=== PATIENT | female | born 1945 | race Caucasian/White ===

== ENCOUNTER → 2017-02-21 | Day surgery (SDC) | payer OTHER, MEDICARE ==
[2017-02-11 10:16] VITALS: Ht 157.5 cm; Wt 66.8 kg
[~2017-02-21] VITALS: Ht 157.5 cm; Wt 66.8 kg
[~2017-02-21] MED LIST: ATV/1 PO; ESOM20CA PO; LIDOCAINE HCL 2% 2 ML VIAL (20MG/ML) ONE; LISI-461 PO; MAGN250T3 PO; PREG1CAP28 PO; PROPOFOL IV EMULSION 10 MG/ML 20 ML VIAL IV ONE; SODIUM CHLORIDE 0.9% 500ML 500 ML IV ONE; SPECTAB57 PO; TRAZ100T29 PO; VITAMIN C PO; VITAMIN D PO
--- NOTE | 2017-02-21 10:27 | Endo History and Physical ---
History & Physical Date of Service: Feb 21, 2017. Chief Complaint: DIARRHEA, ABDOMINAL DISCOMFORT Referring Physician: DR. ROSALES History of Present Illness 72 yo CF who presents for EGD and colonoscopy secondary to diarrhea and abdominal discomfort. Past Surgical History Hx Cardiac Surgery: No Hx Internal Defibrillator: No Hx Pacemaker: No Hx Abdominal Surgery: Yes ( X 2, TAHBSO, APPY, SHAMIR, LEDA FUNDOPLICATION) Hx of Implantable Prosthesis: No Hx Post-Op Nausea and Vomiting: No Hx Cancer Surgery: No Hx Thoracic Surgery: No Hx Orthopedic: No Hx Urinary Tract Surgery: No Family History None Social History Smoking Status: Never Smoker Hx Substance Use: No Hx Alcohol Use: No Allergies Coded Allergies: Iodinated Diagnostic Agents (Verified Allergy, Unknown, THROAT SWELLS SHUT , 02/11/17) Penicillins (Verified Allergy, Unknown, THROAT SWELLED SHUT, 02/11/17) Trimethobenzamide (Verified Allergy, Unknown, THROAT SWELLS SHUT, 02/11/17) Current Medications Reported Home Medications Medications Dose Route/Sig Max Daily Dose Days Date Category [Vitamin C] 1 Tab PO DAILY 02/11/17 Reported [Vitamin D] 1 Tab PO DAILY 02/11/17 Reported Magnesium 250 mg (Magnesium) 1 Tab Tab 1 Tab PO DAILY 02/11/17 Reported Ultra Woman (Specialty Vitamins Products) 1 Tab Tab 1 Tab PO QAM 02/11/17 Reported Lyrica (Pregabalin) 75 Mg Cap 75 Mg PO BID 02/11/17 Reported Trazodone (Trazodone HCl) 100 Mg Tab 100 Mg PO HS 02/11/17 Reported Nexium (Esomeprazole Magnesium) 20 Mg Capcr 2 Tab PO QAM 02/11/17 Reported Ativan (Lorazepam) 1 Mg Tab 1 Mg PO TID PRN 02/11/17 Reported Zestril (Lisinopril) 10 Mg Tab 10 Mg PO QAM 02/11/17 Reported Vital Signs Weight (Kilograms): 66.82 Height (Feet): 5 Height (Inches): 2 Date Time Temp Pulse Resp B/P (MAP) Pulse Ox O2 Delivery O2 Flow Rate FiO2 02/21/17 09:50 37.1 81 16 156/87 (110) 98 Room Air Physical Exam General Appearance: WD/WN, no apparent distress Respiratory/Chest: Auscultation: breath sounds normal Cardiovascular: Heart Auscultation: RRR Abdomen: Bowel Sounds: normal Inspection & Palpation: soft, non-distended, no tenderness, guarding & rebound Assessment and Plan Assessment: 72 yo CF who presents for EGD and colonoscopy secondary to diarrhea and abdominal discomfort. Plan: Proceed with EGD and colonoscopy.
--- NOTE | 2017-02-21 11:07 | Discharge Instructions ---
Endoscopy Patient Instructions Date / Procedure(s) Performed Feb 21, 2017. Colonoscopy, EGD Allergy Information Coded Allergies: Iodinated Diagnostic Agents (Verified Allergy, Unknown, THROAT SWELLS SHUT , 02/11/17) Penicillins (Verified Allergy, Unknown, THROAT SWELLED SHUT, 02/11/17) Trimethobenzamide (Verified Allergy, Unknown, THROAT SWELLS SHUT, 02/11/17) Discharge Date / Findings Feb 21, 2017. EGD: Gastritis with biopsies, Esophageal brushings, Intact Will- fundoplication Colonoscopy: Diverticulosis, Internal hemorrhoids, Random colon biopsies, and Stool aspirate collected Medication Instructions 1) Start Carafate 1g by mouth four times daily for 10 days. 2) OK to resume all medications today as prescribed Reported Home Medications Medications Dose Route/Sig Max Daily Dose Days Date Category [Vitamin C] 1 Tab PO DAILY 02/11/17 Reported [Vitamin D] 1 Tab PO DAILY 02/11/17 Reported Magnesium 250 mg (Magnesium) 1 Tab Tab 1 Tab PO DAILY 02/11/17 Reported Ultra Woman (Specialty Vitamins Products) 1 Tab Tab 1 Tab PO QAM 02/11/17 Reported Lyrica (Pregabalin) 75 Mg Cap 75 Mg PO BID 02/11/17 Reported Trazodone (Trazodone HCl) 100 Mg Tab 100 Mg PO HS 02/11/17 Reported Nexium (Esomeprazole Magnesium) 20 Mg Capcr 2 Tab PO QAM 02/11/17 Reported Ativan (Lorazepam) 1 Mg Tab 1 Mg PO TID PRN 02/11/17 Reported Zestril (Lisinopril) 10 Mg Tab 10 Mg PO QAM 02/11/17 Reported Provider Instructions Activity Restrictions - No exercising or heavy lifting for 24 hours. - Do not drink alcohol the day of the procedure. - Do not drive a car or operate machinery until the day after the procedure. - Do not make any important decisions or sign important papers in 24 hours after the procedure. Following Day: - Return to full activity which may include returning to work/school. Diet Start your diet with liquids and light foods (jello, soup, juice, toast). Then eat your usual diet if not nauseated. Treatment For Common After Affects For mild abdominal pain, bloating, or excessive gas: - Rest - Eat lightly - Lie on right side Follow-Up Information Follow-up with DR. ROSALES as scheduled Anesthesia Information What You Should Know You have had a procedure that required some medicine to reduce anxiety and discomfort. This treatment is called moderate sedation. After receiving the treatment, you may be sleepy, but you will be able to breathe on your own. The effects of the treatment may last for several hours. Follow these instructions along with Activity/Diet recommendations noted above: * Do NOT do anything where dizziness or clumsiness would be dangerous. * Rest quietly at home today, then you can be up and about tomorrow. * Have a responsible person stay with you the rest of today. * You may have had an I.V. today. If so, you may take the dressing off later today. Recommendations Call your doctor if: * Trouble breathing * Continuous vomiting for more than 24 hours * Temperature above 101 degrees * Severe abdominal pain or bloating * Pain not relieved by pain medicine ordered * There is increased drainage or redness from any incision * A large amount of rectal bleeding greater than 2-3 tablespoons. (If you had a polyp/s removed or have hemorrhoids, a small amount of blood - from the rectum is to be expected.) * You have any unanswered questions or concerns. IN THE EVENT OF A SERIOUS EMERGENCY, GO TO THE NEAREST EMERGENCY ROOM Your discharge instructions were prepared by provider Lang Summers. Patient Instructions Signature Page Kandy Torres Patient (or Guardian) Signature/Date: I have read and understand the instructions given to me by my caregivers. Caregiver/RN/Doctor Signature/Date: The above-named patient and/or guardian has received patient instructions on this date. + Original Patient Signature Page (only) stays with chart. Please make copy for patient.
--- NOTE | 2017-02-21 11:13 | GI REPORT ---
Procedure Date: 02/21/2017 10:14 AM Procedure: Upper GI endoscopy Indications: Epigastric abdominal pain Medicines: Monitored Anesthesia Care Complications: No immediate complications. Estimated Blood Loss: Estimated blood loss: none. Procedure: Pre-Anesthesia Assessment: - Prior to the procedure, a History and Physical was performed, and patient medications and allergies were reviewed. The patient's tolerance of previous anesthesia was also reviewed. The risks and benefits of the procedure and the sedation options and risks were discussed with the patient. All questions were answered, and informed consent was obtained. Prior Anticoagulants: The patient has taken no previous anticoagulant or antiplatelet agents. ASA Grade Assessment: II - A patient with mild systemic disease. After reviewing the risks and benefits, the patient was deemed in satisfactory condition to undergo the procedure. After obtaining informed consent, the endoscope was passed under direct vision. Throughout the procedure, the patient's blood pressure, pulse, and oxygen saturations were monitored continuously. The scope was introduced through the mouth, and advanced to the second part of duodenum. The upper GI endoscopy was accomplished without difficulty. The patient tolerated the procedure well. Findings: Multiple 2 mm plaques were found in the middle third of the esophagus. Cells for cytology were obtained by brushing. Evidence of a Will fundoplication was found in the cardia. The wrap appeared intact. This was traversed. Localized moderate inflammation characterized by erythema was found in the gastric antrum. Biopsies were taken with a cold forceps for histology. The examined duodenum was normal. Impression: - Multiple plaques in the middle third of the esophagus. Cells for cytology obtained. - A Will fundoplication was found. The wrap appears intact. - Gastritis. Biopsied. - Normal examined duodenum. Recommendation: - Resume previous diet. - Continue present medications. - Await pathology results. - Return to primary care physician as previously scheduled. Lang Summers, DO 02/21/2017 11:13:37 AM This report has been signed electronically. Note Initiated On: 02/21/2017 10:14 AM I attest to the content of the Intraoperative Record and orders documented therein, exceptions below
--- NOTE | 2017-02-21 11:19 | GI REPORT ---
Procedure Date: 02/21/2017 10:45 AM Procedure: Colonoscopy Indications: Chronic diarrhea Medicines: Monitored Anesthesia Care Complications: No immediate complications. Estimated Blood Loss: Estimated blood loss: none. Procedure: Pre-Anesthesia Assessment: - Prior to the procedure, a History and Physical was performed, and patient medications and allergies were reviewed. The patient's tolerance of previous anesthesia was also reviewed. The risks and benefits of the procedure and the sedation options and risks were discussed with the patient. All questions were answered, and informed consent was obtained. Prior Anticoagulants: The patient has taken no previous anticoagulant or antiplatelet agents. ASA Grade Assessment: II - A patient with mild systemic disease. After reviewing the risks and benefits, the patient was deemed in satisfactory condition to undergo the procedure. After I obtained informed consent, the scope was passed under direct vision. Throughout the procedure, the patient's blood pressure, pulse, and oxygen saturations were monitored continuously. The scope was introduced through the anus and advanced to the terminal ileum. The colonoscopy was performed without difficulty. The patient tolerated the procedure well. The quality of the bowel preparation was good. Findings: Scattered small-mouthed diverticula were found in the entire colon. Non-bleeding internal hemorrhoids were found during retroflexion. The hemorrhoids were small. Several random biopsies were obtained with cold forceps for histology in the entire colon. Fluid aspiration for cytology was performed in the entire colon. Impression: - Diverticulosis in the entire examined colon. - Non-bleeding internal hemorrhoids. - Several random biopsies were obtained in the entire colon. - Fluid aspiration was performed. Recommendation: - Resume previous diet. - Continue present medications. - Repeat colonoscopy for surveillance based on pathology results. - Return to primary care physician as previously scheduled. Lang Summers DO 02/21/2017 11:19:08 AM This report has been signed electronically. Note Initiated On: 02/21/2017 10:45 AM I attest to the content of the Intraoperative Record and orders documented therein, exceptions below
[2017-02-21 11:36] VITALS: BP 161/87; PULSE 71; O2SAT 96
--- NOTE | 2017-02-21 12:02 | Discharge Instructions ---
Endoscopy Patient Instructions Date / Procedure(s) Performed Feb 21, 2017. Colonoscopy, EGD Allergy Information Coded Allergies: Iodinated Diagnostic Agents (Verified Allergy, Unknown, THROAT SWELLS SHUT , 02/11/17) Penicillins (Verified Allergy, Unknown, THROAT SWELLED SHUT, 02/11/17) Trimethobenzamide (Verified Allergy, Unknown, THROAT SWELLS SHUT, 02/11/17) Discharge Date / Findings Feb 21, 2017. EGD: Hiatal hernia, Gastritis with biopsies, Gastric polyps Colonoscopy: Diverticulosis, Internal hemorrhoids Medication Instructions OK to resume all medications today as prescribed Reported Home Medications Medications Dose Route/Sig Max Daily Dose Days Date Category [Vitamin C] 1 Tab PO DAILY 02/11/17 Reported [Vitamin D] 1 Tab PO DAILY 02/11/17 Reported Magnesium 250 mg (Magnesium) 1 Tab Tab 1 Tab PO DAILY 02/11/17 Reported Ultra Woman (Specialty Vitamins Products) 1 Tab Tab 1 Tab PO QAM 02/11/17 Reported Lyrica (Pregabalin) 75 Mg Cap 75 Mg PO BID 02/11/17 Reported Trazodone (Trazodone HCl) 100 Mg Tab 100 Mg PO HS 02/11/17 Reported Nexium (Esomeprazole Magnesium) 20 Mg Capcr 2 Tab PO QAM 02/11/17 Reported Ativan (Lorazepam) 1 Mg Tab 1 Mg PO TID PRN 02/11/17 Reported Zestril (Lisinopril) 10 Mg Tab 10 Mg PO QAM 02/11/17 Reported Provider Instructions Activity Restrictions - No exercising or heavy lifting for 24 hours. - Do not drink alcohol the day of the procedure. - Do not drive a car or operate machinery until the day after the procedure. - Do not make any important decisions or sign important papers in 24 hours after the procedure. Following Day: - Return to full activity which may include returning to work/school. Diet Start your diet with liquids and light foods (jello, soup, juice, toast). Then eat your usual diet if not nauseated. Treatment For Common After Affects For mild abdominal pain, bloating, or excessive gas: - Rest - Eat lightly - Lie on right side Follow-Up Information Follow-up with DR. ROSALES as scheduled Anesthesia Information What You Should Know You have had a procedure that required some medicine to reduce anxiety and discomfort. This treatment is called moderate sedation. After receiving the treatment, you may be sleepy, but you will be able to breathe on your own. The effects of the treatment may last for several hours. Follow these instructions along with Activity/Diet recommendations noted above: * Do NOT do anything where dizziness or clumsiness would be dangerous. * Rest quietly at home today, then you can be up and about tomorrow. * Have a responsible person stay with you the rest of today. * You may have had an I.V. today. If so, you may take the dressing off later today. Recommendations Call your doctor if: * Trouble breathing * Continuous vomiting for more than 24 hours * Temperature above 101 degrees * Severe abdominal pain or bloating * Pain not relieved by pain medicine ordered * There is increased drainage or redness from any incision * A large amount of rectal bleeding greater than 2-3 tablespoons. (If you had a polyp/s removed or have hemorrhoids, a small amount of blood - from the rectum is to be expected.) * You have any unanswered questions or concerns. IN THE EVENT OF A SERIOUS EMERGENCY, GO TO THE NEAREST EMERGENCY ROOM Your discharge instructions were prepared by provider Lang Summers. Patient Instructions Signature Page Kandy Torres Patient (or Guardian) Signature/Date: I have read and understand the instructions given to me by my caregivers. Caregiver/RN/Doctor Signature/Date: The above-named patient and/or guardian has received patient instructions on this date. + Original Patient Signature Page (only) stays with chart. Please make copy for patient.
--- NOTE | 2017-02-21 12:16 | Anesthesiology Progress Note ---
Anesthesia Post Op Note Date & Time Feb 21, 2017 at 12:16 Vital Signs Pain Intensity: 0 Vital Signs Past 12 Hours Date Time Temp Pulse Resp B/P (MAP) Pulse Ox O2 Delivery O2 Flow Rate FiO2 02/21/17 11:36 71 16 161/87 (111) 96 Room Air 02/21/17 11:21 75 16 156/90 (112) 97 Room Air 02/21/17 11:06 88 16 140/84 (102) 96 Room Air 02/21/17 09:50 37.1 81 16 156/87 (110) 98 Room Air Notes Mental Status: alert / awake / arousable, participated in evaluation Pt Amnestic to Procedure: Yes Nausea / Vomiting: adequately controlled Pain: adequately controlled Airway Patency, RR, SpO2: stable & adequate BP & HR: stable & adequate Hydration State: stable & adequate Anesthetic Complications: no major complications apparent
== END | disposition home or self-care (01) ==
LOC: C.GI 09:06
PROVIDERS: ATTEND Internal Medicine
DX: K52.9 Noninfective gastroenteritis and colitis, unspecified (principal); K29.70 Gastritis, unspecified, without bleeding; K57.90 Diverticulosis of intestine, part unspecified, without perforation or abscess without bleeding; K22.8 Other specified diseases of esophagus; K64.8 Other hemorrhoids; R12 Heartburn; F41.9 Anxiety disorder, unspecified; M19.90 Unspecified osteoarthritis, unspecified site; Z88.0 Allergy status to penicillin; Z90.89 Acquired absence of other organs; Z90.49 Acquired absence of other specified parts of digestive tract; Z98.890 Other specified postprocedural states; Z79.899 Other long term (current) drug therapy

== ENCOUNTER 2017-04-22 15:00 | Inpatient (IN) | payer OTHER, MEDICARE ==
[~2017-04-22] VITALS: Ht 160 cm; Wt 66.0 kg
[~2017-04-22 15:00] MED LIST changes: -LIDOCAINE HCL 2% 2 ML VIAL (20MG/ML) ONE; -PROPOFOL IV EMULSION 10 MG/ML 20 ML VIAL IV ONE; -SODIUM CHLORIDE 0.9% 500ML 500 ML IV ONE
[2017-04-22] MEDS ORDERED: SODIUM CHLORIDE 0.9% 500ML 500 ML IV STA (15:22)
[2017-04-22] MEDS ORDERED: ONDANSETRON INJ 2 MG/ML 2 ML VIAL IV STA (15:22)
[2017-04-22 16:04] LABS: BASO % 0.3 %; BASO ABS # 0.02 K/uL (0-0.2); EOS ABS # 0.13 K/uL (0-0.5); HEMATOCRIT 36.4 % (37-47); HEMOGLOBIN 13.4 g/dL (12.0-16.0); IG# 0.01 K/uL (0.00-0.02); LYMPH % 29.7 %; LYMPH ABS # 1.96 K/uL (1.2-3.4); MEAN CELL VOLUME 83.7 fL (80-100); MEAN CORPUSCULAR HEMOGLOBIN 30.8 pg (25-34); MEAN CORPUSCULAR HGB CONC 36.8 g/dl (32-36); MEAN PLATELET VOLUME 9.1 fL (7.4-10.4); MONO % 8.5 %; MONO ABS # 0.56 K/uL (0.11-0.59); NEUT % 59.3 %; NEUT ABS # 3.93 K/uL (1.4-6.5); PLATELET COUNT 283 K/uL (130-400); RED CELL DISTRIBUTION WIDTH SD 42.8 fL (36.4-46.3); WHITE BLOOD COUNT 6.61 K/uL (4.8-10.8)
[2017-04-22] MEDS ORDERED: MoRPHine SULFATE 2 MG/ML CARP IV STA (16:17)
[2017-04-22 16:22] LABS: ALBUMIN 3.7 gm/dl (3.4-5.0); CALCIUM 9.3 mg/dl (8.5-10.1); CREATININE 1.22 mg/dl (0.60-1.20); POTASSIUM 2.8 mmol/L (3.5-5.1)
[2017-04-22 16:25] LABS: TOTAL PROTEIN 6.9 gm/dl (6.4-8.2)
[2017-04-22] MEDS ORDERED: POTASSIUM CHLORIDE 10 MEQ / 100ML WTR IV STA ×3 (16:54→18:32)
--- NOTE | 2017-04-22 16:55 | DIAGNOSTIC IMAGING REPORT ---
ABD/PELVIS WITHOUT FOR STONE CLINICAL HISTORY: 72 years-old Female presenting with right flank pain eval for stone. TECHNIQUE: Multidetector CT of the abdomen and pelvis was performed without the use of intravenous contrast. IV contrast: None. A dose lowering technique was used consistent with the principles of ALARA (as low as reasonably achievable). COMPARISON: None. CT DOSE (mGy.cm): The estimated cumulative dose is 824.79 mGycm. FINDINGS: Sales Correspondent topogram: Cholecystectomy clips. Lung bases: Right paramediastinal reticulation likely scarring or atelectasis. Lung bases otherwise clear. Normal heart size. Coronary artery calcification. No pericardial or pleural effusion. Liver: Normal morphology. Normal density. Biliary: Mild biliary ductal prominence likely a reservoir effect in the post cholecystectomy state. Gallbladder surgically absent. Pancreas: Normal noncontrast appearance. Spleen: Normal noncontrast appearance. Adrenal glands: Normal noncontrast appearance. Kidneys and ureters: Multiple nonobstructing calculi noted bilaterally. Significantly greater stone burden is noted in the left kidney. The largest DrSamir Lis is noted in the interpolar region measuring 11 mm. No hydronephrosis. Urothelial thickening is evident on the left. Nonobstructing 3 mm calculus at the right ureterovesical junction. 6 mm calculus in the distal left ureter, which appears to be nonobstructing. Bladder: Incompletely evaluated secondary to underdistention. Pelvic organs: Uterus surgically absent. No adnexal masses. Bowel: Diverticulosis of the descending and sigmoid colon. No pericolonic fat stranding. No bowel obstruction. Small hiatal hernia. Peritoneal cavity: No free fluid or intraperitoneal gas. Lymph nodes: No gross lymphadenopathy allowing for noncontrast technique. Vasculature: Atherosclerosis of the normal caliber abdominal aorta. Abdominal wall: Infiltration of the left lower quadrant abdominal wall subcutaneous fat. Musculoskeletal: Degenerative changes of the spine. Degenerative changes of the pubic symphysis. Severe osteopenia. IMPRESSION: 1. Nonspecific infiltration of the subcutaneous fat in the left lower quadrant abdominal wall. This could suggest contusion or nonspecific edema. Correlate clinically for injury. 2. Bilateral ureteral calculi, which appear nonobstructing. 3 mm nonobstructing calculus at the right ureterovesical junction and 6 mm distal left ureteral calculus. 3. Bilateral nephrolithiasis with a greater stone burden on the left. No hydronephrosis. 4. Left urothelial thickening suggests inflammatory change. This could be reactive to the presence of the ureteral calculus or suggest infection. Correlate with urinalysis. 5. Severe osteopenia. Electronically signed by: Eduardo Mak M.D. 04/22/2017 4:54 PM Dictated Date/Time: 04/22/2017 4:46 PM
[2017-04-22] MEDS ORDERED: ESOM45CA PO (16:58)
[2017-04-22] MEDS ORDERED: TRAM-10 PO (17:01)
[2017-04-22] MEDS ORDERED: ZOLP10TA6 PO (17:01)
[2017-04-22] MEDS ORDERED: BUPR-102 PO (17:01)
[2017-04-22] MEDS ORDERED: POLYETHYLENE (MIRALAX) 17 GM PACK PO PRN (19:00)
[2017-04-22] MEDS ORDERED: ALUMINUM/MAGNESIUM/SIMETH (MAALOX MAX) 30 ML UDC PO PRN (19:00)
[2017-04-22] MEDS ORDERED: MAGNESIUM HYDROXIDE SUSP 30 ML UDC PO PRN (19:00)
[2017-04-22] MEDS ORDERED: ACETAMINOPHEN 325 MG TAB PO PRN (19:00)
[2017-04-22] MEDS ORDERED: CHOL4POW4 PO (19:04)
[2017-04-22] MEDS ORDERED: LORAZEPAM 1 MG TAB PO PRN (19:15)
--- NOTE | 2017-04-22 19:26 | History and Physical ---
History & Physical Date & Time of Service: Apr 22, 2017 at 19:06 Chief Complaint: Nausea,Weight Loss Primary Care Physician: Jonathon Cha D.O. History of Present Illness Source: patient, spouse, clinic records, hospital records This is a 72 y/o female with a history of HTN, anxiety/depression, insomnia, chronic diarrhea, hiatal hernia s/p Will fundoplication 2008 at [facility] [place], and GERD who presented to the ED on 04/22 with nausea, poor appetite and weight loss x 2 weeks. The patient is somewhat unreliable historian despite being oriented x 3. History obtained also from and outpatient records. The patient states she has been very nauseous and barely eating for the last 2 weeks. In the last two days she has only eaten some Jell-O and water. She notes about a 10 pound weight loss in the last few weeks. She feels generally weak and fatigued. She denies any vomiting. The patient states she has had a diffuse, achy abdominal pain that started in her upper quadrants but then moved to her lower quadrants. She currently denies any pain after receiving morphine. The patient was seen at her GI office today [facility], and per the provider had recommended ED evaluation and possible EGD. The patient denies fevers, chills, sweats, chest pain, palpitations, claudication, cough, wheezing, shortness of breath, vomiting, dysuria, hematuria, urinary retention, paralysis, focal motor weakness, numbness and tingling. Past Medical/Surgical History Medical Problems: (1) Gastritis Status: Resolved (2) Hiatal hernia Status: Resolved (3) Kidney stone Status: Resolved HTN Anxiety, depression, insomnia Chronic diarrhea GERD Family History Breast cancer Coronary artery disease Diabetes mellitus Leukemia Myocardial infarction Social History Smoking Status: Never Smoker Smokeless Tobacco Use: No Alcohol Use: none Drug Use: none Marital Status: Housing status: lives with significant other Occupational Status: retired Allergies Coded Allergies: Lactose. (Verified Allergy, Intermediate, GI Symptoms, 04/22/17) Iodinated Diagnostic Agents (Verified Allergy, Unknown, THROAT SWELLS SHUT , 04/22/17) Penicillins (Verified Allergy, Unknown, THROAT SWELLED SHUT, 04/22/17) Trimethobenzamide (Verified Allergy, Unknown, THROAT SWELLS SHUT, 04/22/17) Home Medications Scheduled Bupropion Hcl (Smoking [place] (Bupropion Hcl Sr), 150 MG PO BID Esomeprazole Magnesium (Esomeprazole Magnesium), 40 MG PO DAILY Lisinopril (Zestril), 10 MG PO QAM Trazodone Hcl (Trazodone), 100 MG PO HS Scheduled PRN Cholestyramine (Cholestyramine), 4 GM PO BID PRN for Diarrhea Lorazepam (Ativan), 1 MG PO TID PRN for Anxiety Tramadol (Ultram), 50 MG PO QID PRN for Pain Zolpidem Tartrate (Zolpidem Tartrate), 5-10 MG PO HS PRN for Sleep Review of Systems Constitutional: +Weak and fatigued. No fever, No chills, No sweats Eyes: No worsening of vision, No eye pain, No diplopia ENT: No hearing loss, No nasal symptoms, No trouble swallowing Respiratory: No cough, No wheezing, No shortness of breath Cardiovascular: No chest pain, No claudication, No palpitations Abdomen: +Nausea, abdominal pain. Poor appetite. No vomiting Musculoskeletal: No joint pain, No muscle pain, No swelling Genitourinary - Female: No dysuria, No urinary retention, No hematuria Neurologic: No paralysis, No weakness, No numbness/tingling Integumentary: No rash, No itch, No color change Physical Exam Vital Signs Date Time Temp Pulse Resp B/P (MAP) Pulse Ox O2 Delivery O2 Flow Rate FiO2 04/22/17 18:24 76 18 123/70 96 Room Air 04/22/17 16:57 139/71 99 Room Air 04/22/17 15:03 36.3 84 18 129/75 98 Room Air General appearance: Well-developed, well-nourished, no apparent distress Head: Normocephalic, atraumatic Eyes: Normal inspection, PERRL, EOMI ENT: Normal ENT inspection, hearing grossly normal, pharynx normal Neck: Supple, no JVD, trachea midline Respiratory/Chest: Lungs clear to auscultation, normal breath sounds, no respiratory distress Cardiovascular: Regular rate & rhythm, no gallop, no murmur Abdomen/GI: +RLQ mildly TTP. Normal bowel sounds, soft Extremities/Musculoskeletal: Normal inspection, no calf tenderness, no pedal edema Neurological/Psych: +Somewhat confused at times but oriented. Alert, normal mood/affect, oriented x 3 Skin: Normal color, warm/dry, no rash Diagnostics Laboratory Results Results Past 24 Hours Test 04/22/17 15:40 04/22/17 17:05 04/22/17 18:48 Range/Units White Blood Count 6.61 4.8-10.8 K/uL Red Blood Count 4.35 4.2-5.4 M/uL Hemoglobin 13.4 12.0-16.0 g/dL Hematocrit 36.4 37-47 % Mean Corpuscular Volume 83.7 80-100 fL Mean Corpuscular Hemoglobin 30.8 25-34 pg Mean Corpuscular Hemoglobin Concent 36.8 32-36 g/dl Platelet Count 283 130-400 K/uL Mean Platelet Volume 9.1 7.4-10.4 fL Neutrophils (%) (Auto) 59.3 % Lymphocytes (%) (Auto) 29.7 % Monocytes (%) (Auto) 8.5 % Eosinophils (%) (Auto) 2.0 % Basophils (%) (Auto) 0.3 % Neutrophils # (Auto) 3.93 1.4-6.5 K/uL Lymphocytes # (Auto) 1.96 1.2-3.4 K/uL Monocytes # (Auto) 0.56 0.11-0.59 K/uL Eosinophils # (Auto) 0.13 0-0.5 K/uL Basophils # (Auto) 0.02 0-0.2 K/uL RDW Standard Deviation 42.8 36.4-46.3 fL RDW Coefficient of Variation 14.0 11.5-14.5 % Immature Granulocyte % (Auto) 0.2 % Immature Granulocyte # (Auto) 0.01 0.00-0.02 K/uL Urine Color DK YELLOW YELLOW Urine Appearance CLOUDY CLEAR CLEAR Urine pH 6.0 6.5 4.5-7.5 Urine Specific [place] 1.024 1.015 1.000-1.030 Urine Protein 2+ NEG NEG Urine Glucose (UA) NEG NEG NEG Urine Ketones 2+ 2+ NEG Urine Occult Blood 3+ 2+ NEG Urine Nitrite NEG NEG NEG Urine Bilirubin NEG NEG NEG Urine Urobilinogen NEG NEG NEG Urine Leukocyte Esterase SMALL TRACE NEG Urine WBC (Auto) 10-30 5-10 0-5 /hpf Urine RBC (Auto) 10-30 >30 0-4 /hpf Urine Hyaline Casts (Auto) 1-5 0-5 /lpf Urine Epithelial Cells (Auto) >30 >30 0-5 /lpf Urine Bacteria (Auto) 1+ NEG NEG Urine Renal Epithelial Cells 0-5 0-5 /lpf Urine Pathogenic Casts 0 /lpf Urine Yeast (Auto) NONE PRSENT Sodium Level 138 136-145 mmol/L Potassium Level 2.8 3.5-5.1 mmol/L Chloride Level 104 98-107 mmol/L Carbon Dioxide Level 23 21-32 mmol/L Anion Gap 11.0 3-11 mmol/L Blood Urea Nitrogen 22 7-18 mg/dl Creatinine 1.22 0.60-1.20 mg/dl Est Creatinine Clear Calc Drug Dose 39.7 ml/min Estimated GFR () 52.0 Estimated GFR (Non- 44.8 BUN/Creatinine Ratio 18.4 10-20 Random Glucose 107 70-99 mg/dl Calcium Level 9.3 8.5-10.1 mg/dl Total Bilirubin 0.3 0.2-1 mg/dl Direct Bilirubin 0.1 0-0.2 mg/dl Aspartate Amino Transf (AST/SGOT) 124 15-37 U/L Alanine Aminotransferase (ALT/SGPT) 75 12-78 U/L Alkaline Phosphatase 97 45-117 U/L Total Protein 6.9 6.4-8.2 gm/dl Albumin 3.7 3.4-5.0 gm/dl Lipase 179 73-393 U/L Microbiology Results 04/22/17 Urine Culture, Received Pending Diagnostic Radiology Reviewed the following studies and agree with interpretation as follows: ABD/PELVIS WITHOUT FOR STONE CLINICAL HISTORY: 72 years-old Female presenting with right flank pain eval for stone. TECHNIQUE: Multidetector CT of the abdomen and pelvis was performed without the use of intravenous contrast. IV contrast: None. A dose lowering technique was used consistent with the principles of ALARA (as low as reasonably achievable). COMPARISON: None. CT DOSE (mGy.cm): The estimated cumulative dose is 824.79 mGycm. 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 Lung bases: Right paramediastinal reticulation likely scarring or atelectasis. Lung bases otherwise clear. Normal heart size. Coronary artery calcification. No pericardial or pleural effusion. Liver: Normal morphology. Normal density. Biliary: Mild biliary ductal prominence likely a reservoir effect in the post cholecystectomy state. Gallbladder surgically absent. Pancreas: Normal noncontrast appearance. Spleen: Normal noncontrast appearance. Adrenal glands: Normal noncontrast appearance. Kidneys and ureters: Multiple nonobstructing calculi noted bilaterally. Significantly greater stone burden is noted in the left kidney. The largest DrSamir Morocho is noted in the interpolar region measuring 11 mm. No hydronephrosis. Urothelial thickening is evident on the left. Nonobstructing 3 mm calculus at the right ureterovesical junction. 6 mm calculus in the distal left ureter, which appears to be nonobstructing. Bladder: Incompletely evaluated secondary to underdistention. Pelvic organs: Uterus surgically absent. No adnexal masses. Bowel: Diverticulosis of the descending and sigmoid colon. No pericolonic fat stranding. No bowel obstruction. Small hiatal hernia. Peritoneal cavity: No free fluid or intraperitoneal gas. Lymph nodes: No gross lymphadenopathy allowing for noncontrast technique. Vasculature: Atherosclerosis of the normal caliber abdominal aorta. Abdominal wall: Infiltration of the left lower quadrant abdominal wall subcutaneous fat. Musculoskeletal: Degenerative changes of the spine. Degenerative changes of the pubic symphysis. Severe osteopenia. IMPRESSION: 1. Nonspecific infiltration of the subcutaneous fat in the left lower quadrant abdominal wall. This could suggest contusion or nonspecific edema. Correlate clinically for injury. 2. Bilateral ureteral calculi, which appear nonobstructing. 3 mm nonobstructing calculus at the right ureterovesical junction and 6 mm distal left ureteral calculus. 3. Bilateral nephrolithiasis with a greater stone burden on the left. No hydronephrosis. 4. Left urothelial thickening suggests inflammatory change. This could be reactive to the presence of the ureteral calculus or suggest infection. Correlate with urinalysis. 5. Severe osteopenia. Impression Assessment and Plan 72 y/o female with a history of HTN, anxiety/depression, insomnia, chronic diarrhea, hiatal hernia s/p Will fundoplication 2008 at [facility] [place], and GERD who presented to the ED on 04/22 with nausea, poor appetite and weight loss x 2 weeks. Afebrile, VSS on arrival. CT abdomen/pelvis shows nonspecific infiltration of subcutaneous fat in LLQ abdominal wall suggesting contusion or nonspecific edema. Bilateral ureteral calculi which are nonobstructing. No hydronephrosis. Left urothelial thickening suggesting inflammatory change, reactive due to calculi or infection. UA with blood, some leuks, 1+ bacteria. Potassium 2.8. AST elevated at 124. Intractable nausea, poor oral intake, weight loss -Admit to med/surg for observation -Consult GI, follows w/Dr. 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 Given total 30 mEq KCl IV in ED -IVF as above -Recheck PRP at 2300 -Check EKG now -Check magnesium now, replace prn HTN--stable -Continue lisinopril 10 mg PO qd Anxiety, depression, insomnia -Pt recently prescribed Wellbutrin, but unclear if she is actually taking. Per , she was told to not take due to lowered seizure threshold in addition to her tramadol. Will hold Wellbutrin for now -Continue Ativan 1 mg PO TID prn anxiety and trazodone 100 mg PO hs Chronic diarrhea--controlled -Pt takes cholestyramine BID prn Hiatal hernia s/p Will fundoplication (2008) -H/o recent pneumoperitoneum following emesis in Dec 2016. Found to have torn sutures at that time. Afraid to vomit since DVT prophylaxis -Hold chemical prophylaxis for possible procedure -[facility] [place] Status -Level V, DO NOT RESUSCITATE I personally interviewed and examined the patient. I agree with history of present illness and physical exam mentioned above, I also performed my own history taking and examination. Past medical history and review of system has been obtained by myself I reviewed all pertinent labs and studies Reviewed current medications I discussed and formulated of the assessment and plan mentioned above. Please refer to the Summary mentioned below. 72 years old female with history of kidney stones, Niesen fundoplication in 2008 followed by revision few months ago after some of the sutures broke off from vomiting. Patient presented to the ED with significant decrease in oral intake, severe nausea and decreased appetite, patient only eats Jell-O and drinking some fluids. Also patient has renal stones and was instructed by urologist to drink a lot of water which she was unable to do. Patient will be admitted for adequate hydration and evaluation by GI General Appearance: not in acute distress Eyes: normal Sclerae, extraocular muscle intact ENT: hearing grossly normal Neck: supple Respiratory/Chest: normal air entry bilateral ,no respiratory distress, no accessory muscle use Cardiovascular: regular rate, rhythm, no murmur Abdomen: non tender, soft, no masses Extremities: no edema Neurologic/Psychiatric: Awake alert oriented times place and person moves all extremities sensation intact cranial nerves II-12 appear to be intact Skin: normal color, warm/dry, no rash Papa Faria MD, [facility] Resuscitation Status DO NOT RESUSCITATE VTE Prophylaxis VTE Risk Assessment Done? Y/N: Yes Risk Level: Moderate Given or contraindicated: T.E.D. Stockings, SCD's
--- NOTE | 2017-04-22 19:33 | EMERGENCY ROOM VISIT NOTE ---
History Report prepared by Reji: Cleveland Mark Under the Supervision of: Dr. Talon Ragsdale M.D. First contact with patient: 15:08 Chief Complaint: NAUSEA Stated Complaint: NAUSEA,WEIGHT LOSS History of Present Illness The patient is a 72 year old female who presents to the Emergency Room with complaints of intermittent nausea beginning two weeks ago. The patient has a history of a known 9mm right sided kidney stone. She was seen by her urologist in [place] yesterday and was told that she was too weak for lithotripsy. She is scheduled for lithotripsy in 13 days (May 05), but will not have it done if she is deemed too weak. The patient also complains of generalized weakness, and nausea. She notes that she has a history of chronic diarrhea for the past 10-12 years. Her abdominal pain feels like her kidney stone pain, but her urologist told her that her pain was likely unrelated. The patient states that she has lost about 10 pounds unintentionally within the past few weeks. She states that she has had very little to eat or drink recently due to feeling nauseous with eating. She has only been able to eat small bites of food throughout the day. All she had to eat yesterday was a cup of Jell-O. The patient denies vomiting, fevers, black or bloody stools, urinary symptoms, or chest pain. The patient had blood-work with her PCP about two weeks ago which was normal. She was given an antidepressant at this time to see if it would improve her symptoms, but she has not noticed any improvement. She was given an anti-nausea medication at this time as well (patient is unsure what name of medication is). The patient had hiatal hernia surgery 10-12 years ago. She had an emergency surgery to repair the fundoplication in January when it ruptured after vomiting. Source of History: patient Onset: Two weeks ago Position: other (Global) Quality: other (Weakness) Timing: constant Associated Symptoms: + nausea, + abdominal pain (bilateral lower), No fevers , No chest pain, No vomiting, No melena, No hematochezia, No urinary symptoms Review of Systems See HPI for pertinent positives & negatives. A total of 10 systems reviewed and were otherwise negative. Past Medical & Surgical Medical Problems: (1) Gastritis (2) Hiatal hernia (3) Kidney stone (4) Nausea (5) Poor nutrition Family History No pertinent family history stated. Social History Smoking Status: Never Smoker Marital Status: Current/Historical Medications Scheduled Bupropion Hcl (Smoking [place] (Bupropion Hcl Sr), 150 MG PO BID Esomeprazole Magnesium (Esomeprazole Magnesium), 40 MG PO DAILY Lisinopril (Zestril), 10 MG PO QAM Trazodone Hcl (Trazodone), 100 MG PO HS Scheduled PRN Cholestyramine (Cholestyramine), 4 GM PO BID PRN for Diarrhea Lorazepam (Ativan), 1 MG PO TID PRN for Anxiety Tramadol (Ultram), 50 MG PO QID PRN for Pain Zolpidem Tartrate (Zolpidem Tartrate), 5-10 MG PO HS PRN for Sleep Allergies Coded Allergies: Lactose. (Verified Allergy, Intermediate, GI Symptoms, 04/22/17) Iodinated Diagnostic Agents (Verified Allergy, Unknown, THROAT SWELLS SHUT , 04/22/17) Penicillins (Verified Allergy, Unknown, THROAT SWELLED SHUT, 04/22/17) Trimethobenzamide (Verified Allergy, Unknown, THROAT SWELLS SHUT, 04/22/17) Physical Exam Vital Signs Date Time Temp Pulse Resp B/P (MAP) Pulse Ox O2 Delivery O2 Flow Rate FiO2 04/22/17 18:24 76 18 123/70 96 Room Air 04/22/17 16:57 139/71 99 Room Air 04/22/17 15:03 36.3 84 18 129/75 98 Room Air Physical Exam Constitutional: Vital signs reviewed. Eyes: Pupils are equal round reactive to light. Conjunctiva are noninjected. ENT: Pharynx is clear without erythema or exudate. Mucous membranes are moist. Neck supple without meningeal signs. Respiratory: Clear to auscultation bilaterally. Breath sounds are equal bilaterally. Cardiovascular: Regular rate and rhythm. No rubs or gallops. GI: Soft, nondistended. Bowel sounds are present. Suprapubic tenderness to palpation. No guarding. Musculoskeletal: No peripheral edema. No CVA tenderness. Integumentary: No cyanosis. Neurological: The patient is awake and alert. No focal deficits. Psychiatric: Normal affect. Medical Decision & Procedures ER Provider Diagnostic Interpretation: Radiology results as stated below per my review and the radiologist's interpretation: ABD/PELVIS WITHOUT FOR STONE FINDINGS: M1 Armor Crewman topogram: Cholecystectomy clips. Lung bases: Right paramediastinal reticulation likely scarring or atelectasis. Lung bases otherwise clear. Normal heart size. Coronary artery calcification. No pericardial or pleural effusion. Liver: Normal morphology. Normal density. Biliary: Mild biliary ductal prominence likely a reservoir effect in the post cholecystectomy state. Gallbladder surgically absent. Pancreas: Normal noncontrast appearance. Spleen: Normal noncontrast appearance. Adrenal glands: Normal noncontrast appearance. Kidneys and ureters: Multiple nonobstructing calculi noted bilaterally. Significantly greater stone burden is noted in the left kidney. The largest Dr. Lis is noted in the interpolar region measuring 11 mm. No hydronephrosis. Urothelial thickening is evident on the left. Nonobstructing 3 mm calculus at the right ureterovesical junction. 6 mm calculus in the distal left ureter, which appears to be nonobstructing. Bladder: Incompletely evaluated secondary to underdistention. Pelvic organs: Uterus surgically absent. No adnexal masses. Bowel: Diverticulosis of the descending and sigmoid colon. No pericolonic fat stranding. No bowel obstruction. Small hiatal hernia. Peritoneal cavity: No free fluid or intraperitoneal gas. Lymph nodes: No gross lymphadenopathy allowing for noncontrast technique. Vasculature: Atherosclerosis of the normal caliber abdominal aorta. Abdominal wall: Infiltration of the left lower quadrant abdominal wall subcutaneous fat. Musculoskeletal: Degenerative changes of the spine. Degenerative changes of the pubic symphysis. Severe osteopenia. IMPRESSION: 1. Nonspecific infiltration of the subcutaneous fat in the left lower quadrant abdominal wall. This could suggest contusion or nonspecific edema. Correlate clinically for injury. 2. Bilateral ureteral calculi, which appear nonobstructing. 3 mm nonobstructing calculus at the right ureterovesical junction and 6 mm distal left ureteral calculus. 3. Bilateral nephrolithiasis with a greater stone burden on the left. No hydronephrosis. 4. Left urothelial thickening suggests inflammatory change. This could be reactive to the presence of the ureteral calculus or suggest infection. Correlate with urinalysis. 5. Severe osteopenia. Electronically signed by: Eduardo Mak M.D. 04/22/2017 4:54 PM Laboratory Results 04/22/17 15:40 Red Blood Count 4.35, Mean Corpuscular Volume 83.7, Mean Corpuscular Hemoglobin 30.8, Mean Corpuscular Hemoglobin Concent 36.8, Mean Platelet Volume 9.1, Neutrophils (%) (Auto) 59.3, Lymphocytes (%) (Auto) 29.7, Monocytes (%) (Auto) 8.5, Eosinophils (%) (Auto) 2.0, Basophils (%) (Auto) 0.3, Neutrophils # (Auto) 3.93, Lymphocytes # (Auto) 1.96, Monocytes # (Auto) 0.56, Eosinophils # (Auto) 0.13, Basophils # (Auto) 0.02 04/22/17 15:40 Test 04/22/17 15:40 04/22/17 17:05 White Blood Count 6.61 K/uL (4.8-10.8) Red Blood Count 4.35 M/uL (4.2-5.4) Hemoglobin 13.4 g/dL (12.0-16.0) Hematocrit 36.4 % (37-47) Mean Corpuscular Volume 83.7 fL (80-100) Mean Corpuscular Hemoglobin 30.8 pg (25-34) Mean Corpuscular Hemoglobin Concent 36.8 g/dl (32-36) Platelet Count 283 K/uL (130-400) Mean Platelet Volume 9.1 fL (7.4-10.4) Neutrophils (%) (Auto) 59.3 % Lymphocytes (%) (Auto) 29.7 % Monocytes (%) (Auto) 8.5 % Eosinophils (%) (Auto) 2.0 % Basophils (%) (Auto) 0.3 % Neutrophils # (Auto) 3.93 K/uL (1.4-6.5) Lymphocytes # (Auto) 1.96 K/uL (1.2-3.4) Monocytes # (Auto) 0.56 K/uL (0.11-0.59) Eosinophils # (Auto) 0.13 K/uL (0-0.5) Basophils # (Auto) 0.02 K/uL (0-0.2) RDW Standard Deviation 42.8 fL (36.4-46.3) RDW Coefficient of Variation 14.0 % (11.5-14.5) Immature Granulocyte % (Auto) 0.2 % Immature Granulocyte # (Auto) 0.01 K/uL (0.00-0.02) Urine Pathogenic Casts /lpf (0) Urine Yeast (Auto) (NONE PRSENT) Anion Gap 11.0 mmol/L (3-11) Est Creatinine Clear Calc Drug Dose 39.7 ml/min Estimated GFR () 52.0 Estimated GFR (Non- 44.8 BUN/Creatinine Ratio 18.4 (10-20) Calcium Level 9.3 mg/dl (8.5-10.1) Total Bilirubin 0.3 mg/dl (0.2-1) Direct Bilirubin 0.1 mg/dl (0-0.2) Aspartate Amino Transf (AST/SGOT) 124 U/L (15-37) Alanine Aminotransferase (ALT/SGPT) 75 U/L (12-78) Alkaline Phosphatase 97 U/L (45-117) Total Protein 6.9 gm/dl (6.4-8.2) Albumin 3.7 gm/dl (3.4-5.0) Lipase 179 U/L (73-393) Urine Color YELLOW Urine Appearance CLEAR (CLEAR) Urine pH 6.5 (4.5-7.5) Urine Specific [place] 1.015 (1.000-1.030) Urine Protein NEG (NEG) Urine Glucose (UA) NEG (NEG) Urine Ketones 2+ (NEG) Urine Occult Blood 2+ (NEG) Urine Nitrite NEG (NEG) Urine Bilirubin NEG (NEG) Urine Urobilinogen NEG (NEG) Urine Leukocyte Esterase TRACE (NEG) Urine WBC (Auto) 5-10 /hpf (0-5) Urine RBC (Auto) >30 /hpf (0-4) Urine Hyaline Casts (Auto) 1-5 /lpf (0-5) Urine Epithelial Cells (Auto) >30 /lpf (0-5) Urine Bacteria (Auto) NEG (NEG) Urine Renal Epithelial Cells 0-5 /lpf (0-5) Laboratory results as reviewed by me. Medications Administered Medications (Trade) Dose Ordered Sig/Papo Route Start Time Stop Time Status Last Admin Dose Admin Ondansetron HCl (Zofran Inj) 4 mg NOW STAT IV 04/22/17 15:22 04/22/17 15:24 DC 04/22/17 15:44 4 MG Sodium Chloride 500 ml @ 999 mls/hr Q31M STAT IV 04/22/17 15:22 04/22/17 15:52 DC 04/22/17 15:44 999 MLS/HR Morphine Sulfate (MoRPHine SULFATE INJ) 2 mg NOW STAT IV 04/22/17 16:17 04/22/17 16:19 DC 04/22/17 17:32 2 MG Potassium Chloride (Kcl 10 Meq / Wtr) 10 meq NOW STAT IV 04/22/17 16:54 04/22/17 16:55 DC 04/22/17 17:32 10 MEQ ED Course 1510: The patient was evaluated in room B3B. A complete history and physical exam was performed. 1522: Ordered Sodium Chloride 500 ml @ 999 mls/hr IV, Zofran Inj 4 mg IV. 1617: Ordered Morphine Sulfate 2 mg IV. 1654: Ordered KCl 10 Meq / Wtr 10 meq IV. 1705: Upon reevaluation, the patient is resting comfortably. I discussed tonight 's findings with her. She verbalized agreement of the treatment plan. The patient will be evaluated for further management. Medical Decision This is a 72-year-old female presents with generalized weakness and abdominal pain. Differential diagnosis includes dehydration, malnutrition, renal failure , renal colic, UTI. I did perform a limited focused review of portions of the patient's old chart on the electronic medical record. The patient had an EGD February 24, 2017 which showed multiple plaques in middle third of the esophagus. Will Fundoplication appears intact. Gastritis noted. Normal duodenum. I did evaluate the patient as noted above. IV access was established. The patient was placed on a continuous case monitor. I did treat the patient with normal saline and Zofran IV. I did order and review the patient's blood work as noted in the electronic medical record. She is hypokalemic. She was given IV potassium. I did order a CT of the abdomen and pelvis. I did review the images myself as well as the radiology report as described above. The patient has bilateral nonobstructing ureteral stones without any hydronephrosis. Urinalysis does show signs of infection. There were epithelial cells was concerned about contamination. I did order a repeat catheterized urine. This also showed signs of infection. A urine culture was sent. The patient is unable to eat or drink and has lost a significant amount of weight. She will need to be hospitalized for further care and evaluation. I did discuss the case with the hospice and caseworker intake. Medication Reconcilliation Current Medication List: was personally reviewed by me Blood Pressure Screening Patient's blood pressure: Elevated blood pressure Blood pressure disposition: Elevated BP felt to be situational Consults Time Called: 170 Consulting Physician: Dr. Spear - [facility] [place] Returned Call: [phone] Spear of [facility] We discussed the patient and her results. The patient will be further evaluated by [facility]. Impression Primary Impression: Dehydration Additional Impressions: Nausea Hypokalemia Chronic diarrhea Renal colic Scribe Attestation The scribe's documentation has been prepared under my direct and personally reviewed by me in its entirety. I confirm that the note above accurately reflects all work, treatment, procedures, and medical decision making performed by me. Departure Information Dispostion Being Evaluated By Hospitalist Referrals Jonathon Cha D.O. (PCP) Patient Instructions My [facility] Problem Qualifiers
[2017-04-22] MEDS ORDERED: IV FLUIDS COMPLETED PRN (19:45)
[2017-04-22 20:20] VITALS: BP 152/79; PULSE 74; TEMP 35.1; O2SAT 98; BMI 25.8
[2017-04-22] MEDS ORDERED: PANTOprazole INJ 40 MG in SYRINGE 0 ML IV ONE (20:30)
[2017-04-22] MEDS ORDERED: MAGNESIUM SULFATE 1GM / D5W 1 GM in PREMIXED IN D5W 100 ML IV ONE (20:45)
[2017-04-22] MEDS ORDERED: POTASSIUM CHLR 10MEQ / WTR IV ONE (20:45)
[2017-04-22] MEDS: POTASSIUM CHLORIDE INJ 40 MEQ in SODIUM CHLORIDE 0.9% 1000ML 1,000 ML IV SCH (21:03)
[2017-04-22] MEDS: TRAZODONE HCL 100 MG TAB PO SCH (21:05)
[2017-04-22] MEDS: MoRPHine SULFATE 2 MG/ML CARP IV PRN (21:32)
[2017-04-22 23:32] LABS: CALCIUM 8.2 mg/dl (8.5-10.1); CREATININE 0.93 mg/dl (0.60-1.20); POTASSIUM 2.7 mmol/L (3.5-5.1)
[2017-04-22 23:57] VITALS: BP 132/72; PULSE 69; TEMP 36.6; O2SAT 98
[2017-04-23 07:08] LABS: HEMATOCRIT 30.7 % (37-47); MEAN CORPUSCULAR HEMOGLOBIN 30.8 pg (25-34); MEAN CORPUSCULAR HGB CONC 35.8 g/dl (32-36); MEAN PLATELET VOLUME 8.7 fL (7.4-10.4); PLATELET COUNT 204 K/uL (130-400); RED CELL DISTRIBUTION WIDTH CV 14.5 % (11.5-14.5); WHITE BLOOD COUNT 5.42 K/uL (4.8-10.8)
[2017-04-23 07:45] LABS: ALBUMIN 2.8 gm/dl (3.4-5.0); ALKALINE PHOSPHATASE 75 U/L (45-117); ALT/SGPT 55 U/L (12-78); AST/SGOT 70 U/L (15-37); BLOOD UREA NITROGEN 18 mg/dl (7-18); CALCIUM 8.1 mg/dl (8.5-10.1); CARBON DIOXIDE 23 mmol/L (21-32); CREATININE 0.84 mg/dl (0.60-1.20); GLUCOSE 102 mg/dl (70-99); POTASSIUM 3.5 mmol/L (3.5-5.1); SODIUM 143 mmol/L (136-145); TOTAL PROTEIN 5.3 gm/dl (6.4-8.2)
[2017-04-23] MEDS: POTASSIUM CHLORIDE INJ 40 MEQ in SODIUM CHLORIDE 0.9% 1000ML 1,000 ML IV SCH ×2 (07:56→19:38)
[2017-04-23] MEDS: LISINOPRIL 10 MG TAB PO SCH (07:56)
[2017-04-23] MEDS: ONDANSETRON INJ 2 MG/ML 2 ML VIAL IV PRN ×2 (08:02→19:52)
[2017-04-23 08:16] VITALS: BP 110/56; PULSE 76; TEMP 36.7; O2SAT 99
[2017-04-23 08:18] VITALS: O2SAT 99
[2017-04-23] MEDS: PANTOprazole INJ 40 MG in SYRINGE 0 ML IV SCH (10:31)
[2017-04-23] MEDS: MoRPHine SULFATE 2 MG/ML CARP IV PRN ×2 (10:31→21:31)
--- NOTE | 2017-04-23 10:38 | Gastrointestinal Consultation ---
Gastrointestinal Consultation Date of Consultation: Apr 23, 2017 Attending Physician: Radha Martinez PA-C Consulting Physician: Dr. Summers/SUNITA Lees Reason for Consultation: Nausea with vomiting History of Present Illness Patient is a 72 year old female with a history of chronic GERD status post Will fundoplication with prior slippage requiring repair at [facility] in [place], [place]. She has been following with Dr. Mcknight and Dr. Billy in this regard. She was last seen by Dr. Porras in January of 2017. 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 Dr. Summers was consulted at that time for consideration of anatomical re-evaluation and the patient did undergo both an EGD and colonoscopy in February of 2017. Findings at that time included kermit esophagitis which was treated with Diflucan as well as nonspecific colitis. A repeat colonoscopy is planned for February in this regard. Patient states that she had been doing well with acid suppressive therapy and Questran powder for control of her GI symptomatology until approximately two weeks ago. At that time, she developed significant nausea with intermittent vomiting, loss of appetite and lower abdominal pain. She describes the pain as sharp in the bilateral lower quadrants right>left. Rates the pain as 4/10 at present. No fever or chills. She is having associated frequent urination with urinary incontinence as well as gross hematuria. The patient has a known history of nephrolithiasis and states she has been following with urology in [place], [place]. There were plans for lithotripsy but she states she was awaiting an appointment with her PCP for pre-operative medical clearance. Patient presented to the office yesterday for evaluation of her nausea/vomiting and associated weight loss of 10 pounds over the past week. During the visit, she excused herself from the appointment with Bouchra Franco PA-C to urinate and vomit. She was incontinent of urine during the appointment. Due to this, she was advised ER evaluation. Laboratory testing on arrival included: white blood cell count 6.61, hemoglobin 13.4, hematocrit 83.7, platelets 283, sodium 138, potassium 2.8, BUN 22, creatinine 1.22, and abnormal UA which included 3+ blood, leukocyte esterase positivity, and positive RBCS as well as WBCS. Culture is pending. CT a/p was performed. She was noted to have post-cholecystectomy biliary dilation but no acute GI findings. She was noted to have bilateral nephrolithiasis, largest stone measuring 11 mm with associated left urothelial thickening noted. No hydronephrosis or apparent obstruction. Past Medical/Surgical History Medical Problems: (1) Chronic diarrhea Status: Acute (2) Dehydration Status: Acute (3) Hypokalemia Status: Acute (4) Renal colic Status: Acute Past Medical History: 1. GERD 2. Gastritis 3. Esophageal candidiasis 4. Nephrolithiasis 5. Chronic diarrhea Past Surgical History: 1. EGD 2. Complete colonoscopy 3. Appendectomy 4. Cholecystectomy 5. Hiatal hernia repair with Will fundoplication 6. Will repair Family History Breast cancer Coronary artery disease Diabetes mellitus Leukemia Myocardial infarction Negative for GI malignancy or IBD Social History Smoking Status: Unknown if Ever Smoked Alcohol Use: none Drug Use: none Marital Status: Occupation Status: retired Allergies Coded Allergies: Lactose. (Verified Allergy, Intermediate, GI Symptoms, 04/22/17) Iodinated Diagnostic Agents (Verified Allergy, Unknown, THROAT SWELLS SHUT , 04/22/17) Penicillins (Verified Allergy, Unknown, THROAT SWELLED SHUT, 04/22/17) Trimethobenzamide (Verified Allergy, Unknown, THROAT SWELLS SHUT, 04/22/17) Current Medications Home Meds and Scripts Medications Dose Route/Sig Max Daily Dose Days Date Category Cholestyramine 4 Gm Pow 4 Gm PO BID PRN 04/22/17 Reported Bupropion Hcl Sr (Bupropion Hcl (Smoking Deterre) 150 Mg Tab 150 Mg PO BID 04/22/17 Reported Zolpidem Tartrate 10 Mg Tab 5-10 Mg PO HS PRN 04/22/17 Reported Ultram (Tramadol HCl) 50 Mg Tab 50 Mg PO QID PRN 04/22/17 Reported Esomeprazole Magnesium 20 Mg Cap 40 Mg PO DAILY 04/22/17 Reported Trazodone (Trazodone HCl) 100 Mg Tab 100 Mg PO HS 02/11/17 Reported Ativan (Lorazepam) 1 Mg Tab 1 Mg PO TID PRN 02/11/17 Reported Zestril (Lisinopril) 10 Mg Tab 10 Mg PO QAM 02/11/17 Reported Review of Systems See HPI for pertinent positives & negatives. A total of 10 systems reviewed and were otherwise negative. Physical Exam Date Time Temp Pulse Resp B/P (MAP) Pulse Ox O2 Delivery O2 Flow Rate FiO2 04/23/17 08:18 99 Room Air 04/23/17 08:16 36.7 76 14 110/56 (74) 99 Room Air 04/23/17 00:00 Room Air 04/22/17 23:57 36.6 69 18 132/72 (92) 98 Room Air 04/22/17 20:20 35.1 74 16 152/79 98 Room Air 04/22/17 20:10 36.3 72 18 146/76 96 04/22/17 19:52 72 146/76 04/22/17 18:24 76 18 123/70 96 Room Air 04/22/17 16:57 139/71 99 Room Air 04/22/17 15:03 36.3 84 18 129/75 98 Room Air General Appearance: WD/WN, no apparent distress Eyes: EOMI ENT: hearing grossly normal Neck: supple Respiratory/Chest: lungs clear, normal breath sounds, no respiratory distress Cardiovascular: regular rate, rhythm, no gallop, no murmur Abdomen: normal bowel sounds, non tender, + tenderness (bilateral lower quadrants) Extremities: no pedal edema Neurologic/Psych: alert, normal mood/affect, oriented x 3 Skin: warm/dry Laboratory Results Last 24 Hours Test 04/22/17 15:40 04/22/17 17:05 04/22/17 22:50 04/23/17 06:53 White Blood Count 6.61 K/uL 5.42 K/uL Red Blood Count 4.35 M/uL 3.57 M/uL Hemoglobin 13.4 g/dL 11.0 g/dL Hematocrit 36.4 % 30.7 % Mean Corpuscular Volume 83.7 fL 86.0 fL Mean Corpuscular Hemoglobin 30.8 pg 30.8 pg Mean Corpuscular Hemoglobin Concent 36.8 g/dl 35.8 g/dl Platelet Count 283 K/uL 204 K/uL Mean Platelet Volume 9.1 fL 8.7 fL Neutrophils (%) (Auto) 59.3 % Lymphocytes (%) (Auto) 29.7 % Monocytes (%) (Auto) 8.5 % Eosinophils (%) (Auto) 2.0 % Basophils (%) (Auto) 0.3 % Neutrophils # (Auto) 3.93 K/uL Lymphocytes # (Auto) 1.96 K/uL Monocytes # (Auto) 0.56 K/uL Eosinophils # (Auto) 0.13 K/uL Basophils # (Auto) 0.02 K/uL RDW Standard Deviation 42.8 fL 45.0 fL RDW Coefficient of Variation 14.0 % 14.5 % Immature Granulocyte % (Auto) 0.2 % Immature Granulocyte # (Auto) 0.01 K/uL Urine Color DK YELLOW YELLOW Urine Appearance CLOUDY CLEAR Urine pH 6.0 6.5 Urine Specific [place] 1.024 1.015 Urine Protein 2+ NEG Urine Glucose (UA) NEG NEG Urine Ketones 2+ 2+ Urine Occult Blood 3+ 2+ Urine Nitrite NEG NEG Urine Bilirubin NEG NEG Urine Urobilinogen NEG NEG Urine Leukocyte Esterase SMALL TRACE Urine WBC (Auto) 10-30 /hpf 5-10 /hpf Urine RBC (Auto) 10-30 /hpf >30 /hpf Urine Hyaline Casts (Auto) /lpf 1-5 /lpf Urine Epithelial Cells (Auto) >30 /lpf >30 /lpf Urine Bacteria (Auto) 1+ NEG Urine Renal Epithelial Cells /lpf 0-5 /lpf Urine Pathogenic Casts /lpf Urine Yeast (Auto) Sodium Level 138 mmol/L 141 mmol/L 143 mmol/L Potassium Level 2.8 mmol/L 2.7 mmol/L 3.5 mmol/L Chloride Level 104 mmol/L 109 mmol/L 112 mmol/L Carbon Dioxide Level 23 mmol/L 24 mmol/L 23 mmol/L Anion Gap 11.0 mmol/L 8.0 mmol/L 8.0 mmol/L Blood Urea Nitrogen 22 mg/dl 19 mg/dl 18 mg/dl Creatinine 1.22 mg/dl 0.93 mg/dl 0.84 mg/dl Est Creatinine Clear Calc Drug Dose 39.7 ml/min 51.4 ml/min 56.9 ml/min Estimated GFR () 52.0 72.2 81.6 Estimated GFR (Non- 44.8 62.3 70.4 BUN/Creatinine Ratio 18.4 20.8 21.6 Random Glucose 107 mg/dl 111 mg/dl 102 mg/dl Calcium Level 9.3 mg/dl 8.2 mg/dl 8.1 mg/dl Magnesium Level 1.6 mg/dl 2.0 mg/dl Total Bilirubin 0.3 mg/dl 0.3 mg/dl Direct Bilirubin 0.1 mg/dl < 0.1 mg/dl Aspartate Amino Transf (AST/SGOT) 124 U/L 70 U/L Alanine Aminotransferase (ALT/SGPT) 75 U/L 55 U/L Alkaline Phosphatase 97 U/L 75 U/L Total Protein 6.9 gm/dl 5.3 gm/dl Albumin 3.7 gm/dl 2.8 gm/dl Lipase 179 U/L Impression Patient is a 72 year old female with a history of GERD s/p hiatus hernia repair and Will as well as nephrolithiasis admitted with intractable nausea with vomiting as bilateral lower quadrant pain and hematuria with urinary incontinence. Plan 1. Consult urology in regard to sx, as well as UA and CT findings. 2. Continue Protonix 40 mg IV daily. 3. Antiemetics and analgesics as prescribed for symptomatic management. 4. No plan for repeat EGD as recent endoscopy in February 2017. Could consider UGI with small bowel follow through but would await urology evaluation. 5. Supportive care per primary team. Thank you for allowing us to participate in the care of this pleasant patient. If you have any questions or concerns, please do not hesitate to contact us. Agree with SUNITA Lees as above Abd: Soft, NT, ND, +BS Continue current therapy Will follow her clinical course and make further recommendations as needed.
--- NOTE | 2017-04-23 11:53 | Hospitalist Progress Note ---
Hospitalist Progress Note Date of Service Apr 23, 2017. (Josette Howard CRNP) Subjective Pt evaluation today including: conversation w/ patient, physical exam, chart review, lab review, review of inpatient medication list Ms. Torres'edi abdominal pain has improved however she does feel like she has to urinate often. She has been seeing blood in her urine for a few weeks and has seen her urologist recently for this complaint but he felt she was too sick given the nausea and vomiting to intervene. She has burning with urination. She was nauseas this morning but has not vomited. ROS Constitutional: no chills, aches, sweats or fever Respiratory: no sob,cough, sputum, or wheezing Cardiac: no chest pain, palpitations, edema, orthopnea or lightheadedness GI: see HPI :see HPI Extremities: no joint pain or weakness Skin: no rash All other systems reviewed and negative (Josette Howard .SUNITA) Medications Medications Administered Medications (Trade) Dose Ordered Sig/Papo Route Start Time Stop Time Status Last Admin Dose Admin Ondansetron HCl (Zofran Inj) 4 mg NOW STAT IV 04/22/17 15:22 04/22/17 15:24 DC 04/22/17 15:44 4 MG Sodium Chloride 500 ml @ 999 mls/hr Q31M STAT IV 04/22/17 15:22 04/22/17 15:52 DC 04/22/17 15:44 999 MLS/HR Morphine Sulfate (MoRPHine SULFATE INJ) 2 mg NOW STAT IV 04/22/17 16:17 04/22/17 16:19 DC 04/22/17 17:32 2 MG Potassium Chloride (Kcl 10 Meq / Wtr) 10 meq NOW STAT IV 04/22/17 16:54 04/22/17 16:55 DC 04/22/17 17:32 10 MEQ Ondansetron HCl (Zofran Inj) 4 mg Q6H PRN IV 04/22/17 19:00 05/22/17 18:59 04/23/17 08:02 4 MG Pantoprazole Sodium 40 mg/ Syringe 10 ml @ 5 mls/min DAILY@11 IV 04/23/17 11:00 05/23/17 10:59 04/23/17 10:31 5 MLS/MIN Pantoprazole Sodium 40 mg/ Syringe 10 ml @ 5 mls/min NOW ONCE IV 04/22/17 20:30 04/22/17 20:32 DC 04/22/17 21:03 5 MLS/MIN Potassium Chloride 40 meq/ Sodium Chloride 1,020 ml @ 100 mls/hr [id number] IV 04/22/17 20:30 05/22/17 20:29 04/23/17 07:56 100 MLS/HR Lisinopril (Zestril Tab) 10 mg QAM PO 04/23/17 08:00 05/23/17 08:59 04/23/17 07:56 10 MG Trazodone HCl (Desyrel Tab) 100 mg HS PO 04/22/17 21:00 05/22/17 20:59 04/22/17 21:05 100 MG Morphine Sulfate (MoRPHine SULFATE INJ) 2 mg Q4H PRN IV 04/22/17 19:15 05/06/17 19:14 04/23/17 10:31 2 MG Magnesium Sulfate 1 gm/Prmx 100 ml @ 100 mls/hr NOW ONCE IV 04/22/17 20:45 04/22/17 21:44 DC 04/22/17 21:05 100 MLS/HR Potassium Chloride 10 meq/ Prmx 100 ml @ 100 mls/hr ONE ONCE IV 04/22/17 20:45 04/22/17 21:44 DC 04/22/17 21:04 100 MLS/HR (Josette Howard, SUNITA) Objective Vital Signs Date Time Temp Pulse Resp B/P (MAP) Pulse Ox O2 Delivery O2 Flow Rate FiO2 04/23/17 08:18 99 Room Air 04/23/17 08:16 36.7 76 14 110/56 (74) 99 Room Air 04/23/17 08:00 Room Air 04/23/17 00:00 Room Air 04/22/17 23:57 36.6 69 18 132/72 (92) 98 Room Air 04/22/17 20:20 35.1 74 16 152/79 98 Room Air 04/22/17 20:10 36.3 72 18 146/76 96 04/22/17 19:52 72 146/76 04/22/17 18:24 76 18 123/70 96 Room Air 04/22/17 16:57 139/71 99 Room Air 04/22/17 15:03 36.3 84 18 129/75 98 Room Air (Josette Howard CRNP) Physical Exam Notes: General: no distress Eyes: normal inspection, PERLL Respiratory: chest non tender, clear to auscultation, normal breath sounds, no respiratory distress, no accessory muscle use Cardiac: regular rate and rhythm, no rub or gallop, no murmur, no edema, no jvd GI/: active bowel sounds, mild tenderness to palpation right upper and lower quadrants, soft, non distended Extremities: normal range of motion, normal strength, non tender Neuro/Psych: alert and oriented x 3, normal mood and affect Skin: normal color, dry (Josette Howard CRNP) Laboratory Results Last 24 Hours Test 04/22/17 15:40 04/22/17 17:05 04/22/17 22:50 04/23/17 06:53 White Blood Count 6.61 K/uL 5.42 K/uL Red Blood Count 4.35 M/uL 3.57 M/uL Hemoglobin 13.4 g/dL 11.0 g/dL Hematocrit 36.4 % 30.7 % Mean Corpuscular Volume 83.7 fL 86.0 fL Mean Corpuscular Hemoglobin 30.8 pg 30.8 pg Mean Corpuscular Hemoglobin Concent 36.8 g/dl 35.8 g/dl Platelet Count 283 K/uL 204 K/uL Mean Platelet Volume 9.1 fL 8.7 fL Neutrophils (%) (Auto) 59.3 % Lymphocytes (%) (Auto) 29.7 % Monocytes (%) (Auto) 8.5 % Eosinophils (%) (Auto) 2.0 % Basophils (%) (Auto) 0.3 % Neutrophils # (Auto) 3.93 K/uL Lymphocytes # (Auto) 1.96 K/uL Monocytes # (Auto) 0.56 K/uL Eosinophils # (Auto) 0.13 K/uL Basophils # (Auto) 0.02 K/uL RDW Standard Deviation 42.8 fL 45.0 fL RDW Coefficient of Variation 14.0 % 14.5 % Immature Granulocyte % (Auto) 0.2 % Immature Granulocyte # (Auto) 0.01 K/uL Urine Color DK YELLOW YELLOW Urine Appearance CLOUDY CLEAR Urine pH 6.0 6.5 Urine Specific [place] 1.024 1.015 Urine Protein 2+ NEG Urine Glucose (UA) NEG NEG Urine Ketones 2+ 2+ Urine Occult Blood 3+ 2+ Urine Nitrite NEG NEG Urine Bilirubin NEG NEG Urine Urobilinogen NEG NEG Urine Leukocyte Esterase SMALL TRACE Urine WBC (Auto) 10-30 /hpf 5-10 /hpf Urine RBC (Auto) 10-30 /hpf >30 /hpf Urine Hyaline Casts (Auto) /lpf 1-5 /lpf Urine Epithelial Cells (Auto) >30 /lpf >30 /lpf Urine Bacteria (Auto) 1+ NEG Urine Renal Epithelial Cells /lpf 0-5 /lpf Urine Pathogenic Casts /lpf Urine Yeast (Auto) Sodium Level 138 mmol/L 141 mmol/L 143 mmol/L Potassium Level 2.8 mmol/L 2.7 mmol/L 3.5 mmol/L Chloride Level 104 mmol/L 109 mmol/L 112 mmol/L Carbon Dioxide Level 23 mmol/L 24 mmol/L 23 mmol/L Anion Gap 11.0 mmol/L 8.0 mmol/L 8.0 mmol/L Blood Urea Nitrogen 22 mg/dl 19 mg/dl 18 mg/dl Creatinine 1.22 mg/dl 0.93 mg/dl 0.84 mg/dl Est Creatinine Clear Calc Drug Dose 39.7 ml/min 51.4 ml/min 56.9 ml/min Estimated GFR () 52.0 72.2 81.6 Estimated GFR (Non- 44.8 62.3 70.4 BUN/Creatinine Ratio 18.4 20.8 21.6 Random Glucose 107 mg/dl 111 mg/dl 102 mg/dl Calcium Level 9.3 mg/dl 8.2 mg/dl 8.1 mg/dl Magnesium Level 1.6 mg/dl 2.0 mg/dl Total Bilirubin 0.3 mg/dl 0.3 mg/dl Direct Bilirubin 0.1 mg/dl < 0.1 mg/dl Aspartate Amino Transf (AST/SGOT) 124 U/L 70 U/L Alanine Aminotransferase (ALT/SGPT) 75 U/L 55 U/L Alkaline Phosphatase 97 U/L 75 U/L Total Protein 6.9 gm/dl 5.3 gm/dl Albumin 3.7 gm/dl 2.8 gm/dl Lipase 179 U/L (Josette Howard, SUNITA) Assessment and Plan Ms. Torres is a 72 year old woman here for abdominal pain, nausea and vomiting Intractable nausea, poor oral intake, weight loss -Consult GI, follows w/Dr. Summers -Clear liquid diet as tolerated for now -No plan for EGD per GI since she had one recently in February - will place on clears -NSS + 40 mEq KCl at 100 cc/hr due to poor oral intake -Protonix 40 mg IV qd -Morphine 2 mg IV q4h prn pain -Zofran 4 mg IV q6h prn nausea -Consult recovery coordinator -AST elevated on admission, trending down Dysuria, hematuria - consult urology - UC pending, leukocytes, wbcs improving and bacteria not shown on repeat UA - will start cipro as patient is symptomatic - CT showed bilateral ureteral calculi non obstructing, no hydronephrosis Hypokalemia -Potassium 2.8 on admission. Given total 30 mEq KCl IV in ED - resolved HTN--stable -Continue lisinopril 10 mg PO qd Anxiety, depression, insomnia -Pt recently prescribed Wellbutrin, but unclear if she is actually taking. Per , she was told to not take due to lowered seizure threshold in addition to her tramadol. Will hold Wellbutrin for now -Continue Ativan 1 mg PO TID prn anxiety and trazodone 100 mg PO hs Chronic diarrhea--controlled -Pt takes cholestyramine BID prn Hiatal hernia s/p Will fundoplication (2008) -H/o recent pneumoperitoneum following emesis in Dec 2016. Found to have torn sutures at that time. Afraid to vomit since DVT prophylaxis -RISHABH pemberton and SCDs DNR (Josette Howard ., SUNITA) DATA OPERATIONS MANAGER Physician Supervision Note: I interviewed and examined the patient. Discussed with Josette Howard DATA OPERATIONS MANAGER and agree with findings and plan as documented in the note. Any exceptions or clarifications are listed here: None Patient presents with persistent hematuria and likely recurrent renal stones she is a history of Will fundoplication however her urine cannot be excluded from being infected were waiting urology confirmation regarding how to proceed with regards to her stones Vital signs show temperature 36 7 pulse 76 respiration rate 14 BP 110/76 O2 sat 99 physical exam she is uncomfortable her abdominal exam shows normoactive bowel sounds she is tender bilaterally especially in the bilateral CVA area her cardiac: Exam however shows her to be comfortable without respiratory distress and with a regular heart rate Hematuria with history of renal stones with possibly renal colic plus minus infection we've added ciprofloxacin left pain control with ketorolac and opiates parenterally hydrate her aggressively and await urology input Documented By: Talon Babb (Talon Babb M.D.)
[2017-04-23] MEDS ORDERED: CIPROFLOXACIN / D5W 400 MG in PREMIXED IN D5W 200 ML IV ONE (12:30)
[2017-04-23] MEDS: KETOROLAC TROMETHAMINE 15 MG/ML VIAL IV PRN (14:36)
[2017-04-23 16:00] VITALS: O2SAT 99
[2017-04-23 16:05] VITALS: Ht 160 cm; Wt 66.0 kg
[2017-04-23 16:18] VITALS: BP 147/70; PULSE 66; TEMP 36.5; O2SAT 98
--- NOTE | 2017-04-23 16:38 | Urology Consultation ---
History General Date of Service: Apr 23, 2017. Chief Complaint: nausea, abdominal pain Primary Care Physician: Jonathon Cha D.O. Pt seen a urologist before?: Yes (Dr. Hoang, and urology in [place], [place]) If yes, why?: nephrolithiasis History of Present Illness 72 yo female presents to [facility] with c/o several weeks of abdominal pain, nausea, and weight loss. She reports right flank pain radiating to the suprapubic region. She also notes gross hematuria. CT shows bilateral ureteral stones without hydronephrosis as well as a large 11mm left renal stone. She reports a hx of stones over at least 40 years or more requiring ESWL, URS, and stent placement in the past. She states she saw her urologist in [place], [place] 2 days ago, and he told her she was too sick to operate on, but scheduled her for ESWL on 05-05 if cleared by her PCP. She is noted to currently be afebrile. Cr and white count are normal. UC&S is preliminarily negative. Imaging Imaging: CT Laboratory Last 24 Hours Test 04/22/17 17:05 04/22/17 22:50 04/23/17 06:53 Urine Color YELLOW Urine Appearance CLEAR Urine pH 6.5 Urine Specific [place] 1.015 Urine Protein NEG Urine Glucose (UA) NEG Urine Ketones 2+ Urine Occult Blood 2+ Urine Nitrite NEG Urine Bilirubin NEG Urine Urobilinogen NEG Urine Leukocyte Esterase TRACE Urine WBC (Auto) 5-10 /hpf Urine RBC (Auto) >30 /hpf Urine Hyaline Casts (Auto) 1-5 /lpf Urine Epithelial Cells (Auto) >30 /lpf Urine Bacteria (Auto) NEG Urine Renal Epithelial Cells 0-5 /lpf Sodium Level 141 mmol/L 143 mmol/L Potassium Level 2.7 mmol/L 3.5 mmol/L Chloride Level 109 mmol/L 112 mmol/L Carbon Dioxide Level 24 mmol/L 23 mmol/L Anion Gap 8.0 mmol/L 8.0 mmol/L Blood Urea Nitrogen 19 mg/dl 18 mg/dl Creatinine 0.93 mg/dl 0.84 mg/dl Est Creatinine Clear Calc Drug Dose 51.4 ml/min 56.9 ml/min Estimated GFR () 72.2 81.6 Estimated GFR (Non- 62.3 70.4 BUN/Creatinine Ratio 20.8 21.6 Random Glucose 111 mg/dl 102 mg/dl Calcium Level 8.2 mg/dl 8.1 mg/dl White Blood Count 5.42 K/uL Red Blood Count 3.57 M/uL Hemoglobin 11.0 g/dL Hematocrit 30.7 % Mean Corpuscular Volume 86.0 fL Mean Corpuscular Hemoglobin 30.8 pg Mean Corpuscular Hemoglobin Concent 35.8 g/dl RDW Standard Deviation 45.0 fL RDW Coefficient of Variation 14.5 % Platelet Count 204 K/uL Mean Platelet Volume 8.7 fL Magnesium Level 2.0 mg/dl Total Bilirubin 0.3 mg/dl Direct Bilirubin < 0.1 mg/dl Aspartate Amino Transf (AST/SGOT) 70 U/L Alanine Aminotransferase (ALT/SGPT) 55 U/L Alkaline Phosphatase 75 U/L Total Protein 5.3 gm/dl Albumin 2.8 gm/dl Problem List Medical Problems: (1) Chronic diarrhea Status: Acute (2) Dehydration Status: Acute (3) Hypokalemia Status: Acute (4) Renal colic Status: Acute Past History anxiety, depression, GERD, hypertension, kidney stones, other (gastritis, hiatal hernia, chonic diarrhea) Past Surgical History: lithotripsy, ureteral stent, other (Will fundoplication) Family History Breast cancer Coronary artery disease Diabetes mellitus Leukemia Myocardial infarction Social History Hx Tobacco Use In Past Year?: No Smoking: non-smoker Alcohol: never Drug use: none Marital status: Housing status: lives with significant other Occupation status: retired Allergies Coded Allergies: Lactose. (Verified Allergy, Intermediate, GI Symptoms, 04/22/17) Iodinated Diagnostic Agents (Verified Allergy, Unknown, THROAT SWELLS SHUT , 04/22/17) Penicillins (Verified Allergy, Unknown, THROAT SWELLED SHUT, 04/22/17) Trimethobenzamide (Verified Allergy, Unknown, THROAT SWELLS SHUT, 04/22/17) Medications Home Medications: Home Meds and Scripts Medications Dose Route/Sig Max Daily Dose Days Date Category Cholestyramine 4 Gm Pow 4 Gm PO BID PRN 04/22/17 Reported Bupropion Hcl Sr (Bupropion Hcl (Smoking [place]) 150 Mg Tab 150 Mg PO BID 04/22/17 Reported Zolpidem Tartrate 10 Mg Tab 5-10 Mg PO HS PRN 04/22/17 Reported Ultram (Tramadol HCl) 50 Mg Tab 50 Mg PO QID PRN 04/22/17 Reported Esomeprazole Magnesium 20 Mg Cap 40 Mg PO DAILY 04/22/17 Reported Trazodone (Trazodone HCl) 100 Mg Tab 100 Mg PO HS 02/11/17 Reported Ativan (Lorazepam) 1 Mg Tab 1 Mg PO TID PRN 02/11/17 Reported Zestril (Lisinopril) 10 Mg Tab 10 Mg PO QAM 02/11/17 Reported Inpatient Medications: Current Inpatient Medications Medications (Trade) Dose Ordered Sig/Papo Route Start Time Stop Time Status Last Admin Dose Admin Acetaminophen (Tylenol Tab) 650 mg Q4H PRN PO 04/22/17 19:00 05/22/17 18:59 Al Hydrox/Mg Hydrox/Simethicone (Maalox Max Susp) 15 ml Q4H PRN PO 04/22/17 19:00 05/22/17 18:59 Magnesium Hydroxide (Milk Of Magnesia Susp) 30 ml Q6H PRN PO 04/22/17 19:00 05/22/17 18:59 Polyethylene (Miralax Powder Packet) 17 gm DAILY PRN PO 04/22/17 19:00 05/22/17 18:59 Ondansetron HCl (Zofran Inj) 4 mg Q6H PRN IV 04/22/17 19:00 05/22/17 18:59 04/23/17 08:02 4 MG Pantoprazole Sodium 40 mg/ Syringe 10 ml @ 5 mls/min DAILY@11 IV 04/23/17 11:00 05/23/17 10:59 04/23/17 10:31 5 MLS/MIN Potassium Chloride 40 meq/ Sodium Chloride 1,020 ml @ 100 mls/hr [id number] IV 04/22/17 20:30 05/22/17 20:29 04/23/17 07:56 100 MLS/HR Lisinopril (Zestril Tab) 10 mg QAM PO 04/23/17 08:00 05/23/17 08:59 04/23/17 07:56 10 MG Lorazepam (Ativan Tab) 1 mg TID PRN PO 04/22/17 19:15 05/22/17 19:14 Trazodone HCl (Desyrel Tab) 100 mg HS PO 04/22/17 21:00 05/22/17 20:59 04/22/17 21:05 100 MG Morphine Sulfate (MoRPHine SULFATE INJ) 2 mg Q4H PRN IV 04/22/17 19:15 05/06/17 19:14 04/23/17 10:31 2 MG Miscellaneous (Iv Fluids Completed) 1 ea PRN PRN N/A 04/22/17 19:45 04/22/18 19:44 Ciprofloxacin/ Dextrose 400 mg/ Prmx 200 ml @ 100 mls/hr Q12 IV 04/23/17 21:00 04/27/17 23:59 Ketorolac Tromethamine (Toradol Inj) 15 mg Q6H PRN IV 04/23/17 14:30 04/28/17 14:29 04/23/17 14:36 15 MG Enteral Nutritional Formula (Boost Breeze Nutritional Drink) 1 box BID PO 04/23/17 20:00 05/23/17 19:59 Review of Systems Review of Systems Constitutional: No fever, No chills Eyes: No double vision Neurological: No dizzy Endocrine: No excessive thirst Gastrointestinal: + abdominal pain (right flank, RLQ, suprapubic region ), + nausea, No vomiting Cardiovascular: No chest pain Respiratory: No shortness of breath Skin: No rash Musculoskeletal: No back pain Female : + blood in urine, + kidney stones, No painful urination Physical Exam Vital Signs: Vital Signs Past 12 Hours Date Time Temp Pulse Resp B/P (MAP) Pulse Ox O2 Delivery O2 Flow Rate FiO2 04/23/17 08:18 99 Room Air 04/23/17 08:16 36.7 76 14 110/56 (74) 99 Room Air 04/23/17 08:00 Room Air Physical Exam: General Appearance: no apparent distress Eyes: bilateral eyes normal inspection ENT: hearing grossly normal Neck: no JVD Respiratory/Chest: no respiratory distress, no accessory muscle use Cardiovascular: no JVD Extremities: normal inspection Neurologic/Psychiatric: alert, normal mood/affect, oriented x 3 Skin: normal color Assessment & Plan Assessment & Plan Treatment Planned: cystoscopy w/ stent A/P: Bilateral ureteral stones Stones most likely source for patients abdominal pain and n/v. Will plan for a cysto with bilateral ureteral stent placement tomorrow. Risks and benefits of the procedure discussed with the pt. All questions answered. Pt agrees to the procedure at this time. Will order a pre-op chest x-ray and EKG. Check KUB in the AM for stone passage. NPO after midnight for stent placement tomorrow. I have discussed with the pt following up with her primary urologist after stent placement vs with [facility]. She thinks she would like to f/u with [facility] This is reasonable. Would likely plan for outpatient URS for definitive stone management. Thanks for the consult. Will continue to follow along with primary service.
[2017-04-23] MEDS: BOOST BREEZE NUTRITION DRINK 1 BOX PO SCH (19:35)
[2017-04-23] MEDS: CIPROFLOXACIN / D5W 400 MG in PREMIXED IN D5W 200 ML IV SCH (19:42)
[2017-04-23] MEDS: TRAZODONE HCL 100 MG TAB PO SCH (19:45)
[2017-04-23 23:03] VITALS: BP 150/84; PULSE 77; TEMP 36.5; O2SAT 97
[2017-04-24] VITALS (8 sets, daily range): BP systolic 143–171; BP diastolic 66–84; PULSE 66–75; TEMP 36.6–37; O2SAT 97–100
[2017-04-24] MEDS: POTASSIUM CHLORIDE INJ 40 MEQ in SODIUM CHLORIDE 0.9% 1000ML 1,000 ML IV SCH ×3 (06:39→23:29)
--- NOTE | 2017-04-24 07:00 | DIAGNOSTIC IMAGING REPORT ---
CHEST 2 VIEWS ROUTINE HISTORY: 72 years-old Female pre-op preoperative exam. No acute chest complaints COMPARISON: None available TECHNIQUE: PA and lateral views of the chest FINDINGS: Cardiac silhouette is within normal limits. Atherosclerosis of the aorta. 2 mm nodular opacity of the lateral left midlung suggests a calcified granuloma. There is ill-defined right suprahilar opacity just inferior to the right clavicular head which may reflect a focal area of scarring. The lungs are hyperinflated and hyperlucent suggesting emphysema without pneumothorax, pleural effusion, focal airspace consolidation or overt pulmonary edema. The bones of the chest appear grossly intact and mildly demineralized. Surgical clips are seen within the upper abdomen. IMPRESSION: 1. Emphysema without acute process. 2. Ill-defined opacity of the right suprahilar lung may reflect a focal area of scarring. The above report was generated using voice recognition software. It may contain grammatical, syntax or spelling errors. Electronically signed by: Vamshi Maloney M.D. 04/24/2017 6:59 AM Dictated Date/Time: 04/24/2017 6:56 AM
--- NOTE | 2017-04-24 07:10 | DIAGNOSTIC IMAGING REPORT ---
KUB CLINICAL HISTORY: 72 years-old Female presenting with bilateral ureteral stones. TECHNIQUE: Single supine view of the abdomen was obtained. COMPARISON: CT from 04/22/2017. FINDINGS: Cholecystectomy clips noted. Nonobstructive bowel gas pattern. No gross pneumoperitoneum. Bilateral renal calculi evident with a greater stone burden on the left. The previously noted distal ureteral calculi may still be present. A faint calcification projects over the right ureterovesical junction. A larger 6 mm calculus projects over the region of the distal left ureter. This is similar to recent CT. Degenerative changes of the spine. Osteopenia may be present. IMPRESSION: 1. Bilateral nephrolithiasis. 2. Unchanged position of the distal left ureteral calculus and right ureteral calculus at the ureterovesical junction. Electronically signed by: Eduardo Mak M.D. 04/24/2017 7:09 AM Dictated Date/Time: 04/24/2017 7:06 AM
[2017-04-24 07:15] LABS: HEMATOCRIT 33.6 % (37-47); HEMOGLOBIN 11.9 g/dL (12.0-16.0); MEAN CORPUSCULAR HEMOGLOBIN 30.8 pg (25-34); MEAN CORPUSCULAR HGB CONC 35.4 g/dl (32-36); MEAN PLATELET VOLUME 8.9 fL (7.4-10.4); PLATELET COUNT 234 K/uL (130-400); RED CELL DISTRIBUTION WIDTH CV 14.5 % (11.5-14.5); RED CELL DISTRIBUTION WIDTH SD 45.1 fL (36.4-46.3); WHITE BLOOD COUNT 5.61 K/uL (4.8-10.8)
[2017-04-24] MEDS: BOOST BREEZE NUTRITION DRINK 1 BOX PO SCH ×2 (07:38→19:38)
[2017-04-24] MEDS: LISINOPRIL 10 MG TAB PO SCH (07:39)
[2017-04-24 07:43] LABS: ALBUMIN 3.1 gm/dl (3.4-5.0); ALT/SGPT 49 U/L (12-78); BLOOD UREA NITROGEN 8 mg/dl (7-18); CALCIUM 8.7 mg/dl (8.5-10.1); CARBON DIOXIDE 23 mmol/L (21-32); CREATININE 0.68 mg/dl (0.60-1.20); GLUCOSE 113 mg/dl (70-99); POTASSIUM 3.8 mmol/L (3.5-5.1); SODIUM 142 mmol/L (136-145)
[2017-04-24 07:46] LABS: ALKALINE PHOSPHATASE 78 U/L (45-117); AST/SGOT 51 U/L (15-37); TOTAL PROTEIN 5.8 gm/dl (6.4-8.2)
--- NOTE | 2017-04-24 08:24 | Progress Note ---
Subjective Date of Service: Apr 24, 2017. Subjective Pt evaluation today including: conversation w/ patient, chart review, lab review Voiding: no voiding problems 72 yo female with bilateral ureteral stones. Continues to c/o nausea this morning. + dysuria. UC&S preliminarily negative. Bilateral ureteral stones visualized on KUB this morning. Renal stones visualized as well. Problem List Medical Problems: (1) Chronic diarrhea Status: Acute (2) Dehydration Status: Acute (3) Hypokalemia Status: Acute (4) Renal colic Status: Acute Review of Systems Constitutional: No fever, No chills Respiratory: No shortness of breath Cardiac: No chest pain Abdomen: + nausea, No pain, No vomiting Female : + dysuria, No hematuria Heme: No abnormal bleeding/bruising Objective Vital Signs Date Time Temp Pulse Resp B/P (MAP) Pulse Ox O2 Delivery O2 Flow Rate FiO2 04/24/17 07:28 36.9 70 16 143/71 (95) 98 04/24/17 00:00 Room Air 04/23/17 23:03 36.5 77 18 150/84 (106) 97 Room Air 04/23/17 16:18 36.5 66 18 147/70 (95) 98 Room Air 04/23/17 16:00 99 Room Air Physical Exam General Appearance: no apparent distress Eyes: normal inspection ENT: hearing grossly normal Neck: no JVD Respiratory/Chest: no respiratory distress, no accessory muscle use Cardiovascular: no JVD Extremities: normal inspection Neurologic/Psychiatric: alert, normal mood/affect, oriented x 3 Skin: normal color Laboratory Results Last 24 Hours Test 04/24/17 07:01 White Blood Count 5.61 K/uL Red Blood Count 3.86 M/uL Hemoglobin 11.9 g/dL Hematocrit 33.6 % Mean Corpuscular Volume 87.0 fL Mean Corpuscular Hemoglobin 30.8 pg Mean Corpuscular Hemoglobin Concent 35.4 g/dl RDW Standard Deviation 45.1 fL RDW Coefficient of Variation 14.5 % Platelet Count 234 K/uL Mean Platelet Volume 8.9 fL Sodium Level 142 mmol/L Potassium Level 3.8 mmol/L Chloride Level 113 mmol/L Carbon Dioxide Level 23 mmol/L Anion Gap 6.0 mmol/L Blood Urea Nitrogen 8 mg/dl Creatinine 0.68 mg/dl Est Creatinine Clear Calc Drug Dose 70.3 ml/min Estimated GFR () 102.7 Estimated GFR (Non- 88.6 BUN/Creatinine Ratio 11.9 Random Glucose 113 mg/dl Calcium Level 8.7 mg/dl Magnesium Level 1.5 mg/dl Total Bilirubin 0.3 mg/dl Direct Bilirubin < 0.1 mg/dl Aspartate Amino Transf (AST/SGOT) 51 U/L Alanine Aminotransferase (ALT/SGPT) 49 U/L Alkaline Phosphatase 78 U/L Total Protein 5.8 gm/dl Albumin 3.1 gm/dl Assessment and Plan A/P: Bilateral ureteral stones AFVSS. Will plan for cysto with bilateral ureteral stent placement today with Dr. Luevano. Possible ureteroscopy and laser lithotripsy as well. Risks and benefits of the procedure discussed with the pt. All questions answered. Pt agrees to the procedure at this time.
[2017-04-24] MEDS: CIPROFLOXACIN / D5W 400 MG in PREMIXED IN D5W 200 ML IV SCH (09:28)
[2017-04-24] MEDS: ONDANSETRON INJ 2 MG/ML 2 ML VIAL IV PRN (10:10)
[2017-04-24] MEDS: MAGNESIUM SULFATE 1GM / D5W 1 GM in PREMIXED IN D5W 100 ML IV SCH ×2 (11:25→13:50)
[2017-04-24] MEDS: PANTOprazole INJ 40 MG in SYRINGE 0 ML IV SCH (11:25)
[2017-04-24] MEDS ORDERED: Cysto-Conray II 17.2% 250ML BOTTLE ONE (11:51)
[2017-04-24] MEDS ORDERED: ONDANSETRON INJ 2 MG/ML 2 ML VIAL ONE (11:53)
[2017-04-24] MEDS ORDERED: MIDAZOLAM HCL 1 MG/ML 2ML VIAL ONE (11:53)
[2017-04-24] MEDS ORDERED: DEXAMETHASONE SOD INJ 4 MG/ML VIAL ONE (11:53)
[2017-04-24] MEDS ORDERED: LIDOCAINE HCL 2% 2 ML VIAL (20MG/ML) ONE (11:53)
[2017-04-24] MEDS ORDERED: PROPOFOL IV EMULSION 10 MG/ML 20 ML VIAL IV ONE ×2 (11:53→12:44)
[2017-04-24] MEDS ORDERED: FENTANYL CITRATE INJ 50 MCG/1 ML 2 ML VIAL ONE (11:53)
[2017-04-24] MEDS ORDERED: EpHEDrine SULFATE INJ 50 MG/ML AMP IV PRN (12:30)
[2017-04-24] MEDS ORDERED: ATROPINE SULFATE 0.1 MG/ML 5ML SYR IV PRN (12:30)
--- NOTE | 2017-04-24 12:32 | Hospitalist Progress Note ---
Hospitalist Progress Note Date of Service Apr 24, 2017. (Josette Howard .SUNITA) Subjective Pt evaluation today including: conversation w/ patient, physical exam, chart review, lab review, review of inpatient medication list Ms. Torres is for a cysto and stents today with urology. She continues to feel nausea but no vomiting and abdominal tenderness. ROS Constitutional: no chills, aches, sweats or fever Respiratory: no sob,cough, sputum, or wheezing Cardiac: no chest pain, palpitations, edema, orthopnea or lightheadedness GI: see HPI : dysuria Extremities: no joint pain or weakness Skin: no rash All other systems reviewed and negative (Josette Howard .SUNITA) Medications Medications Administered Medications (Trade) Dose Ordered Sig/Papo Route Start Time Stop Time Status Last Admin Dose Admin Ondansetron HCl (Zofran Inj) 4 mg NOW STAT IV 04/22/17 15:22 04/22/17 15:24 DC 04/22/17 15:44 4 MG Sodium Chloride 500 ml @ 999 mls/hr Q31M STAT IV 04/22/17 15:22 04/22/17 15:52 DC 04/22/17 15:44 999 MLS/HR Morphine Sulfate (MoRPHine SULFATE INJ) 2 mg NOW STAT IV 04/22/17 16:17 04/22/17 16:19 DC 04/22/17 17:32 2 MG Potassium Chloride (Kcl 10 Meq / Wtr) 10 meq NOW STAT IV 04/22/17 16:54 04/22/17 16:55 DC 04/22/17 17:32 10 MEQ Ondansetron HCl (Zofran Inj) 4 mg Q6H PRN IV 04/22/17 19:00 05/22/17 18:59 04/24/17 10:10 4 MG Pantoprazole Sodium 40 mg/ Syringe 10 ml @ 5 mls/min DAILY@11 IV 04/23/17 11:00 05/23/17 10:59 04/24/17 11:25 5 MLS/MIN Pantoprazole Sodium 40 mg/ Syringe 10 ml @ 5 mls/min NOW ONCE IV 04/22/17 20:30 04/22/17 20:32 DC 04/22/17 21:03 5 MLS/MIN Potassium Chloride 40 meq/ Sodium Chloride 1,020 ml @ 100 mls/hr [id number] IV 04/22/17 20:30 05/22/17 20:29 04/24/17 06:39 100 MLS/HR Lisinopril (Zestril Tab) 10 mg QAM PO 04/23/17 08:00 05/23/17 08:59 04/24/17 07:39 10 MG Trazodone HCl (Desyrel Tab) 100 mg HS PO 04/22/17 21:00 05/22/17 20:59 04/23/17 19:45 100 MG Morphine Sulfate (MoRPHine SULFATE INJ) 2 mg Q4H PRN IV 04/22/17 19:15 05/06/17 19:14 04/23/17 21:31 2 MG Magnesium Sulfate 1 gm/Prmx 100 ml @ 100 mls/hr NOW ONCE IV 04/22/17 20:45 04/22/17 21:44 DC 04/22/17 21:05 100 MLS/HR Potassium Chloride 10 meq/ Prmx 100 ml @ 100 mls/hr ONE ONCE IV 04/22/17 20:45 04/22/17 21:44 DC 04/22/17 21:04 100 MLS/HR Ciprofloxacin/ Dextrose 400 mg/ Prmx 200 ml @ 100 mls/hr Q12 IV 04/23/17 21:00 04/27/17 23:59 04/24/17 09:28 100 MLS/HR Ciprofloxacin/ Dextrose 400 mg/ Prmx 200 ml @ 100 mls/hr 1230 ONCE IV 04/23/17 12:30 04/23/17 14:29 DC 04/23/17 12:23 100 MLS/HR Ketorolac Tromethamine (Toradol Inj) 15 mg Q6H PRN IV 04/23/17 14:30 04/28/17 14:29 04/23/17 14:36 15 MG Enteral Nutritional Formula (Boost Breeze Nutritional Drink) 1 box BID PO 04/23/17 20:00 05/23/17 19:59 04/23/17 19:35 1 BOX Magnesium Sulfate 1 gm/Prmx 100 ml @ 100 mls/hr Q1H IV 04/24/17 10:00 04/24/17 11:59 DC 04/24/17 11:25 100 MLS/HR (Josette Howard CRNP) Objective Vital Signs Date Time Temp Pulse Resp B/P (MAP) Pulse Ox O2 Delivery O2 Flow Rate FiO2 04/24/17 11:32 37.0 69 18 159/82 (107) 97 Room Air 04/24/17 08:00 Room Air 04/24/17 07:28 36.9 70 16 143/71 (95) 98 04/24/17 00:00 Room Air 04/23/17 23:03 36.5 77 18 150/84 (106) 97 Room Air 04/23/17 16:18 36.5 66 18 147/70 (95) 98 Room Air 04/23/17 16:00 99 Room Air (Josette Howard CRNP) Physical Exam Notes: General: no distress Eyes: normal inspection, PERLL Respiratory: chest non tender, clear to auscultation, normal breath sounds, no respiratory distress, no accessory muscle use Cardiac: regular rate and rhythm, no rub or gallop, no murmur, no edema, no jvd GI/: active bowel sounds, diffuse abdominal tenderness, soft, non distended Extremities: normal range of motion, normal strength, non tender Neuro/Psych: alert and oriented x 3, normal mood and affect Skin: normal color, dry (Josette Howard CRNP) Laboratory Results Last 24 Hours Test 04/24/17 07:01 White Blood Count 5.61 K/uL Red Blood Count 3.86 M/uL Hemoglobin 11.9 g/dL Hematocrit 33.6 % Mean Corpuscular Volume 87.0 fL Mean Corpuscular Hemoglobin 30.8 pg Mean Corpuscular Hemoglobin Concent 35.4 g/dl RDW Standard Deviation 45.1 fL RDW Coefficient of Variation 14.5 % Platelet Count 234 K/uL Mean Platelet Volume 8.9 fL Sodium Level 142 mmol/L Potassium Level 3.8 mmol/L Chloride Level 113 mmol/L Carbon Dioxide Level 23 mmol/L Anion Gap 6.0 mmol/L Blood Urea Nitrogen 8 mg/dl Creatinine 0.68 mg/dl Est Creatinine Clear Calc Drug Dose 70.3 ml/min Estimated GFR () 102.7 Estimated GFR (Non- 88.6 BUN/Creatinine Ratio 11.9 Random Glucose 113 mg/dl Calcium Level 8.7 mg/dl Magnesium Level 1.5 mg/dl Total Bilirubin 0.3 mg/dl Direct Bilirubin < 0.1 mg/dl Aspartate Amino Transf (AST/SGOT) 51 U/L Alanine Aminotransferase (ALT/SGPT) 49 U/L Alkaline Phosphatase 78 U/L Total Protein 5.8 gm/dl Albumin 3.1 gm/dl (Josette Howard CRNP) Assessment and Plan Ms. Torres is a 72 year old woman here for abdominal pain, nausea and vomiting Intractable nausea, poor oral intake, weight loss -Consult GI, follows w/Dr. 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 Given total 30 mEq KCl IV in ED - resolved Hypomagnesemia - resolved HTN--stable -Continue lisinopril 10 mg PO qd Anxiety, depression, insomnia -Pt recently prescribed Wellbutrin, but unclear if she is actually taking. Per , she was told to not take due to lowered seizure threshold in addition to her tramadol. Will hold Wellbutrin for now -Continue Ativan 1 mg PO TID prn anxiety and trazodone 100 mg PO hs Chronic diarrhea--controlled -Pt takes cholestyramine BID prn Hiatal hernia s/p Will fundoplication (2008) -H/o recent pneumoperitoneum following emesis in Dec 2016. Found to have torn sutures at that time. Afraid to vomit since DVT prophylaxis -RISHABH pemberton and SCDs DNR (Josette Howard CRNP) [employer] Physician Supervision Note: I interviewed and examined the patient. Discussed with Josette Howard [employer] MEMBER and agree with findings and plan as documented in the note. Any exceptions or clarifications are listed here: None Patient was seen after she had her cystoscopy and stent placement she's feeling much better there plans to have likely lithotripsy in the office afterwards when she has a repeat office visit Her current urine cultures are pending vital signs reviewed and are stable Abdominal exam reveals only minor discomfort patient is tolerating diet Patient with renal colic nephrolithiasis concern for infection status post cystoscopy and stenting if she improves over next 24 hours likely will be released for outpatient continued care with urology Documented By: Talon Babb (Talon Babb M.D.)
[2017-04-24] MEDS ORDERED: KETAMINE HCL INJ 50 MG/ML 10 ML VIAL ONE (12:34)
--- NOTE | 2017-04-24 13:17 | [facility] Operative Report ---
Operative Report Operative Date Apr 24, 2017. Pre-Operative Diagnosis Bilateral stones Post-Operative Diagnosis Same Procedure(s) Performed Cystoscopy with bilateral stent placement and retrograde. Right stone extraction. Surgeon Bassem Estimated Blood Loss Minimal Findings Bilateral stones with distal right stone Specimens Urine Left renal pelvis for culture. Stone right UVJ for analysis. Drains 5 x 20 Right Stent. 5 x24 Left Stent Anesthesia Type MAC Complication(s) none Disposition Recovery Room / PACU Indications Bilateral stones with long history of stone disease. Patient consented. Description of Procedure Patient was consented and brought back to the operating room. Patient was placed under anesthesia in the supine position and moved to the dorsal lithotomy position. Patient was prepped and draped in the regular sterile fashion. A time out was completed. A 30degree Cystoscope was placed into the bladder and the entire bladder was examined. The UO's were identified. At the Right UVJ, a stone was visualized. It was manipulated which dislodged the stone, and it was then grasped and removed. The right UO followed by the left UO was cannulized with a catheter. A retrograde pyelogram was completed. The Left renal pelvis was aspirated and sent for culture. A wire was then placed. With the wire in place, a 5 x [24] Double J stent was placed on the left and a 5 x 20 Double J Stent was placed on the right. It was confirmed with fluoroscopy. With the stent in place, the bladder was emptied. The scope was removed. The patient was cleaned, aroused from anesthesia, and transferred to the pacu in stable condition having tolerated the procedure well with no complications. I was present and participated in all aspects of the procedure. The patient will be monitored in the PACU until transferred. I attest to the content of the Intraoperative Record and any orders documented therein. Any exceptions are noted below.
--- NOTE | 2017-04-24 13:36 | Anesthesiology Progress Note ---
Anesthesia Post Op Note Date & Time Apr 24, 2017 at 13:36 Vital Signs Pain Intensity: 0 Vital Signs Past 12 Hours Date Time Temp Pulse Resp B/P (MAP) Pulse Ox O2 Delivery O2 Flow Rate FiO2 04/24/17 13:20 36.4 73 16 146/70 100 Oxymask 3 04/24/17 13:10 36.4 77 16 133/76 98 Oxymask 7 04/24/17 11:32 37.0 69 18 159/82 (107) 97 Room Air 04/24/17 08:00 Room Air 04/24/17 07:28 36.9 70 16 143/71 (95) 98 Notes Mental Status: alert / awake / arousable, participated in evaluation Pt Amnestic to Procedure: Yes Nausea / Vomiting: adequately controlled Pain: adequately controlled Airway Patency, RR, SpO2: stable & adequate BP & HR: stable & adequate Hydration State: stable & adequate Anesthetic Complications: no major complications apparent
--- NOTE | 2017-04-24 13:47 | DIAGNOSTIC IMAGING REPORT ---
RETROGRADE INCLUDES KUB CLINICAL HISTORY: 72 years-old Female presenting with B/L CYSTO/STENTS. TECHNIQUE: 8 fluoroscopic spot image(s) obtained as part of an intraoperative procedure. COMPARISON: Plain radiograph from 04/24/[address] from 04/22/2017. FINDINGS/IMPRESSION: A catheter was placed in the left ureter, and the left renal collecting system was opacified with contrast. Interval placement of bilateral ureteral stents. Cholecystectomy clips noted. Please see surgical report for further details. Fluoroscopy dosage (mGy): 15.98. Fluoroscopy time: 58.2 seconds. Number of fluoroscopic spot images: 8. Electronically signed by: Eduardo Mak M.D. 04/24/2017 1:45 PM Dictated Date/Time: 04/24/2017 1:43 PM
[2017-04-24] MEDS: MoRPHine SULFATE 2 MG/ML CARP IV PRN ×2 (17:10→21:38)
[2017-04-24] MEDS: TRAZODONE HCL 100 MG TAB PO SCH (21:36)
[2017-04-24] MEDS: KETOROLAC TROMETHAMINE 15 MG/ML VIAL IV PRN (23:31)
[2017-04-25] MEDS: MoRPHine SULFATE 2 MG/ML CARP IV PRN (04:07)
[2017-04-25] MEDS: ONDANSETRON INJ 2 MG/ML 2 ML VIAL IV PRN (04:12)
[2017-04-25 07:12] LABS: HEMATOCRIT 30.2 % (37-47); HEMOGLOBIN 10.6 g/dL (12.0-16.0); MEAN CELL VOLUME 87.5 fL (80-100); MEAN CORPUSCULAR HEMOGLOBIN 30.7 pg (25-34); MEAN CORPUSCULAR HGB CONC 35.1 g/dl (32-36); MEAN PLATELET VOLUME 8.8 fL (7.4-10.4); PLATELET COUNT 195 K/uL (130-400); RED CELL DISTRIBUTION WIDTH CV 14.6 % (11.5-14.5); RED CELL DISTRIBUTION WIDTH SD 46.6 fL (36.4-46.3); WHITE BLOOD COUNT 4.82 K/uL (4.8-10.8)
--- NOTE | 2017-04-25 07:33 | Clinical Documentation Query ---
CLINICAL DOCUMENTATION QUERY Dr. NEW, In your clinical opinion is this patient being managed for: ( x ) Mild protein-calorie malnutrition ( ) Not Agree ( ) Other explanation of clinical findings (Please Explain) ( ) Unable to determine (Please Define) ( ) Need to Discuss The medical record reflects the following clinical findings, treatment, and risk factors. Clinical Indicators: 72 yo female presenting with bilateral ureteral calculi with nausea, poor appetite and wt loss x 2 weeks. Pt reports barely eating x 2 weeks and only able to eat some jello and water for 2 days prior to ER presentation. Treatment: dietary consult, boost breeze bid between meals, IV fluids, IV protonix, ureteral stents, IV Zofran, GI and consults, IV KCL Risk Factors: ureteral calculi, nausea, vomiting, flank pain Please clarify and document your clinical opinion in the progress notes and discharge summary. Terms such as "probable", "suspected", "likely", "questionable", "possible", or "still to be ruled out" are acceptable. IF IN AGREEMENT, YOU MUST DOCUMENT ABOVE DIAGNOSTIC STATEMENT IN DAILY PROGRESS NOTES AND DISCHARGE SUMMARY. This document is not part of the patient's record. Thank You, Kristyn Weaver, ESTHELA [phone]
--- NOTE | 2017-04-25 07:36 | Clinical Documentation Query ---
CLINICAL DOCUMENTATION QUERY Ms. LOYOLA, In your clinical opinion is this patient being managed for: ( ) Mild protein-calorie malnutrition ( ) Not Agree ( ) Other explanation of clinical findings (Please Explain) ( ) Unable to determine (Please Define) ( ) Need to Discuss The medical record reflects the following clinical findings, treatment, and risk factors. Clinical Indicators: 72 yo female presenting with bilateral ureteral calculi with nausea, poor appetite and wt loss x 2 weeks. Pt reports barely eating x 2 weeks and only able to eat some jello and water for 2 days prior to ER presentation. Treatment: dietary consult, boost breeze bid between meals, IV fluids, IV protonix, ureteral stents, IV Zofran, GI and consults, IV KCL Risk Factors: ureteral calculi, nausea, vomiting, flank pain Please clarify and document your clinical opinion in the progress notes and discharge summary. Terms such as "probable", "suspected", "likely", "questionable", "possible", or "still to be ruled out" are acceptable. IF IN AGREEMENT, YOU MUST DOCUMENT ABOVE DIAGNOSTIC STATEMENT IN DAILY PROGRESS NOTES AND DISCHARGE SUMMARY. This document is not part of the patient's record. Thank You, Kristyn Weaver, RN [phone]
[2017-04-25] MEDS: BOOST BREEZE NUTRITION DRINK 1 BOX PO SCH (07:47)
[2017-04-25 07:53] LABS: ALBUMIN 2.6 gm/dl (3.4-5.0); CALCIUM 8.4 mg/dl (8.5-10.1); CREATININE 0.62 mg/dl (0.60-1.20); POTASSIUM 4.2 mmol/L (3.5-5.1)
--- NOTE | 2017-04-25 08:02 | Anesthesiology Progress Note ---
Anesthesia Post Op Note Date & Time Apr 25, 2017 at 08:01 Vital Signs Pain Intensity: 6 Vital Signs Past 12 Hours Date Time Temp Pulse Resp B/P (MAP) Pulse Ox O2 Delivery O2 Flow Rate FiO2 04/25/17 00:00 Room Air 04/24/17 22:50 36.8 71 18 143/82 (102) 98 Room Air Notes Mental Status: alert / awake / arousable Pt Amnestic to Procedure: Yes Nausea / Vomiting: adequately controlled Pain: improving with treatment Airway Patency, RR, SpO2: stable & adequate BP & HR: stable & adequate Hydration State: stable & adequate Anesthetic Complications: no major complications apparent
[2017-04-25 08:28] VITALS: BP 139/78; PULSE 68; TEMP 36.7; O2SAT 98
[2017-04-25] MEDS: LISINOPRIL 10 MG TAB PO SCH (09:22)
[2017-04-25] MEDS: KETOROLAC TROMETHAMINE 15 MG/ML VIAL IV PRN (09:22)
[2017-04-25] MEDS ORDERED: PHENAZOPYRIDINE HCL 200 MG TAB PO PRN (09:45)
[2017-04-25] MEDS ORDERED: PHEN-1043 PO (10:03)
[2017-04-25] MEDS ORDERED: FLM4 PO (10:03)
[2017-04-25] MEDS: POTASSIUM CHLORIDE INJ 40 MEQ in SODIUM CHLORIDE 0.9% 1000ML 1,000 ML IV SCH (10:07)
--- NOTE | 2017-04-25 10:09 | Progress Note ---
Subjective Date of Service: Apr 25, 2017. Subjective Pt evaluation today including: conversation w/ patient, chart review, lab review Voiding: no voiding problems 72 yo female s/p cysto, bilateral ureteral stent placement, and right stone extraction. She reports some bladder discomfort and hematuria this morning. Nausea has improved. Repeat UC&S from yesterday is pending. Problem List Medical Problems: (1) Chronic diarrhea Status: Acute (2) Dehydration Status: Acute (3) Hypokalemia Status: Acute (4) Renal colic Status: Acute Review of Systems Constitutional: No fever, No chills Respiratory: No shortness of breath Cardiac: No chest pain Abdomen: + pain (suprapubic), No nausea, No vomiting Female : + hematuria, No dysuria Heme: No abnormal bleeding/bruising Objective Vital Signs Date Time Temp Pulse Resp B/P (MAP) Pulse Ox O2 Delivery O2 Flow Rate FiO2 04/25/17 08:28 36.7 68 18 139/78 (98) 98 Room Air 04/25/17 07:45 Room Air 04/25/17 00:00 Room Air 04/24/17 22:50 36.8 71 18 143/82 (102) 98 Room Air 04/24/17 19:00 Room Air 04/24/17 16:55 36.8 72 18 171/66 (101) 98 04/24/17 16:00 Room Air 04/24/17 15:50 36.6 73 18 163/84 (110) 100 Room Air 04/24/17 14:50 37.0 75 16 161/84 (109) 99 04/24/17 14:16 36.6 69 16 146/75 (98) 97 04/24/17 13:45 36.6 66 20 146/80 (102) 97 Room Air 04/24/17 13:35 36.4 68 16 144/70 100 Oxymask 04/24/17 13:20 36.4 73 16 146/70 100 Oxymask 3 04/24/17 13:10 36.4 77 16 133/76 98 Oxymask 7 04/24/17 11:32 37.0 69 18 159/82 (107) 97 Room Air Physical Exam General Appearance: no apparent distress Eyes: normal inspection ENT: hearing grossly normal Neck: no JVD Respiratory/Chest: no respiratory distress, no accessory muscle use Cardiovascular: no JVD Extremities: normal inspection Neurologic/Psychiatric: alert, normal mood/affect, oriented x 3 Skin: normal color Laboratory Results Last 24 Hours Test 04/24/17 12:55 04/25/17 06:56 04/25/17 08:08 White Blood Count 4.82 K/uL Red Blood Count 3.45 M/uL Hemoglobin 10.6 g/dL Hematocrit 30.2 % Mean Corpuscular Volume 87.5 fL Mean Corpuscular Hemoglobin 30.7 pg Mean Corpuscular Hemoglobin Concent 35.1 g/dl RDW Standard Deviation 46.6 fL RDW Coefficient of Variation 14.6 % Platelet Count 195 K/uL Mean Platelet Volume 8.8 fL Sodium Level 143 mmol/L Potassium Level 4.2 mmol/L Chloride Level 114 mmol/L Carbon Dioxide Level 24 mmol/L Anion Gap 4.0 mmol/L Blood Urea Nitrogen 4 mg/dl Creatinine 0.62 mg/dl Est Creatinine Clear Calc Drug Dose 77.1 ml/min Estimated GFR () 105.9 Estimated GFR (Non- 91.4 BUN/Creatinine Ratio 6.4 Random Glucose 115 mg/dl Calcium Level 8.4 mg/dl Magnesium Level 1.7 mg/dl Total Bilirubin 0.2 mg/dl Direct Bilirubin mg/dl < 0.1 mg/dl Aspartate Amino Transf (AST/SGOT) 32 U/L Alanine Aminotransferase (ALT/SGPT) 39 U/L Alkaline Phosphatase 65 U/L Total Protein 5.0 gm/dl Albumin 2.6 gm/dl Chemistry Specimen Hemolysis Assessment and Plan POD #1 s/p cysto, bilateral ureteral stent placement, and right ureteral stone extraction AFVSS. Pt doing well post-op. Will order tamsulosin and Pyridium for stent irritation. Pt OK for d/c home from [facility]. She is scheduled to f/u with Dr. Luevano next week. Will discuss definitive stone management of left stones at that time. I have placed scripts for tamsulosin and Pyridium on her chart for d/ c home. Thanks for allowing us to participate in this pt's care. Recall PRN issues.
[2017-04-25] MEDS ORDERED: TAMSULOSIN HCL 0.4 MG CAP PO ONE (10:15)
[2017-04-25] MEDS ORDERED: PANTOprazole SOD 40 MG TAB PO SCH (11:00)
--- NOTE | 2017-04-25 12:42 | Discharge Instructions ---
Discharge Instructions Date of Service Apr 25, 2017. Admission Reason for Admission: Nausea, Poor Nutrition Discharge Discharge Diagnosis / Problem: nausea/vomiting related to kidney stones Discharge Goals Goal(s): Diagnostic testing, Therapeutic intervention Activity Recommendations Activity Limitations: resume your previous activity . Instructions / Follow-Up Instructions / Follow-Up nausea and vomiting -related to kidney stones -fortunately improved with treatment of the stones -the medications (tamsulosin and pyridium) will help with irritation from the stents; keep your follow up appointments with urology to stay on top of things Current Hospital Diet Patient's current hospital diet: Regular Diet Discharge Diet Recommended Diet: Regular Diet Procedures Procedures Performed: Cystoscopy with bilateral stent placement and retrograde. Right stone extraction. Pending Studies Studies pending at discharge: no Medical Emergencies . Who to Call and When: Medical Emergencies: If at any time you feel your situation is an emergency, please call 911 immediately. . Non-Emergent Contact Non-Emergency issues call your: Primary Care Provider . . "Provider Documentation" section prepared by Nate Corado. . VTE Core Measure Inpt VTE Proph given/why not?: Lea Gordillo, SCD's
[2017-04-25 15:05] VITALS: BP 139/78; PULSE 68; TEMP 36.7; O2SAT 98
--- NOTE | 2017-04-25 20:49 | Discharge Summary ---
Discharge Summary Date of Service Apr 25, 2017. Discharge Summary Admission Date: Apr 24, 2017 at 08:50 Discharge Date: Apr 25, 2017 Discharge Disposition: Home Principal Diagnosis: intractable nausea/vomiting due to ureterolithiasis Procedures: ABD/PELVIS WITHOUT FOR STONE CLINICAL HISTORY: 72 years-old Female presenting with right flank pain eval for stone. TECHNIQUE: Multidetector CT of the abdomen and pelvis was performed without the use of intravenous contrast. IV contrast: None. A dose lowering technique was used consistent with the principles of ALARA (as low as reasonably achievable). COMPARISON: None. CT DOSE (mGy.cm): The estimated cumulative dose is 824.79 mGycm. FINDINGS: Catalogue Compiler topogram: Cholecystectomy clips. Lung bases: Right paramediastinal reticulation likely scarring or atelectasis. Lung bases otherwise clear. Normal heart size. Coronary artery calcification. No pericardial or pleural effusion. Liver: Normal morphology. Normal density. Biliary: Mild biliary ductal prominence likely a reservoir effect in the post cholecystectomy state. Gallbladder surgically absent. Pancreas: Normal noncontrast appearance. Spleen: Normal noncontrast appearance. Adrenal glands: Normal noncontrast appearance. Kidneys and ureters: Multiple nonobstructing calculi noted bilaterally. Significantly greater stone burden is noted in the left kidney. The largest DrSamir Lis is noted in the interpolar region measuring 11 mm. No hydronephrosis. Urothelial thickening is evident on the left. Nonobstructing 3 mm calculus at the right ureterovesical junction. 6 mm calculus in the distal left ureter, which appears to be nonobstructing. Bladder: Incompletely evaluated secondary to underdistention. Pelvic organs: Uterus surgically absent. No adnexal masses. Bowel: Diverticulosis of the descending and sigmoid colon. No pericolonic fat stranding. No bowel obstruction. Small hiatal hernia. Peritoneal cavity: No free fluid or intraperitoneal gas. Lymph nodes: No gross lymphadenopathy allowing for noncontrast technique. Vasculature: Atherosclerosis of the normal caliber abdominal aorta. Abdominal wall: Infiltration of the left lower quadrant abdominal wall subcutaneous fat. Musculoskeletal: Degenerative changes of the spine. Degenerative changes of the pubic symphysis. Severe osteopenia. IMPRESSION: 1. Nonspecific infiltration of the subcutaneous fat in the left lower quadrant abdominal wall. This could suggest contusion or nonspecific edema. Correlate clinically for injury. 2. Bilateral ureteral calculi, which appear nonobstructing. 3 mm nonobstructing calculus at the right ureterovesical junction and 6 mm distal left ureteral calculus. 3. Bilateral nephrolithiasis with a greater stone burden on the left. No hydronephrosis. 4. Left urothelial thickening suggests inflammatory change. This could be reactive to the presence of the ureteral calculus or suggest infection. Correlate with urinalysis. 5. Severe osteopenia. Electronically signed by: Eduardo Mak M.D. 04/22/2017 4:54 PM Operative Report Operative Date Apr 24, 2017. Pre-Operative Diagnosis Bilateral stones Post-Operative Diagnosis Same Procedure(s) Performed Cystoscopy with bilateral stent placement and retrograde. Right stone extraction. Surgeon Bassem Estimated Blood Loss Minimal Findings Bilateral stones with distal right stone Specimens Urine Left renal pelvis for culture. Stone right UVJ for analysis. Drains 5 x 20 Right Stent. 5 x24 Left Stent Anesthesia Type MAC Complication(s) none Disposition Recovery Room / PACU Indications Bilateral stones with long history of stone disease. Patient consented. Description of Procedure Patient was consented and brought back to the operating room. Patient was placed under anesthesia in the supine position and moved to the dorsal lithotomy position. Patient was prepped and draped in the regular sterile fashion. A time out was completed. A 30degree Cystoscope was placed into the bladder and the entire bladder was examined. The UO's were identified. At the Right UVJ, a stone was visualized. It was manipulated which dislodged the stone, and it was then grasped and removed. The right UO followed by the left UO was cannulized with a catheter. A retrograde pyelogram was completed. The Left renal pelvis was aspirated and sent for culture. A wire was then placed. With the wire in place, a 5 x [24] Double J stent was placed on the left and a 5 x 20 Double J Stent was placed on the right. It was confirmed with fluoroscopy. With the stent in place, the bladder was emptied. The scope was removed. The patient was cleaned, aroused from anesthesia, and transferred to the pacu in stable condition having tolerated the procedure well with no complications. I was present and participated in all aspects of the procedure. The patient will be monitored in the PACU until transferred. I attest to the content of the Intraoperative Record and any orders documented therein. Any exceptions are noted below. <Electronically signed by Jean Claude Luevano II D.O.> Last Resulted CBC 04/25/17 06:56 Last Resulted BMP 04/25/17 06:56 Consultations: urology Medication Reconciliation New Medications: Phenazopyridine HCl (Phenazopyridine HCl) 200 Mg Tab 200 MG PO TID PRN for Bladder pain, #30 TAB 1 Refill Tamsulosin HCl (Tamsulosin HCl) 0.4 Mg Cap 0.4 MG PO HS, #30 CAP 0 Refills Stop medication if dizziness occurs. Continued Medications: Bupropion Hcl (Smoking Deterre (Bupropion Hcl Sr) 150 Mg Tab 150 MG PO BID, TAB Cholestyramine (Cholestyramine) 4 Gm Pow 4 GM PO BID PRN for Diarrhea Esomeprazole Magnesium (Esomeprazole Magnesium) 20 Mg Cap 40 MG PO DAILY Lisinopril (Zestril) 10 Mg Tab 10 MG PO QAM, TAB Lorazepam (Ativan) 1 Mg Tab 1 MG PO TID PRN for Anxiety, TAB Tramadol (Ultram) 50 Mg Tab 50 MG PO QID PRN for Pain, TAB Trazodone Hcl (Trazodone) 100 Mg Tab 100 MG PO HS, TAB Zolpidem Tartrate (Zolpidem Tartrate) 10 Mg Tab 5-10 MG PO HS PRN for Sleep, TAB Discharge Exam Physical Exam: General Appearance: no apparent distress Eyes: EOMI Neck: trachea midline Respiratory/Chest: no respiratory distress, no accessory muscle use Abdomen / GI: + pertinent finding (eating without difficulty!) Neurologic/Psychiatric: program manager transportation II-XII nml as tested, alert Skin: normal color, warm/dry Hospital Course Intractable nausea, poor oral intake, weight loss and subsequent acute mild/ moderate protein-calorie malnutrition -appears to have been due to referred sx from ureterolithiasis - now improved ureterolithiasis -s/p cysto as above -meds as above -outpt urology f/u next week Hypokalemia -Potassium 2.8 on admission. Given total 30 mEq KCl IV in ED - resolved Hypomagnesemia - resolved HTN--stable -Continue lisinopril 10 mg PO qd Anxiety, depression, insomnia -did not alter home meds. continue as prescribed Chronic diarrhea--controlled -Pt takes cholestyramine BID prn Hiatal hernia s/p Will fundoplication (2008) -H/o recent pneumoperitoneum following emesis in Dec 2016. Found to have torn sutures at that time. Afraid to vomit since DVT prophylaxis -RISHABH pemberton and SCDs DNR Total Time Spent: Less than 30 minutes This includes examination of the patient, discharge planning, medication reconciliation, and communication with other providers. Discharge Instructions Please refer to the electronic Patient Visit Report (Discharge Instructions) for additional information. Additional Copies To Jonathon Cha D.O.
[2017-04-26] MEDS ORDERED: TAMSULOSIN HCL 0.4 MG CAP PO SCH (08:00)
[2017-05-02] MEDS ORDERED: PHEN-1043 PO (13:17)
[2017-05-02] MEDS ORDERED: FLM4 PO (13:17)
[2017-05-15] MEDS ORDERED: PHEN-1043 PO (12:20)
[2017-05-15] MEDS ORDERED: CIPR-255 PO (12:20)
[2017-05-15] MEDS ORDERED: FLM4 PO (12:20)
== END 2017-04-25 16:11 | disposition home or self-care (01) | DRG 669 ==
LOC: C.EDB 15:01 → C.MS4W 19:03 → ENRESERV 19:48 → OBSVTOIN 04-24 08:50
PROVIDERS: ADMIT Internal Medicine; ATTEND Family Medicine
PROC: 0T788DZ Dilation of Bilateral Ureters with Intraluminal Device, Via Natural or Artificial Opening Endoscopic (ICD-10-PCS; principal; 2017-04-24 07:50)
PROC: BT140ZZ Fluoroscopy of Kidneys, Ureters and Bladder using High Osmolar Contrast (ICD-10-PCS; principal; 2017-04-24 07:50)
PROC: 0TC68ZZ Extirpation of Matter from Right Ureter, Via Natural or Artificial Opening Endoscopic (ICD-10-PCS; principal; 2017-04-24 07:50)
PROC: 0T948ZX Drainage of Left Kidney Pelvis, Via Natural or Artificial Opening Endoscopic, Diagnostic (ICD-10-PCS; principal; 2017-04-24 07:50)
DX: N20.1 Calculus of ureter (principal); E44.0 Moderate protein-calorie malnutrition; R11.2 Nausea with vomiting, unspecified; E87.6 Hypokalemia; E83.42 Hypomagnesemia; E86.0 Dehydration; R32 Unspecified urinary incontinence; R53.1 Weakness; K52.89 Other specified noninfective gastroenteritis and colitis; S04.899 Injury of other cranial nerves, unspecified side; Y83.8 Other surgical procedures as the cause of abnormal reaction of the patient, or of later complication, without mention of misadventure at the time of the procedure; I10 Essential (primary) hypertension; K21.9 Gastro-esophageal reflux disease without esophagitis; F41.9 Anxiety disorder, unspecified; F32.9 Major depressive disorder, single episode, unspecified; G47.00 Insomnia, unspecified; Z66 Do not resuscitate; Z87.19 Personal history of other diseases of the digestive system; Z68.25 Body mass index [BMI] 25.0-25.9, adult; Z79.899 Other long term (current) drug therapy; Z88.0 Allergy status to penicillin; Z91.041 Radiographic dye allergy status

== ENCOUNTER → 2017-05-01 | Outpatient (CLI) | payer OTHER, MEDICARE ==
[~2017-05-01] MED LIST changes: +BUPR-102 PO; +CHOL4POW4 PO; +CIPR-255 PO; +CIPR1TAB10 PO; -ESOM20CA PO; +ESOM45CA PO; +FLM4 PO; -MAGN250T3 PO; +OXYB5TAB PO; +OXYC-57 PO; +PHEN-1043 PO; -PREG1CAP28 PO; -SPECTAB57 PO; +TRAM-10 PO; -VITAMIN C PO; -VITAMIN D PO; +ZOLP10TA6 PO
--- NOTE | 2017-05-01 14:14 | DIAGNOSTIC IMAGING REPORT ---
KUB HISTORY: N20.0 Nephrolithiasis COMPARISON: KUB 04/24/2017. FINDINGS: Moderate to large amount well-formed stool seen throughout the colon. No evidence for bowel obstruction. The right renal shadow is not well visualized due to the overlying bowel. Multiple left renal calculi remain unchanged. Dominant stone within the upper pole the left kidney measures 11 mm. Interval placement of bilateral ureteral stents. No right ureteral calculi identified. Possible stone versus overlying stool and especially location of the distal left ureter. This measures 7 mm. No pneumoperitoneum or pneumatosis. Cholecystectomy. IMPRESSION: 1. Stable left-sided nephrolithiasis. The right renal calculi are obscured by overlying bowel. 2. Interval placement of bilateral ureteral stents. 3. Possible 7 mm stone versus overlying stool and the distal left ureter. Electronically signed by: Germán Ko M.D. 05/01/2017 2:12 PM Dictated Date/Time: 05/01/2017 2:10 PM
== END | disposition home or self-care (01) ==
LOC: C.RAD 13:42
PROVIDERS: ATTEND Urology
DX: N20.0 Calculus of kidney (principal)

== ENCOUNTER → 2017-05-06 | Outpatient (CLI) | payer OTHER, MEDICARE ==
[~2017-05-06] MED LIST changes: -CIPR-255 PO
== END | disposition home or self-care (01) ==
LOC: C.LABSPEC 17:53
PROVIDERS: ATTEND Nurse Practitioner Adult Health
DX: N20.1 Calculus of ureter (principal); R35.0 Frequency of micturition; R39.9 Unspecified symptoms and signs involving the genitourinary system

== ENCOUNTER 2017-05-08 15:24 | Inpatient (IN) | payer OTHER, MEDICARE ==
[~2017-05-08] VITALS: Ht 160 cm; Wt 71.2 kg
[~2017-05-08 15:24] MED LIST changes: -CIPR1TAB10 PO; -OXYB5TAB PO; -OXYC-57 PO
[2017-05-08] MEDS ORDERED: KETOROLAC TROMETHAMINE 30 MG/ML VIAL IV STA (15:44)
[2017-05-08] MEDS ORDERED: SODIUM CHLORIDE 0.9% 500ML 500 ML IV STA (15:44)
[2017-05-08] MEDS ORDERED: ONDANSETRON INJ 2 MG/ML 2 ML VIAL IV STA ×2 (15:44→19:25)
[2017-05-08] MEDS ORDERED: OXYB5TAB PO (15:53)
[2017-05-08] MEDS ORDERED: OXYC-57 PO (15:53)
[2017-05-08] MEDS ORDERED: CIPR1TAB10 PO (15:53)
[2017-05-08 15:58] LABS: BASO % 0.3 %; BASO ABS # 0.02 K/uL (0-0.2); EOS % 0.5 %; EOS ABS # 0.03 K/uL (0-0.5); HEMATOCRIT 33.2 % (37-47); HEMOGLOBIN 11.3 g/dL (12.0-16.0); IG# 0.04 K/uL (0.00-0.02); LYMPH ABS # 0.98 K/uL (1.2-3.4); MEAN CELL VOLUME 89.7 fL (80-100); MEAN CORPUSCULAR HEMOGLOBIN 30.5 pg (25-34); MONO % 6.2 %; MONO ABS # 0.38 K/uL (0.11-0.59); NEUT % 76.3 %; NEUT ABS # 4.67 K/uL (1.4-6.5); PLATELET COUNT 374 K/uL (130-400); RED CELL DISTRIBUTION WIDTH CV 15.2 % (11.5-14.5); RED CELL DISTRIBUTION WIDTH SD 49.1 fL (36.4-46.3); WHITE BLOOD COUNT 6.12 K/uL (4.8-10.8)
[2017-05-08 16:07] LABS: PTT PATIENT 21.7 SECONDS (21.0-31.0)
[2017-05-08 16:15] LABS: ALBUMIN 3.6 gm/dl (3.4-5.0); ALT/SGPT 18 U/L (12-78); AST/SGOT 13 U/L (15-37); BLOOD UREA NITROGEN 12 mg/dl (7-18); CALCIUM 9.4 mg/dl (8.5-10.1); CARBON DIOXIDE 20 mmol/L (21-32); CREATININE 0.88 mg/dl (0.60-1.20); GLUCOSE 128 mg/dl (70-99); LIPASE 328 U/L (73-393); SODIUM 139 mmol/L (136-145)
[2017-05-08 16:20] LABS: ALKALINE PHOSPHATASE 109 U/L (45-117); TOTAL PROTEIN 6.8 gm/dl (6.4-8.2)
--- NOTE | 2017-05-08 16:48 | DIAGNOSTIC IMAGING REPORT ---
HEAD WITHOUT CONTRAST (CT) CLINICAL HISTORY: 72 years-old Female presenting with fall eval for bleed. TECHNIQUE: Multidetector CT imaging of the head was performed without the use of intravenous contrast. IV contrast: None. A dose lowering technique was used consistent with the principles of ALARA (as low as reasonably achievable). COMPARISON: None. CT DOSE (mGy.cm): The estimated cumulative dose is 569.73 mGy.cm. FINDINGS: Pedal Assembler topogram: Unremarkable. Ventricles and sulci normal in size. Brain parenchyma normal in appearance with preserved sepulveda-white differentiation. No mass effect or midline shift. No hemorrhage or acute territorial infarct. No extra-axial fluid collection. Paranasal sinuses and mastoid air cells clear. Calvarium intact. IMPRESSION: 1. No acute intracranial abnormality. Electronically signed by: Eduardo Mak M.D. 05/08/2017 4:47 PM Dictated Date/Time: 05/08/2017 4:45 PM
--- NOTE | 2017-05-08 17:43 | DIAGNOSTIC IMAGING REPORT ---
AP PELVIS AND LEFT HIP 3 VIEWS CLINICAL HISTORY: Left hip pain. Possible fracture. COMPARISON STUDY: No previous studies for comparison. FINDINGS: No fractures are visualized. There are mild degenerative changes present. Bilateral nephroureteral stents are visualized. No destructive lesions are evident. IMPRESSION: Mild degenerative changes. No acute fractures identified. Electronically signed by: Aj Little M.D. 05/08/2017 5:42 PM Dictated Date/Time: 05/08/2017 5:41 PM
--- NOTE | 2017-05-08 17:44 | DIAGNOSTIC IMAGING REPORT ---
L TIBIA/FIBULA 2 VIEWS ROUTINE CLINICAL HISTORY: Left lower leg pain. Possible fracture. COMPARISON: None. DISCUSSION: No fractures or dislocations are visualized. There is calcaneal spurring. IMPRESSION: No fractures identified. Electronically signed by: Aj Little M.D. 05/08/2017 5:43 PM Dictated Date/Time: 05/08/2017 5:42 PM
--- NOTE | 2017-05-08 17:44 | DIAGNOSTIC IMAGING REPORT ---
L ANKLE MIN 3 VIEWS ROUTINE CLINICAL HISTORY: Left ankle pain. COMPARISON: None. DISCUSSION: No acute fractures or dislocations are visualized. There is a plantar calcaneal spur. IMPRESSION: No acute fractures identified. Electronically signed by: Aj Little M.D. 05/08/2017 5:43 PM Dictated Date/Time: 05/08/2017 5:43 PM
--- NOTE | 2017-05-08 17:45 | DIAGNOSTIC IMAGING REPORT ---
L KNEE 1 OR 2 VIEWS ROUTINE CLINICAL HISTORY: Left knee pain COMPARISON: None. DISCUSSION: There is subtle chondrocalcinosis. No acute fractures are visualized. There are mild osteoarthritic changes most pronounced the medial joint compartment. There is mild osteopenia. IMPRESSION: Moderate degenerative change. No acute fractures identified. Electronically signed by: Aj Little M.D. 05/08/2017 5:44 PM Dictated Date/Time: 05/08/2017 5:43 PM
--- NOTE | 2017-05-08 17:45 | DIAGNOSTIC IMAGING REPORT ---
ABDOMEN 2VIEW W/PA CHEST RTN CLINICAL HISTORY: 72 years-old Female presenting with eval stents/obstruciton. TECHNIQUE: PA view of the chest and supine and upright views of the abdomen were obtained. COMPARISON: 05/01/2017. FINDINGS: Cardiomediastinal silhouette normal. Lungs and pleural spaces clear. Cholecystectomy clips noted. Nonobstructive bowel gas pattern. Suggestion of small bowel wall thickening and abnormal distention in the right mid abdomen, measuring up to 3.9 cm in diameter. No gross pneumoperitoneum. Bilateral ureteral stents. Calcifications projects over the left kidney. No radiographically apparent calculi in the right kidney. The distal left ureteral calculus is unchanged in position. Degenerative changes of the spine. IMPRESSION: 1. No acute cardiopulmonary disease. 2. Suggestion of pathologic small bowel distention and wall thickening of a loop in the right mid abdomen without convincing evidence of obstruction. This may represent an ileus or mild enteritis. 3. Left nephrolithiasis with bilateral ureteral stents. Unchanged position of the distal left ureteral calculus. Electronically signed by: Eduardo Mak M.D. 05/08/2017 5:44 PM Dictated Date/Time: 05/08/2017 5:41 PM
[2017-05-08] MEDS ORDERED: GENTAMICIN IV ONE (18:00)
[2017-05-08] MEDS ORDERED: DEXTROSE 5% IV ONE (18:00)
[2017-05-08] MEDS ORDERED: MoRPHine SULFATE 2 MG/ML CARP IV STA (19:25)
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
[2017-05-08] MEDS ORDERED: VANCOMYCIN INJ 1,750 MG in SODIUM CHLORIDE 0.9% 500ML 500 ML IV STA (21:13)
[2017-05-08] MEDS ORDERED: ZOLPIDEM TARTRATE 10 MG TAB PO PRN (21:15)
[2017-05-08] MEDS ORDERED: CHOLESTYRAMINE LIGHT 4 GM PKT PO PRN (21:15)
[2017-05-08] MEDS ORDERED: LORAZEPAM 1 MG TAB PO PRN (21:15)
[2017-05-08] MEDS ORDERED: VANCOMYCIN CONSULT ACTIVE PRN (21:15)
[2017-05-08] MEDS ORDERED: PHENAZOPYRIDINE HCL 200 MG TAB PO PRN (21:15)
[2017-05-08] MEDS ORDERED: VANCOMYCIN 1GM/270ML NSS IV SCH (21:30)
[2017-05-08 22:26] VITALS: BP 160/81; PULSE 77; TEMP 36.9; O2SAT 93; Ht 160 cm; Wt 71.2 kg
--- NOTE | 2017-05-08 22:39 | EMERGENCY ROOM VISIT NOTE ---
History Report prepared by Reji: Jose Kruger Under the Supervision of: Dr. Talon Ragsdale M.D. First contact with patient: 15:32 Chief Complaint: ABDOMINAL PAIN Stated Complaint: ABD PAIN History of Present Illness The patient is a 72 year old female who presents to the Emergency Room with complaints of worsening bilateral abdominal pain for the two weeks which is worse on the left side. The patient states that she has a history of kidney stones, and she states that the pain is similar to the last time she had kidney stone pain. Last time that she was in the hospital she had kidney stones and had stents placed on both sides. She was doing well after getting out of the hospital for a few days, though then she started to get more abdominal pain, she is not eating as much, she is dry heaving, and she is weak. The patient went back to her urologist on the , and she was given Percocet for the pain , Zofran for the nausea, and Cipro. The patient's family additionally states that the patient was found earlier on the bathroom floor after urinating. The states that he got the patient onto the toilet, and then afterwards he came back and she was on the floor with her clothes on. She states that she does not remember falling. The family notes that the patient has been having some confusion, and she was not able to answer questions well. She denies any fever or headache, though she states that she is having some left ankle and knee pain. She denies hip or back pain. The patient is not on any blood thinners or aspirin. Source of History: patient, family, spouse/significant other Onset: two weeks Position: abdomen (bilateral worse on the left) Quality: other (kidney stone pain) Timing: worsening Associated Symptoms: + LOC, + weakness, No fevers Note: Associated symptoms: not eating very much and dry heaving. Review of Systems See HPI for pertinent positives & negatives. A total of 10 systems reviewed and were otherwise negative. Past Medical & Surgical Medical Problems: (1) Altered mental status (2) Gastritis (3) Hiatal hernia (4) Kidney stone (5) Nausea (6) Poor nutrition (7) UTI (urinary tract infection) Family History Breast cancer Coronary artery disease Diabetes mellitus Leukemia Myocardial infarction Social History Smoking Status: Never Smoker Alcohol Use: none Drug Use: none Marital Status: Occupation Status: retired Current/Historical Medications Scheduled Bupropion Hcl (Smoking [place] (Bupropion Hcl Sr), 150 MG PO BID Ciprofloxacin Hcl (Cipro), 500 MG PO BID Esomeprazole Magnesium (Esomeprazole Magnesium), 40 MG PO DAILY Lisinopril (Zestril), 10 MG PO QAM Oxybutynin Chloride (Oxybutynin Chloride Er), 5 MG PO TID Tamsulosin HCl (Tamsulosin HCl), 1 CAP PO HS Trazodone Hcl (Trazodone), 100 MG PO HS Scheduled PRN Cholestyramine (Cholestyramine), 4 GM PO BID PRN for Diarrhea Lorazepam (Ativan), 1 MG PO TID PRN for Anxiety Oxycodone/Acetaminophen 5MG/325MG (Percocet 5MG/325MG), 1-2 TABLETS PO Q6 PRN for Pain Phenazopyridine HCl (Phenazopyridine HCl), 1 TAB PO UD PRN for Pain Tramadol (Ultram), 50 MG PO QID PRN for Pain Zolpidem Tartrate (Zolpidem Tartrate), 5-10 MG PO HS PRN for Sleep Allergies Coded Allergies: Lactose. (Verified Allergy, Intermediate, GI Symptoms, 05/08/17) Iodinated Diagnostic Agents (Verified Allergy, Unknown, THROAT SWELLS SHUT , 05/08/17) Penicillins (Verified Allergy, Unknown, THROAT SWELLED SHUT, 05/08/17) Trimethobenzamide (Verified Allergy, Unknown, THROAT SWELLS SHUT, 05/08/17) Physical Exam Vital Signs Date Time Temp Pulse Resp B/P (MAP) Pulse Ox O2 Delivery O2 Flow Rate FiO2 05/08/17 21:52 82 16 158/79 97 Room Air 05/08/17 21:15 82 14 163/97 97 05/08/17 21:15 77 15 163/97 93 Room Air 05/08/17 20:31 78 10 181/85 05/08/17 20:02 175/89 05/08/17 19:54 79 18 155/93 95 Room Air 05/08/17 19:50 78 13 96 05/08/17 17:39 78 18 159/76 94 Room Air 05/08/17 16:15 90 16 190/105 91 Room Air 92 188/101 111 170/98 05/08/17 15:41 86 05/08/17 15:39 36.9 83 18 161/93 92 Room Air Physical Exam Constitutional: Vital signs reviewed. Eyes: Pupils are equal round reactive to light. Conjunctiva are noninjected. ENT: Pharynx is clear without erythema or exudate. Mucous membranes are dry. Neck supple without meningeal signs. No midline tenderness to the cervical spine. Respiratory: Clear to auscultation bilaterally. Breath sounds are equal bilaterally. Cardiovascular: Regular rate and rhythm. No rubs or gallops. GI: Soft, nondistended and nontender. Bowel sounds are present. Musculoskeletal: Tenderness to the medial left knee and left lateral malleolus. No tenderness to the base of the 5th metatarsal of the left foot. Minimal tenderness to the left hip. Integumentary: No cyanosis. Neurological: The patient is awake and alert. No focal deficits. Psychiatric: Normal affect. Medical Decision & Procedures ER Provider Diagnostic Interpretation: Radiology results as stated below per my review and the radiologist's interpretation: L TIBIA/FIBULA 2 VIEWS ROUTINE CLINICAL HISTORY: Left lower leg pain. Possible fracture. COMPARISON: None. DISCUSSION: No fractures or dislocations are visualized. There is calcaneal spurring. IMPRESSION: No fractures identified. Electronically signed by: Aj Little M.D. 05/08/2017 5:43 PM Dictated Date/Time: 05/08/2017 5:42 PM L KNEE 1 OR 2 VIEWS ROUTINE CLINICAL HISTORY: Left knee pain COMPARISON: None. DISCUSSION: There is subtle chondrocalcinosis. No acute fractures are visualized. There are mild osteoarthritic changes most pronounced the medial joint compartment. There is mild osteopenia. IMPRESSION: Moderate degenerative change. No acute fractures identified. Electronically signed by: Aj Little M.D. 05/08/2017 5:44 PM Dictated Date/Time: 05/08/2017 5:43 PM HEAD WITHOUT CONTRAST (CT) CLINICAL HISTORY: 72 years-old Female presenting with fall eval for bleed. TECHNIQUE: Multidetector CT imaging of the head was performed without the use of intravenous contrast. IV contrast: None. A dose lowering technique was used consistent with the principles of ALARA (as low as reasonably achievable). COMPARISON: None. CT DOSE (mGy.cm): The estimated cumulative dose is 569.73 mGy.cm. FINDINGS: Paper Feeder topogram: Unremarkable. Ventricles and sulci normal in size. Brain parenchyma normal in appearance with preserved sepulveda-white differentiation. No mass effect or midline shift. No hemorrhage or acute territorial infarct. No extra-axial fluid collection. Paranasal sinuses and mastoid air cells clear. Calvarium intact. IMPRESSION: 1. No acute intracranial abnormality. Electronically signed by: Eduardo Mak M.D. 05/08/2017 4:47 PM Dictated Date/Time: 05/08/2017 4:45 PM ABDOMEN 2VIEW W/PA CHEST RTN CLINICAL HISTORY: 72 years-old Female presenting with eval stents/obstruciton. TECHNIQUE: PA view of the chest and supine and upright views of the abdomen were obtained. COMPARISON: 05/01/2017. FINDINGS: Cardiomediastinal silhouette normal. Lungs and pleural spaces clear. Cholecystectomy clips noted. Nonobstructive bowel gas pattern. Suggestion of small bowel wall thickening and abnormal distention in the right mid abdomen, measuring up to 3.9 cm in diameter. No gross pneumoperitoneum. Bilateral ureteral stents. Calcifications projects over the left kidney. No radiographically apparent calculi in the right kidney. The distal left ureteral calculus is unchanged in position. Degenerative changes of the spine. IMPRESSION: 1. No acute cardiopulmonary disease. 2. Suggestion of pathologic small bowel distention and wall thickening of a loop in the right mid abdomen without convincing evidence of obstruction. This may represent an ileus or mild enteritis. 3. Left nephrolithiasis with bilateral ureteral stents. Unchanged position of the distal left ureteral calculus. Electronically signed by: Eduardo Mak M.D. 05/08/2017 5:44 PM Dictated Date/Time: 05/08/2017 5:41 PM L ANKLE MIN 3 VIEWS ROUTINE CLINICAL HISTORY: Left ankle pain. COMPARISON: None. DISCUSSION: No acute fractures or dislocations are visualized. There is a plantar calcaneal spur. IMPRESSION: No acute fractures identified. Electronically signed by: Aj Little M.D. 05/08/2017 5:43 PM Dictated Date/Time: 05/08/2017 5:43 PM AP PELVIS AND LEFT HIP 3 VIEWS CLINICAL HISTORY: Left hip pain. Possible fracture. COMPARISON STUDY: No previous studies for comparison. FINDINGS: No fractures are visualized. There are mild degenerative changes present. Bilateral nephroureteral stents are visualized. No destructive lesions are evident. IMPRESSION: Mild degenerative changes. No acute fractures identified. Electronically signed by: Aj Little M.D. 05/08/2017 5:42 PM Dictated Date/Time: 05/08/2017 5:41 PM Laboratory Results 05/08/17 14:41 Red Blood Count 3.70, Mean Corpuscular Volume 89.7, Mean Corpuscular Hemoglobin 30.5, Mean Corpuscular Hemoglobin Concent 34.0, Mean Platelet Volume 9.0, Neutrophils (%) (Auto) 76.3, Lymphocytes (%) (Auto) 16.0, Monocytes (%) (Auto) 6.2, Eosinophils (%) (Auto) 0.5, Basophils (%) (Auto) 0.3, Neutrophils # (Auto) 4.67, Lymphocytes # (Auto) 0.98, Monocytes # (Auto) 0.38, Eosinophils # (Auto) 0.03, Basophils # (Auto) 0.02 05/08/17 14:41 Test 05/08/17 14:41 05/08/17 16:05 White Blood Count 6.12 K/uL (4.8-10.8) Red Blood Count 3.70 M/uL (4.2-5.4) Hemoglobin 11.3 g/dL (12.0-16.0) Hematocrit 33.2 % (37-47) Mean Corpuscular Volume 89.7 fL (80-100) Mean Corpuscular Hemoglobin 30.5 pg (25-34) Mean Corpuscular Hemoglobin Concent 34.0 g/dl (32-36) Platelet Count 374 K/uL (130-400) Mean Platelet Volume 9.0 fL (7.4-10.4) Neutrophils (%) (Auto) 76.3 % Lymphocytes (%) (Auto) 16.0 % Monocytes (%) (Auto) 6.2 % Eosinophils (%) (Auto) 0.5 % Basophils (%) (Auto) 0.3 % Neutrophils # (Auto) 4.67 K/uL (1.4-6.5) Lymphocytes # (Auto) 0.98 K/uL (1.2-3.4) Monocytes # (Auto) 0.38 K/uL (0.11-0.59) Eosinophils # (Auto) 0.03 K/uL (0-0.5) Basophils # (Auto) 0.02 K/uL (0-0.2) RDW Standard Deviation 49.1 fL (36.4-46.3) RDW Coefficient of Variation 15.2 % (11.5-14.5) Immature Granulocyte % (Auto) 0.7 % Immature Granulocyte # (Auto) 0.04 K/uL (0.00-0.02) Prothrombin Time 10.8 SECONDS (9.0-12.0) Prothromb Time International Ratio 1.0 (0.9-1.1) Activated Partial Thromboplast Time 21.7 SECONDS (21.0-31.0) Partial Thromboplastin Ratio 0.8 Anion Gap 14.0 mmol/L (3-11) Est Creatinine Clear Calc Drug Dose 57.9 ml/min Estimated GFR () 77.2 Estimated GFR (Non- 66.6 BUN/Creatinine Ratio 13.2 (10-20) Calcium Level 9.4 mg/dl (8.5-10.1) Total Bilirubin 1.0 mg/dl (0.2-1) Direct Bilirubin 0.2 mg/dl (0-0.2) Aspartate Amino Transf (AST/SGOT) 13 U/L (15-37) Alanine Aminotransferase (ALT/SGPT) 18 U/L (12-78) Alkaline Phosphatase 109 U/L (45-117) Troponin I < 0.015 ng/ml (0-0.045) Total Protein 6.8 gm/dl (6.4-8.2) Albumin 3.6 gm/dl (3.4-5.0) Lipase 328 U/L (73-393) Urine Color DK YELLOW Urine Appearance CLOUDY (CLEAR) Urine pH 6.0 (4.5-7.5) Urine Specific [place] 1.017 (1.000-1.030) Urine Protein 2+ (NEG) Urine Glucose (UA) NEG (NEG) Urine Ketones 4+ (NEG) Urine Occult Blood 3+ (NEG) Urine Nitrite POS (NEG) Urine Bilirubin NEG (NEG) Urine Urobilinogen NEG (NEG) Urine Leukocyte Esterase MODERATE (NEG) Urine WBC (Auto) >30 /hpf (0-5) Urine RBC (Auto) >30 /hpf (0-4) Urine Hyaline Casts (Auto) 5-10 /lpf (0-5) Urine Epithelial Cells (Auto) >30 /lpf (0-5) Urine Bacteria (Auto) NEG (NEG) Urine Renal Epithelial Cells /lpf (0-5) Laboratory results as reviewed by me. Medications Administered Medications (Trade) Dose Ordered Sig/Papo Route Start Time Stop Time Status Last Admin Dose Admin Sodium Chloride 500 ml @ 999 mls/hr Q31M STAT IV 05/08/17 15:44 05/08/17 16:14 DC 05/08/17 16:17 999 MLS/HR Ondansetron HCl (Zofran Inj) 4 mg NOW STAT IV 05/08/17 15:44 05/08/17 15:50 DC 05/08/17 16:17 4 MG Ketorolac Tromethamine (Toradol Inj) 10 mg NOW STAT IV 05/08/17 15:44 05/08/17 15:50 DC 05/08/17 16:18 10 MG Gentamicin Sulfate 430 mg/ Dextrose 110.75 ml @ 100 mls/ hr NOW ONCE IV 05/08/17 18:00 05/08/17 19:06 DC 05/08/17 18:51 100 MLS/HR Morphine Sulfate (MoRPHine SULFATE INJ) 2 mg NOW STAT IV 05/08/17 19:25 05/08/17 19:26 DC 05/08/17 19:33 2 MG Ondansetron HCl (Zofran Inj) 4 mg NOW STAT IV 05/08/17 19:25 05/08/17 19:26 DC 05/08/17 19:31 4 MG Vancomycin HCl 1750 mg/Sodium Chloride 535 ml @ 200 mls/hr NOW STAT IV 05/08/17 21:13 05/08/17 23:53 05/08/17 21:41 200 MLS/HR ECG Per My Interpretation Indication: weakness Rate (beats per minute): 97 Rhythm: normal sinus Findings: no ectopy, other (No ST elevation. Limited interpretation due to baseline artifact.) ED Course 1532: The patient was evaluated in room A4. A complete history and physical exam was performed. 1544: Toradol 10mg IV, Zofran 4mg IV, Sodium Chloride 500 ml @ 999 mls/hr IV 1650: I reevaluated the patient, and she is feeling better. She says that the pain is much improved. 1745: I discussed the patient's case with Dr. Solis - Urology, and he recommends giving her gentamicin and agrees with hospitalization. 1800: I spoke with Dr. Ba - [facility] Hospitalist. We discussed the patient and her results. The patient will be further evaluated by him. I also ordered Gentamicin Sulfate 430mg/ Dextrose 110.75ml @ 100mls/hr IV 1902: I talked with Dr. Ba, and he told me the patient is supposed to be evaluated by [facility] [place] Hospitalist 1924: I discussed the patient's case with Dr. Black - [facility] [place] Hospitalist. He is going to evaluate the patient for further treatment. I ordered Zofran 4mg IV, Morphine Sulfate 2mg IV Medical Decision This is a 72-year-old female presents with syncope and abdominal pain. Differential diagnosis includes stent colic, UTI, pyelonephritis, sepsis, vasovagal syncope, metabolic derangement, cardiac, intracranial hemorrhage, limb injury. I did perform a limited focused review of portions of the patient' s old chart on the electronic medical record. The patient was admitted April 24 for a 3mm non-obstructing UVJ stone and a 6mm left ureteral stone. She underwent bilateral stent placement. I did evaluate the patient as noted above. She is presenting with continued bilateral flank pain greater on the left side. She has a known kidney stone and underwent stone retrieval as well as bilateral ureteral stents recently. She has not been doing well at home and has become increasingly weak with nausea and vomiting despite being placed on pain medications and nausea medications. She is also on Cipro. It appears that she had a syncopal episode today while in the bathroom. She states she has been feeling very weak as she has not been eating and drinking very much due to her nausea. IV access was established. The patient was placed on a continuous monitoring analyst. I did order and personally review the patient's 12-lead EKG and x-rays as described above. No fractures are noted. The patient has ureteral stents in place. There was some dilation of the bowel but no signs of obstruction. The patient was placed in an Van wrap for the left knee and the gel splint for her ankle. I did order and review the patient's blood work as noted in the electronic medical record. I did order a urine analysis. She does have signs of pyelonephritis. This was a catheterized specimen and a urine culture was sent. I did talk to Dr. Solis of urology who recommended gentamicin IV. Her prior cultures did not grow out any specific organisms. She has been on Cipro and is penicillin allergic. I did have the ED pharmacist order gentamicin IV. I did order a CT of her head which was negative for acute intracranial hemorrhage. I did review the images myself as well as the radiology report. I did treat the patient with Toradol and then subsequently morphine IV for pain. She is also given Zofran for nausea and normal saline IV. I did discuss the case with the hospitalist and case checker. I did discuss the test results with the patient. Head Trauma GCS Score: 15 Medication Reconcilliation Current Medication List: was personally reviewed by me Blood Pressure Screening Patient's blood pressure: Elevated blood pressure Monitored by the hospitalist Consults Time Called: 1739 Consulting Physician: Dr. Irma Gaming Returned Call: 1745 I discussed the patient's case with Dr. Irma Gaming, and he recommends giving her gentamicin and agrees with hospitalization. Additional Consults: Time Called: 1750 Consulted Physician: Dr. Jesenia Altman Hospitalist Returned Call: 1800 Additional Comments: I spoke with Dr. Jesenia Wallace. We discussed the patient and her results. The patient will be further evaluated by him. Time Called: 1905 Consulted Physician: Dr. Sofia ANDRE Hospitalist Returned Call: 1925 Additional Comments: I discussed the patient's case with Dr. Sofia ANDRE [facility]. He is going to evaluate the patient for further treatment Impression Primary Impression: Syncope Additional Impressions: Pyelonephritis Acute head injury Left ankle sprain Left knee injury Failure of outpatient treatment Scribe Attestation The scribe's documentation has been prepared under my direct and personally reviewed by me in its entirety. I confirm that the note above accurately reflects all work, treatment, procedures, and medical decision making performed by me. Departure Information Dispostion Being Evaluated By Hospitalist Referrals No Doctor, Assigned (PCP) Patient Instructions My [facility] Problem Qualifiers Primary Impression: Syncope Syncope type: unspecified Qualified Codes: R55 - Syncope and collapse Additional Impressions: Acute head injury Encounter type: initial encounter Qualified Codes: S09.90XA - Unspecified injury of head, initial encounter Left ankle sprain Encounter type: initial encounter Involved ligament of ankle: unspecified ligament Qualified Codes: S93.402A - Sprain of unspecified ligament of left ankle, initial encounter Left knee injury Encounter type: initial encounter Qualified Codes: S89.92XA - Unspecified injury of left lower leg, initial encounter
[2017-05-09] VITALS (8 sets, daily range): BP systolic 96–175; BP diastolic 60–80; PULSE 65–87; TEMP 36.3–37; O2SAT 93–96
[2017-05-09] MEDS ORDERED: NURSING VERBAL MED ORDER ONE (00:45)
[2017-05-09] MEDS: SODIUM CHLORIDE 0.9% 1000ML 1,000 ML IV SCH ×3 (00:48→21:48)
[2017-05-09] MEDS ORDERED: IV FLUIDS COMPLETED PRN (01:45)
[2017-05-09] MEDS: AZTREONAM IV 2,000 MG in DEXTROSE 5% 100ML 100 ML IV SCH ×3 (01:59→18:27)
[2017-05-09] MEDS: ONDANSETRON INJ 2 MG/ML 2 ML VIAL IV PRN ×2 (01:59→10:24)
[2017-05-09] MEDS: LISINOPRIL 10 MG TAB PO SCH (07:44)
[2017-05-09] MEDS: BuPROPion SR 150 MG TABCR PO SCH ×2 (07:44→20:15)
[2017-05-09] MEDS: OXYBUTYNIN CHLORIDE 5 MG TABCR PO SCH ×2 (07:44→13:30)
[2017-05-09] MEDS: ACETAMINOPHEN 500 MG TAB PO PRN ×2 (08:06→15:52)
--- NOTE | 2017-05-09 08:40 | Pharmacy Progress Note ---
Pharmacy Abx Initial Consult Date of Service May 09, 2017. Pharmacy Dosing Scope Date of Consult: 05/08/17 Consultation requested by: Dr. Segura Pharmacy is consulted to initiate Vancomycin IV dosing therapy, order appropriate labs and adjust drug dose/frequency. Subjective The patient is a 72 year old female admitted on May 08, 2017 at 21:35. Objective Height (Feet): 5 Height (Inches): 3.00 Weight (Kilograms): 67.600 Vital Signs (Past 12Hrs) Vital Signs Past 12 Hours Date Time Temp Pulse Resp B/P (MAP) Pulse Ox O2 Delivery O2 Flow Rate FiO2 05/09/17 07:21 37.0 87 18 157/71 (99) 94 Room Air 05/09/17 04:40 36.9 69 17 150/67 (94) 93 Room Air 05/09/17 04:10 Room Air 05/09/17 00:20 Room Air 05/09/17 00:04 36.7 75 20 155/69 (97) 93 Room Air 05/08/17 22:26 36.9 77 18 160/81 93 Room Air 05/08/17 21:52 82 16 158/79 97 Room Air 05/08/17 21:15 82 14 163/97 97 05/08/17 21:15 77 15 163/97 93 Room Air 05/08/17 20:31 78 10 181/85 Lab Results (24Hrs) Laboratory Tests (24 Hours) Test 05/08/17 14:41 White Blood Count 6.12 K/uL (4.8-10.8) Red Blood Count 3.70 M/uL (4.2-5.4) L Hemoglobin 11.3 g/dL (12.0-16.0) L Hematocrit 33.2 % (37-47) L Mean Corpuscular Volume 89.7 fL (80-100) Mean Corpuscular Hemoglobin 30.5 pg (25-34) Mean Corpuscular Hemoglobin Concent 34.0 g/dl (32-36) Platelet Count 374 K/uL (130-400) Mean Platelet Volume 9.0 fL (7.4-10.4) Neutrophils (%) (Auto) 76.3 % Lymphocytes (%) (Auto) 16.0 % Monocytes (%) (Auto) 6.2 % Eosinophils (%) (Auto) 0.5 % Basophils (%) (Auto) 0.3 % Neutrophils # (Auto) 4.67 K/uL (1.4-6.5) Lymphocytes # (Auto) 0.98 K/uL (1.2-3.4) L Monocytes # (Auto) 0.38 K/uL (0.11-0.59) Eosinophils # (Auto) 0.03 K/uL (0-0.5) Basophils # (Auto) 0.02 K/uL (0-0.2) Micro Results Date/Time Source Procedure Growth Status 05/08/17 18:42 Blood Blood Culture Pending Received 05/08/17 18:34 Blood Blood Culture Pending Received 05/08/17 16:05 Urine,Catheterized Urine Culture Pending Received Risk Factors for Resistance * Hospitalization for 48 hours or more within the past 90 days -> admitted 04/24- 04/25... <48 hours * Antimicrobial use within the last 90 days - supposed to be on chronic Cipro ( hx BL nephrolithiasis with BL ureteral stents placed on 04/24) Assessment & Plan Assessment 72 year old female on empiric IV Vancomycin and Aztreonam (not a consult) for possible UTI. * Renal function appears to be at baseline. Most recent sCr = 0.88 mg/dL with estimated CrCl ~58 mL/min. Estimated pharmacokinetic parameters: * Ke ~0.052/hr, T1/2 ~13.3 hrs * Patient received Vancomycin 1750mg (~26mg/kg) IV x 1 as a loading dose on 05/08 @ 2140 Plan Vancomycin IV * Maintenance dose: 1000 mg IV (~15 mg/kg) every 16 hours * Goal trough level for UTI : ~15 mcg/mL * Trough level ordered for 05/10 @ 2129 (prior to 3rd dose and therefore not reflective of steady state, but would like to assess dosing regimen earlier) Pharmacy will continue to follow and will adjust dose/frequency as necessary. Thank you.
--- NOTE | 2017-05-09 10:40 | Urology Consultation ---
History General Date of Service: May 09, 2017. Chief Complaint: s/p fall, nausea, cognitive decline Primary Care Physician: Jonathon Cha D.O. Pt seen a urologist before?: Yes (Dr. Luevano) If yes, why?: nephrolithiasis History of Present Illness 72 yo female known to my service for nephrolithiasis. She is s/p b/l ureteral stent placement on 04-24-[address] Luevano for b/l ureteral stones. Since that time she reports that she has been experiencing worsening pain, weakness, and n/v. She did see me for this issue on 05-06 as an outpatient. At that time I provided her oxybutynin, Percocet, and Zofran for symptom control along with requesting she continue Azo and Flomax for stent irritation. She was also treated empirically with Cipro. UC&S from that day noted to be negative. Per the pt's daughter today, she has become increasingly confused and weak, and fell yesterday which led to them calling the ambulance to bring her to the hospital. UA on admission is nitrite positive. Blood and urine cultures pending. White count noted to be normal. Cr is normal. She is afebrile. She is scheduled for b/l URS with Dr. Luevano on 05-15. Per records on admission, there was concern that the pt took all 60 tablets of Percocet provided at her OV with me on 05-06. Per the pt's daughter, she does have a hx of dependence on Percocet, but only took 2 tablets from the Rx provided. She states she has the full bottom of her mother's at home. Per PDMP, the pt has received tramadol over the past year, but no Percocet. Laboratory Last 24 Hours Test 05/08/17 14:41 05/08/17 16:05 White Blood Count 6.12 K/uL Red Blood Count 3.70 M/uL Hemoglobin 11.3 g/dL Hematocrit 33.2 % Mean Corpuscular Volume 89.7 fL Mean Corpuscular Hemoglobin 30.5 pg Mean Corpuscular Hemoglobin Concent 34.0 g/dl Platelet Count 374 K/uL Mean Platelet Volume 9.0 fL Neutrophils (%) (Auto) 76.3 % Lymphocytes (%) (Auto) 16.0 % Monocytes (%) (Auto) 6.2 % Eosinophils (%) (Auto) 0.5 % Basophils (%) (Auto) 0.3 % Neutrophils # (Auto) 4.67 K/uL Lymphocytes # (Auto) 0.98 K/uL Monocytes # (Auto) 0.38 K/uL Eosinophils # (Auto) 0.03 K/uL Basophils # (Auto) 0.02 K/uL RDW Standard Deviation 49.1 fL RDW Coefficient of Variation 15.2 % Immature Granulocyte % (Auto) 0.7 % Immature Granulocyte # (Auto) 0.04 K/uL Prothrombin Time 10.8 SECONDS Prothromb Time International Ratio 1.0 Activated Partial Thromboplast Time 21.7 SECONDS Partial Thromboplastin Ratio 0.8 Sodium Level 139 mmol/L Potassium Level 4.0 mmol/L Chloride Level 105 mmol/L Carbon Dioxide Level 20 mmol/L Anion Gap 14.0 mmol/L Blood Urea Nitrogen 12 mg/dl Creatinine 0.88 mg/dl Est Creatinine Clear Calc Drug Dose 57.9 ml/min Estimated GFR () 77.2 Estimated GFR (Non- 66.6 BUN/Creatinine Ratio 13.2 Random Glucose 128 mg/dl Calcium Level 9.4 mg/dl Total Bilirubin 1.0 mg/dl Direct Bilirubin 0.2 mg/dl Aspartate Amino Transf (AST/SGOT) 13 U/L Alanine Aminotransferase (ALT/SGPT) 18 U/L Alkaline Phosphatase 109 U/L Troponin I < 0.015 ng/ml Total Protein 6.8 gm/dl Albumin 3.6 gm/dl Lipase 328 U/L Hepatitis C Antibody Screen NEG Urine Color DK YELLOW Urine Appearance CLOUDY Urine pH 6.0 Urine Specific Boaz 1.017 Urine Protein 2+ Urine Glucose (UA) NEG Urine Ketones 4+ Urine Occult Blood 3+ Urine Nitrite POS Urine Bilirubin NEG Urine Urobilinogen NEG Urine Leukocyte Esterase MODERATE Urine WBC (Auto) >30 /hpf Urine RBC (Auto) >30 /hpf Urine Hyaline Casts (Auto) 5-10 /lpf Urine Epithelial Cells (Auto) >30 /lpf Urine Bacteria (Auto) NEG Urine Renal Epithelial Cells /lpf Problem List Medical Problems: (1) Acute head injury Status: Acute (2) Chronic diarrhea Status: Acute (3) Dehydration Status: Acute (4) Failure of outpatient treatment Status: Acute (5) Hypokalemia Status: Acute (6) Left ankle sprain Status: Acute (7) Left knee injury Status: Acute (8) Pyelonephritis Status: Acute (9) Renal colic Status: Acute (10) Syncope Status: Acute Past History anxiety, depression, GERD, hypertension, kidney stones, other (gastritis, hiatal hernia, chronic diarrhea) Past Surgical History: lithotripsy, ureteral stent, other (magen fundoplication ) Family History Breast cancer Coronary artery disease Diabetes mellitus Leukemia Myocardial infarction Social History Hx Tobacco Use In Past Year?: No Smoking: non-smoker Alcohol: never Drug use: none Marital status: Housing status: lives with significant other Occupation status: retired Allergies Coded Allergies: Lactose. (Verified Allergy, Intermediate, GI Symptoms, 05/08/17) Iodinated Diagnostic Agents (Verified Allergy, Unknown, THROAT SWELLS SHUT , 05/08/17) Penicillins (Verified Allergy, Unknown, THROAT SWELLED SHUT, 05/08/17) Trimethobenzamide (Verified Allergy, Unknown, THROAT SWELLS SHUT, 05/08/17) Medications Home Medications: Home Meds and Scripts Medications Dose Route/Sig Max Daily Dose Days Date Category Dose Instructions Oxybutynin Chloride Er (Oxybutynin Chloride) 5 Mg Tab 5 Mg PO TID 90 05/08/17 Reported Cipro (Ciprofloxacin Hcl) 500 Mg Tab 500 Mg PO BID 05/08/17 Reported Percocet 5MG/325MG (Oxycodone/Acetaminophen) Tab 1-2 Tablets PO Q6 PRN 05/08/17 Reported PAIN Phenazopyridine HCl 200 Mg Tab 1 Tab PO UD PRN 05/02/17 Reported Tamsulosin HCl 0.4 Mg Cap 1 Cap PO HS 05/02/17 Reported Cholestyramine 4 Gm Pow 4 Gm PO BID PRN 04/22/17 Reported Bupropion Hcl Sr (Bupropion Hcl (Smoking [place]) 150 Mg Tab 150 Mg PO BID 04/22/17 Reported Zolpidem Tartrate 10 Mg Tab 5-10 Mg PO HS PRN 04/22/17 Reported Ultram (Tramadol HCl) 50 Mg Tab 50 Mg PO QID PRN 04/22/17 Reported Esomeprazole Magnesium 20 Mg Cap 40 Mg PO DAILY 04/22/17 Reported Trazodone (Trazodone HCl) 100 Mg Tab 100 Mg PO HS 02/11/17 Reported Ativan (Lorazepam) 1 Mg Tab 1 Mg PO TID PRN 02/11/17 Reported Zestril (Lisinopril) 10 Mg Tab 10 Mg PO QAM 02/11/17 Reported Inpatient Medications: Current Inpatient Medications Medications (Trade) Dose Ordered Sig/Papo Route Start Time Stop Time Status Last Admin Dose Admin Aztreonam 2000 mg/ Dextrose 110 ml @ 100 mls/hr Q8H IV 05/09/17 00:00 05/19/17 00:00 05/09/17 10:24 100 MLS/HR Miscellaneous Information (Consult) 1 ea UD PRN N/A 05/08/17 21:15 06/07/17 21:14 Sodium Chloride 1,000 ml @ 100 mls/hr Q10H IV 05/08/17 21:14 06/07/17 21:13 05/09/17 08:06 100 MLS/HR Acetaminophen (Tylenol Tab) 1,000 mg Q6H PRN PO 05/08/17 21:15 06/07/17 21:14 05/09/17 08:06 1,000 MG Ondansetron HCl (Zofran Inj) 4 mg Q6H PRN IV 05/08/17 21:15 06/07/17 21:14 05/09/17 10:24 4 MG Lisinopril (Zestril Tab) 10 mg QAM PO 05/09/17 09:00 06/08/17 08:59 05/09/17 07:44 10 MG Lorazepam (Ativan Tab) 1 mg TID PRN PO 05/08/17 21:15 06/07/17 21:14 Future Hold Oxybutynin Chloride (Ditropan-Xl Tab) 5 mg TID PO 05/09/17 09:00 06/08/17 08:59 05/09/17 07:44 5 MG Phenazopyridine HCl (Pyridium Tab) 200 mg DAILY PRN PO 05/08/17 21:15 06/07/17 21:14 Tamsulosin HCl (Flomax Cap) 0.4 mg HS PO 05/09/17 21:00 06/08/17 20:59 Trazodone HCl (Desyrel Tab) 100 mg HS PO 05/09/17 21:00 06/08/17 20:59 Zolpidem Tartrate (Ambien Tab) 5 mg HS PRN PO 05/08/17 21:15 06/07/17 21:14 Bupropion HCl (Wellbutrin-Sr Tab) 150 mg BID PO 05/09/17 09:00 06/08/17 08:59 05/09/17 07:44 150 MG Cholestyramine Resin (Questran Powder Light) 4 gm BID PRN PO 05/08/17 21:15 06/07/17 21:14 Pantoprazole Sodium 40 mg/ Syringe 10 ml @ 5 mls/min DAILY@11 IV 05/09/17 11:00 06/08/17 10:59 05/09/17 10:24 5 MLS/MIN Miscellaneous (Iv Fluids Completed) 1 ea PRN PRN N/A 05/09/17 01:45 05/09/18 01:44 Vancomycin HCl 1000 mg/Sodium Chloride 270 ml @ 125 mls/hr Q16H IV 05/09/17 14:00 05/18/17 13:59 Review of Systems Review of Systems Constitutional: No fever, No chills Eyes: No double vision Neurological: No dizzy Endocrine: No excessive thirst Gastrointestinal: + abdominal pain, + nausea, No vomiting Cardiovascular: No chest pain Respiratory: No shortness of breath Skin: No rash Musculoskeletal: No back pain Female : + painful urination, + blood in urine, + kidney stones Physical Exam Vital Signs: Vital Signs Past 12 Hours Date Time Temp Pulse Resp B/P (MAP) Pulse Ox O2 Delivery O2 Flow Rate FiO2 05/09/17 08:25 Room Air 05/09/17 07:21 37.0 87 18 157/71 (99) 94 Room Air 05/09/17 04:40 36.9 69 17 150/67 (94) 93 Room Air 05/09/17 04:10 Room Air 05/09/17 00:20 Room Air 05/09/17 00:04 36.7 75 20 155/69 (97) 93 Room Air Physical Exam: General Appearance: + mild distress Eyes: bilateral eyes normal inspection ENT: hearing grossly normal Neck: no JVD Respiratory/Chest: no respiratory distress, no accessory muscle use Cardiovascular: no JVD Extremities: normal inspection Neurologic/Psychiatric: alert, normal mood/affect, oriented x 3 Skin: normal color Assessment & Plan Assessment & Plan A/P: Nephrolithiasis AFVSS. Pt tolerating stents poorly. Will check a CT to ensure they are in good position. Continue IV abx pending culture sensitivities. Supportive management with IVF, pain control, and Zofran. Uncertain her URS can be moved up. Would likely need to ensure she is not infected first. Thanks for the consult. Will continue to follow along with primary service.
[2017-05-09] MEDS ORDERED: KETOROLAC TROMETHAMINE 15 MG/ML VIAL IV ONE (10:45)
[2017-05-09] MEDS ORDERED: PANTOprazole INJ 40 MG in SYRINGE 0 ML IV SCH (11:00)
--- NOTE | 2017-05-09 13:03 | DIAGNOSTIC IMAGING REPORT ---
ABD/PELVIS NO IV OR ORAL CONT CLINICAL HISTORY: 72 years-old Female presenting with bilateral ureteral stent placement and nephrolithiasis. TECHNIQUE: Multidetector CT of the abdomen and pelvis was performed without the use of intravenous contrast. IV contrast: None. A dose lowering technique was used consistent with the principles of ALARA (as low as reasonably achievable). COMPARISON: 04/22/2017. CT DOSE (mGy.cm): The estimated cumulative dose is 486.32 mGy.cm. FINDINGS: Paraeducator topogram: Cholecystectomy clips. Lung bases: Minimal basilar opacities, likely atelectasis. Normal heart size. No pericardial or pleural effusion. Liver: Normal morphology. Normal density. Biliary: Mild biliary ductal prominence likely a reservoir effect in the post cholecystectomy state. Gallbladder surgically absent. Pancreas: Normal noncontrast appearance. Spleen: Normal noncontrast appearance. Adrenal glands: Normal noncontrast appearance. Kidneys and ureters: Bilateral nephrolithiasis with a greater stone burden on the left. The largest left calculus measures 11 mm. The largest right calculus measures 2 mm. No hydronephrosis. Interval placement of bilateral ureteral stents, however, the proximal pigtail is located in the proximal ureters rather than the renal pelvis or calyces. Distal pigtails located in the bladder lumen. Previously noted 6 mm calcification along the course of the distal left ureter remains in place. The previously noted smaller calcification at the right ureterovesical junction is no longer present. Bladder: Incompletely evaluated secondary to underdistention. Pelvic organs: Uterus surgically absent. No adnexal masses. Bowel: Diverticulosis of the sigmoid and distal descending colon. Few scattered colonic diverticula elsewhere. No bowel obstruction. Small hiatal hernia. Small duodenal diverticulum suggested along the descending portion. Peritoneal cavity: No free fluid or intraperitoneal gas. Lymph nodes: No gross lymphadenopathy allowing for noncontrast technique. Vasculature: Atherosclerosis of the normal caliber abdominal aorta. Abdominal wall: Mild nonspecific body wall edema. Musculoskeletal: Degenerative changes of the tibia symphysis, hip joints, left greater than right, sacroiliac joints, and spine. Osteopenia. IMPRESSION: 1. Interval placement of bilateral ureteral stents, however, the proximal pigtails are located in the proximal ureters rather than the renal pelvises or calyces. Correlate clinically for expected positioning. 2. Persistent 6 mm calculus along the course of the left distal ureter. 3. Resolution of the smaller right ureterovesical junction calculus. 4. Bilateral nephrolithiasis with a greater stone burden on the left. 5. Diverticulosis. 6. Osteopenia. Electronically signed by: Eduardo Mak M.D. 05/09/2017 1:01 PM Dictated Date/Time: 05/09/2017 12:53 PM
[2017-05-09] MEDS: VANCOMYCIN INJ 1,000 MG in SODIUM CHLORIDE 0.9% 250ML 250 ML IV SCH (13:30)
--- NOTE | 2017-05-09 15:45 | Family Medicine Progress Note ---
Progress Note Date of Service May 09, 2017. Subjective Pt evaluation today including: conversation w/ patient, conversation w/ family , physical exam, chart review, lab review, review of inpatient medication list Pain: Abdominal pain reported PO Intake: Tolerating PO intake Voiding: no voiding problems Ms. Torres reports she has abdominal pain today. She states the pain is over the middle of her abdomen. She denies dysuria, frequency or urgency, but has noticed blood in her urine since she had her stents placed. Her daughter states that she has been declining over the past week, has lost weight and has been more confused than her usual baseline. Constitutional: No fever, No chills Respiratory: No cough, No wheezing, No shortness of breath Abdomen: + pain, No nausea, No vomiting Female : + hematuria, No dysuria, No urinary frequency All Other Systems: Reviewed and Negative Medications Current Inpatient Medications Medications (Trade) Dose Ordered Sig/Papo Route Start Time Stop Time Status Last Admin Dose Admin Aztreonam 2000 mg/ Dextrose 110 ml @ 100 mls/hr Q8H IV 05/09/17 00:00 05/19/17 00:00 05/09/17 10:24 100 MLS/HR Miscellaneous Information (Consult) 1 ea UD PRN N/A 05/08/17 21:15 06/07/17 21:14 Sodium Chloride 1,000 ml @ 100 mls/hr Q10H IV 05/08/17 21:14 06/07/17 21:13 05/09/17 08:06 100 MLS/HR Acetaminophen (Tylenol Tab) 1,000 mg Q6H PRN PO 05/08/17 21:15 06/07/17 21:14 05/09/17 15:52 1,000 MG Ondansetron HCl (Zofran Inj) 4 mg Q6H PRN IV 05/08/17 21:15 06/07/17 21:14 05/09/17 10:24 4 MG Lisinopril (Zestril Tab) 10 mg QAM PO 05/09/17 09:00 06/08/17 08:59 05/09/17 07:44 10 MG Lorazepam (Ativan Tab) 1 mg TID PRN PO 05/08/17 21:15 06/07/17 21:14 Future Hold Oxybutynin Chloride (Ditropan-Xl Tab) 5 mg TID PO 05/09/17 09:00 06/08/17 08:59 Future Hold 05/09/17 13:30 5 MG Phenazopyridine HCl (Pyridium Tab) 200 mg DAILY PRN PO 05/08/17 21:15 06/07/17 21:14 Tamsulosin HCl (Flomax Cap) 0.4 mg HS PO 05/09/17 21:00 06/08/17 20:59 Trazodone HCl (Desyrel Tab) 100 mg HS PO 05/09/17 21:00 06/08/17 20:59 Zolpidem Tartrate (Ambien Tab) 5 mg HS PRN PO 05/08/17 21:15 06/07/17 21:14 Bupropion HCl (Wellbutrin-Sr Tab) 150 mg BID PO 05/09/17 09:00 06/08/17 08:59 05/09/17 07:44 150 MG Cholestyramine Resin (Questran Powder Light) 4 gm BID PRN PO 05/08/17 21:15 06/07/17 21:14 Pantoprazole Sodium 40 mg/ Syringe 10 ml @ 5 mls/min DAILY@11 IV 05/09/17 11:00 06/08/17 10:59 05/09/17 10:24 5 MLS/MIN Miscellaneous (Iv Fluids Completed) 1 ea PRN PRN N/A 05/09/17 01:45 05/09/18 01:44 Vancomycin HCl 1000 mg/Sodium Chloride 270 ml @ 125 mls/hr Q16H IV 05/09/17 14:00 05/18/17 13:59 05/09/17 13:30 125 MLS/HR Heparin Sodium (Porcine) (Heparin Sq 5000 Unit/0.5ml) 5,000 unit Q8 SQ 05/09/17 22:00 06/08/17 21:59 Objective Vital Signs Date Time Temp Pulse Resp B/P (MAP) Pulse Ox O2 Delivery O2 Flow Rate FiO2 05/09/17 16:00 Room Air 05/09/17 15:03 36.9 70 18 167/76 (106) 95 Room Air 05/09/17 12:15 Room Air 05/09/17 11:34 37.0 71 18 174/73 (106) 95 Room Air 05/09/17 08:25 Room Air 05/09/17 07:21 37.0 87 18 157/71 (99) 94 Room Air 05/09/17 04:40 36.9 69 17 150/67 (94) 93 Room Air 05/09/17 04:10 Room Air 05/09/17 00:20 Room Air 05/09/17 00:04 36.7 75 20 155/69 (97) 93 Room Air 05/08/17 22:26 36.9 77 18 160/81 93 Room Air 05/08/17 21:52 82 16 158/79 97 Room Air 05/08/17 21:15 82 14 163/97 97 05/08/17 21:15 77 15 163/97 93 Room Air 05/08/17 20:31 78 10 181/85 05/08/17 20:02 175/89 05/08/17 19:54 79 18 155/93 95 Room Air 05/08/17 19:50 78 13 96 05/08/17 17:39 78 18 159/76 94 Room Air Physical Exam General Appearance: WD/WN, no apparent distress Respiratory/Chest: lungs clear, normal breath sounds Cardiovascular: regular rate, rhythm, no edema Abdomen: soft, + tenderness Extremities: no calf tenderness, + pertinent finding (left ankle in airsplint) Neurologic/Psychiatric: alert, normal mood/affect, oriented x 3 Assessment and Plan Ms. Torres is a 72 year old female with a past medical history of depression , anxiety, chronic diarrhea, hiatal hernia s/p Will Fundoplication in 2008, GERD, and bilateral nephrolithiasis with bilateral ureteral stents placed on that presents with altered mental status and fall today. Acute Encephalopathy - Secondary to dehydration, pain and suspected underlying infection - UA: 3+ occult Blood, Positive Urine Nitrite, Moderate Leukocyte Esterase, > 30 WBC (although > 30 Epithelial cells) - CT brain negative for acute bleed after fall - Urine culture negative - awaiting blood cultures to narrow abx use - continue IV Aztreonam 2g q8h --> Severe allergy to Penicillins - continue IV Vancomycin - continue IV NS @ 75 mls/hr - Pain control --> Tylenol 1000mg q6h PRN & 5mg oxycodone q6h prn (daughter confirmed her mother did NOT use all her percocets in the outpatient setting) Health Care Associated UTI - antibiotics and IVF as above Left Ankle Sprain - x-ray ruled out fracture - air-cast Bilateral Nephrolithiasis - thank you to urology for consult - CT abdo/pelvis today to ensure stents in correct location - outpatient urology appt already set up next week - Pain control with Tylenol 1g q6h PRN pain/fever - Flomax 0.4mg qd - Pyridoxine 200mg qd PRN Hypertension - Continue home Lisinopril Anxiety/ Depression - hold home Ativan and zolpidem as this may be contributing to her AMS - continue Trazodone GERD - continue Protonix 40mg PO qd Overactive Bladder - hold home Oxybutynin as may be contributing to her AMS DVT - SCDs, heparin 5,000 q8h Code Status - Full Resuscitation Disposition - remains on med/surg History Resident Physician Supervision Note: I was present with Dr. Pavon during the history and exam. I discussed the case with the resident and agree with the findings and plan as documented in the note. Any exceptions or clarifications are listed here. Pts daughter reports improved awareness and mental status. patient presently denies abdominal discomfort, dysuria or fever. General Appearance: WD/WN, no apparent distress Respiratory: chest non-tender, no respiratory distress, decreased breath sounds Cardiovascular: normal peripheral pulses, regular rate, rhythm, no murmur Gastrointestinal: normal bowel sounds, non tender, soft, no organomegaly Assessment/Plan 72 y/o female h/o depression and bilateral nephrolithiasis s/p bilateral stent placement 2 wks ago w/ delirium and fall Delirium in the setting of UTI - potentially 2/2 dehydration, UTI, abdominal pain - urology consultation - Daughter reports similar situations all this week but more mild. Potentially similar remotely as well. Follow up cultures, likely to narrow abx therapy in AM Bilateral nephrolithiasis s/p stent placement - flomax, pyridoxine and pain mgmt HTN - continue lisinopril Depression/anxiety - holding sedating medications at present. Would consider not restarting on discharge v. defer to PCP Overactive bladder - d/c oxybutynin 2/2 deliriogenic effects GERD - continue PPI therapy VTE PPX - Heparin FULL CODE Resident Tracking Resident Involvement: Resident Care Provided Care Provided: Adult [facility]
[2017-05-09] MEDS ORDERED: OXYCODONE/ACETAMINOPHEN 5-325 TAB PO PRN (17:30)
[2017-05-09] MEDS ORDERED: TRAZODONE HCL 100 MG TAB PO SCH (21:00)
[2017-05-09] MEDS ORDERED: TAMSULOSIN HCL 0.4 MG CAP PO SCH (21:00)
[2017-05-09] MEDS: HEPARIN SOD 5000 UNIT/0.5 ML CARP SQ SCH (21:50)
[2017-05-10] MEDS: AZTREONAM IV 2,000 MG in DEXTROSE 5% 100ML 100 ML IV SCH ×2 (01:50→09:34)
[2017-05-10 05:00] VITALS: BP 136/69; PULSE 61; TEMP 36.5; O2SAT 99
[2017-05-10] MEDS: VANCOMYCIN INJ 1,000 MG in SODIUM CHLORIDE 0.9% 250ML 250 ML IV SCH (05:34)
[2017-05-10] MEDS: HEPARIN SOD 5000 UNIT/0.5 ML CARP SQ SCH ×2 (05:36→13:44)
[2017-05-10 07:08] LABS: HEMOGLOBIN 8.2 g/dL (12.0-16.0); MEAN CELL VOLUME 93.3 fL (80-100); MEAN CORPUSCULAR HEMOGLOBIN 30.6 pg (25-34); MEAN CORPUSCULAR HGB CONC 32.8 g/dl (32-36); MEAN PLATELET VOLUME 8.6 fL (7.4-10.4); PLATELET COUNT 312 K/uL (130-400); RED CELL DISTRIBUTION WIDTH CV 16.8 % (11.5-14.5); WHITE BLOOD COUNT 7.08 K/uL (4.8-10.8)
[2017-05-10 07:21] LABS: CALCIUM 8.1 mg/dl (8.5-10.1); CREATININE 0.59 mg/dl (0.60-1.20); POTASSIUM 3.1 mmol/L (3.5-5.1)
[2017-05-10] MEDS ORDERED: POTASSIUM CHLORIDE 20 MEQ TABCR PO STA ×2 (07:56→16:19)
[2017-05-10 08:17] VITALS: BP 144/74; PULSE 58; TEMP 36.9; O2SAT 97
[2017-05-10] MEDS: BuPROPion SR 150 MG TABCR PO SCH (08:17)
[2017-05-10] MEDS: LISINOPRIL 10 MG TAB PO SCH (08:19)
[2017-05-10] MEDS ORDERED: PANTOprazole SOD 40 MG TAB PO SCH (09:00)
[2017-05-10] MEDS ORDERED: MAGNESIUM OXIDE 400 MG TAB PO ONE (09:40)
--- NOTE | 2017-05-10 10:31 | Progress Note ---
Progress Note Date of Service May 10, 2017. Progress Note Patient's afebrile vital signs are stable Patient offers no complaints She denies any flank pain but has some suprapubic discomfort. Says she is voiding okay White count is normal creatinine is normal I reviewed her CT scan and compared it to her retrogrades from her prior admission and [facility] she does have several stones on the left both in the ureter and the kidney and tiny stone on the right in the kidney stents although on the CAT scan appeared to be at the ureteropelvic junction when compared to her other films these seem to be in the same spot they have been she has no hydronephrosis and the stents are above the obstructing stones in the ureter so I do not think anything needs to be done with them currently. She is scheduled for surgery on to remove the stones. Assessment Nephrolithiasis post bilateral stent placement Would continue current evaluation for her syncopal episode
[2017-05-10 11:56] VITALS: BP 150/79; PULSE 69; TEMP 36.8; O2SAT 97
[2017-05-10 15:24] VITALS: BP 150/82; PULSE 76; TEMP 36.7; O2SAT 96
[2017-05-10 15:37] LABS: HEMATOCRIT 26.8 % (37-47)
[2017-05-10 16:00] LABS: CALCIUM 8.4 mg/dl (8.5-10.1); CREATININE 0.63 mg/dl (0.60-1.20); POTASSIUM 3.1 mmol/L (3.5-5.1)
--- NOTE | 2017-05-10 16:25 | Discharge Instructions ---
Discharge Instructions Date of Service May 10, 2017. Admission Reason for Admission: Altered Mental Status, Uti Discharge Discharge Diagnosis / Problem: Altered Mental Status Discharge Goals Goal(s): Decrease discomfort, Increase independence Activity Recommendations Activity Limitations: resume your previous activity . Instructions / Follow-Up Instructions / Follow-Up You were admitted to [facility] due to a fall. You had numerous x-rays and a CT scan of your brain which were all normal. You did sprain your left ankle and we have wrapped this in a splint so that you will be more comfortable. Below are the list of medical problems addressed during your stay: 1) Kidney stones - you were seen by urology for kidney stones. Urology has scheduled you for a procedure on to remove these stones 2) Infection - your urine dipstick looked concerning for an infection, however both your blood and urine cultures were negative - we will treat you with 5 days of ciprofloxacin (an antibiotic) to ensure that there is no leftover urinary infection 3) Low blood levels - your hemoglobin was low in the hospital. It was 11.3 when you came in and 9 when we discharged you - we checked to make sure there was no blood in your stool, and there wasn't - we recommend you follow up with your primary care provider to recheck these levels in 1 weeks time 4) Low potassium - your potassium was on the lower side while you were in the hospital - we treated you with oral potassium supplements. We also recommend you follow up with your primary care provider and have this rechecked in one weeks time as well 5) Confusion & weakness - when you came to [facility], you were a little confused and tired, this was probably due to a combination of pain, dehydration, a possible infection and some of the medications you may be taking - ativan, zolpidem and oxybutynin can all cause some confusion, especially when taken together. We recommend you limit your use of these medications unless absolutely necessary Current Hospital Diet Patient's current hospital diet: Regular Diet Discharge Diet Recommended Diet: Regular Diet Pending Studies Studies pending at discharge: no Medical Emergencies . Who to Call and When: Medical Emergencies: If at any time you feel your situation is an emergency, please call 911 immediately. . Non-Emergent Contact Non-Emergency issues call your: Primary Care Provider, Urologist . . "Provider Documentation" section prepared by Sage Pavon. .
[2017-05-10] MEDS ORDERED: CIPR1TAB10 PO ×2 (17:26→17:41)
--- NOTE | 2017-05-10 17:54 | Discharge Summary ---
Discharge Summary Date of Service May 10, 2017. Discharge Summary Admission Date: May 09, 2017 at 16:13 Discharge Date: May 10, 2017 Discharge Disposition: Home with services Principal Diagnosis: Bilateral Nephrolithiasis Problems/Secondary Diagnoses: 1) Hypertension 2) Anxiety/Depression 3) GERD 4) OAB Procedures: HEAD WITHOUT CONTRAST (CT) CLINICAL HISTORY: 72 years-old Female presenting with fall eval for bleed. TECHNIQUE: Multidetector CT imaging of the head was performed without the use of intravenous contrast. IV contrast: None. A dose lowering technique was used consistent with the principles of ALARA (as low as reasonably achievable). COMPARISON: None. CT DOSE (mGy.cm): The estimated cumulative dose is 569.73 mGy.cm. FINDINGS: It Trainer topogram: Unremarkable. Ventricles and sulci normal in size. Brain parenchyma normal in appearance with preserved sepulveda-white differentiation. No mass effect or midline shift. No hemorrhage or acute territorial infarct. No extra-axial fluid collection. Paranasal sinuses and mastoid air cells clear. Calvarium intact. IMPRESSION: 1. No acute intracranial abnormality. ABD/PELVIS NO IV OR ORAL CONT CLINICAL HISTORY: 72 years-old Female presenting with bilateral ureteral stent placement and nephrolithiasis. TECHNIQUE: Multidetector CT of the abdomen and pelvis was performed without the use of intravenous contrast. IV contrast: None. A dose lowering technique was used consistent with the principles of ALARA (as low as reasonably achievable). COMPARISON: 04/22/2017. CT DOSE (mGy.cm): The estimated cumulative dose is 486.32 mGy.cm. FINDINGS: It Trainer topogram: Cholecystectomy clips. Lung bases: Minimal basilar opacities, likely atelectasis. Normal heart size. No pericardial or pleural effusion. Liver: Normal morphology. Normal density. Biliary: Mild biliary ductal prominence likely a reservoir effect in the post cholecystectomy state. Gallbladder surgically absent. Pancreas: Normal noncontrast appearance. Spleen: Normal noncontrast appearance. Adrenal glands: Normal noncontrast appearance. Kidneys and ureters: Bilateral nephrolithiasis with a greater stone burden on the left. The largest left calculus measures 11 mm. The largest right calculus measures 2 mm. No hydronephrosis. Interval placement of bilateral ureteral stents, however, the proximal pigtail is located in the proximal ureters rather than the renal pelvis or calyces. Distal pigtails located in the bladder lumen. Previously noted 6 mm calcification along the course of the distal left ureter remains in place. The previously noted smaller calcification at the right ureterovesical junction is no longer present. Bladder: Incompletely evaluated secondary to underdistention. Pelvic organs: Uterus surgically absent. No adnexal masses. Bowel: Diverticulosis of the sigmoid and distal descending colon. Few scattered colonic diverticula elsewhere. No bowel obstruction. Small hiatal hernia. Small duodenal diverticulum suggested along the descending portion. Peritoneal cavity: No free fluid or intraperitoneal gas. Lymph nodes: No gross lymphadenopathy allowing for noncontrast technique. Vasculature: Atherosclerosis of the normal caliber abdominal aorta. Abdominal wall: Mild nonspecific body wall edema. Musculoskeletal: Degenerative changes of the tibia symphysis, hip joints, left greater than right, sacroiliac joints, and spine. Osteopenia. IMPRESSION: 1. Interval placement of bilateral ureteral stents, however, the proximal pigtails are located in the proximal ureters rather than the renal pelvises or calyces. Correlate clinically for expected positioning. 2. Persistent 6 mm calculus along the course of the left distal ureter. 3. Resolution of the smaller right ureterovesical junction calculus. 4. Bilateral nephrolithiasis with a greater stone burden on the left. 5. Diverticulosis. 6. Osteopenia. ABDOMEN 2VIEW W/PA CHEST RTN CLINICAL HISTORY: 72 years-old Female presenting with eval stents/obstruciton. TECHNIQUE: PA view of the chest and supine and upright views of the abdomen were obtained. COMPARISON: 05/01/2017. FINDINGS: Cardiomediastinal silhouette normal. Lungs and pleural spaces clear. Cholecystectomy clips noted. Nonobstructive bowel gas pattern. Suggestion of small bowel wall thickening and abnormal distention in the right mid abdomen, measuring up to 3.9 cm in diameter. No gross pneumoperitoneum. Bilateral ureteral stents. Calcifications projects over the left kidney. No radiographically apparent calculi in the right kidney. The distal left ureteral calculus is unchanged in position. Degenerative changes of the spine. IMPRESSION: 1. No acute cardiopulmonary disease. 2. Suggestion of pathologic small bowel distention and wall thickening of a loop in the right mid abdomen without convincing evidence of obstruction. This may represent an ileus or mild enteritis. 3. Left nephrolithiasis with bilateral ureteral stents. Unchanged position of the distal left ureteral calculus. Consultations: Urology Medication Reconciliation Continued Medications: Bupropion Hcl (Smoking Deterre (Bupropion Hcl Sr) 150 Mg Tab 150 MG PO BID, TAB Cholestyramine (Cholestyramine) 4 Gm Pow 4 GM PO BID PRN for Diarrhea Ciprofloxacin Hcl (Cipro) 500 Mg Tab 500 MG PO BID for 5 Days, #10 TAB (This prescription has been renewed) Esomeprazole Magnesium (Esomeprazole Magnesium) 20 Mg Cap 40 MG PO DAILY Lisinopril (Zestril) 10 Mg Tab 10 MG PO QAM, TAB Oxycodone/Acetaminophen 5MG/325MG (Percocet 5MG/325MG) Tab 1-2 TABLETS PO Q6 PRN for Pain, TAB PAIN Phenazopyridine HCl (Phenazopyridine HCl) 200 Mg Tab 1 TAB PO UD PRN for Pain Tamsulosin HCl (Tamsulosin HCl) 0.4 Mg Cap 1 CAP PO HS Tramadol (Ultram) 50 Mg Tab 50 MG PO QID PRN for Pain, TAB Trazodone Hcl (Trazodone) 100 Mg Tab 100 MG PO HS, TAB Discontinued Medications: Lorazepam (Ativan) 1 Mg Tab 1 MG PO TID PRN for Anxiety, TAB Oxybutynin Chloride (Oxybutynin Chloride Er) 5 Mg Tab 5 MG PO TID for 90 Days, #270 TAB 3 Refills Zolpidem Tartrate (Zolpidem Tartrate) 10 Mg Tab 5-10 MG PO HS PRN for Sleep, TAB Discharge Exam Ms. Torres reports she feels well today. She reports her abdominal pain is improving. She denies fever, chills, n/v, chest pain or shortness of breath. Review of Systems: Constitutional: No fever, No chills Respiratory: No cough, No sputum, No shortness of breath Abdomen: No pain, No nausea, No vomiting Genitourinary - Female: No dysuria, No urinary frequency, No urinary urgency Physical Exam: General Appearance: WD/WN, no apparent distress Respiratory/Chest: lungs clear, normal breath sounds, no respiratory distress, no accessory muscle use Cardiovascular: regular rate, rhythm, no edema Abdomen / GI: non tender, soft Neurologic/Psychiatric: alert, normal mood/affect, oriented x 3 Hospital Course Ms. Torres is a 72 year old female with a past medical history of depression , anxiety, chronic diarrhea, hiatal hernia s/p Will Fundoplication in 2008, GERD, and bilateral nephrolithiasis with bilateral ureteral stents placed on that presents with altered mental status and fall. Acute Encephalopathy - likely secondary to dehydration, pain, medication use and suspected underlying infection - UA: 3+ occult Blood, Positive Urine Nitrite, Moderate Leukocyte Esterase, > 30 WBC (although > 30 Epithelial cells) - CT brain negative for acute bleed after fall - Urine and blood cultures negative - initially treated with IV aztreonam and vancomycin -> transitioned to oral cipro x5 days to treat a possible remnant UTI Left Ankle Sprain - x-ray ruled out fracture - air-cast Bilateral Nephrolithiasis - Urology consulted - CT abdo/pelvis w/correct location of stents, no urgent intervention necessary - Surgery scheduled on to remove stones - Flomax 0.4mg qd - Pyridoxine 200mg qd PRN Hypertension - Continue home Lisinopril Anxiety/ Depression - hold home Ativan and zolpidem as this may be contributing to her AMS - defer to PCP to decide on restarting vs. alternatives - continue Trazodone GERD - continue Protonix 40mg PO qd Overactive Bladder - hold home Oxybutynin as may be contributing to her AMS Total Time Spent: Greater than 30 minutes This includes examination of the patient, discharge planning, medication reconciliation, and communication with other providers. Discharge Instructions Please refer to the electronic Patient Visit Report (Discharge Instructions) for additional information. Additional Copies To Jonathon Cha D.O. Resident Tracking Resident Involvement: Resident Care Provided Care Provided: Adult [facility] Medicine Assessment/Plan Resident Physician Supervision Note: I was present with Dr. Pavon during the history and exam. I discussed the case with the resident and agree with the findings and plan as documented in the note. Any exceptions or clarifications are listed here 72 y/o female h/o depression and bilateral nephrolithiasis s/p bilateral stent placement 2 wks ago w/ delirium and fall. Delirium has resolved, now AAOx3 and with good remote and current history and understanding. UCx negative, BCx negative, so abx management as noted above with urology consultation involvement. Would avoid sedating and deliriogenic medications on discharge.
[2017-05-10 18:04] VITALS: BP 150/82; PULSE 76; TEMP 36.7; O2SAT 96
[2017-05-10] MEDS ORDERED: VANCOMYCIN TROUGH ONE (21:30)
== END 2017-05-10 19:55 | disposition home or self-care (01) | DRG 693 ==
LOC: EDBD 15:24 → C.EDA 15:25 → C.MED 21:35 → EDBEDREQ 21:37 → ENRESERV 21:54 → OBSVTOIN 05-09 16:13
PROVIDERS: ADMIT Student in an Organized Health Care Education/Training Program; ATTEND Family Medicine
PROC: 2W3RX1Z Immobilization of Left Lower Leg using Splint (ICD-10-PCS; principal; 2017-05-08)
DX: N20.0 Calculus of kidney (principal); G93.40 Encephalopathy, unspecified; N39.0 Urinary tract infection, site not specified; Y95 Nosocomial condition; T40.2X5A Adverse effect of other opioids, initial encounter; E86.0 Dehydration; Z96.0 Presence of urogenital implants; S93.402A Sprain of unspecified ligament of left ankle, initial encounter; W19.XXXA Unspecified fall, initial encounter; Y92.002 Bathroom of unspecified non-institutional (private) residence as the place of occurrence of the external cause; I10 Essential (primary) hypertension; F32.9 Major depressive disorder, single episode, unspecified; F41.9 Anxiety disorder, unspecified; K21.9 Gastro-esophageal reflux disease without esophagitis; N32.81 Overactive bladder; Z87.19 Personal history of other diseases of the digestive system; Z98.890 Other specified postprocedural states; Z79.899 Other long term (current) drug therapy; Z91.041 Radiographic dye allergy status; Z88.0 Allergy status to penicillin; Z88.8 Allergy status to other drugs, medicaments and biological substances; E73.9 Lactose intolerance, unspecified; Z80.3 Family history of malignant neoplasm of breast; Z80.6 Family history of leukemia; Z82.49 Family history of ischemic heart disease and other diseases of the circulatory system; Z83.3 Family history of diabetes mellitus; K52.9 Noninfective gastroenteritis and colitis, unspecified; F11.21 Opioid dependence, in remission

== ENCOUNTER 2017-05-15 10:55 | Day surgery (SDC) | payer OTHER, MEDICARE ==
[2017-05-02 13:19] VITALS: BMI 27.0
[~2017-05-15] VITALS: Ht 157.5 cm; Wt 66.9 kg
[~2017-05-15 10:55] MED LIST changes: +ATROPINE SULFATE 0.1 MG/ML 5ML SYR IV PRN; -ATV/1 PO; +CIPR1TAB10 PO; +CIPROFLOXACIN / D5W 400 MG IV SCH; +CIPROFLOXACIN 400MG / D5W IV SCH; +EpHEDrine SULFATE INJ 50 MG/ML AMP IV PRN; +FENTANYL CITRATE INJ 50 MCG/1 ML 2 ML VIAL IV PRN; +HYDROmorphone INJ 1 MG/ML SYR IV PRN; +LABETALOL HCL IV 5 MG/ML 20ML IV PRN; +LACTATED RINGER'S 1000ML 1,000 ML IV SCH; +MEPERIDINE HCL 25 MG/ML CARP IV PRN; +ONDANSETRON INJ 2 MG/ML 2 ML VIAL IV PRN; +OXYC-57 PO; -ZOLP10TA6 PO
[2017-05-15 11:20] VITALS: BP 146/74; PULSE 89; O2SAT 88; Ht 157.5 cm; Wt 66.9 kg
[2017-05-15 11:52] LABS: HEMATOCRIT 25.6 % (37-47); HEMOGLOBIN 8.7 g/dL (12.0-16.0); MEAN CELL VOLUME 95.9 fL (80-100); MEAN CORPUSCULAR HEMOGLOBIN 32.6 pg (25-34); MEAN PLATELET VOLUME 9.2 fL (7.4-10.4); NUCLEATED RED BLOOD CELL ABS 0.04 K/uL (0-0); PLATELET COUNT 348 K/uL (130-400); RED CELL DISTRIBUTION WIDTH CV 18.7 % (11.5-14.5); RED CELL DISTRIBUTION WIDTH SD 64.5 fL (36.4-46.3); WHITE BLOOD COUNT 5.68 K/uL (4.8-10.8)
[2017-05-15] MEDS ORDERED: Cysto-Conray II 17.2% 250ML BOTTLE ONE (12:01)
[2017-05-15] MEDS ORDERED: FENTANYL CITRATE INJ 50 MCG/1 ML 2 ML VIAL ONE (12:03)
--- NOTE | 2017-05-15 12:17 | History & Physical Bridge Note ---
H&P Re-Evaluation Bridge Note: I have examined the patient, reviewed the History & Physical and in the interval since the performance of the History & Physical I have noted the following changes of clinical significance: Patient saw bedside. Also spoke with . Minor confusion. Patient dealing with major pain and discomfort with stents. Has not tolerated well. Recent workup for infection was negative. Has taken multiple agents for pain relief in fairly high amounts and has not been sleeping. Placed on O2 and doing better. Discussed options and plan. Stent likely causing majority of issues as they have displaced. Will plan to proceed with cystoscopy, right stent removal, left stent exchange with left ureteroscopy and laser lithotripsy and stone basket extraction with retrograde pyelogram. Patient agreeable and consented.
[2017-05-15] MEDS ORDERED: FLM4 PO (12:20)
[2017-05-15] MEDS ORDERED: PHEN-1043 PO (12:20)
[2017-05-15] MEDS ORDERED: CIPR-255 PO (12:20)
--- NOTE | 2017-05-15 12:24 | Discharge Instructions ---
Discharge Instructions Date of Service May 15, 2017. Admission Reason for Admission: Nephrolithiasis Discharge Discharge Diagnosis / Problem: Stone Discharge Goals Goal(s): Decrease discomfort, Improve function Activity Recommendations Activity Limitations: resume your previous activity Lifting Limitations: gradually increase as tolerated Exercise/Sports Limitations: gradually increase as tolerated Shower/Bathe: no limitations . Instructions / Follow-Up Instructions / Follow-Up May have pain in flank or bladder. May have blood in urine. Call if any fevers or chills. Current Hospital Diet Patient's current hospital diet: Discharge Diet Recommended Diet: Regular Diet Procedures Procedures Performed: Cystoscopy, right stent removal, left stent exchange with ureteroscopy, laser lithotripsy, stone extraction, and retrograde pyelogram Pending Studies Studies pending at discharge: no Medical Emergencies . Who to Call and When: Medical Emergencies: If at any time you feel your situation is an emergency, please call 911 immediately. . Non-Emergent Contact Non-Emergency issues call your: Primary Care Provider, Urologist Call Non-Emergent contact if: you have a fever, temperature is above 101, temperature is above 101.5, your pain is not controlled, your pain is worsening . . "Provider Documentation" section prepared by Jean Claude Luevano. .
[2017-05-15] MEDS ORDERED: HYDROCODONE/ACETAMIN 5/325MG TAB PO PRN (12:30)
[2017-05-15] MEDS ORDERED: ONDANSETRON INJ 2 MG/ML 2 ML VIAL ONE (12:53)
[2017-05-15] MEDS ORDERED: SODIUM CHLORIDE 0.9% INJ 10 ML VIAL ONE (12:53)
[2017-05-15] MEDS ORDERED: LIDOCAINE HCL 2% 2 ML VIAL (20MG/ML) ONE (12:53)
[2017-05-15] MEDS ORDERED: DEXAMETHASONE SOD INJ 4 MG/ML VIAL ONE (12:53)
[2017-05-15] MEDS ORDERED: PROPOFOL IV EMULSION 10 MG/ML 20 ML VIAL IV ONE (12:53)
[2017-05-15] MEDS ORDERED: METOPROLOL TARTRATE 1 MG/ML VIAL ONE (13:03)
--- NOTE | 2017-05-15 13:27 | [facility] Operative Report ---
Operative Report Operative Date May 15, 2017. Pre-Operative Diagnosis Bilateral Stones Post-Operative Diagnosis Same Procedure(s) Performed Cystoscopy, right stent removal, left stent exchange with ureteroscopy, laser lithotripsy, stone extraction, and retrograde pyelogram Surgeon Bassem Estimated Blood Loss Minimal Findings Right stent removed. Left stone large mid ureter. Impacted into wall. Drains 6 x 24 Double J Left Anesthesia Type General Complication(s) none Disposition Recovery Room / PACU Indications Large stone in mid ureter on left with bilateral stones. Right stone treated. Risks and benefits discussed. Description of Procedure Patient was consented and brought back to the operating room. Patient was placed under anesthesia in the supine position and moved to the dorsal lithotomy position. Patient was prepped and draped in the regular sterile fashion. A time out was completed. A 30degree Cystoscope was placed into the bladder and the entire bladder was examined. The UO's were identified. The right stent was removed. The stent on the left was partial removed and a wire placed. A rigid ureteroscope was selected and taken to the stone. The stone was pulverized to dust and small fragments. These were removed and sent. The scope was taken to the proximal ureter. At this point, a flexible scope was selected and taken to the renal pelvis. The pelvis was examined. Multiple stones were identified and pulverized with the laser. A very large stone burden was appreciated. Visualization was limited due to dark orange color of urine, likely due to pyridium. The large stone in the upper pole was able to be fragmented into dust and small fragments. Stone was appreciated throughout the kidney. The scope was removed and a wire left in place. A retrograde pyelogram had been completed through the scope. With the wire in place, a 6 x [24] Double J stent was placed. It was confirmed with fluoroscopy. With the stent in place, the bladder was emptied. The scope was removed. The patient was cleaned, aroused from anesthesia, and transferred to the pacu in stable condition having tolerated the procedure well with no complications. I was present and participated in all aspects of the procedure. The patient will be monitored in the PACU until transferred. I attest to the content of the Intraoperative Record and any orders documented therein. Any exceptions are noted below.
--- NOTE | 2017-05-15 13:38 | DIAGNOSTIC IMAGING REPORT ---
RETROGRADE INCLUDES KUB CLINICAL HISTORY: LASER LITHOTRIPSY AND STENT EXCHANGE TECHNIQUE: Image intensifier COMPARISON STUDY: None FINDINGS: 4 images of the image intensifier show a right ureteral stent in good position. A left ureteral stent is placed. No evidence for contrast extravasation. IMPRESSION: Multiple images from the image intensifier showing bilateral ureteral stents in good position. The above report was generated using voice recognition software. It may contain grammatical, syntax or spelling errors. Electronically signed by: Denis Mccray M.D. 05/15/2017 1:37 PM Dictated Date/Time: 05/15/2017 1:36 PM
[2017-05-15 14:10] VITALS: BP 166/80; PULSE 66; TEMP 36.5; O2SAT 93
[2017-05-15 14:40] VITALS: BP 166/87; PULSE 85; O2SAT 100
[2017-05-15 15:10] VITALS: BP 154/82; PULSE 74; O2SAT 100
--- NOTE | 2017-05-15 15:20 | Anesthesiology Progress Note ---
Anesthesia Post Op Note Date & Time May 15, 2017 at 15:20 Vital Signs Pain Intensity: 6 Vital Signs Past 12 Hours Date Time Temp Pulse Resp B/P (MAP) Pulse Ox O2 Delivery O2 Flow Rate FiO2 05/15/17 14:40 85 18 166/87 100 Room Air 05/15/17 14:10 36.5 66 18 166/80 93 Room Air 05/15/17 14:00 36.6 67 16 161/73 93 Room Air 05/15/17 13:50 67 16 157/79 93 Room Air 05/15/17 13:40 70 16 169/85 94 Oxymask 10 05/15/17 13:32 36.8 79 16 162/78 96 Oxymask 10 05/15/17 11:20 89 20 146/74 (98) 88 Room Air Notes Mental Status: alert / awake / arousable, participated in evaluation Pt Amnestic to Procedure: Yes Nausea / Vomiting: adequately controlled Pain: adequately controlled Airway Patency, RR, SpO2: stable & adequate BP & HR: stable & adequate Hydration State: stable & adequate Anesthetic Complications: no major complications apparent
[2017-05-19] MEDS ORDERED: CIPROFLOXACIN 400MG / D5W IV SCH (06:00)
== END 2017-05-15 15:40 | disposition home or self-care (01) ==
LOC: C.ACU 10:55
PROVIDERS: ATTEND Urology
DX: N20.1 Calculus of ureter (principal); N20.0 Calculus of kidney; M19.90 Unspecified osteoarthritis, unspecified site; Z79.899 Other long term (current) drug therapy; Z88.0 Allergy status to penicillin

== ENCOUNTER → 2017-05-28 | Outpatient (CLI) | payer OTHER, MEDICARE ==
[~2017-05-28] MED LIST changes: -ATROPINE SULFATE 0.1 MG/ML 5ML SYR IV PRN; +CIPR-255 PO; -CIPR1TAB10 PO; -CIPROFLOXACIN / D5W 400 MG IV SCH; -CIPROFLOXACIN 400MG / D5W IV SCH; -EpHEDrine SULFATE INJ 50 MG/ML AMP IV PRN; -FENTANYL CITRATE INJ 50 MCG/1 ML 2 ML VIAL IV PRN; -HYDROmorphone INJ 1 MG/ML SYR IV PRN; -LABETALOL HCL IV 5 MG/ML 20ML IV PRN; -LACTATED RINGER'S 1000ML 1,000 ML IV SCH; -MEPERIDINE HCL 25 MG/ML CARP IV PRN; -ONDANSETRON INJ 2 MG/ML 2 ML VIAL IV PRN
--- NOTE | 2017-05-28 09:07 | DIAGNOSTIC IMAGING REPORT ---
KUB CLINICAL HISTORY: N20.0 Nephrolithiasis COMPARISON STUDY: 05/08/2017 FINDINGS: There are surgical clips within the right upper quadrant consistent with a prior cholecystectomy. There has been interval removal of the right-sided nephroureteral stent. A double-pigtail left-sided nephroureteral stent is again visualized. There is a granular 7 mm calcification projected over the left kidney, consistent with a calculus. A 2 mm mid to upper pole calculus is visualized. The dominant upper pole cluster visualized the preceding study is difficult to visualize. There are several calcifications along the course of the left ureteral stent suspicious for ureteral calculi. There is no pathologic bowel dilatation. There is moderate stool within the right colon. IMPRESSION: 1. Suspected renal decrease in the stone burden within the left kidney 2. Double-pigtail left-sided nephroureteral stent with suspected overlying ureteral calculi 3. Interval removal of the right-sided neck ureteral stent Electronically signed by: Aj Little M.D. 05/28/2017 9:05 AM Dictated Date/Time: 05/28/2017 9:02 AM
== END | disposition home or self-care (01) ==
LOC: C.RAD 08:44
PROVIDERS: ATTEND Urology
DX: N20.0 Calculus of kidney (principal)

== ENCOUNTER → 2017-07-08 | Outpatient (CLI) | payer OTHER, MEDICARE ==
--- NOTE | 2017-07-08 09:56 | DIAGNOSTIC IMAGING REPORT ---
(RENAL)RETROPERITON COMP CLINICAL HISTORY: 72 years-old Female presenting with N20.0 nephrolithiasis. TECHNIQUE: Real-time grayscale and limited color Doppler ultrasound imaging of the kidneys and bladder was performed. COMPARISON: CT from 05/09/2017 and plain radiograph from 05/28/2017. FINDINGS: Right kidney: Normal echogenicity of renal parenchyma allowing for partial obscuration of the lower pole secondary to bowel gas. Right kidney measures 10.4 cm. Minimal caliectasis at the upper pole. No hydronephrosis. Hyperechogenic nonshadowing 5 mm focus at the lower pole with twinkling artifact, possibly calculus. Left kidney: Normal echogenicity of renal parenchyma. Prominent lobulations. Left kidney measures 10.4 cm. No hydronephrosis. The left ureteral stent may have been removed or is poorly visualized due to decompression of the left renal collecting system. Multiple hyperechogenic foci demonstrating twinkling artifact and shadowing, consistent with multiple renal calculi. Bladder: Incompletely distended limiting evaluation. Bilateral ureteral jets not visualized. Other: None. IMPRESSION: 1. No hydronephrosis. 2. Bilateral nephrolithiasis better demonstrated on most recent CT. Electronically signed by: Eduardo Mak M.D. 07/08/2017 9:55 AM Dictated Date/Time: 07/08/2017 9:52 AM
== END | disposition home or self-care (01) ==
LOC: C.ULTR 08:59
PROVIDERS: ATTEND Urology
DX: N20.0 Calculus of kidney (principal)

== ENCOUNTER → 2017-07-18 | Outpatient (CLI) | payer OTHER, MEDICARE ==
[2017-07-18 12:30] LABS: BASO % 0.4 %; BASO ABS # 0.03 K/uL (0-0.2); EOS % 1.5 %; EOS ABS # 0.12 K/uL (0-0.5); HEMATOCRIT 37.6 % (37-47); HEMOGLOBIN 12.6 g/dL (12.0-16.0); IG# 0.01 K/uL (0.00-0.02); LYMPH % 27.9 %; LYMPH ABS # 2.26 K/uL (1.2-3.4); MEAN CELL VOLUME 92.6 fL (80-100); MEAN CORPUSCULAR HGB CONC 33.5 g/dl (32-36); MEAN PLATELET VOLUME 9.3 fL (7.4-10.4); MONO % 6.4 %; MONO ABS # 0.52 K/uL (0.11-0.59); NEUT % 63.7 %; NEUT ABS # 5.16 K/uL (1.4-6.5); PLATELET COUNT 223 K/uL (130-400); RED CELL DISTRIBUTION WIDTH CV 13.2 % (11.5-14.5); RED CELL DISTRIBUTION WIDTH SD 44.8 fL (36.4-46.3)
[2017-07-18 13:36] LABS: ALBUMIN 3.7 gm/dl (3.4-5.0); ALT/SGPT 22 U/L (12-78); AST/SGOT 19 U/L (15-37); BLOOD UREA NITROGEN 13 mg/dl (7-18); CALCIUM 8.9 mg/dl (8.5-10.1); CARBON DIOXIDE 28 mmol/L (21-32); CREATININE 0.79 mg/dl (0.60-1.20); GLUCOSE 88 mg/dl (70-99); POTASSIUM 4.4 mmol/L (3.5-5.1); SODIUM 136 mmol/L (136-145); URIC ACID 5.4 mg/dl (2.6-7.2)
[2017-07-18 13:46] LABS: ALKALINE PHOSPHATASE 111 U/L (45-117); TOTAL PROTEIN 6.9 gm/dl (6.4-8.2)
== END | disposition home or self-care (01) ==
LOC: C.LAB1850 11:23
PROVIDERS: ATTEND Internal Medicine Nephrology
DX: K52.9 Noninfective gastroenteritis and colitis, unspecified (principal); N20.0 Calculus of kidney

== ENCOUNTER → 2017-10-29 | Outpatient (CLI) | payer OTHER, MEDICARE ==
[~2017-10-29] MED LIST changes: +ATV/1 PO; -BUPR-102 PO; -CIPR-255 PO; +DULO-24 PO; +ESOM20CA PO; -ESOM45CA PO; -FLM4 PO; +ONDA8TAB62 SL; -OXYC-57 PO; -PHEN-1043 PO
--- NOTE | 2017-10-29 12:35 | DIAGNOSTIC IMAGING REPORT ---
KUB CLINICAL HISTORY: N20.0 [id number] Ureteric [id number] COMPARISON STUDY: 05/28/2017 FINDINGS: The renal shadows are largely obscured by overlying bowel gas and fecal material. There is mild to moderate fecal retention. There is no evidence of bowel obstruction. A few punctate left renal calculi are suspected. There are surgical clips the right upper quadrant. IMPRESSION: 1. Interval removal of the left-sided double pigtail nephroureteral stent 2. Equivocal punctate left renal calculi 3. No ureteral calculi are visualized on conventional radiographic imaging Electronically signed by: Aj Little M.D. 10/29/2017 12:33 PM Dictated Date/Time: 10/29/2017 12:32 PM
== END | disposition home or self-care (01) ==
LOC: C.RAD 11:53
PROVIDERS: ATTEND Urology
DX: N20.0 Calculus of kidney (principal)

== ENCOUNTER 2018-08-24 14:57 | Inpatient (IN) ==
[2018-08-24] MEDS ORDERED: methylPREDNISolone 125 MG/2 ML VIAL IV STA (16:13)
[2018-08-24] MEDS ORDERED: ACETAMINOPHEN 1,000 MG/100 ML VIAL IV STA (16:13)
[2018-08-24] MEDS ORDERED: DiphenhydrAMINE HCL 50 MG/ML VIAL IV STA (16:13)
[2018-08-24] MEDS ORDERED: SODIUM CHLORIDE 0.9% 500 ML IV SCH (16:15)
[2018-08-24] MEDS ORDERED: SUCRALFATE 1 GM TAB PO STA (16:18)
[2018-08-24] MEDS ORDERED: FAMOTIDINE 20 MG TAB PO ONE (16:18)
[2018-08-24] MEDS ORDERED: GI COCKTAIL ED USE PO ONE (16:18)
--- NOTE | 2018-08-24 16:40 | XRay Report ---
XR chest 1V portable CLINICAL HISTORY: Chest Pain pain. Dyspnea. COMPARISON STUDY: 05/08/2017 FINDINGS: The bones soft tissues and hemidiaphragms are normal. The cardiomediastinal silhouette is n ormal. The lungs are clear. The pulmonary vasculature is normal. IMPRESSION: Negative chest. The above report was generated using voice recognition software. It may contain grammatical, syntax or spelling errors. Electronically signed by: Denis Mccray M.D. 08/24/2018 4:39 PM
[2018-08-24 16:56] LABS: iSTAT Creatinine 0.6 mg/dl (0.6-1.3); iSTAT Hemoglobin 13.6 g/dl (12.0-16.0); iSTAT Ionized Calcium 1.15 mmol/l (1.12-1.32); iSTAT Potassium 3.5 mEq/L (3.3-5.0)
[2018-08-24 17:18] LABS: Alanine Aminotransferase 33 U/L (12-78); Albumin Globulin Ratio 1.2 (0.9-2); Albumin Level 3.7 gm/dl (3.4-5.0); Alkaline Phosphatase 157 U/L (45-117); Aspartate Aminotransferase 37 U/L (15-37); BUN Creatinine Ratio 12.5 (10-20); Bilirubin,Total 0.6 mg/dl (0.2-1); Blood Urea Nitrogen 8 mg/dl (7-18); Carbon Dioxide 21 mmol/L (21-32); Chloride 109 mmol/L (98-107); Creatine Kinase 440 U/L (26-192); Est GFR (African American) 104.1; Est GFR (Non-African American) 89.8; Globulin 3.2 gm/dl (2.5-4.0); Glucose 89 mg/dl (70-99); Potassium 3.2 mmol/L (3.5-5.1); Sodium 141 mmol/L (136-145); Total Protein 6.9 gm/dl (6.4-8.2); Troponin I < 0.015 ng/ml (0-0.045)
[2018-08-24 17:46] LABS: Lyme Ab IgG w/WB Rflx Negative (Negative); Lyme Ab IgM w/WB Rflx Negative (Negative)
[2018-08-24 17:52] LABS: Basophils # (auto) 0.01 K/uL (0-0.2); Basophils % (auto) 0.2 %; Eosinophils # (auto) 0.03 K/uL (0-0.5); Eosinophils % (auto) 0.5 %; Hematocrit (blood only) 36.9 % (37-47); Hemoglobin 12.8 g/dL (12.0-16.0); Immature Granulocytes # (auto) 0.01 K/uL (0.00-0.02); Immature Granulocytes % (auto) 0.2 %; Lymphocytes # (auto) 1.44 K/uL (1.2-3.4); Lymphocytes % (auto) 24.2 %; Mean Corpuscular Hgb Conc 34.7 g/dL (32-36); Mean Corpuscular Volume 88.5 fL (80-100); Mean Platelet Volume 9.4 fL (7.4-10.4); Monocytes # (auto) 0.44 K/uL (0.11-0.59); Monocytes % (auto) 7.4 %; Neutrophils # (auto) 4.02 K/uL (1.4-6.5); Neutrophils % (auto) 67.5 %; Platelet Count 274 K/uL (130-400); RDW Coefficient of Variation 12.8 % (11.5-14.5); RDW Standard Deviation 41.1 fL (36.4-46.3); Red Blood Count 4.17 M/uL (4.2-5.4); White Blood Count 5.95 K/uL (4.8-10.8)
--- NOTE | 2018-08-24 17:53 | CT Scan Report ---
CT head/brain wo con CT DOSE: 1412.33 mGy.cm HISTORY: Nausea. Vomiting. Mental status change. Pt c/o intractible N V TECHNIQUE: Multiaxial CT images of the head were performed without the use of intravenous contrast. A dose lowering technique was utilized adhering to the principles of ALARA. Comparison: None. Findings: The paranasal sinuses and mastoid air cells are clear. The calvarium and skull base are int act. The ventricles and sulci are within normal limits. There is no mass, hematoma, midline shift, or acute infarct. Impression: No acute intracranial abnormality. The above report was generated using voice recognition software. It may contain grammatical, syntax or spelling errors. Electronically signed by: Denis Mccray M.D. 08/24/2018 5:51 PM
[2018-08-24 18:00] LABS: Amphetamines+Metham, Urine Neg (Neg); Barbiturates, Urine Neg (Neg); Benzodiazepine, Urine Neg (Neg); Cocaine, Urine Neg (Neg); MDMA (Ecstacy), Urine Neg (Neg); Methadone, Urine Neg (Neg); Opiate, Urine Neg (Neg); Phencyclidine, Urine Neg (Neg)
--- NOTE | 2018-08-24 18:01 | CT Scan Report ---
CT abd pelvis wo con CT DOSE: HISTORY: Pain Pt c/o diffuse abd pain TECHNIQUE: Multiaxial CT images of the abdomen and pelvis were performed without contrast. A dose lo wering technique was utilized adhering to the principles of ALARA. COMPARISON STUDY: 05/09/2017 FINDINGS: Lung bases are considered clear. Minimal linear parenchymal scarring medial aspect right ba se unchanged. Cholecystectomy. Liver spleen and pancreas are grossly unremarkable. Moderate cortical scarring left kidney. Bilateral renal nephrocalcinosis overall improved from prior study in terms of bulk. No evidence for an obstructing urinary tract calculus. Bowel pattern overall is nonobstructive. No evidence for obstructive change. No evidence for abscess collection. Several scattered colonic diverticuli with no evidence for acute diverticulitis. IMPRESSION: 1. No acute process of the abdomen or pelvis. 2. Bilateral nonobstructing nephrocalcinosis. 3. Mild scattered colonic diverticuli with no evidence for diverticulitis. The above report was generated using voice recognition software. It may contain grammatical, syntax or spelling errors. Electronically signed by: Denis Mccray M.D. 08/24/2018 6:00 PM
--- NOTE | 2018-08-24 18:03 | CT Scan Report ---
CT OF THE LUMBAR SPINE CLINICAL HISTORY: Diffuse abdominal pain. COMPARISON STUDY: No previous studies for comparison. TECHNIQUE: Helical axial images of the lumbar spine were obtained. Sagittal and coronal reconstruct ions were viewed. Automated exposure control was utilized for the study. A dose lowering technique was utilized adhering to the principles of ALARA. FINDINGS: Please note that the CT of the abdomen and pelvis will be reported separately.Note is made of 4 mm of anterolisthesis of L4 and L5 due to facet arthrosis. No acute lumbar spine fracture is pre sent. No suspicious osseous lesion is noted. There is mild multilevel endplate osteophytosis with dis c space narrowing. There is moderate to severe multilevel facet arthrosis. The central canal and neur al foramen are suboptimally assessed by CT. Paravertebral soft tissues are unremarkable. Sacroiliac j oints are intact. Bilateral renal calculi are better depicted on the abdominal CT. IMPRESSION: 1. No acute lumbar spine fracture or subluxation. 2. Moderate to severe multilevel facet arthrosis. Mild multilevel disc space narrowing and osteophyto sis within the lumbar spine. Suboptimal evaluation of the central canal and neural foramen given CT t echnique. 3. Bilateral nephrolithiasis but are depicted on the CT of the abdomen and pelvis. Electronically signed by: Keven Frances M.D. 08/24/2018 6:02 PM
[2018-08-24] MEDS: cloNIDine HCL 0.3 MG/24 HR TRANSDERM SYS TD SCH (18:42)
--- NOTE | 2018-08-24 19:16 | History & Physical Report ---
Date of Service August 24, 2018 Assessment & Plan (1) Altered mental status: Uncertain etiology UTI vs polypharmacy seem most likely dx UTI dx at [facility] on 08/23, ceftriaxone in the ED, did not fill abx rx yet Will continue with ceftriaxone Records pending CBC, PRP, trop WNL Utox neg Lyme neg CT head neg for acute Will continue gabapentin to avoid withdrawals Holding ativan (neg in utox), tramadol, trazodone, hydrocodone until mentation improves PT/OT pending, having difficulty managing at home (2) UTI (urinary tract infection): Dx as OSH, ceftriaxone (3) Abdominal pain: Related to UTI vs polypharmacy vs nonobstructing renal stones vs complication s/p multiple tooth extraction last week CT AP as noted WBC WNL Blood cx pending Ceftriaxone as above Has had progressive weight loss over the last 8 months per (4) Renal stones: Hx of yearly acute issues Likely the reason for flomax use, continue (5) Hypertension: continue home meds Missed AM meds due to GI issues Clonidine patch in the ED, continue and monitor (6) Hiatal hernia: Hx of repair with perforation x2, most recently 1.5 yrs ago [address] Dr[address] Summers if needed (7) Neuropathy: Will continue gabapentin to avoid withdrawals Holding ativan (neg in utox), tramadol, trazodone, hydrocodone until mentation improves (8) Anxiety: continue home meds (9) DVT prophylaxis: SCDs History of Present Illness Primary Care Provider: Jonathon Cha 73 y/o F with multiple medical complaints. Pt has been having intermittent abd pain, n/v, and headache for the last month. They went to the ED at [facility] last night. Pt was dx with UTI and given a dose of rocephin with a script for abx for d/c to home. They had not yet filled this prescription. Pt has been intermittently AMS, worse in the last few days. made an appt to see Dr. Summers, who follows pt for her GI issues. Pt has a hx of hiatal hernia repair 13 yrs ago that had some sort of perforation complication requiring surgical intervention at that time and then another tear about 1.5 years ago requiring the same. They were concerned that her issues were related to this. When she got to the office, Dr. Summesr recommended that she be seen in the ED due to her AMS. states that when they arrived to the ED, pt was quite confused. She could not remember her birthday even. He states that she still seems different from her usual, but much better. Pt did have three teeth pulled last week and they initially thought she was feeling unwell related to the extractions, however she did not improve. Her abd pain is across her entire abd. Due to abd pain, n/v, pt has not eaten or drank anything since Friday. He is having difficulty caring for her at home. states she has lost 40 lbs over the last 8 months. Pt was on lyrica for her neuropathy, however due to issues with cost and Medicare [facility]ut [facility], she had to be changed to gabapentin. She is at 400mg TID. She has been on this for maybe 2 months. She is not certain when her dose was last increased, but somewhat recently. She is also taking tramadol, trazodone, ativan. She was also given several medications in the ED at [facility] last night and was "doped up pretty good" when they got home yesterday. He does feel her AMS was worse this morning. Pt has hx of renal stones and states she has an issue with this about once a year since she was 22. They are unsure why she takes flomax or who prescribes it, but when I suggested it might be for this reason, they think that is likely. states that she does get abd pain with her stones. Allergies Allergy/AdvReac Type Severity Reaction Status Date / Time Iodinated Contrast- Oral and Allergy Severe ANAPHYLAXIS Verified 08/24/18 15:35 IV Dye Penicillins Allergy Severe ANAPHYLAXIS Verified 08/24/18 15:35 trimethobenzamide Allergy Severe ANAPHYLAXIS Verified 08/24/18 15:35 Lactose. Allergy Intermediate GI Symptoms Uncoded 08/24/18 15:35 Home Medications Home Medications Medication Instructions Recorded Confirmed Type multivitamin 1 tab PO QAM 02/06/18 08/24/18 History pantoprazole 40 mg PO QAM 02/06/18 08/24/18 History gabapentin 400 mg PO TID 08/24/18 08/24/18 History hydrocodone-acetaminophen 1 tab PO Q6H PRN 08/24/18 08/24/18 History isosorbide mononitrate 30 mg PO DAILY 08/24/18 08/24/18 History lorazepam 1 mg PO TID PRN 08/24/18 08/24/18 History ondansetron 8 mg PO TID 08/24/18 08/24/18 History tamsulosin 0.4 mg PO DAILY 08/24/18 08/24/18 History tramadol 50 mg PO Q6H PRN 08/24/18 08/24/18 History trazodone 100 mg PO HS 08/24/18 08/24/18 History Past Med/Surg History Medical History Colitis Endometriosis GERD (gastroesophageal reflux disease) Gastritis Hypertension Kidney stones Osteoarthritis Surgical History History of appendectomy History of cholecystectomy History of colonoscopy History of cystoscopy STONE REMOVAL/STENTS (MULTIPLE TIMES) History of esophagogastroduodenoscopy (EGD) 08/08/2017. sedation, no issues. History of herniorrhaphy HIATAL HERNIA History of lithotripsy MULTIPLE TIMES History of tonsillectomy History of tooth extraction History of total abdominal hysterectomy and bilateral salpingo-oophorectomy Tarsal tunnel syndrome RT/LEFT (RELEASED) Family History Father Myocardial infarction Mother Myocardial infarction Social History Preferred Language: German Communication Ability: Effective Beliefs That Will Affect Care: None Current Living Situation: Spouse Feels Safe at Home: Yes Smoking Status: Never smoker Second Hand Exposure: Yes ( A CHILD) Hx Alcohol Use: No Hx Substance Use: No Review of Systems 2 Review of Systems: Pertinent positives and negatives reviewed in HPI--all others negative Physical Exam Constitutional: WD/WN, vitals as above Eyes: normal visual merritt by confrontation and + anicteric sclerae Neck: normal visual inspection and trachea midline Respiratory: normal respiratory effort, lungs clear to auscultation Cardiovascular: Rate/Rhythm: regular rate and regular rhythm Gastrointestinal (Abdomen): Inspection/Auscultation: abdomen not distended Percussion/Palpation: + abdomen tender (diffuse, mild) and abdomen soft Musculoskeletal: Head/Neck/Chest: normocephalic and head atraumatic negative for edema, peripheral pulses intact Skin: no rashes, warm and dry Neurologic: awake (but drowsy) Speech / Cognition: normal speech Psychiatric: A+Ox3, euthymic affect Results & Data Vital Signs (Past 12 Hours) Vital Signs Temp Pulse Resp BP Pulse Ox 08/24/18 18:30 72 14 164/86 H 100 08/24/18 18:06 79 17 183/89 H 100 08/24/18 18:00 73 17 08/24/18 17:30 76 17 179/103 H 100 08/24/18 17:21 76 18 100 08/24/18 17:00 76 13 176/90 H 99 08/24/18 16:59 77 17 99 08/24/18 16:56 78 10 L 180/98 H 99 08/24/18 14:59 36.8 C 73 20 175/94 H 100 Diagnostic Findings CXR: neg for acute CT head: neg for acute CT c-spine: neg for acute CTAP: b/l nonobstructing renal stones Code Status & VTE Plan Code Status DNR/DNI per pt. is present and agrees VTE Prophylaxis Plan VTE Prophylaxis will be ordered: Yes PG Care Time/CCT Total # of Minutes Spent Total Time Spent with Patient: Total time spent is greater than 50% in coordination of care (as documented) at patient's floor/unit and/or counseling patient: (1) Altered mental status Altered mental status type: unspecified Qualified Code(s): R41.82 - Altered mental status, unspecified (2) Hypertension Hypertension type: unspecified Qualified Code(s): I10 - Essential (primary) hypertension
[2018-08-24] MEDS ORDERED: ONDANSETRON INJ 2 MG/ML 2 ML VIAL IV PRN (20:41)
[2018-08-24] MEDS ORDERED: MAGNESIUM HYDROXIDE SUSP 30 ML UDC PO PRN (20:41)
[2018-08-24] MEDS: NSS + 20MEQ KCL 20 MEQ/1,000 ML BAG IV SCH (21:55)
[2018-08-24] MEDS: GABAPENTIN 400 MG CAP PO SCH (21:58)
[2018-08-24] MEDS: ONDANSETRON 8MG OD TAB PO SCH (21:58)
[2018-08-24] MEDS: cefTRIAXone SODIUM 2,000 MG in DEXTROSE 5% 50 ML IV SCH (22:08)
[2018-08-24] MEDS ORDERED: methylPREDNISolone 125 MG in SYRINGE 0 ML IV ONE (22:15)
--- NOTE | 2018-08-24 23:28 | Emergency Department Note ---
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 Per the nursing staff, the patient went to the ED last night for urinary symptoms, abdominal pain, and confusion. They state that the patient was discharged with antibiotics and was feeling fine when she went home. They state that the patient states that her symptoms worsened when she woke up this morning. The patients daughter states that she has had nausea and abdominal pain for the last month. She states that this morning she had worsening abdominal pain, weakness, and loss of appetite. She states that the ED last night discharged her with a mild UTI. She states that they brought the patient to visit their record changer and they referred her to the ED. The patient reports that she is sick to her stomach. She states that she is experiencing diarrhea, but she takes medication for this. The patients notes that the patients last scope was 6 months ago. Home Medications Home Medications Medication Instructions Recorded Confirmed Type multivitamin 1 tab PO QAM 02/06/18 08/24/18 History pantoprazole 40 mg PO QAM 02/06/18 08/24/18 History gabapentin 400 mg PO TID 08/24/18 08/24/18 History hydrocodone-acetaminophen 1 tab PO Q6H PRN 08/24/18 08/24/18 History isosorbide mononitrate 30 mg PO DAILY 08/24/18 08/24/18 History lorazepam 1 mg PO TID PRN 08/24/18 08/24/18 History ondansetron 8 mg PO TID 08/24/18 08/24/18 History tamsulosin 0.4 mg PO DAILY 08/24/18 08/24/18 History tramadol 50 mg PO Q6H PRN 08/24/18 08/24/18 History trazodone 100 mg PO HS 08/24/18 08/24/18 History Allergies Allergy/AdvReac Type Severity Reaction Status Date / Time Iodinated Contrast- Oral and Allergy Severe ANAPHYLAXIS Verified 08/24/18 15:35 IV Dye Penicillins Allergy Severe ANAPHYLAXIS Verified 08/24/18 15:35 trimethobenzamide Allergy Severe ANAPHYLAXIS Verified 08/24/18 15:35 Lactose. Allergy Intermediate GI Symptoms Uncoded 08/24/18 15:35 Past Med/Surg History Medical History Colitis Endometriosis GERD (gastroesophageal reflux disease) Gastritis Hypertension Kidney stones Osteoarthritis Surgical History History of appendectomy History of cholecystectomy History of colonoscopy History of cystoscopy STONE REMOVAL/STENTS (MULTIPLE TIMES) History of esophagogastroduodenoscopy (EGD) 08/08/2017. sedation, no issues. History of herniorrhaphy HIATAL HERNIA History of lithotripsy MULTIPLE TIMES History of tonsillectomy History of tooth extraction History of total abdominal hysterectomy and bilateral salpingo-oophorectomy Tarsal tunnel syndrome RT/LEFT (RELEASED) Family History Father Myocardial infarction Mother Myocardial infarction Social History Preferred Language: Lithuanian Communication Ability: Effective Beliefs That Will Affect Care: None Current Living Situation: Spouse Current Living Situation Comment: house, 1 floor and finished basement Feels Safe at Home: Yes Smoking Status: Never smoker Second Hand Exposure: Yes ( A CHILD) Hx Alcohol Use: No Hx Substance Use: No Review of Systems See HPI for pertinent positives & negatives. and A total of 10 systems reviewed and were otherwise negative Physical Exam Vital Signs Vital Signs - 24 hr 08/24/18 14:59 08/24/18 16:56 08/24/18 16:59 Temperature 36.8 C Temperature Source Oral Sepsis Recent Fever Within 48 Hours No Sepsis New/Unexplained Change in Mental Status No Sepsis Action Taken by Nursing No Action Required Pulse Rate 73 78 77 Pulse Rate from SpO2 Sensor 78 78 Respiratory Rate 20 10 L 17 Blood Pressure 175/94 H 180/98 H Blood Pressure Mean 121 125 Pulse Oximetry 100 99 99 Oxygen Delivery Method Room Air 08/24/18 17:00 08/24/18 17:21 08/24/18 17:30 Temperature Temperature Source Sepsis Recent Fever Within 48 Hours Sepsis New/Unexplained Change in Mental Status Sepsis Action Taken by Nursing Pulse Rate 76 76 76 Pulse Rate from SpO2 Sensor 77 76 Respiratory Rate 13 18 17 Blood Pressure 176/90 H 179/103 H Blood Pressure Mean 118 128 Pulse Oximetry 99 100 100 Oxygen Delivery Method Room Air 08/24/18 18:00 08/24/18 18:06 08/24/18 18:30 Temperature Temperature Source Sepsis Recent Fever Within 48 Hours Sepsis New/Unexplained Change in Mental Status Sepsis Action Taken by Nursing Pulse Rate 73 79 72 Pulse Rate from SpO2 Sensor 77 72 Respiratory Rate 17 17 14 Blood Pressure 183/89 H 164/86 H Blood Pressure Mean 120 112 Pulse Oximetry 100 100 Oxygen Delivery Method 08/24/18 18:40 08/24/18 18:50 08/24/18 19:00 Temperature Temperature Source Sepsis Recent Fever Within 48 Hours Sepsis New/Unexplained Change in Mental Status Sepsis Action Taken by Nursing Pulse Rate 72 73 71 Pulse Rate from SpO2 Sensor 74 73 71 Respiratory Rate 23 16 12 Blood Pressure 177/79 H Blood Pressure Mean 111 Pulse Oximetry 99 100 100 Oxygen Delivery Method GENERAL: Awake, alert, well-appearing, in no acute distress HENT: Normocephalic, atraumatic. Oropharynx unremarkable. EYES: Normal conjunctiva. Sclera non-icteric. NECK: Supple. No nuchal rigidity. FROM. No JVD. RESPIRATORY: Clear to auscultation. CARDIAC: Regular rate, normal rhythm. Extremities warm and well perfused. Pulses equal. ABDOMEN: Soft, non-distended. Tenderness in left lower quadrant to palpation. No rebound or guarding. No masses. RECTAL: Deferred. MUSCULOSKELETAL: Chest examination reveals no tenderness. The back is symmetrical on inspection without obvious abnormality. There is no CVA tenderness to palpation. No joint edema. LOWER EXTREMITIES: Calves are equal size bilaterally and non-tender. No edema. No discoloration. NEURO: Normal sensorium. No sensory or motor deficits noted. SKIN: No rash or jaundice noted. Course 160: The patient was evaluated in room B5, and a complete history and physical examination were performed. 1821: I reviewed the patient's case with Dr. Stanton [facility]. She will evaluate the patient for further management. Consultations Consultation #1: Dr. Stanton [facility] Time: 18:22 Administered Medications Clonidine HCl (Lxzcwken-Ocg-3 0.3mg/24hr) 1 patch TD CQWK [facility] Stop: 09/23/18 18:14 Last Admin: 08/24/18 18:42 Dose: 1 patch Documented by: [id number] Gabapentin (Neurontin) 400 mg PO TID [facility] Stop: 09/23/18 20:59 Last Admin: 08/24/18 21:58 Dose: 400 mg Documented by: [id number] Ceftriaxone Sodium 2,000 mg/ (Dextrose) 70 mls @ 100 mls/hr IV Q24H [facility]; Protocol Stop: 09/03/18 20:59 Last Infusion: 08/24/18 22:50 Dose: 0 mls/hr Documented by: [id number] Admin: 08/24/18 22:08 Dose: 100 mls/hr Documented by: [id number] Potassium Chloride/Sodium Chloride (Normal Saline W/20 Meq Kcl) 20 meq in 1,000 mls @ 80 mls/hr IV .[id number] [facility] Stop: 09/23/18 20:40 Last Admin: 08/24/18 21:55 Dose: 80 mls/hr Documented by: [id number] Ondansetron HCl (Zofran Odt) 8 mg PO TID [facility] Stop: 09/23/18 20:59 Last Admin: 08/24/18 21:58 Dose: 8 mg Documented by: [id number] Discontinued Medications Al Hydrox/Mg Hydrox/Simethicone () 1 dose PO ONE ONE Stop: 08/24/18 16:19 Last Admin: 08/24/18 22:32 Dose: Not Given Documented by: [id number] Diphenhydramine HCl (Benadryl) 50 mg IV NOW STA Stop: 08/24/18 16:14 Last Admin: 08/24/18 22:32 Dose: Not Given Documented by: [id number] Famotidine (Pepcid) 20 mg PO NOW ONE Stop: 08/24/18 16:19 Last Admin: 08/24/18 22:33 Dose: Not Given Documented by: [id number] Acetaminophen (Ofirmev) 1,000 mg in 100 mls @ 400 mls/hr IV NOW STA Stop: 08/24/18 16:27 Last Infusion: 08/24/18 17:20 Dose: 0 mls/hr Documented by: [id number] Admin: 08/24/18 17:04 Dose: 400 mls/hr Documented by: [id number] Ranitidine HCl 50 mg/ Dextrose 102 mls @ 200 mls/hr IV NOW STA Stop: 08/24/18 16:43 Last Admin: 08/24/18 22:32 Dose: Not Given Documented by: [id number] Sodium Chloride (Nss) 500 mls @ 999 mls/hr IV .Q31M MARCELINA Stop: 08/24/18 16:45 Last Infusion: 08/24/18 17:30 Dose: 0 mls/hr Documented by: [id number] Admin: 08/24/18 16:57 Dose: 999 mls/hr Documented by: [id number] Methylprednisolone 125 mg/ (Syringe) 2 mls @ 1.5 mls/min IV NOW ONE Stop: 08/24/18 22:16 Last Admin: 08/24/18 22:36 Dose: 1.5 mls/min Documented by: [id number] Methylprednisolone (Solumedrol) 125 mg IV NOW STA Stop: 08/24/18 16:14 Last Admin: 08/24/18 22:32 Dose: Not Given Documented by: [id number] Sucralfate (Carafate Tab) 1 gm PO NOW STA Stop: 08/24/18 16:19 Last Admin: 08/24/18 22:32 Dose: Not Given Documented by: [id number] Medical Decision Making Differential Diagnosis Differential diagnosis: Etiologies such as appendicitis, diverticulitis, PUD, biliary pathology, UTI, pancreatitis, obstruction, mesenteric ischemia, aortic pathology, infections, inflammatory bowel disease, renal colic, as well as others were entertained. Medical Records Attestation: I reviewed the patient's medical records. Home Medications Current Medication List: was personally reviewed by me Laboratory Data Attestation: I reviewed the patient's lab results. Result diagrams: 08/24/18 17:36 08/24/18 16:33 Lab Results 08/24/18 08/24/18 08/24/18 Range/Units 16:33 16:33 16:33 WBC Cancelled RBC Cancelled Hgb Cancelled POC Hgb (12.0-16.0) g/dl Hct Cancelled POC Hct (37-47) % MCV Cancelled MCH Cancelled MCHC Cancelled RDW Std Deviation Cancelled RDW Coeff of Gabriele Cancelled Plt Count Cancelled MPV Cancelled Immature Gran % (Auto) Cancelled Neut % (Auto) Cancelled Lymph % (Auto) Cancelled [place] % (Auto) Cancelled Eos % (Auto) Cancelled Baso % (Auto) Cancelled Immature Gran # (Auto) Cancelled Neut # (Auto) Cancelled Lymph # (Auto) Cancelled [place] # (Auto) Cancelled Eos # (Auto) Cancelled Baso # (Auto) Cancelled Absolute Nucleated RBC Cancelled Nucleated RBC % (auto) Cancelled Neutrophils % (Manual) Cancelled Band Neutrophils % Cancelled Lymphocytes % (Manual) Cancelled Prolymphocyte % Cancelled Reactive Lymphs % (Man) Cancelled Monocytes % (Manual) Cancelled Eosinophils % (Manual) Cancelled Basophils % (Manual) Cancelled Metamyelocytes % (Man) Cancelled Myelocytes % (Man) Cancelled Promyelocytes % (Man) Cancelled Blast Cells % (Manual) Cancelled Plasma Cell % (Manual) Cancelled Other Cells % Cancelled Nucleated RBC % Cancelled Neutrophils # (Manual) Cancelled Band Neutrophils # Cancelled Total Absolute Neuts Cancelled Lymphocytes # (Manual) Cancelled Prolymphocyte # Cancelled Reactive Lymphs # Cancelled Total Abs Lymphocytes Cancelled Monocytes # (Manual) Cancelled Eosinophils # (Manual) Cancelled Basophils # (Manual) Cancelled Metamyelocytes # (Man) Cancelled Myelocytes # (Manual) Cancelled Promyelocytes # (Man) Cancelled Blast Cells # (Man) Cancelled Plasma Cell # (Manual) Cancelled Other Cells # Cancelled Nucleated RBCs # (Man) Cancelled Hypersegmented Neuts Cancelled Hyposegmented Neuts Cancelled Hypogranular Neuts Cancelled Large Granular Lymphs Cancelled # Lrg Granular Lymphs Cancelled Hairy Cells Cancelled Smudge Cells Cancelled Toxic Granulation Cancelled Toxic Vacuolation Cancelled Dohle Bodies Cancelled Negar Rods Cancelled Platelet Estimate Cancelled Hypogranular Platelets Cancelled Clumped Platelets Cancelled Giant Platelets Cancelled Platelet Satelliting Cancelled RBC Morphology Cancelled Polychromasia Cancelled Hypochromasia Cancelled Poikilocytosis Cancelled Basophilic Stippling Cancelled Anisocytosis Cancelled Microcytosis Cancelled Macrocytosis Cancelled Spherocytes Cancelled Pappenheimer Bodies Cancelled Sickle Cells Cancelled Target Cells Cancelled Tear Drop Cells Cancelled Ovalocytes Cancelled Stomatocytes Cancelled Estrada-Loxley Bodies Cancelled Echinocytes Cancelled Acanthocytes (Spur) Cancelled Rouleaux Cancelled RBC Agglutinates Cancelled Schistocytes Cancelled RBC Morph Comment Cancelled Sezary Cell Cancelled POC Sodium (135-144) mEq/L Sodium 141 (136-145) mmol/L POC Potassium (3.3-5.0) mEq/L Potassium 3.2 L (3.5-5.1) mmol/L POC Chloride (101-112) mEq/L Chloride 109 H (98-107) mmol/L Carbon Dioxide 21 (21-32) mmol/L POC Total CO2 (24-31) mEq/l Anion Gap 11.0 (3-11) POC Anion Gap (16-25) mmol/L POC BUN (7-18) mg/dl BUN 8 (7-18) mg/dl Creatinine 0.64 (0.6-1.2) mg/dl POC Creatinine (0.6-1.3) mg/dl Est Cr Clr Drug Dosing Not Reportable Est GFR ( Amer) 104.1 Est GFR (Non-Af Amer) 89.8 BUN/Creatinine Ratio 12.5 (10-20) Glucose 89 (70-99) mg/dl POC Glucose (other) (70-99) mg/dl Calcium 9.0 (8.5-10.1) mg/dl POC Ioniz Calcium Lisette (1.12-1.32) mmol/l Total Bilirubin 0.6 (0.2-1) mg/dl AST 37 (15-37) U/L ALT 33 (12-78) U/L Alkaline Phosphatase 157 H (45-117) U/L Total Creatine Kinase 440 H Cancelled (26-192) U/L CK-MB (CK-2) 6.0 H Cancelled (0.5-3.6) ng/ml CK/CKMB % Calc 1.4 Cancelled (0-3.0) Troponin I < 0.015 (0-0.045) ng/ml Total Protein 6.9 (6.4-8.2) gm/dl Albumin 3.7 (3.4-5.0) gm/dl Globulin 3.2 (2.5-4.0) gm/dl Albumin/Globulin Ratio 1.2 (0.9-2) Lipase 147 (73-393) U/L Specimen Hemolysis Urine Opiates Screen (Neg) Ur Methadone, Qual (Neg) Urine Barbiturates (Neg) Ur Phencyclidine (PCP) (Neg) U Amphetamin/Meth Scrn (Neg) MDMA (Ecstasy) Screen (Neg) U Benzodiazepines Scrn (Neg) Ur Cocaine Metabolite (Neg) U Marijuana (THC) Screen (Neg) Lyme Disease IgG Ab (Negative) Lyme Disease IgM Ab (Negative) 08/24/18 08/24/18 08/24/18 Range/Units 16:38 16:42 17:00 WBC RBC Hgb POC Hgb 13.6 (12.0-16.0) g/dl Hct POC Hct 40 (37-47) % MCV MCH MCHC RDW Std Deviation RDW Coeff of Gabriele Plt Count MPV Immature Gran % (Auto) Neut % (Auto) Lymph % (Auto) [place] % (Auto) Eos % (Auto) Baso % (Auto) Immature Gran # (Auto) Neut # (Auto) Lymph # (Auto) [place] # (Auto) Eos # (Auto) Baso # (Auto) Absolute Nucleated RBC Nucleated RBC % (auto) Neutrophils % (Manual) Band Neutrophils % Lymphocytes % (Manual) Prolymphocyte % Reactive Lymphs % (Man) Monocytes % (Manual) Eosinophils % (Manual) Basophils % (Manual) Metamyelocytes % (Man) Myelocytes % (Man) Promyelocytes % (Man) Blast Cells % (Manual) Plasma Cell % (Manual) Other Cells % Nucleated RBC % Neutrophils # (Manual) Band Neutrophils # Total Absolute Neuts Lymphocytes # (Manual) Prolymphocyte # Reactive Lymphs # Total Abs Lymphocytes Monocytes # (Manual) Eosinophils # (Manual) Basophils # (Manual) Metamyelocytes # (Man) Myelocytes # (Manual) Promyelocytes # (Man) Blast Cells # (Man) Plasma Cell # (Manual) Other Cells # Nucleated RBCs # (Man) Hypersegmented Neuts Hyposegmented Neuts Hypogranular Neuts Large Granular Lymphs # Lrg Granular Lymphs Hairy Cells Smudge Cells Toxic Granulation Toxic Vacuolation Dohle Bodies Negar Rods Platelet Estimate Hypogranular Platelets Clumped Platelets Giant Platelets Platelet Satelliting RBC Morphology Polychromasia Hypochromasia Poikilocytosis Basophilic Stippling Anisocytosis Microcytosis Macrocytosis Spherocytes Pappenheimer Bodies Sickle Cells Target Cells Tear Drop Cells Ovalocytes Stomatocytes Estrada-Loxley Bodies Echinocytes Acanthocytes (Spur) Rouleaux RBC Agglutinates Schistocytes RBC Morph Comment Sezary Cell POC Sodium 141 (135-144) mEq/L Sodium (136-145) mmol/L POC Potassium 3.5 (3.3-5.0) mEq/L Potassium (3.5-5.1) mmol/L POC Chloride 107 (101-112) mEq/L Chloride (98-107) mmol/L Carbon Dioxide (21-32) mmol/L POC Total CO2 20 L (24-31) mEq/l Anion Gap (3-11) POC Anion Gap 18.0 (16-25) mmol/L POC BUN 8 (7-18) mg/dl BUN (7-18) mg/dl Creatinine (0.6-1.2) mg/dl POC Creatinine 0.6 (0.6-1.3) mg/dl Est Cr Clr Drug Dosing Est GFR ( Amer) Est GFR (Non-Af Amer) BUN/Creatinine Ratio (10-20) Glucose (70-99) mg/dl POC Glucose (other) 96 (70-99) mg/dl Calcium (8.5-10.1) mg/dl POC Ioniz Calcium Lisette 1.15 (1.12-1.32) mmol/l Total Bilirubin (0.2-1) mg/dl AST (15-37) U/L ALT (12-78) U/L Alkaline Phosphatase (45-117) U/L Total Creatine Kinase (26-192) U/L CK-MB (CK-2) (0.5-3.6) ng/ml CK/CKMB % Calc (0-3.0) Troponin I (0-0.045) ng/ml Total Protein (6.4-8.2) gm/dl Albumin (3.4-5.0) gm/dl Globulin (2.5-4.0) gm/dl Albumin/Globulin Ratio (0.9-2) Lipase (73-393) U/L Specimen Hemolysis Urine Opiates Screen Neg (Neg) Ur Methadone, Qual Neg (Neg) Urine Barbiturates Neg (Neg) Ur Phencyclidine (PCP) Neg (Neg) U Amphetamin/Meth Scrn Neg (Neg) MDMA (Ecstasy) Screen Neg (Neg) U Benzodiazepines Scrn Neg (Neg) Ur Cocaine Metabolite Neg (Neg) U Marijuana (THC) Screen Neg (Neg) Lyme Disease IgG Ab Negative (Negative) Lyme Disease IgM Ab Negative (Negative) 08/24/18 Range/Units 17:36 WBC 5.95 RBC 4.17 L Hgb 12.8 POC Hgb (12.0-16.0) g/dl Hct 36.9 L POC Hct (37-47) % MCV 88.5 MCH 30.7 MCHC 34.7 RDW Std Deviation 41.1 RDW Coeff of Gabriele 12.8 Plt Count 274 MPV 9.4 Immature Gran % (Auto) 0.2 Neut % (Auto) 67.5 Lymph % (Auto) 24.2 [place] % (Auto) 7.4 Eos % (Auto) 0.5 Baso % (Auto) 0.2 Immature Gran # (Auto) 0.01 Neut # (Auto) 4.02 Lymph # (Auto) 1.44 [place] # (Auto) 0.44 Eos # (Auto) 0.03 Baso # (Auto) 0.01 Absolute Nucleated RBC Nucleated RBC % (auto) Neutrophils % (Manual) Band Neutrophils % Lymphocytes % (Manual) Prolymphocyte % Reactive Lymphs % (Man) Monocytes % (Manual) Eosinophils % (Manual) Basophils % (Manual) Metamyelocytes % (Man) Myelocytes % (Man) Promyelocytes % (Man) Blast Cells % (Manual) Plasma Cell % (Manual) Other Cells % Nucleated RBC % Neutrophils # (Manual) Band Neutrophils # Total Absolute Neuts Lymphocytes # (Manual) Prolymphocyte # Reactive Lymphs # Total Abs Lymphocytes Monocytes # (Manual) Eosinophils # (Manual) Basophils # (Manual) Metamyelocytes # (Man) Myelocytes # (Manual) Promyelocytes # (Man) Blast Cells # (Man) Plasma Cell # (Manual) Other Cells # Nucleated RBCs # (Man) Hypersegmented Neuts Hyposegmented Neuts Hypogranular Neuts Large Granular Lymphs # Lrg Granular Lymphs Hairy Cells Smudge Cells Toxic Granulation Toxic Vacuolation Dohle Bodies Negar Rods Platelet Estimate Hypogranular Platelets Clumped Platelets Giant Platelets Platelet Satelliting RBC Morphology Polychromasia Hypochromasia Poikilocytosis Basophilic Stippling Anisocytosis Microcytosis Macrocytosis Spherocytes Pappenheimer Bodies Sickle Cells Target Cells Tear Drop Cells Ovalocytes Stomatocytes Estrada-Loxley Bodies Echinocytes Acanthocytes (Spur) Rouleaux RBC Agglutinates Schistocytes RBC Morph Comment Sezary Cell POC Sodium (135-144) mEq/L Sodium (136-145) mmol/L POC Potassium (3.3-5.0) mEq/L Potassium (3.5-5.1) mmol/L POC Chloride (101-112) mEq/L Chloride (98-107) mmol/L Carbon Dioxide (21-32) mmol/L POC Total CO2 (24-31) mEq/l Anion Gap (3-11) POC Anion Gap (16-25) mmol/L POC BUN (7-18) mg/dl BUN (7-18) mg/dl Creatinine (0.6-1.2) mg/dl POC Creatinine (0.6-1.3) mg/dl Est Cr Clr Drug Dosing Est GFR ( Amer) Est GFR (Non-Af Amer) BUN/Creatinine Ratio (10-20) Glucose (70-99) mg/dl POC Glucose (other) (70-99) mg/dl Calcium (8.5-10.1) mg/dl POC Ioniz Calcium Lisette (1.12-1.32) mmol/l Total Bilirubin (0.2-1) mg/dl AST (15-37) U/L ALT (12-78) U/L Alkaline Phosphatase (45-117) U/L Total Creatine Kinase (26-192) U/L CK-MB (CK-2) (0.5-3.6) ng/ml CK/CKMB % Calc (0-3.0) Troponin I (0-0.045) ng/ml Total Protein (6.4-8.2) gm/dl Albumin (3.4-5.0) gm/dl Globulin (2.5-4.0) gm/dl Albumin/Globulin Ratio (0.9-2) Lipase (73-393) U/L Specimen Hemolysis Urine Opiates Screen (Neg) Ur Methadone, Qual (Neg) Urine Barbiturates (Neg) Ur Phencyclidine (PCP) (Neg) U Amphetamin/Meth Scrn (Neg) MDMA (Ecstasy) Screen (Neg) U Benzodiazepines Scrn (Neg) Ur Cocaine Metabolite (Neg) U Marijuana (THC) Screen (Neg) Lyme Disease IgG Ab (Negative) Lyme Disease IgM Ab (Negative) Imaging Data Radiologist's Impression: Radiology results as stated below per my review and the radiologist's interpretation: CT head/brain wo con CT DOSE: 1412.33 mGy.cm HISTORY: Nausea. Vomiting. Mental status change. Pt c/o intractible N V TECHNIQUE: Multiaxial CT images of the head were performed without the use of intravenous contrast. A dose lowering technique was utilized adhering to the principles of ALARA. Comparison: None. Findings: The paranasal sinuses and mastoid air cells are clear. The calvarium and skull base are intact. The ventricles and sulci are within normal limits. There is no mass, hematoma, midline shift, or acute infarct. Impression: No acute intracranial abnormality. The above report was generated using voice recognition software. It may contain grammatical, syntax or spelling errors. Electronically signed by: Denis Mccray M.D. 08/24/2018 5:[address] OF THE LUMBAR SPINE CLINICAL HISTORY: Diffuse abdominal pain. COMPARISON STUDY: No previous studies for comparison. TECHNIQUE: Helical axial images of the lumbar spine were obtained. Sagittal and coronal reconstructions were viewed. Automated exposure control was utilized for the study. A dose lowering technique was utilized adhering to the principles of ALARA. FINDINGS: Please note that the CT of the abdomen and pelvis will be reported separately.Note is made of 4 mm of anterolisthesis of L4 and L5 due to facet arthrosis. No acute lumbar spine fracture is present. No suspicious osseous lesion is noted. There is mild multilevel endplate osteophytosis with disc space narrowing. There is moderate to severe multilevel facet arthrosis. The central canal and neural foramen are suboptimally assessed by CT. Paravertebral soft tissues are unremarkable. Sacroiliac joints are intact. Bilateral renal calculi are better depicted on the abdominal CT. IMPRESSION: 1. No acute lumbar spine fracture or subluxation. 2. Moderate to severe multilevel facet arthrosis. Mild multilevel disc space narrowing and osteophytosis within the lumbar spine. Suboptimal evaluation of the central canal and neural foramen given CT technique. 3. Bilateral nephrolithiasis but are depicted on the CT of the abdomen and pelvis. Electronically signed by: Keven Frances M.D. 08/24/2018 6:02 PM XR chest 1V portable CLINICAL HISTORY: Chest Pain pain. Dyspnea. COMPARISON STUDY: 05/08/2017 FINDINGS: The bones soft tissues and hemidiaphragms are normal. The cardiomediastinal silhouette is normal. The lungs are clear. The pulmonary vasculature is normal. IMPRESSION: Negative chest. The above report was generated using voice recognition software. It may contain grammatical, syntax or spelling errors. Electronically signed by: Denis Mccray M.D. 08/24/2018 4:[address] abd pelvis wo con CT DOSE: HISTORY: Pain Pt c/o diffuse abd pain TECHNIQUE: Multiaxial CT images of the abdomen and pelvis were performed without contrast. A dose lowering technique was utilized adhering to the principles of ALARA. COMPARISON STUDY: 05/09/2017 FINDINGS: Lung bases are considered clear. Minimal linear parenchymal scarring medial aspect right base unchanged. Cholecystectomy. Liver spleen and pancreas are grossly unremarkable. Moderate cortical scarring left kidney. Bilateral renal nephrocalcinosis overall improved from prior study in terms of bulk. No evidence for an obstructing urinary tract calculus. Bowel pattern overall is nonobstructive. No evidence for obstructive change. No evidence for abscess collection. Several scattered colonic diverticuli with no evidence for acute diverticulitis. IMPRESSION: 1. No acute process of the abdomen or pelvis. 2. Bilateral nonobstructing nephrocalcinosis. 3. Mild scattered colonic diverticuli with no evidence for diverticulitis. The above report was generated using voice recognition software. It may contain grammatical, syntax or spelling errors. Electronically signed by: Denis Mccray M.D. 08/24/2018 6:00 PM ECG Data Attestation: I personally reviewed and interpreted this ECG as follows: Indication: abdominal pain Rate (beats per minute): 74 Rhythm: normal sinus Findings: + other (left ventricular hypertrophy ); no ST depression and no ST elevation Blood Pressure Blood Pressure Findings: Elevated blood pressure Blood Pressure Disposition: elevated BP felt to be situational MDM Narrative This is a 73-year-old female who presents the emergency depart over concerns that she is not taking care of herself at home. The patient has not been able to keep down any medications. She is on Ativan gabapentin as well as Percocet. She reportedly received Dilaudid at [place] emergency department last night and felt much better after that. I suspect that the patient is in a narcotic withdrawal. I will note she is also hypertensive. She was therefore given a clonidine patch here in the emergency department. She does have a slight elevation in her CK and MB fractions. She was given normal saline bolus here and sent for CAT scan of the abdomen pelvis and lumbar spine. This did not show any acute process. I did discuss the case with the hospitalist service who agreed to admit the patient. Patient and family were in agreement with the treatment plan. Impression & Plan Altered mental status, Hypertension, Rhabdomyolysis Discharge Plan Visit Data *Final* Discharge Date/Time: 08/24/18 19:57 Chief Complaint: Abdominal Pain Stated Complaint: ABDOMINAL PAIN ED Provider: Timoteo Belle Discharge Problem: Altered mental status, Hypertension, Rhabdomyolysis Patient Disposition: Being Evaluated by Hospitalist Discharge Instructions Interventions: ED Discharge Assessment Last Done: 08/24/18 19:57 Discharge Problem: Altered mental status Qualifiers: Altered mental status type: unspecified Qualified Code(s): R41.82 - Altered mental status, unspecified Hypertension Qualifiers: Hypertension type: unspecified Qualified Code(s): I10 - Essential (primary) hypertension Rhabdomyolysis Qualifiers: Rhabdomyolysis type: non-traumatic Qualified Code(s): M62.82 - Rhabdomyolysis The scribe's documentation has been prepared under my direction and personally reviewed by me in its entirety. I confirm that the note above accurately reflects all work, treatment, procedures, and medical decision making performed by me.
[2018-08-24] MEDS: CHECK CLONIDINE PATCH PLACEMENT SCH (23:29)
[2018-08-25 07:07] LABS: BUN Creatinine Ratio 15.2 (10-20); Calcium 8.6 mg/dl (8.5-10.1); Est GFR (African American) 106.9; Est GFR (Non-African American) 92.2; Magnesium 1.6 mg/dl (1.8-2.4); Phosphorus 3.8 mg/dl (2.5-4.9); Potassium 3.4 mmol/L (3.5-5.1)
[2018-08-25] MEDS: CHECK CLONIDINE PATCH PLACEMENT SCH ×2 (07:58→15:46)
[2018-08-25] MEDS: TAMSULOSIN HCL 0.4 MG CAP PO SCH (08:28)
[2018-08-25] MEDS: ISOSORBIDE MONO EXTENDED REL 30 MG TABCR PO SCH (08:28)
[2018-08-25] MEDS: MULTIVITAMIN TAB PO SCH (08:28)
[2018-08-25] MEDS: PANTOprazole 40 MG TAB PO SCH (08:29)
[2018-08-25] MEDS: GABAPENTIN 400 MG CAP PO SCH ×3 (08:29→20:52)
[2018-08-25] MEDS: ONDANSETRON 8MG OD TAB PO SCH ×3 (08:29→20:51)
[2018-08-25] MEDS: POTASSIUM CHLORIDE 20 MEQ TABCR PO SCH ×2 (09:25→20:52)
[2018-08-25] MEDS: NSS + 20MEQ KCL 20 MEQ/1,000 ML BAG IV SCH ×2 (09:25→22:20)
[2018-08-25] MEDS: MAGNESIUM SULFATE / D5W 1 GM/100 ML BAG IV SCH ×2 (09:27→10:32)
[2018-08-25] MEDS: cefTRIAXone SODIUM 2,000 MG in DEXTROSE 5% 50 ML IV SCH (20:57)
--- NOTE | 2018-08-25 22:58 | Hospitalist Progress Note ---
Date of Service August 25, 2018 Assessment & Plan (1) Altered mental status: Metabolic encephalopathy likely secondary to polypharmacy. Patient has improved. Will continue with ceftriaxone Records pending CBC, PRP, trop WNL Utox neg Lyme neg CT head neg for acute Will continue gabapentin to avoid withdrawals Holding ativan (neg in utox), tramadol, trazodone, hydrocodone until mentation improves PT/OT pending, having difficulty managing at home (2) UTI (urinary tract infection): Dx as OSH, ceftriaxone (3) Abdominal pain: Related to UTI vs polypharmacy vs nonobstructing renal stones vs complica tion s/p multiple tooth extraction last week CT AP as noted WBC WNL Blood cx pending Ceftriaxone as above Has had progressive weight loss over the last 8 months per will consult Gastroenterology for posiblity of a scope. (4) Renal stones: Hx of yearly acute issues Likely the reason for flomax use, continue (5) Hypertension: continue home meds Missed AM meds due to GI issues Clonidine patch in the ED, continue and monitor (6) Hiatal hernia: Hx of repair with perforation x2, most recently 1.5 yrs ago [address] Dr[address] Summers if needed (7) Neuropathy: Will continue gabapentin to avoid withdrawals Holding ativan (neg in utox), tramadol, trazodone, hydrocodone until mentation improves (8) Anxiety: continue home meds (9) DVT prophylaxis: SCDs Spent 35 minutes in management of patient. Subjective Patient reports feeling significantly better today. Patient reports no longer feeling confused. Patient reports that she is still nauseous, and is not able to eat well. Patient reports having nausea and vomiting at home. Review of Systems Review of Systems: All systems reviewed & are unremarkable except as noted in HPI & below Physical Exam Physical Exam: Constitutional: WD/WN, vitals as above Eyes: normal visual merritt by confrontation and + anicteric sclerae Neck: normal visual inspection and trachea midline Respiratory: normal respiratory effort, lungs clear to auscultation Cardiovascular: Rate/Rhythm: regular rate and regular rhythm Gastrointestinal (Abdomen): Inspection/Auscultation: abdomen not distended Percussion/Palpation: + abdomen tender (diffuse, mild) and abdomen soft Musculoskeletal: Head/Neck/Chest: normocephalic and head atraumatic negative for edema, peripheral pulses intact Skin: no rashes, warm and dry Neurologic: awake (but drowsy) Speech / Cognition: normal speech Psychiatric: A+Ox3, euthymic affect Results & Data Vital Signs (Past 12 Hours) Vital Signs Temp Pulse Resp BP Pulse Ox 08/25/18 15:28 36.7 C 71 16 174/90 H 98 08/25/18 14:27 100 PG Care Time/CCT Total # of Minutes Spent Total Time Spent with Patient: Total time spent is greater than 50% in coordination of care (as documented) at patient's floor/unit and/or counseling patient: (1) Altered mental status Altered mental status type: unspecified Qualified Code(s): R41.82 - Altered mental status, unspecified (2) Hypertension Hypertension type: unspecified Qualified Code(s): I10 - Essential (primary) hypertension
[2018-08-26] MEDS: ACETAMINOPHEN 325 MG TAB PO PRN ×2 (00:02→21:00)
[2018-08-26] MEDS: CHECK CLONIDINE PATCH PLACEMENT SCH ×4 (00:04→23:36)
[2018-08-26] MEDS: cloNIDine HCL 0.3 MG/24 HR TRANSDERM SYS TD SCH ×2 (00:04→23:37)
[2018-08-26] MEDS: GABAPENTIN 400 MG CAP PO SCH ×3 (08:31→20:51)
[2018-08-26] MEDS: ISOSORBIDE MONO EXTENDED REL 30 MG TABCR PO SCH (08:31)
[2018-08-26] MEDS: MULTIVITAMIN TAB PO SCH (08:32)
[2018-08-26] MEDS: PANTOprazole 40 MG TAB PO SCH ×2 (08:32→20:51)
[2018-08-26] MEDS: TAMSULOSIN HCL 0.4 MG CAP PO SCH (08:33)
[2018-08-26] MEDS: POTASSIUM CHLORIDE 20 MEQ TABCR PO SCH (08:33)
[2018-08-26] MEDS: ONDANSETRON 8MG OD TAB PO SCH ×3 (08:34→20:50)
--- NOTE | 2018-08-26 08:53 | Gastrointestinal Consultation ---
Date of Consultation August 26, 2018 Assessment & Plan (1) Abdominal pain: Patient's abdominal pain and weight loss are chronic and have been evaluated extensively. She has had multiple unremarkable CT scans. She has had an unremarkable UGI as an outpatient in 2018. She had a normal colonoscopy in 2017. She did have findings of gastric ulcers on EGD in 2018, however patient's is reporting that he doesn't think she's complying with her PPI due to confusion. Most notably, she was found to have a tight Will wrap. She was advised to see a surgeon as it was felt that this was lightly causing her nausea & abdominal complaints. She cancelled this appointment. Today, Kandy is much improved. At the present time, I would advise she take Protonix 40 mg BID, Zantac 150 mg BID, & Carafate 1 gm four times daily x 10 days before meals and at bedtime. She may have a recurrence of gastritis or gastric ulcers due to potential non- compliance with her PPI therapy, however in the absence of alarm symptoms of bleeding, would defer repeat endoscopic evaluation and treat appropriately at this time. I would advise that she follow through with the recommendations for surgical evaluation given findings of a tight Will. Additionally, could consider a gastric emptying study as well as it appears this may be one GI test she has not had. I would utilize prn anti-emetics for symptom management as well. Given she has significantly improved since admission, she can have the surgical evaluation and emptying study as an outpatient. Her surgeon is in [place], [place]. Thank you for allowing us to participate in the care of this patient. If you should have any further questions or concerns, do not hesitate to contact [email or web address] [phone] or [phone]. Present on Admission?: Yes Supervising Physician Co-Signing Physician Notes Agree with DARCIE Da Silva as above Abd: Soft, NT, ND, +BS Continue current therapy Followup with surgery at [facility] where Will was performed Gastric emptying study as an outpatient. Advance diet today as tolerated History of Present Illness Reason for Consultation: Abdominal pain Attending Physician: Randolph Tapia History of Present Illness Patient is a 73 yo female with a PMH of GERD, gastric ulcers, HTN, nephrolithiasis, gastritis, & a history of a Will with complications who presented to the outpatient clinic on Thursday 08/24 accompanied by 3 members of her family for confusion and abdominal pain. She was in the ER in [place] on 08/23/2018. Family reports she has been confused and it's hard to understand the extent of her symptoms or whether there was merit to anything that she was reporting. She had a CT scan of the abdomen pelvis at [place] on 08/23 that indicated bilateral nephrolithiasis (nonobstructing). She was treated for a UTI via IV antibiotics and given a prescription. She was prescribed Keflex & Pyridium but at the time of her outpatient visit, these were not yet picked up. The CT also indicated mild dilatation of the CBD to 11 mm. She is s/p cholecystectomy. Her LFTs were witin normal limits. Due to the extent of her confusion and recognizing that patient was far from her baseline, I advised she present to the ER for further work-up. She was unable to participate in meaningful conversation and family reported she had stopped eating and drinking. mentioned that he does not feel she was taking her medications as prescribed. He is unclear whether she has been on her PPI. Of note, it was discussed with the family on Friday the thorough work-up the patient has had in the past in regards to her abdominal pain and weight loss. She had an unremarkable colonoscopy in 2017. An EGD in 2018 not only identified gastric ulcers, but also identified a tight Will wrap. She had a follow-up UGI without acute issues. She was advised to see a surgeon, however she called our office to cancel this. She did not wish to pursue it. Family is not clear why, but note that she has had a lot of other issues. She was admitted to [facility] with a UTI. GI has been consulted for re-evaluation of these same ongoing symptoms. A CT was repeated at [facility] and the abdomen/pelvis were unremarkable. The patient's labs are not alarming. All objective findings are reassuring. The patient is much more herself today and I was able to have a significant conversation with her. She is oriented appropriately. She reports that her abd ominal pain has improved. Her only persistent complaint is that her appetite is small, however she feels that it is related to her inactivity. She believes that when she returns home and gets back into her normal routine she will feel more like eating. Allergies Allergy/AdvReac Type Severity Reaction Status Date / Time Iodinated Contrast- Oral and Allergy Severe ANAPHYLAXIS Verified 08/24/18 15:35 IV Dye Penicillins Allergy Severe ANAPHYLAXIS Verified 08/24/18 15:35 trimethobenzamide Allergy Severe ANAPHYLAXIS Verified 08/24/18 15:35 lactose Allergy Intermediate Gastrointestinal Verified 08/26/18 10:02 symptoms Home Medications Home Medications Medication Instructions Recorded Confirmed Type multivitamin 1 tab PO QAM 02/06/18 08/24/18 History pantoprazole 40 mg PO QAM 02/06/18 08/24/18 History gabapentin 400 mg PO TID 08/24/18 08/24/18 History hydrocodone-acetaminophen 1 tab PO Q6H PRN 08/24/18 08/24/18 History isosorbide mononitrate 30 mg PO DAILY 08/24/18 08/24/18 History lorazepam 1 mg PO TID PRN 08/24/18 08/24/18 History ondansetron 8 mg PO TID 08/24/18 08/24/18 History tamsulosin 0.4 mg PO DAILY 08/24/18 08/24/18 History tramadol 50 mg PO Q6H PRN 08/24/18 08/24/18 History trazodone 100 mg PO HS 08/24/18 08/24/18 History Patient History Medical History Colitis Endometriosis GERD (gastroesophageal reflux disease) Gastritis Hypertension Kidney stones Osteoarthritis Surgical History History of appendectomy History of cholecystectomy History of colonoscopy History of cystoscopy STONE REMOVAL/STENTS (MULTIPLE TIMES) History of esophagogastroduodenoscopy (EGD) 08/08/2017. sedation, no issues. History of herniorrhaphy HIATAL HERNIA History of lithotripsy MULTIPLE TIMES History of tonsillectomy History of tooth extraction History of total abdominal hysterectomy and bilateral salpingo-oophorectomy Tarsal tunnel syndrome RT/LEFT (RELEASED) Family History Father Myocardial infarction Mother Myocardial infarction Social History Preferred Language: Bermudian Communication Ability: Effective Beliefs That Will Affect Care: None marital status: Current Living Situation: Spouse Current Living Situation Comment: house, 1 floor and finished basement Feels Safe at Home: Yes Smoking Status: Never smoker Second Hand Exposure: Yes ( A CHILD) Hx Alcohol Use: No Hx Substance Use: No Review of Systems Constitutional: + fatigue Eyes: no acute complaints Ear, Nose, Mouth, Throat: no acute complaints Respiratory: no cough and no dyspnea Cardiovascular: no chest pain Gastrointestinal: + abdominal pain Musculoskeletal: no acute complaints Integumentary: no rash Neurologic: + confusion Psychiatric: no acute complaints Endocrine: + fatigue Hematologic / Lymphatic: no easy bleeding Physical Exam Constitutional: WD/WN, vitals as above Eyes: PERRL, conjunctivae normal, anicteric sclerae ENMT: external ear and nose normal, oropharynx normal Neck: normal visual inspection Respiratory: normal respiratory effort, lungs clear to auscultation Cardiovascular: Rate/Rhythm: regular rate and regular rhythm Gastrointestinal (Abdomen): normal bowel sounds, soft, nontender, no hepatosplenomegaly Musculoskeletal: no cyanosis or clubbing, extremities motor strength 5/5 Skin: no rashes, warm and dry Neurologic: moves all extremities Psychiatric: Orientation: alert Results & Data Vital Signs (Past 12 Hours) Vital Signs Temp Pulse Resp BP Pulse Ox 08/26/18 07:46 36.7 C 60 16 186/83 H 99 08/25/18 23:16 36.5 C 72 14 165/82 H 98
[2018-08-26] MEDS: NSS + 20MEQ KCL 20 MEQ/1,000 ML BAG IV SCH ×2 (09:33→22:10)
[2018-08-26] MEDS: SUCRALFATE 1 GM/10 ML UDC PO SCH ×3 (13:14→20:51)
[2018-08-26] MEDS: cefTRIAXone SODIUM 2,000 MG in DEXTROSE 5% 50 ML IV SCH (20:51)
--- NOTE | 2018-08-26 22:28 | Hospitalist Progress Note ---
Date of Service August 26, 2018 Assessment & Plan (1) Altered mental status: Uncertain etiology UTI vs polypharmacy seem most likely dx UTI dx at [facility] on 08/23, ceftriaxone in the ED, did not fill abx rx yet Will continue with ceftriaxone Records pending CBC, PRP, trop WNL Utox neg Lyme neg CT head neg for acute Will continue gabapentin to avoid withdrawals Holding ativan (neg in utox), tramadol, trazodone, hydrocodone until mentation improves PT/OT pending, having difficulty managing at home Approved on 08/26 Likely toxicencephalopathy from meds. (2) UTI (urinary tract infection): Dx as OSH, ceftriaxone (3) Abdominal pain: Related to UTI vs polypharmacy vs nonobstructing renal stones vs complication s/p multiple tooth extraction last week CT AP as noted WBC WNL Blood cx pending Ceftriaxone as above Has had progressive weight loss over the last 8 months per . Awaiting input from GI. (4) Renal stones: Hx of yearly acute issues Likely the reason for flomax use, continue (5) Hypertension: continue home meds Missed AM meds due to GI issues Clonidine patch in the ED, continue and monitor (6) Hiatal hernia: Hx of repair with perforation x2, most recently 1.5 yrs ago Follows with Dr. Summers if needed (7) Neuropathy: Will continue gabapentin to avoid withdrawals Holding ativan (neg in utox), tramadol, trazodone, hydrocodone until mentation improves (8) Anxiety: continue home meds (9) DVT prophylaxis: SCDs Spent 25 minutes in management of patient. Subjective 73 yo female reports improvement in her pain. Pain is still present, but improved Patient does not feeel ready for discharge. Review of Systems Review of Systems: All systems reviewed & are unremarkable except as noted in HPI & below Physical Exam Physical Exam: Constitutional: WD/WN, vitals as above Eyes: normal visual merritt by confrontation and + anicteric sclerae Neck: normal visual inspection and trachea midline Respiratory: normal respiratory effort, lungs clear to auscultation Cardiovascular: Rate/Rhythm: regular rate and regular rhythm Gastrointestinal (Abdomen): Inspection/Auscultation: abdomen not distended Percussion/Palpation: + abdomen mildly tender and abdomen soft Musculoskeletal: Head/Neck/Chest: normocephalic and head atraumatic negative for edema, peripheral pulses intact Skin: no rashes, warm and dry Neurologic: awake Speech / Cognition: normal speech Psychiatric: A+Ox3, euthymic affect Results & Data Vital Signs (Past 12 Hours) Vital Signs Temp Pulse Resp BP BP Pulse Ox 08/26/18 16:24 36.9 C 64 16 177/83 H 99 08/26/18 11:30 180/92 H PG Care Time/CCT Total # of Minutes Spent Total Time Spent with Patient: Total time spent is greater than 50% in coordination of care (as documented) at patient's floor/unit and/or counseling patient: (1) Altered mental status Altered mental status type: unspecified Qualified Code(s): R41.82 - Altered mental status, unspecified (2) Hypertension Hypertension type: unspecified Qualified Code(s): I10 - Essential (primary) hypertension
[2018-08-27] MEDS: ACETAMINOPHEN 325 MG TAB PO PRN ×2 (02:07→17:24)
[2018-08-27] MEDS: ONDANSETRON 8MG OD TAB PO SCH ×2 (08:22→13:34)
[2018-08-27] MEDS: CHECK CLONIDINE PATCH PLACEMENT SCH ×2 (08:23→15:52)
[2018-08-27] MEDS: GABAPENTIN 400 MG CAP PO SCH ×2 (08:23→13:34)
[2018-08-27] MEDS: PANTOprazole 40 MG TAB PO SCH (08:23)
[2018-08-27] MEDS: TAMSULOSIN HCL 0.4 MG CAP PO SCH (08:23)
[2018-08-27] MEDS: ISOSORBIDE MONO EXTENDED REL 30 MG TABCR PO SCH (08:23)
[2018-08-27] MEDS: MULTIVITAMIN TAB PO SCH (08:23)
[2018-08-27] MEDS: SUCRALFATE 1 GM/10 ML UDC PO SCH ×3 (08:23→17:17)
[2018-08-27] MEDS ORDERED: CAPTOPRIL 12.5 MG TAB PO ONE (08:55)
[2018-08-27] MEDS: NSS + 20MEQ KCL 20 MEQ/1,000 ML BAG IV SCH (09:41)
[2018-08-27 19:33] LABS: Anaplasma phagocytophila IgM <1:20 (<1:20); Ehrlichia chaff IgG Ab <1:64 (<1:64); Ehrlichia chaff IgM Ab <1:20 (<1:20)
--- NOTE | 2018-09-04 07:55 | Discharge Summary ---
Date of Service August 27, 2018 Admission HPI Per Admitting Provider 73 y/o F with multiple medical complaints. Pt has been having intermittent abd pain, n/v, and headache for the last month. They went to the ED at [facility] last night. Pt was dx with UTI and given a dose of rocephin with a script for abx for d/c to home. They had not yet filled this prescription. Pt has been intermittently AMS, worse in the last few days. made an appt to see Dr. Summers, who follows pt for her GI issues. Pt has a hx of hiatal hernia repair 13 yrs ago that had some sort of perforation complication requiring surgical intervention at that time and then another tear about 1.5 years ago requiring the same. They were concerned that her issues were related to this. When she got to the office, Dr. Summers recommended that she be seen in the ED due to her AMS. states that when they arrived to the ED, pt was quite confused. She could not remember her birthday even. He states that she still seems different from her usual, but much better. Pt did have three teeth pulled last week and they initially thought she was feeling unwell related to the extractions, however she did not improve. Her abd pain is across her entire abd. Due to abd pain, n/v, pt has not eaten or drank anything since Friday. He is having difficulty caring for her at home. states she has lost 40 lbs over the last 8 months. Pt was on lyrica for her neuropathy, however due to issues with cost and Medicare donut hole, she had to be changed to gabapentin. She is at 400mg TID. She has been on this for maybe 2 months. She is not certain when her dose was last increased, but somewhat recently. She is also taking tramadol, trazodone, ativan. She was also given several medications in the ED at [facility] last night and was "doped up pretty good" when they got home yesterday. He does feel her AMS was worse this morning. Pt has hx of renal stones and states she has an issue with this about once a year since she was 22. They are unsure why she takes flomax or who prescribes it, but when I suggested it might be for this reason, they think that is likely. states that she does get abd pain with her stones. Principal Diagnosis toxic encephalopathy and abdominal pain Discharge Exam Constitutional: WD/WN, vitals as above Eyes: normal visual merritt by confrontation and + anicteric sclerae Neck: normal visual inspection and trachea midline Respiratory: normal respiratory effort, lungs clear to auscultation Cardiovascular: Rate/Rhythm: regular rate and regular rhythm Gastrointestinal (Abdomen): Inspection/Auscultation: abdomen not distended Percussion/Palpation: + abdomen nontender and abdomen soft Musculoskeletal: Head/Neck/Chest: normocephalic and head atraumatic negative for edema, peripheral pulses intact Skin: no rashes, warm and dry Neurologic: awake Speech / Cognition: normal speech Psychiatric: A+Ox3, euthymic affect Discharge Data Allergies Allergy/AdvReac Type Severity Reaction Status Date / Time Iodinated Contrast- Oral and Allergy Severe ANAPHYLAXIS Verified 08/24/18 15:35 IV Dye Penicillins Allergy Severe ANAPHYLAXIS Verified 08/24/18 15:35 trimethobenzamide Allergy Severe ANAPHYLAXIS Verified 08/24/18 15:35 lactose Allergy Intermediate Gastrointestinal Verified 08/26/18 10:02 symptoms Consultations 08/24/18 18:22 ED Decision to Admit Stat 08/24/18 20:41 Consult Case Management - Discharge Planning Routine Consult Health Information Management Stat 08/26/18 08:03 Consult Gastroenterology Routine Ordered Studies 08/24/18 16:13 CT head/brain wo con Stat CT lumbar spine wo con Stat 08/24/18 16:38 CT abd pelvis wo con Stat Hospital Course (1) Altered mental status: Uncertain etiology UTI vs polypharmacy seem most likely dx UTI dx at [facility] on 08/23, ceftriaxone in the ED, did not fill abx rx yet Will continue with ceftriaxone Records pending CBC, PRP, trop WNL Utox neg Lyme neg CT head neg for acute Will continue gabapentin to avoid withdrawals Holding ativan (neg in utox), tramadol, trazodone, hydrocodone until mentation improves Patient imprved on day of discharge. Approved on 08/26 Likely toxicencephalopathy from meds. (2) UTI (urinary tract infection): Dx as OSH, ceftriaxone (3) Abdominal pain: Related to UTI vs polypharmacy vs nonobstructing renal stones vs complication s/p multiple tooth extraction last week CT AP as noted WBC WNL Blood cx pending Ceftriaxone as above Has had progressive weight loss over the last 8 months per . Input from GI. Patient's abdominal pain and weight loss are chronic and have been evaluated extensively. She has had multiple unremarkable CT scans. She has had an unremarkable UGI as an outpatient in 2018. She had a normal colonoscopy in 2017. She did have findings of gastric ulcers on EGD in 2018, however patient's is reporting that he doesn't think she's complying with her PPI due to confusion. Most notably, she was found to have a tight Will wrap. She was advised to see a surgeon as it was felt that this was lightly causing her nausea & abdominal complaints. She cancelled this appointment. Today, Kandy is much improved. At the present time, I would advise she take Protonix 40 mg BID, Zantac 150 mg BID, & Carafate 1 gm four times daily x 10 days before meals and at bedtime. She may have a recurrence of gastritis or gastric ulcers due to potential non- compliance with her PPI therapy, however in the absence of alarm symptoms of bleeding, would defer repeat endoscopic evaluation and treat appropriately at this time. I would advise that she follow through with the recommendations for surgical evaluation given findings of a tight Will. Additionally, could consider a gastric emptying study as well as it appears this may be one GI test she has not had. I would utilize prn anti-emetics for symptom management as well. Given she has significantly improved since admission, she can have the surgical evaluation and emptying study as an outpatient. Her surgeon is in [place], [place]. On day of discharge, pain improved, and patient tolerated diet. (4) Renal stones: Hx of yearly acute issues Likely the reason for flomax use, continue (5) Hypertension: continue home meds Missed AM meds due to GI issues Clonidine patch in the ED, continue and monitor Resumed PO meds at discharge Added linsopril and clonidine. Followup with PCP as an outpatient. (6) Hiatal hernia: Hx of repair with perforation x2, most recently 1.5 yrs ago [address] Dr[address] Summers if needed (7) Neuropathy: Will continue gabapentin to avoid withdrawals Holding ativan (neg in utox), tramadol, trazodone, hydrocodone until mentation improves (8) Anxiety: continue home meds (9) DVT prophylaxis: SCDs Total Time Total Time Spent Total Time Spent (In Minutes): 35 Total Time Includes: Examination of the Patient, Discharge Planning and Medication Reconciliation Discharge Plan Discharge Items Patient Disposition: Home - Self-Care Reason For Visit: ABDOMINAL PAIN Discharge Diagnosis: Abdominal pain/ hypertensive urgency Discharge Goals: Decrease discomfort Activity: Resume your previous activity Non-emergency contact: Primary Care Provider Call non-emergency contact if: you have any medication questions Follow-up/Referrals: Bouchra Franco PA-C [Physician [facility]] - 09/01/18 11:05 am (A follow up appt. has been made for you with Bouchra Franco PA-C in Dr. Summers's office. This is for September 01 at 11:05am.) Jonathon Cha [Primary Care Provider] - Diet: Regular Addtl Provider Instructions: Will add lisinopril and catapres In addition to amlodipine and isosorbide. Will need to monitor BMP. Recommend f/u with PCP in 1 week. Prescriptions: New lisinopril 5 mg tablet 5 mg PO HS Qty: 30 RF: 0 clonidine HCl 0.1 mg tablet 0.1 mg PO BID Qty: 60 RF: 0 Continued multivitamin Tablet 1 tab PO QAM RF: 0 pantoprazole 40 mg Tablet,Delayed Release (Dr/Ec) 40 mg PO QAM RF: 0 isosorbide mononitrate 30 mg tablet extended release 24 hr 30 mg PO DAILY RF: 0 gabapentin 400 mg capsule 400 mg PO TID RF: 0 tramadol 50 mg tablet 50 mg PO Q6H PRN (Reason: Pain) RF: 0 ondansetron 8 mg tablet,disintegrating 8 mg PO TID RF: 0 tamsulosin 0.4 mg capsule 0.4 mg PO DAILY RF: 0 trazodone 100 mg tablet 100 mg PO HS RF: 0 lorazepam 1 mg tablet 1 mg PO TID PRN (Reason: Anxiety) RF: 0 Discontinued hydrocodone-acetaminophen 10-325 mg tablet 1 tab PO Q6H PRN (Reason: Pain) RF: 0 Stand-Alone Forms: Call Back Authorization, [facility] Discharge Orders: Discharge Order (Routine); Ordered 08/27/18 Ordered By: Randolph Tapia Admission Data Admit Date/Time: 08/24/18 19:12 Attending Provider: Randolph Tapia Admit Provider: Rmairez,Zara A Primary Care Provider: Jonathon Cha Other Providers: Jean Claude Luevano II ; Zara aRmirez ; Lang Summers Service: Medical Other Interventions: Discharge Summary Assessment (RN) Last Done: 08/27/18 17:35 DC Date/Time DO NOT enter until pt leaves facility: 08/27/18 17:50
== END 2018-08-27 17:50 | disposition home or self-care (01) | DRG 92 ==
LOC: ED 14:57 → 3E 19:12 → SUATTDRO 19:12 → 3E 19:57

== ENCOUNTER 2018-09-15 18:28 | Inpatient (IN) ==
[2018-09-15] MEDS ORDERED: SODIUM CHLORIDE 0.9% 1000ML 1,000 ML IV SCH (18:45)
[2018-09-15] MEDS ORDERED: SODIUM CHLORIDE 0.9% 500 ML IV SCH (18:45)
[2018-09-15 18:54] LABS: Basophils # (auto) 0.01 K/uL (0-0.2); Basophils % (auto) 0.2 %; Eosinophils # (auto) 0.03 K/uL (0-0.5); Eosinophils % (auto) 0.5 %; Hematocrit (blood only) 37.4 % (37-47); Immature Granulocytes # (auto) 0.01 K/uL (0.00-0.02); Immature Granulocytes % (auto) 0.2 %; Lymphocytes # (auto) 1.13 K/uL (1.2-3.4); Lymphocytes % (auto) 19.9 %; Mean Corpuscular Hgb Conc 34.8 g/dL (32-36); Mean Corpuscular Volume 85.8 fL (80-100); Mean Platelet Volume 9.6 fL (7.4-10.4); Monocytes # (auto) 0.36 K/uL (0.11-0.59); Monocytes % (auto) 6.3 %; Neutrophils # (auto) 4.14 K/uL (1.4-6.5); Neutrophils % (auto) 72.9 %; Platelet Count 222 K/uL (130-400); RDW Coefficient of Variation 12.6 % (11.5-14.5); RDW Standard Deviation 39.7 fL (36.4-46.3); Red Blood Count 4.36 M/uL (4.2-5.4); White Blood Count 5.68 K/uL (4.8-10.8)
[2018-09-15 19:04] LABS: Prothrombin Time 10.6 Seconds (9.0-12.0)
[2018-09-15 19:15] LABS: Alanine Aminotransferase 17 U/L (12-78); Albumin Level 3.5 gm/dl (3.4-5.0); Aspartate Aminotransferase 11 U/L (15-37); BUN Creatinine Ratio 9.7 (10-20); Blood Urea Nitrogen 7 mg/dl (7-18); Calcium 9.3 mg/dl (8.5-10.1); Carbon Dioxide 23 mmol/L (21-32); Chloride 111 mmol/L (98-107); Creatinine Clr Calc Pharmacy 66.6 ml/min; Est GFR (Non-African American) 82.9; Glucose 114 mg/dl (70-99); Magnesium 1.7 mg/dl (1.8-2.4); Potassium 3.2 mmol/L (3.5-5.1); Sodium 145 mmol/L (136-145)
--- NOTE | 2018-09-15 19:19 | XRay Report ---
XR chest 1V portable HISTORY: 73 years-old Female weakness acute weakness COMPARISON: Chest radiograph 08/24/2018 TECHNIQUE: Portable AP view of the chest FINDINGS: Cardiac mediastinal and hilar silhouettes appear unchanged. Calcification of the thoracic arch. Mild chronic interstitial coarsening. No pneumothorax, pleural effusion, focal airspace consolidation or o vert edema. Degenerative changes of the shoulders and spine. IMPRESSION: No acute process. The above report was generated using voice recognition software. It may contain grammatical, syntax o r spelling errors. Electronically signed by: Vamshi Maloney M.D. 09/15/2018 7:17 PM
[2018-09-15 19:22] LABS: Appearance Urine Clear (Clear); Bilirubin Urine Negative (Negative); Color Urine Yellow; Glucose Urine UA Negative (Negative); Ketones Urine 1+ (Negative); Leukocyte Esterase Urine Negative (Negative); Nitrite Urine Negative (Negative); Protein Urine Negative (Negative); Specific Gravity Urine 1.011 (1.000-1.030); Urobilinogen Urine Negative (Negative); pH Urine 7.5 (4.5-7.5)
--- NOTE | 2018-09-15 19:22 | CT Scan Report ---
CT head/brain wo con CLINICAL HISTORY: 73 years-old Female with AMS. Acutely altered mental status TECHNIQUE: Multiple axial CT images of the head were obtained without contrast. A dose lowering tech nique was utilized adhering to the principles of ALARA. CT DOSE: 537.48 mGy.cm COMPARISON: Head CT 08/14/2018. FINDINGS: No acute intracranial hemorrhage, midline shift, intracranial mass, hydrocephalus, territorial ischem ia or abnormal extra-axial collection. Age-related involutional changes. Patchy white matter hypodens ities suggest chronic microvascular ischemic disease. Cerebral vascular calcifications are noted. The calvarium is intact. Mild mucosal thickening of the ethmoid air cells and maxillary sinuses. Mas toid air cells are clear. Soft tissues and orbits appear unremarkable. IMPRESSION: No acute intracranial abnormality. The above report was generated using voice recognition software. It may contain grammatical, syntax o r spelling errors. Electronically signed by: Vamshi Maloney M.D. 09/15/2018 7:20 PM
[2018-09-15 19:25] LABS: Albumin Globulin Ratio 1.1 (0.9-2); Alkaline Phosphatase 121 U/L (45-117); Bilirubin,Total 0.6 mg/dl (0.2-1); Creatine Kinase 48 U/L (26-192); Globulin 3.2 gm/dl (2.5-4.0); Total Protein 6.7 gm/dl (6.4-8.2); Troponin I < 0.015 ng/ml (0-0.045)
[2018-09-15] MEDS ORDERED: POTASSIUM CHLORIDE / WTR 10 MEQ/100 ML PLCT IV ONE (19:34)
[2018-09-15] MEDS ORDERED: ALUMINUM/MAGNESIUM SUSP 30 ML UDC PO ONE (21:10)
--- NOTE | 2018-09-15 21:55 | History & Physical Report ---
Date of Service September 15, 2018 Assessment & Plan (1) Altered mental status: 73-year-old female was admitted on 15 September 2018 for altered mental status. Of note, patient was admitted from August 25- for intermittent AMS, toxic encephalopathy, and abdominal pain. Per discharge summary, AMS thought to be from polypharmacy. Altered mental status: Per family account, he has had memory issues for months now. Unable to obtain outpatient follow-up from last admission for similar issues. No present evidence of acute trauma, infection, gross electrolyte derangement, or emergent surgical issue. Suspect polypharmacy and incorrect dosing, partially due to undiagnosed dementia, as well as some exposure to heat today. - In ED, afebrile, not tachycardic or tachypneic, hypertensive, normal SpO2 on room air. WBC 5. Glucose 114. Mild AP elevation with normal LFTs otherwise. TnI negative. EKG sinus bradycardia 59, possible LVH. TSH borderline low. UA 1+ ketones otherwise clear. Urine culture sent. CT head without acute intracranial abnormality. pCXR with no acute process. - In ED, treated with normal saline IVF. - On admit, will hold her Ativan, tramadol, clonidine, and trazodone. Keep on IVF. Kept her on gabapentin for her neuropathy. - Consult case management for assistance with home health resources. Due to some danger to self (and accidentally others), could consider referral to [facility] if needed. Hypertension: Initial ED BP 208/80. Improved to 188/75 after IVF. Reportedly patient was not taking clonidine or lisinopril due to making her "dizzy". - Continued home imdur only. Will start her on metoprolol. Hypokalemia, hypomagnesemia: Admit K 3.2 and Mg 1.7. May be in part due to poor p.o. intake. - In ED given KCl 10 mEq. - Will further replace both and recheck in a.m. Abdominal pain, chronic weight loss, history of gastric ulcers and perforation: Per 20Jul d/c summary, has been evaluated extensively by GI including multiple scans and UGI. Mention of a tight Will and the need for surgical evaluation. - Continue home pantoprazole and Zantac. Provided some acute Maalox in ED. Ongoing medical issues: - Peripheral neuropathy: Recent switch from Lyrica to gabapentin. - Nephrolithiasis: Reported previous poor tolerance of stents. Continue home tamsulosin. - Anxiety: Held her Ativan for AMS. Code status: Full code. Diet: Regular. DVT prophy: Lovenox. PT/OT: Ordered. Disbo: Admit to [facility]. (2) HTN (hypertension): (3) Hypokalemia: (4) Hypomagnesemia: (5) Abdominal pain: (6) Weight loss: (7) History of gastric ulcer: (8) Peripheral neuropathy: (9) Renal stones: (10) Anxiety: History of Present Illness Primary Care Provider: Jonathon Cha 73-year-old female was brought in via EMS for altered mental status. Per the EMS accounts, patient was quite altered and unable to answer any questions. Per the ED account, patient has improved since arrival and s/p IVF but remains confused. Almost all of the below history is per the patient's daughter, son-in-law, and granddaughter all at bedside. The patient herself is confused, complains of some discomfort both at the site of her BP cuff and her IV, and says that her stomach is upset. She is aware she is in the hospital but is unsure why. Per daughter, patient has had months of increased confusion and often repeating questions over and over. Patient was discharged from the hospital after stay from August 25- for altered mental status. At that time it was thought to be due to polypharmacy and, after multiple medications were held, the patient had greatly improved. Per daughter, however, the patient ended up going home on the same medications that she was admitted on. There are plans for an outpatient neurology appointment, new primary care appointment in [place], as well as surgical evaluation at [place]. However, none of these appointments have occurred yet. She was discharged home with the thoughts that her would help her manage her medications. However, her is presently out of state and the patient is living at home alone. Per daughter and granddaughter, patient was last seen around 9 PM last evening in her own home. She was apparently at her baseline without acute concerns by patient or family at that time. Then by report the patient became confused at some point today such that she was able to get into the car wearing only her pajamas and socks, spent some period of time in a hot car outside car holding a TV remote, and then managed to get to her neighbor's porch where she was found by EMS. Family does not note any recent known fevers, illness, vomiting, or complaints of pain outside of her chronic abdominal pain by the patient. They do note that she has ongoing loose stools. Per the family's account, her current medication status is as follows: - They think she has been taking twice the trazodone as prescribed to help her sleep. - They think she is taking her Ativan and tramadol as prescribed. - They say she is not taking her clonidine or lisinopril because it makes her "dizzy". - They are not sure that she is taking gabapentin at all. - Past medical history includes altered mental status, question of dementia, hypertension, abdominal pain, weight loss, gastric ulcers, gastric perforation, peripheral neuropathy, nephrolithiasis, anxiety. - Past surgical history includes Will fundoplication, appendectomy, cholecystectomy, ureteral stent placement. - Social history includes never smoking and no alcohol intake. Normal lives at home with . Patient's daughter and granddaughter are relatively nearby. Allergies Allergy/AdvReac Type Severity Reaction Status Date / Time Iodinated Contrast- Oral and Allergy Severe ANAPHYLAXIS Verified 09/15/18 19:31 IV Dye Penicillins Allergy Severe ANAPHYLAXIS Verified 09/15/18 19:31 trimethobenzamide Allergy Severe ANAPHYLAXIS Verified 09/15/18 19:31 lactose Allergy Intermediate Gastrointestinal Verified 09/15/18 19:31 symptoms Home Medications Home Medications Medication Instructions Recorded Confirmed Type multivitamin 1 tab PO QAM 02/06/18 09/15/18 History pantoprazole 40 mg PO QAM 02/06/18 09/15/18 History gabapentin 400 mg PO TID 08/24/18 09/15/18 History isosorbide mononitrate 30 mg PO DAILY 08/24/18 09/15/18 History ondansetron 8 mg PO TID 08/24/18 09/15/18 History ranitidine HCl [Zantac 75] 75 mg PO DAILY PRN 09/15/18 09/15/18 History cholestyramine-aspartame 4 g PO BID@0800,1900 30 Days #60 ea 09/17/18 Rx [Cholestyramine Light] cyanocobalamin (vitamin B-12) 1,000 mcg PO DAILY #30 cap 07/11/19 Rx lisinopril 20 mg PO DAILY #30 tab 09/17/18 Rx metoprolol succinate 25 mg PO DAILY #30 tab 09/17/18 Rx mirtazapine 15 mg PO HS #30 tab 09/17/18 Rx Past Med/Surg History Medical History Colitis Endometriosis GERD (gastroesophageal reflux disease) Gastritis Hypertension Kidney stones Osteoarthritis Surgical History History of appendectomy History of cholecystectomy History of colonoscopy History of cystoscopy STONE REMOVAL/STENTS (MULTIPLE TIMES) History of esophagogastroduodenoscopy (EGD) 08/08/2017. sedation, no issues. History of herniorrhaphy HIATAL HERNIA History of lithotripsy MULTIPLE TIMES History of tonsillectomy History of tooth extraction History of total abdominal hysterectomy and bilateral salpingo-oophorectomy Tarsal tunnel syndrome RT/LEFT (RELEASED) Family History Father Myocardial infarction Mother Myocardial infarction Social History Preferred Language: [place]ian Communication Ability: Effective Beliefs That Will Affect Care: None marital status: but living alone Current Living Situation: Spouse Current Living Situation Comment: house, one floor and finished basement Feels Safe at Home: Yes Smoking Status: Never smoker Second Hand Exposure: Yes ( A CHILD) Hx Alcohol Use: No Hx Substance Use: No Review of Systems Review of Systems: Unable to obtain ROS due to patient's AMS. Physical Exam Physical Exam: GENERAL: Awake, alert, oriented to self and hospital but not date or reason she is here. She does not appear in any acute distress. HENT: Normocephalic, atraumatic. Oropharynx unremarkable. EYES: Normal conjunctiva. Sclera non-icteric. NECK: Inspection normal. Supple and full ROM. No nuchal rigidity. CARDIAC: +S1S2 RRR, no murmurs. RESPIRATORY: Clear to auscultation. No wheezes or rales. Normal respiratory effort. GI: +BS, soft, non-distended. No tenderness to palpation. No rebound or guarding. EXTREMITIES: No pedal edema or calf tenderness. Moving all extremities naturally and easily. No cuts or abrasions to both feet. NEURO: No gross neuro deficits. Following commands and cooperative on exam. Results & Data Vital Signs (Past 12 Hours) Vital Signs Temp Pulse Resp BP Pulse Ox 09/15/18 21:31 57 L 14 203/87 H 100 09/15/18 21:30 58 L 21 100 09/15/18 21:08 62 16 199/74 H 100 09/15/18 21:00 62 14 09/15/18 20:32 60 22 09/15/18 20:31 59 L 13 188/75 H 09/15/18 20:30 62 17 100 09/15/18 20:27 62 11 L 177/78 H 09/15/18 20:25 62 18 193/68 H 09/15/18 20:00 65 25 H 161/128 H 09/15/18 19:36 100 09/15/18 19:35 61 20 100 09/15/18 19:30 62 17 192/73 H 09/15/18 19:21 63 14 188/104 H 09/15/18 19:20 62 12 09/15/18 19:15 202/85 H 09/15/18 19:02 60 14 09/15/18 18:48 59 L 14 09/15/18 18:46 60 19 202/85 H 09/15/18 18:40 36.8 C 64 18 208/80 H 98 Laboratory Results 09/15/18 09/15/18 09/15/18 Range/Units Unknown 18:40 18:40 WBC (4.8-10.8) K/uL RBC (4.2-5.4) M/uL Hgb (12.0-16.0) g/dL Hct (37-47) % MCV (80-100) fL MCH (25-34) pg MCHC (32-36) g/dL RDW Std Deviation (36.4-46.3) fL RDW Coeff of Gabriele (11.5-14.5) % Plt Count (130-400) K/uL MPV (7.4-10.4) fL Immature Gran % (Auto) % Neut % (Auto) % Lymph % (Auto) % [place] % (Auto) % Eos % (Auto) % Baso % (Auto) % Immature Gran # (Auto) (0.00-0.02) K/uL Neut # (Auto) (1.4-6.5) K/uL Lymph # (Auto) (1.2-3.4) K/uL [place] # (Auto) (0.11-0.59) K/uL Eos # (Auto) (0-0.5) K/uL Baso # (Auto) (0-0.2) K/uL PT 10.6 (9.0-12.0) Seconds INR 1.0 (0.9-1.1) Sodium 145 (136-145) mmol/L Potassium 3.2 L (3.5-5.1) mmol/L Chloride 111 H (98-107) mmol/L Carbon Dioxide 23 (21-32) mmol/L Anion Gap 11.0 (3-11) BUN 7 (7-18) mg/dl Creatinine 0.73 (0.6-1.2) mg/dl Est Cr Clr Drug Dosing 66.6 ml/min Est GFR ( Amer) 96.0 Est GFR (Non-Af Amer) 82.9 BUN/Creatinine Ratio 9.7 L (10-20) Glucose 114 H (70-99) mg/dl Calcium 9.3 (8.5-10.1) mg/dl Magnesium 1.7 L (1.8-2.4) mg/dl Total Bilirubin 0.6 (0.2-1) mg/dl AST 11 L (15-37) U/L ALT 17 (12-78) U/L Alkaline Phosphatase 121 H (45-117) U/L Total Creatine Kinase 48 (26-192) U/L Troponin I < 0.015 (0-0.045) ng/ml Total Protein 6.7 (6.4-8.2) gm/dl Albumin 3.5 (3.4-5.0) gm/dl Globulin 3.2 (2.5-4.0) gm/dl Albumin/Globulin Ratio 1.1 (0.9-2) TSH 0.447 (0.300-4.500) uIu/ml Urine Color Yellow Urine Appearance Clear (Clear) Urine pH 7.5 (4.5-7.5) Ur Specific [place] 1.011 (1.000-1.030) Urine Protein Negative (Negative) Urine Glucose (UA) Negative (Negative) Urine Ketones 1+ H (Negative) Urine Blood Negative (Negative) Urine Nitrite Negative (Negative) Urine Bilirubin Negative (Negative) Urine Urobilinogen Negative (Negative) Ur Leukocyte Esterase Negative (Negative) 09/15/18 Range/Units 18:40 WBC 5.68 (4.8-10.8) K/uL RBC 4.36 (4.2-5.4) M/uL Hgb 13.0 (12.0-16.0) g/dL Hct 37.4 (37-47) % MCV 85.8 (80-100) fL MCH 29.8 (25-34) pg MCHC 34.8 (32-36) g/dL RDW Std Deviation 39.7 (36.4-46.3) fL RDW Coeff of Gabriele 12.6 (11.5-14.5) % Plt Count 222 (130-400) K/uL MPV 9.6 (7.4-10.4) fL Immature Gran % (Auto) 0.2 % Neut % (Auto) 72.9 % Lymph % (Auto) 19.9 % [place] % (Auto) 6.3 % Eos % (Auto) 0.5 % Baso % (Auto) 0.2 % Immature Gran # (Auto) 0.01 (0.00-0.02) K/uL Neut # (Auto) 4.14 (1.4-6.5) K/uL Lymph # (Auto) 1.13 L (1.2-3.4) K/uL [place] # (Auto) 0.36 (0.11-0.59) K/uL Eos # (Auto) 0.03 (0-0.5) K/uL Baso # (Auto) 0.01 (0-0.2) K/uL PT (9.0-12.0) Seconds INR (0.9-1.1) Sodium (136-145) mmol/L Potassium (3.5-5.1) mmol/L Chloride (98-107) mmol/L Carbon Dioxide (21-32) mmol/L Anion Gap (3-11) BUN (7-18) mg/dl Creatinine (0.6-1.2) mg/dl Est Cr Clr Drug Dosing ml/min Est GFR ( Amer) Est GFR (Non-Af Amer) BUN/Creatinine Ratio (10-20) Glucose (70-99) mg/dl Calcium (8.5-10.1) mg/dl Magnesium (1.8-2.4) mg/dl Total Bilirubin (0.2-1) mg/dl AST (15-37) U/L ALT (12-78) U/L Alkaline Phosphatase (45-117) U/L Total Creatine Kinase (26-192) U/L Troponin I (0-0.045) ng/ml Total Protein (6.4-8.2) gm/dl Albumin (3.4-5.0) gm/dl Globulin (2.5-4.0) gm/dl Albumin/Globulin Ratio (0.9-2) TSH (0.300-4.500) uIu/ml Urine Color Urine Appearance (Clear) Urine pH (4.5-7.5) Ur Specific [place] (1.000-1.030) Urine Protein (Negative) Urine Glucose (UA) (Negative) Urine Ketones (Negative) Urine Blood (Negative) Urine Nitrite (Negative) Urine Bilirubin (Negative) Urine Urobilinogen (Negative) Ur Leukocyte Esterase (Negative) Medications Administered Sodium Chloride (Nss 1000ml) 1,000 mls @ 125 mls/hr IV .Q8H [facility] Stop: 09/16/18 02:44 Last Admin: 09/15/18 20:31 Dose: 125 mls/hr Documented by: [id number] Discontinued Medications Al Hydrox/Mg Hydrox/Simethicone (Maalox) 15 ml PO NOW ONE Stop: 09/15/18 21:11 Last Admin: 09/15/18 21:42 Dose: 15 ml Documented by: [id number] Sodium Chloride (Nss) 500 mls @ 999 mls/hr IV .Q31M MARCELINA Stop: 09/15/18 19:15 Last Infusion: 09/15/18 20:30 Dose: 0 mls/hr Documented by: [id number] Admin: 09/15/18 19:33 Dose: 999 mls/hr Documented by: [id number] Potassium Chloride (K Nathaniel / Wtr) 10 meq in 100 mls @ 100 mls/hr IV ONE ONE Stop: 09/15/18 20:33 Last Infusion: 09/15/18 20:52 Dose: 0 mls/hr Documented by: [id number] Admin: 09/15/18 19:51 Dose: 100 mls/hr Documented by: [id number] Code Status & VTE Plan Code Status Full code VTE Prophylaxis Plan VTE Prophylaxis will be ordered: Yes Supervising Physician Co-Signing Physician Notes Attending addendum: I have physically seen this patient, have supervised the medical residents activities, and agree with the H&P unless as otherwise noted. Assessment and Plan: Altered mental status/acute on chronic- Admitted 08/25-08/31 altered mental status secondary to toxic encephalopathy associated with polypharmacy. Patient was to follow-up in outpatient setting after last admission, but had not yet made an appointment with her practitioner. Alteration in mental status today is likely associated with incorrect taking of her medications/underlying dementia/dehydration associate with heat exposure today. Continue to rehydration with normal saline begun in ED per septic protocol recommendations. Hold Ativan, tramadol, clonidine and trazodone. Gabapentin will be continued. Consult social research assistant regarding home health issues, and making sure that present home environment is safe for her to return to. Remainder of orders and notations as noted. PG Care Time/CCT Total # of Minutes Spent Total Time Spent with Patient: Total time spent is greater than 50% in coordination of care (as documented) at patient's floor/unit and/or counseling patient: Resident Activity Tracking Resident Involvement: Resident Care Provided Care Provided: Adult Hospital Medicine (1) Altered mental status Altered mental status type: unspecified Qualified Code(s): R41.82 - Altered mental status, unspecified
--- NOTE | 2018-09-15 22:27 | Emergency Department Note ---
Entered by Analisa Bonilla acting as a scribe for Wilbur Holm MD ED Provider Note CHIEF COMPLAINT: Fall HISTORY OF PRESENT ILLNESS: The patient is a 73 year old female who presents to the Emergency Room with complaints of a fall. Per the EMS, the patient was found in her car with her phone and TV remote. The patients family reports that the patient got into her car backed up and then sat on the neighbors porch. They state that they do not know how long she was out of the house or why she left. The family states that the last time they saw the patient was last night at 2100. They state that the patient has had recent frequency of confusion episodes. They state that the patient was discharged 2 weeks ago for a UTI and was experiencing confusion. They state that a few months ago they found her on the floor of the bathroom and that she did not fall. They report that the patient takes medication for neuropathy. Pt denies LOC, headache, fevers, chills, diaphoresis, visual changes, neck pain, chest pain, breathing difficulties, nausea, vomiting, abdominal pain, back pain, melena, hematochezia, urinary symptoms, numbness, weakness, lymphadenopathy, rash, or other complaints. HPI is limited secondary to AMS. REVIEW OF SYSTEMS: See HPI for pertinent positives and negatives, HPI is limited secondary to AMS. ROS is limited secondary to AMS PMHx/PSHx: Neuropathy SOCIAL HISTORY: Patient lives at home. PHYSICAL EXAM: GENERAL: Awake, alert, well-appearing, in no distress HENT: Normocephalic, atraumatic. Oropharynx unremarkable. EYES: PERRL. Normal conjunctiva. Sclera non-icteric. NECK: Inspection normal. Non-tender. Supple. No nuchal rigidity. FROM. No masses. RESPIRATORY: Clear to auscultation. No wheezes. No rales. Normal respiratory effort. CARDIAC: Normal rate. Normal rhythm. No murmurs. No rubs. Extremities warm and well perfused. Pulses equal. No JVD. GI: Soft, non-distended. No tenderness to palpation. No rebound or guarding. No masses. RECTAL: Deferred. MUSCULOSKELETAL: Atraumatic. Chest examination reveals no tenderness. The back is symmetrical on inspection without obvious abnormality. There is no CVA tenderness to palpation. No joint edema. LOWER EXTREMITIES: Calves are equal size bilaterally and non-tender. No edema. No discoloration. NEURO: Altered sensorium. Following commands. Generally weak by symmetric. Opens eyes to commands. Answers questions. No sensory or motor deficits noted. SKIN: No rash or jaundice noted. EMERGENCY DEPARTMENT COURSE: 1830: Past medical records reviewed. The patient was evaluated in room A12B, and a complete history and physical examination were performed. 1934: I reevaluated the patient and updated the patient's family, the patient fe els better but is still confused, but denies feeling ill. 1958: I reviewed the patient's case with Dr. Green- [facility] Hospitalist. He will evaluate the patient for further management. MEDICAL DECISION MAKING: Prior records/ancillary studies reviewed and summarized above. Nursing notes reviewed and agree them. Additional history obtained from family. The patient's history was concerning for altered mental status. Differential diagnosis: Etiologies such as infection, hypoglycemia, electrolyte abnormalities, cardiac sources, intracerebral event, toxicologic, neurologic, as well as others were entertained. Physical examination: As above. Denied any pain. Following basic commands. ER treatment provided: IV Lock Normal saline hydration 500 mL bolus and then 125 mL Cardiac monitoring IV potassium 10 mEq On reassessment the patient felt better. Diagnostics interpretation by me: ECG: Sinus bradycardia. Inferior Q waves T wave inversions. Abnormal EKG. The labs revealed an unremarkable CBC. Chemistry panel did reveal hypokalemia. Urinalysis was unremarkable. Troponin negative. Imaging studies: Chest x-ray negative. CT scan of the head was negative for acute process. The patient presented with altered mental status. She was doing better after EMS started hydration. After continued hydration here and diagnostic testing patient was reassessed and was more awake and responsive. She still did not remember the events of this afternoon. Given the altered mental status and continued confusion further management in the hospital will be necessary. Consultation: A consultation was placed with the hospitalist. The case was discussed and diagnostics were reviewed. The patient was evaluated in the ER for further treatment. IMPRESSION: AMS, generalized weakness, hypokalemia. PLAN: Admitted. The scribe's documentation has been prepared under my direction and personally reviewed by me in its entirety. I confirm that the note above accurately reflects all work, treatment, procedures, and medical decision making performed by me. Impression & Plan Altered mental status, Generalized weakness, Hypokalemia Past Med/Surg History Medical History Colitis Endometriosis GERD (gastroesophageal reflux disease) Gastritis Hypertension Kidney stones Osteoarthritis Surgical History History of appendectomy History of cholecystectomy History of colonoscopy History of cystoscopy STONE REMOVAL/STENTS (MULTIPLE TIMES) History of esophagogastroduodenoscopy (EGD) 08/08/2017. sedation, no issues. History of herniorrhaphy HIATAL HERNIA History of lithotripsy MULTIPLE TIMES History of tonsillectomy History of tooth extraction History of total abdominal hysterectomy and bilateral salpingo-oophorectomy Tarsal tunnel syndrome RT/LEFT (RELEASED) Family History Father Myocardial infarction Mother Myocardial infarction Social History Preferred Language: Cambodian Communication Ability: Effective Beliefs That Will Affect Care: None marital status: Current Living Situation: Spouse Current Living Situation Comment: house, 1 floor and finished basement Feels Safe at Home: Yes Smoking Status: Never smoker Second Hand Exposure: Yes ( A CHILD) Hx Alcohol Use: No Hx Substance Use: No Results & Data Vital Signs Vital Signs - 24 hr 09/15/18 18:40 09/15/18 18:46 09/15/18 18:48 Temperature 36.8 C Temperature Source Oral Sepsis Recent Fever Within 48 Hours No Sepsis New/Unexplained Change in Mental Status Yes Sepsis Action Taken by Nursing No Action Required Pulse Rate 64 60 59 L Pulse Rate from SpO2 Sensor 60 59 L Pulse Rhythm Regular Pulse Strength Normal Respiratory Rate 18 19 14 Respiratory Effort / Characteristics Non-Labored Spontaneous Respiratory Depth Normal Respiratory Pattern Regular Blood Pressure 208/80 H 202/85 H Blood Pressure Mean 122 124 Blood Pressure Position Lying Pulse Oximetry 98 100 100 Oxygen Delivery Method Room Air 09/15/18 19:02 09/15/18 19:15 09/15/18 19:20 Temperature Temperature Source Sepsis Recent Fever Within 48 Hours Sepsis New/Unexplained Change in Mental Status Sepsis Action Taken by Nursing Pulse Rate 60 62 Pulse Rate from SpO2 Sensor Pulse Rhythm Pulse Strength Respiratory Rate 14 12 Respiratory Effort / Characteristics Respiratory Depth Respiratory Pattern Blood Pressure 202/85 H Blood Pressure Mean 124 Blood Pressure Position Pulse Oximetry Oxygen Delivery Method 09/15/18 19:21 09/15/18 19:30 09/15/18 19:35 Temperature Temperature Source Sepsis Recent Fever Within 48 Hours Sepsis New/Unexplained Change in Mental Status Sepsis Action Taken by Nursing Pulse Rate 63 62 61 Pulse Rate from SpO2 Sensor 64 62 Pulse Rhythm Pulse Strength Respiratory Rate 14 17 20 Respiratory Effort / Characteristics Respiratory Depth Respiratory Pattern Blood Pressure 188/104 H 192/73 H Blood Pressure Mean 132 112 Blood Pressure Position Pulse Oximetry 100 100 100 Oxygen Delivery Method Room Air 09/15/18 19:36 09/15/18 20:00 09/15/18 20:25 Temperature Temperature Source Sepsis Recent Fever Within 48 Hours Sepsis New/Unexplained Change in Mental Status Sepsis Action Taken by Nursing Pulse Rate 65 62 Pulse Rate from SpO2 Sensor 64 62 Pulse Rhythm Pulse Strength Respiratory Rate 25 H 18 Respiratory Effort / Characteristics Respiratory Depth Respiratory Pattern Blood Pressure 161/128 H 193/68 H Blood Pressure Mean 139 109 Blood Pressure Position Pulse Oximetry 100 100 100 Oxygen Delivery Method Room Air 09/15/18 20:27 09/15/18 20:30 09/15/18 20:31 Temperature Temperature Source Sepsis Recent Fever Within 48 Hours Sepsis New/Unexplained Change in Mental Status Sepsis Action Taken by Nursing Pulse Rate 62 62 59 L Pulse Rate from SpO2 Sensor 61 62 59 L Pulse Rhythm Pulse Strength Respiratory Rate 11 L 17 13 Respiratory Effort / Characteristics Respiratory Depth Respiratory Pattern Blood Pressure 177/78 H 188/75 H Blood Pressure Mean 111 112 Blood Pressure Position Pulse Oximetry 100 100 100 Oxygen Delivery Method 09/15/18 20:32 09/15/18 21:00 09/15/18 21:08 Temperature Temperature Source Sepsis Recent Fever Within 48 Hours Sepsis New/Unexplained Change in Mental Status Sepsis Action Taken by Nursing Pulse Rate 60 62 62 Pulse Rate from SpO2 Sensor 60 61 62 Pulse Rhythm Pulse Strength Respiratory Rate 22 14 16 Respiratory Effort / Characteristics Respiratory Depth Respiratory Pattern Blood Pressure 199/74 H Blood Pressure Mean 115 Blood Pressure Position Pulse Oximetry 100 100 100 Oxygen Delivery Method 09/15/18 21:30 09/15/18 21:31 Temperature Temperature Source Sepsis Recent Fever Within 48 Hours Sepsis New/Unexplained Change in Mental Status Sepsis Action Taken by Nursing Pulse Rate 58 L 57 L Pulse Rate from SpO2 Sensor 58 L 58 L Pulse Rhythm Pulse Strength Respiratory Rate 21 14 Respiratory Effort / Characteristics Respiratory Depth Respiratory Pattern Blood Pressure 203/87 H Blood Pressure Mean 125 Blood Pressure Position Pulse Oximetry 100 100 Oxygen Delivery Method Home Medications Current Medication List: was personally reviewed by me Laboratory Data Attestation: I reviewed the patient's lab results. Result diagrams: 09/15/18 18:40 09/15/18 18:40 Lab Results 09/15/18 09/15/18 09/15/18 Range/Units 18:40 18:40 18:40 WBC 5.68 (4.8-10.8) K/uL RBC 4.36 (4.2-5.4) M/uL Hgb 13.0 (12.0-16.0) g/dL Hct 37.4 (37-47) % MCV 85.8 (80-100) fL MCH 29.8 (25-34) pg MCHC 34.8 (32-36) g/dL RDW Std Deviation 39.7 (36.4-46.3) fL RDW Coeff of Gabriele 12.6 (11.5-14.5) % Plt Count 222 (130-400) K/uL MPV 9.6 (7.4-10.4) fL Immature Gran % (Auto) 0.2 % Neut % (Auto) 72.9 % Lymph % (Auto) 19.9 % Duchesne % (Auto) 6.3 % Eos % (Auto) 0.5 % Baso % (Auto) 0.2 % Immature Gran # (Auto) 0.01 (0.00-0.02) K/uL Neut # (Auto) 4.14 (1.4-6.5) K/uL Lymph # (Auto) 1.13 L (1.2-3.4) K/uL Duchesne # (Auto) 0.36 (0.11-0.59) K/uL Eos # (Auto) 0.03 (0-0.5) K/uL Baso # (Auto) 0.01 (0-0.2) K/uL PT 10.6 (9.0-12.0) Seconds INR 1.0 (0.9-1.1) Sodium 145 (136-145) mmol/L Potassium 3.2 L (3.5-5.1) mmol/L Chloride 111 H (98-107) mmol/L Carbon Dioxide 23 (21-32) mmol/L Anion Gap 11.0 (3-11) BUN 7 (7-18) mg/dl Creatinine 0.73 (0.6-1.2) mg/dl Est Cr Clr Drug Dosing 66.6 ml/min Est GFR ( Amer) 96.0 Est GFR (Non-Af Amer) 82.9 BUN/Creatinine Ratio 9.7 L (10-20) Glucose 114 H (70-99) mg/dl Calcium 9.3 (8.5-10.1) mg/dl Magnesium 1.7 L (1.8-2.4) mg/dl Total Bilirubin 0.6 (0.2-1) mg/dl AST 11 L (15-37) U/L ALT 17 (12-78) U/L Alkaline Phosphatase 121 H (45-117) U/L Total Creatine Kinase 48 (26-192) U/L Troponin I < 0.015 (0-0.045) ng/ml Total Protein 6.7 (6.4-8.2) gm/dl Albumin 3.5 (3.4-5.0) gm/dl Globulin 3.2 (2.5-4.0) gm/dl Albumin/Globulin Ratio 1.1 (0.9-2) TSH 0.447 (0.300-4.500) uIu/ml Urine Color Urine Appearance (Clear) Urine pH (4.5-7.5) Ur Specific [place] (1.000-1.030) Urine Protein (Negative) Urine Glucose (UA) (Negative) Urine Ketones (Negative) Urine Blood (Negative) Urine Nitrite (Negative) Urine Bilirubin (Negative) Urine Urobilinogen (Negative) Ur Leukocyte Esterase (Negative) 09/15/18 Range/Units Unknown WBC (4.8-10.8) K/uL RBC (4.2-5.4) M/uL Hgb (12.0-16.0) g/dL Hct (37-47) % MCV (80-100) fL MCH (25-34) pg MCHC (32-36) g/dL RDW Std Deviation (36.4-46.3) fL RDW Coeff of Gabriele (11.5-14.5) % Plt Count (130-400) K/uL MPV (7.4-10.4) fL Immature Gran % (Auto) % Neut % (Auto) % Lymph % (Auto) % Duchesne % (Auto) % Eos % (Auto) % Baso % (Auto) % Immature Gran # (Auto) (0.00-0.02) K/uL Neut # (Auto) (1.4-6.5) K/uL Lymph # (Auto) (1.2-3.4) K/uL Duchesne # (Auto) (0.11-0.59) K/uL Eos # (Auto) (0-0.5) K/uL Baso # (Auto) (0-0.2) K/uL PT (9.0-12.0) Seconds INR (0.9-1.1) Sodium (136-145) mmol/L Potassium (3.5-5.1) mmol/L Chloride (98-107) mmol/L Carbon Dioxide (21-32) mmol/L Anion Gap (3-11) BUN (7-18) mg/dl Creatinine (0.6-1.2) mg/dl Est Cr Clr Drug Dosing ml/min Est GFR ( Amer) Est GFR (Non-Af Amer) BUN/Creatinine Ratio (10-20) Glucose (70-99) mg/dl Calcium (8.5-10.1) mg/dl Magnesium (1.8-2.4) mg/dl Total Bilirubin (0.2-1) mg/dl AST (15-37) U/L ALT (12-78) U/L Alkaline Phosphatase (45-117) U/L Total Creatine Kinase (26-192) U/L Troponin I (0-0.045) ng/ml Total Protein (6.4-8.2) gm/dl Albumin (3.4-5.0) gm/dl Globulin (2.5-4.0) gm/dl Albumin/Globulin Ratio (0.9-2) TSH (0.300-4.500) uIu/ml Urine Color Yellow Urine Appearance Clear (Clear) Urine pH 7.5 (4.5-7.5) Ur Specific [place] 1.011 (1.000-1.030) Urine Protein Negative (Negative) Urine Glucose (UA) Negative (Negative) Urine Ketones 1+ H (Negative) Urine Blood Negative (Negative) Urine Nitrite Negative (Negative) Urine Bilirubin Negative (Negative) Urine Urobilinogen Negative (Negative) Ur Leukocyte Esterase Negative (Negative) Administered Medications Sodium Chloride (Nss 1000ml) 1,000 mls @ 125 mls/hr IV .Q8H MARCELINA Stop: 09/16/18 02:44 Last Admin: 09/15/18 20:31 Dose: 125 mls/hr Documented by: [id number] Discontinued Medications Al Hydrox/Mg Hydrox/Simethicone (Maalox) 15 ml PO NOW ONE Stop: 09/15/18 21:11 Last Admin: 09/15/18 21:42 Dose: 15 ml Documented by: [id number] Sodium Chloride (Nss) 500 mls @ 999 mls/hr IV .Q31M MARCELINA Stop: 09/15/18 19:15 Last Infusion: 09/15/18 20:30 Dose: 0 mls/hr Documented by: [id number] Admin: 09/15/18 19:33 Dose: 999 mls/hr Documented by: [id number] Potassium Chloride (K Nathaniel / Wtr) 10 meq in 100 mls @ 100 mls/hr IV ONE ONE Stop: 09/15/18 20:33 Last Infusion: 09/15/18 20:52 Dose: 0 mls/hr Documented by: [id number] Admin: 09/15/18 19:51 Dose: 100 mls/hr Documented by: [id number] Imaging Data Radiologist's Impression: Radiology results as stated below per my review and the radiologist's interpretation: CT head/brain wo con CLINICAL HISTORY: 73 years-old Female with AMS. Acutely altered mental status TECHNIQUE: Multiple axial CT images of the head were obtained without contrast. A dose lowering technique was utilized adhering to the principles of ALARA. CT DOSE: 537.48 mGy.cm COMPARISON: Head CT 08/14/2018. FINDINGS: No acute intracranial hemorrhage, midline shift, intracranial mass, hydrocephalus, territorial ischemia or abnormal extra-axial collection. Age- related involutional changes. Patchy white matter hypodensities suggest chronic microvascular ischemic disease. Cerebral vascular calcifications are noted. The calvarium is intact. Mild mucosal thickening of the ethmoid air cells and maxillary sinuses. Mastoid air cells are clear. Soft tissues and orbits appear unremarkable. IMPRESSION: No acute intracranial abnormality. The above report was generated using voice recognition software. It may contain grammatical, syntax or spelling errors. Electronically signed by: Vamshi Maloney M.D. 09/15/2018 7:20 PM XR chest 1V portable HISTORY: 73 years-old Female weakness acute weakness COMPARISON: Chest radiograph 08/24/2018 TECHNIQUE: Portable AP view of the chest FINDINGS: Cardiac mediastinal and hilar silhouettes appear unchanged. Calcification of the thoracic arch. Mild chronic interstitial coarsening. No pneumothorax, pleural effusion, focal airspace consolidation or overt edema. Degenerative changes of the shoulders and spine. IMPRESSION: No acute process. The above report was generated using voice recognition software. It may contain grammatical, syntax or spelling errors. Electronically signed by: Vamshi Maloney M.D. 09/15/2018 7:17 PM ECG Data Attestation: I personally reviewed and interpreted this ECG as follows: Indication: altered mental status Rate (beats per minute): 59 Rhythm: sinus bradycardia Findings: + other (LVH ), + Q waves (inferior) and + T-wave inversion (inferior); no PVC and no ST elevation Comparison ECG Date: no prior available Blood Pressure Blood Pressure Findings: Elevated blood pressure Blood Pressure Disposition: further management by hospitalist Discharge Plan Visit Data Chief Complaint: Altered Mental Status Stated Complaint: AMS ED Provider: Wilbur Holm Discharge Problem: Altered mental status, Generalized weakness, Hypokalemia Patient Disposition: Being Evaluated by Hospitalist Forms Stand Alone Forms: My [facility] [employer] Prescriptions Prescriptions: No Action ranitidine HCl [Zantac 75] 75 mg Tablet 75 mg PO DAILY PRN (Reason: Acid Reflux) RF: 0 multivitamin Tablet 1 tab PO QAM RF: 0 pantoprazole 40 mg Tablet,Delayed Release (Dr/Ec) 40 mg PO QAM RF: 0 isosorbide mononitrate 30 mg tablet extended release 24 hr 30 mg PO DAILY RF: 0 gabapentin 400 mg capsule 400 mg PO TID RF: 0 tramadol 50 mg tablet 50 mg PO Q6H PRN (Reason: Pain) RF: 0 ondansetron 8 mg tablet,disintegrating 8 mg PO TID RF: 0 tamsulosin 0.4 mg capsule 0.4 mg PO DAILY RF: 0 trazodone 100 mg tablet 100 mg PO HS RF: 0 lorazepam 1 mg tablet 1 mg PO TID PRN (Reason: Anxiety) RF: 0 lisinopril 5 mg tablet 5 mg PO HS Qty: 30 RF: 0 clonidine HCl 0.1 mg tablet 0.1 mg PO BID Qty: 60 RF: 0 Referrals Referrals: Jonathon Cha [Primary Care Provider] - Discharge Problem: Altered mental status Qualifiers: Altered mental status type: unspecified Qualified Code(s): R41.82 - Altered mental status, unspecified The scribe's documentation has been prepared under my direction and personally reviewed by me in its entirety. I confirm that the note above accurately reflects all work, treatment, procedures, and medical decision making performed by me.
[2018-09-15] MEDS ORDERED: ALUMINUM/MAGNESIUM SUSP 30 ML UDC PO PRN (23:10)
[2018-09-15] MEDS ORDERED: POTASSIUM CHLORIDE 10 MEQ TABCR PO ONE (23:10)
[2018-09-15] MEDS ORDERED: METOPROLOL TARTRATE 25 MG TAB PO ONE (23:10)
[2018-09-15] MEDS ORDERED: MAGNESIUM OXIDE 400 MG TAB PO ONE (23:10)
[2018-09-15] MEDS ORDERED: ACETAMINOPHEN 325 MG TAB PO PRN (23:10)
[2018-09-15] MEDS: LACTATED RINGER'S 1,000 ML IV SCH (23:36)
[2018-09-16] MEDS ORDERED: HydrALAZINE HCL 20 MG/ML VIAL IV ONE (02:10)
[2018-09-16 06:16] LABS: Basophils # (auto) 0.01 K/uL (0-0.2); Basophils % (auto) 0.1 %; Eosinophils # (auto) 0.03 K/uL (0-0.5); Eosinophils % (auto) 0.4 %; Hematocrit (blood only) 35.4 % (37-47); Hemoglobin 12.3 g/dL (12.0-16.0); Immature Granulocytes # (auto) 0.01 K/uL (0.00-0.02); Immature Granulocytes % (auto) 0.1 %; Lymphocytes # (auto) 1.43 K/uL (1.2-3.4); Lymphocytes % (auto) 20.3 %; Mean Corpuscular Hgb Conc 34.7 g/dL (32-36); Mean Corpuscular Volume 87.2 fL (80-100); Mean Platelet Volume 9.6 fL (7.4-10.4); Monocytes # (auto) 0.54 K/uL (0.11-0.59); Monocytes % (auto) 7.7 %; Neutrophils # (auto) 5.02 K/uL (1.4-6.5); Neutrophils % (auto) 71.4 %; Platelet Count 234 K/uL (130-400); RDW Standard Deviation 41.4 fL (36.4-46.3); Red Blood Count 4.06 M/uL (4.2-5.4); White Blood Count 7.04 K/uL (4.8-10.8)
[2018-09-16 06:42] LABS: BUN Creatinine Ratio 10.8 (10-20); Calcium 8.6 mg/dl (8.5-10.1); Est GFR (African American) 104.1; Est GFR (Non-African American) 89.8; Magnesium 1.7 mg/dl (1.8-2.4)
[2018-09-16] MEDS: PANTOprazole 40 MG TAB PO SCH (07:54)
[2018-09-16] MEDS: METOPROLOL TARTRATE 25 MG TAB PO SCH (07:54)
[2018-09-16] MEDS: TAMSULOSIN HCL 0.4 MG CAP PO SCH (07:55)
[2018-09-16] MEDS: GABAPENTIN 400 MG CAP PO SCH ×3 (07:55→20:52)
[2018-09-16] MEDS: ONDANSETRON 8MG OD TAB PO SCH ×3 (07:55→20:53)
[2018-09-16] MEDS: ISOSORBIDE MONO EXTENDED REL 30 MG TABCR PO SCH (07:55)
[2018-09-16 08:20] LABS: Cdiff Antigen Positive; Cdiff Toxin A+B Negative Cdiff Toxin (Negative)
--- NOTE | 2018-09-16 11:01 | Family Medicine Progress Note ---
Date of Service September 16, 2018 Assessment & Plan (1) Altered mental status: 73-year-old female PMH HTN, GERD, Renal calculi, OA admitted on 15 September 2018 for AMS. Patient recently admitted August 25- for abdominal pain, intermittent AMS, and toxic encephalopathy, thought to be from polypharmacy. Altered mental status, multi-factorial -Appears to have some baseline dementia -No evidence of acute trauma, infection, gross electrolyte derangement, or emergent surgical issue. -Suspect polypharmacy and incorrect dosing, partially due to undiagnosed dementia, heat exposure, lack of home support, poor PO intake, chronic diarrhea -Pending urine Cx -CT head negative, CXR nl -C. dif gene +, toxin -. Will not treat at this time. Consider sending for retest if symptoms worsen, WBC rises, Renal fx declines -Symptomatically improved with IVF, continue gentle rehydration at 80cc/hr -Will hold Ativan, tramadol, clonidine, and trazodone -Pt states she would take ativan blanca TID, but has run out about a month ago. If tolerates it, would DC indefinitely -Family state she would take several trazodone at night to help with sleep. -Continue gabapentin for neuropathy, although pt unsure if it's helping. -Will start low-dose remeron to help with sleep, appetite, diarrhea. -Will DC flomax indefinitely -Consult case management for assistance with home health resources. Family would like to know about respite services for father, family members who are caregivers. Hypertension -Initial ED BP 208/80. Improved w/IVF. Reportedly patient was not taking clonidine or lisinopril due to making her "dizzy". -Continue home imdur only. -Added metoprolol tartrate 12.5 daily Hypokalemia, hypomagnesemia -Admit K 3.2 and Mg 1.7. May be in part due to poor p.o. intake. -Will further replace both and recheck Abdominal pain, chronic weight loss, history of gastric ulcers and perforation -Per 20Jun d/c summary, has been evaluated extensively by GI including multiple scans and UGI. Mention of a tight Will and the need for surgical evaluation. -Continue home pantoprazole and Zantac. -Restart cholestyramine Peripheral neuropathy -Recent switch from Lyrica to gabapentin--reports lyrica worked better but too costly Nephrolithiasis -Reported previous "poor tolerance" of stents. Will DC tamsulosin indefinitely as not maintenance med and may contribute to AMS -May need to consider restarting potassium citrate or similar product Anxiety -Held her Ativan d/t AMS. Reportedly has not had in over a month but would take TID regardless of symptoms -Recommend indefinitely holding. Code status: Full code. Diet: Regular. DVT prophy: Lovenox. PT/OT: Ordered. Dispo: Admit to MedSurg. (2) HTN (hypertension): (3) Hypokalemia: (4) Hypomagnesemia: (5) Abdominal pain: (6) Weight loss: (7) History of gastric ulcer: (8) Peripheral neuropathy: (9) Renal stones: (10) Anxiety: Supervising Physician Co-Signing Physician Notes I personally examined the patient and verified all price points of history and exam, discussed case, and agree with decision making with Dr Pena. Seems to be more awake and alert. Ongoing diarrhea. This been going on for quite a while, possibly years. She notes that the cholestyramine helps. However if she takes too much she does get constipated. She seems to have difficulty managing her medications at home, especially when her is away. She has difficulties with insomnia normally. Extensive discussions with patient and family, including 2 family members present for the discussion via speaker phone. Vitals noted, in general she is awake and alert pleasant no distress. Mentally she does seem to go on tangents that are related to the topic at hand but not necessarily central to it, she perseverates a little, and she seems to be fairly concrete in her thinking. She also does fidget with the bed sheets on. No focal neuro deficits. Skin shows no rashes no pallor or icterus. Breathing is unlabored no accessory muscle use. Altered mental statusappears to be delirium which is likely both toxic encephalopathy related to medications, and a metabolic encephalopathy related to dehydration. Questionable whether or not any worsening of diarrhea is at play as well (see below). Polypharmacy is certainly a large contributor, we will work on weaning her med list as above. Will give trial of Remeron instead of trazodone for insomnia. (She failed melatonin at at least 5 mg before). Her history of a fairly brittle mental status as well as her current baseline mentation seem to hint towards a degree of baseline dementia, although certainly now is not the best time to truly assess this, and we will ask for more longitudinal follow-up in the outpatient setting. TSH noted, only mildly low, likely related to her acuity. Check B12 for completeness. 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 Continue to follow. DVT proph - lovenox Subjective Patient in good spirits this AM, notes she feels better than yesterday but not well. Describes generally feeling "unwell." When asked why she thinks she is here states "because i'm sick." She does not recall events of yesterday when described to her, but states she remembers asking a neighbor to call her family. Review of Systems Review of Systems: All systems reviewed & are unremarkable except as noted in HPI & below and Unobtainable due to cognitive status Constitutional: + chills (thinks these have resolved) Respiratory: + cough; no dyspnea, no dyspnea on exertion, no sputum production and no wheezing Cardiovascular: + edema; no chest pain Gastrointestinal: + abdominal pain, + change in stools and + diarrhea/loose stools; no nausea and no vomiting Psychiatric: + behavioral changes and + confusion Physical Exam Constitutional: WD/WN, vitals as above + well hydrated, + frail appearing, cooperative and comfortable; not in distress and not diaphoretic Eyes: PERRL, conjunctivae normal, anicteric sclerae ENMT: external ear and nose normal, oropharynx normal Neck: normal visual inspection Respiratory: normal respiratory effort, lungs clear to auscultation Cardiovascular: RRR, no murmur, no edema Gastrointestinal (Abdomen): Inspection/Auscultation: abdomen normal to inspection and normal bowel sounds Percussion/Palpation: + abdomen tender (diffusely, mild) and abdomen soft Skin: no rashes, warm and dry Neurologic: PERRL, EOMI, accommodation nl, no face palsy, no dysarthria Psychiatric: Orientation: alert, oriented to person and oriented to time (knows month and year); + not oriented to place Eye Contact: good eye contact Motor Behavior: + tremor Speech: + abnormal rate/rhythm/volume of speech (Staggered speech) Affect: euthymic affect Thought Process: clear/coherent thought process Cognition: + recent memory not intact Insight: + limited insight Results & Data Vital Signs (Past 12 Hours) Vital Signs Temp Pulse Resp BP BP Pulse Ox 09/16/18 07:00 36.6 C 62 20 180/74 H 100 09/16/18 03:33 77 174/75 H 09/16/18 01:03 58 L 188/78 H 09/15/18 23:35 55 L 09/15/18 23:10 36.8 C 58 L 20 199/80 H 100 Laboratory Results 09/16/18 09/16/18 09/16/18 Range/Units 06:02 06:02 05:30 WBC 7.04 (4.8-10.8) K/uL RBC 4.06 L (4.2-5.4) M/uL Hgb 12.3 (12.0-16.0) g/dL Hct 35.4 L (37-47) % MCV 87.2 (80-100) fL MCH 30.3 (25-34) pg MCHC 34.7 (32-36) g/dL RDW Std Deviation 41.4 (36.4-46.3) fL RDW Coeff of [place]rie[place] 13.0 (11.5-14.5) % Plt Count 234 (130-400) K/uL MPV 9.6 (7.4-10.4) fL Immature Gran % (Auto) 0.1 % Neut % (Auto) 71.4 % Lymph % (Auto) 20.3 % [place] % (Auto) 7.7 % Eos % (Auto) 0.4 % Baso % (Auto) 0.1 % Immature Gran # (Auto) 0.01 (0.00-0.02) K/uL Neut # (Auto) 5.02 (1.4-6.5) K/uL Lymph # (Auto) 1.43 (1.2-3.4) K/uL [place] # (Auto) 0.54 (0.11-0.59) K/uL Eos # (Auto) 0.03 (0-0.5) K/uL Baso # (Auto) 0.01 (0-0.2) K/uL PT (9.0-12.0) Seconds INR (0.9-1.1) Sodium 142 (136-145) mmol/L Potassium 3.0 L (3.5-5.1) mmol/L Chloride 111 H (98-107) mmol/L Carbon Dioxide 22 (21-32) mmol/L Anion Gap 9.0 (3-11) BUN 7 (7-18) mg/dl Creatinine 0.64 (0.6-1.2) mg/dl Est Cr Clr Drug Dosing 76.0 ml/min Est GFR ( Amer) 104.1 Est GFR (Non-Af Amer) 89.8 BUN/Creatinine Ratio 10.8 (10-20) Glucose 129 H (70-99) mg/dl Calcium 8.6 (8.5-10.1) mg/dl Magnesium 1.7 L (1.8-2.4) mg/dl Total Bilirubin (0.2-1) mg/dl AST (15-37) U/L ALT (12-78) U/L Alkaline Phosphatase (45-117) U/L Total Creatine Kinase (26-192) U/L Troponin I (0-0.045) ng/ml Total Protein (6.4-8.2) gm/dl Albumin (3.4-5.0) gm/dl Globulin (2.5-4.0) gm/dl Albumin/Globulin Ratio (0.9-2) TSH (0.300-4.500) uIu/ml Urine Color Urine Appearance (Clear) Urine pH (4.5-7.5) Ur Specific [place] (1.000-1.030) Urine Protein (Negative) Urine Glucose (UA) (Negative) Urine Ketones (Negative) Urine Blood (Negative) Urine Nitrite (Negative) Urine Bilirubin (Negative) Urine Urobilinogen (Negative) Ur Leukocyte Esterase (Negative) Stl C. diff Tox B Gene Positive Cdiff Gene H (Neg) Stl C.difficile Tox A&B Negative Cdiff Toxin (Negative) Stl C. diff [id number]-NAP1-BI C. difficile Tox B Gene 09/16/18 09/15/18 09/15/18 Range/Units 05:20 Unknown 18:40 WBC (4.8-10.8) K/uL RBC (4.2-5.4) M/uL Hgb (12.0-16.0) g/dL Hct (37-47) % MCV (80-100) fL MCH (25-34) pg MCHC (32-36) g/dL RDW Std Deviation (36.4-46.3) fL RDW Coeff of Gabriele (11.5-14.5) % Plt Count (130-400) K/uL MPV (7.4-10.4) fL Immature Gran % (Auto) % Neut % (Auto) % Lymph % (Auto) % [place] % (Auto) % Eos % (Auto) % Baso % (Auto) % Immature Gran # (Auto) (0.00-0.02) K/uL Neut # (Auto) (1.4-6.5) K/uL Lymph # (Auto) (1.2-3.4) K/uL [place] # (Auto) (0.11-0.59) K/uL Eos # (Auto) (0-0.5) K/uL Baso # (Auto) (0-0.2) K/uL PT (9.0-12.0) Seconds INR (0.9-1.1) Sodium 145 (136-145) mmol/L Potassium 3.2 L (3.5-5.1) mmol/L Chloride 111 H (98-107) mmol/L Carbon Dioxide 23 (21-32) mmol/L Anion Gap 11.0 (3-11) BUN 7 (7-18) mg/dl Creatinine 0.73 (0.6-1.2) mg/dl Est Cr Clr Drug Dosing 66.6 ml/min Est GFR ( Amer) 96.0 Est GFR (Non-Af Amer) 82.9 BUN/Creatinine Ratio 9.7 L (10-20) Glucose 114 H (70-99) mg/dl Calcium 9.3 (8.5-10.1) mg/dl Magnesium 1.7 L (1.8-2.4) mg/dl Total Bilirubin 0.6 (0.2-1) mg/dl AST 11 L (15-37) U/L ALT 17 (12-78) U/L Alkaline Phosphatase 121 H (45-117) U/L Total Creatine Kinase 48 (26-192) U/L Troponin I < 0.015 (0-0.045) ng/ml Total Protein 6.7 (6.4-8.2) gm/dl Albumin 3.5 (3.4-5.0) gm/dl Globulin 3.2 (2.5-4.0) gm/dl Albumin/Globulin Ratio 1.1 (0.9-2) TSH 0.447 (0.300-4.500) uIu/ml Urine Color Yellow Urine Appearance Clear (Clear) Urine pH 7.5 (4.5-7.5) Ur Specific [place] 1.011 (1.000-1.030) Urine Protein Negative (Negative) Urine Glucose (UA) Negative (Negative) Urine Ketones 1+ H (Negative) Urine Blood Negative (Negative) Urine Nitrite Negative (Negative) Urine Bilirubin Negative (Negative) Urine Urobilinogen Negative (Negative) Ur Leukocyte Esterase Negative (Negative) Stl C. diff Tox B Gene (Neg) Stl C.difficile Tox A&B (Negative) Stl C. diff [id number] Cancelled C. difficile Tox B Gene Cancelled 09/15/18 09/15/18 Range/Units 18:40 18:40 WBC 5.68 (4.8-10.8) K/uL RBC 4.36 (4.2-5.4) M/uL Hgb 13.0 (12.0-16.0) g/dL Hct 37.4 (37-47) % MCV 85.8 (80-100) fL MCH 29.8 (25-34) pg MCHC 34.8 (32-36) g/dL RDW Std Deviation 39.7 (36.4-46.3) fL RDW Coeff of Gabriele 12.6 (11.5-14.5) % Plt Count 222 (130-400) K/uL MPV 9.6 (7.4-10.4) fL Immature Gran % (Auto) 0.2 % Neut % (Auto) 72.9 % Lymph % (Auto) 19.9 % [place] % (Auto) 6.3 % Eos % (Auto) 0.5 % Baso % (Auto) 0.2 % Immature Gran # (Auto) 0.01 (0.00-0.02) K/uL Neut # (Auto) 4.14 (1.4-6.5) K/uL Lymph # (Auto) 1.13 L (1.2-3.4) K/uL [place] # (Auto) 0.36 (0.11-0.59) K/uL Eos # (Auto) 0.03 (0-0.5) K/uL Baso # (Auto) 0.01 (0-0.2) K/uL PT 10.6 (9.0-12.0) Seconds INR 1.0 (0.9-1.1) Sodium (136-145) mmol/L Potassium (3.5-5.1) mmol/L Chloride (98-107) mmol/L Carbon Dioxide (21-32) mmol/L Anion Gap (3-11) BUN (7-18) mg/dl Creatinine (0.6-1.2) mg/dl Est Cr Clr Drug Dosing ml/min Est GFR ( Amer) Est GFR (Non-Af Amer) BUN/Creatinine Ratio (10-20) Glucose (70-99) mg/dl Calcium (8.5-10.1) mg/dl Magnesium (1.8-2.4) mg/dl Total Bilirubin (0.2-1) mg/dl AST (15-37) U/L ALT (12-78) U/L Alkaline Phosphatase (45-117) U/L Total Creatine Kinase (26-192) U/L Troponin I (0-0.045) ng/ml Total Protein (6.4-8.2) gm/dl Albumin (3.4-5.0) gm/dl Globulin (2.5-4.0) gm/dl Albumin/Globulin Ratio (0.9-2) TSH (0.300-4.500) uIu/ml Urine Color Urine Appearance (Clear) Urine pH (4.5-7.5) Ur Specific [place] (1.000-1.030) Urine Protein (Negative) Urine Glucose (UA) (Negative) Urine Ketones (Negative) Urine Blood (Negative) Urine Nitrite (Negative) Urine Bilirubin (Negative) Urine Urobilinogen (Negative) Ur Leukocyte Esterase (Negative) Stl C. diff Tox B Gene (Neg) Stl C.difficile Tox A&B (Negative) Stl C. diff [id number] C. difficile Tox B Gene Medications Administered Current Inpatient Medications Acetaminophen (Tylenol) 650 mg PO Q4H PRN PRN Reason: pain/fever Stop: 10/15/18 23:09 Al Hydrox/Mg Hydrox/Simethicone (Maalox) 15 ml PO Q6H PRN PRN Reason: Dyspepsia Stop: 10/15/18 23:09 Gabapentin (Neurontin) 400 mg PO TID [facility] Stop: 10/16/18 08:59 Last Admin: 09/16/18 07:55 Dose: 400 mg Documented by: Lactated Ringer's (Lr) 1,000 mls @ 80 mls/hr IV .[id number] [facility] Stop: 10/15/18 23:09 Last Admin: 09/15/18 23:36 Dose: 80 mls/hr Documented by: Isosorbide Mononitrate (Imdur Extended Rel) 30 mg PO DAILY [facility] Stop: 10/16/18 08:59 Last Admin: 09/16/18 07:55 Dose: 30 mg Documented by: Metoprolol Tartrate (Lopressor) 12.5 mg PO QAM [facility] Stop: 10/16/18 08:59 Last Admin: 09/16/18 07:54 Dose: 12.5 mg Documented by: Ondansetron HCl (Zofran Odt) 8 mg PO TID [facility] Stop: 10/16/18 08:59 Last Admin: 09/16/18 07:55 Dose: 8 mg Documented by: Pantoprazole Sodium (Protonix) 40 mg PO QAM [facility] Stop: 10/16/18 08:59 Last Admin: 09/16/18 07:54 Dose: 40 mg Documented by: Ranitidine HCl (Zantac) 75 mg PO DAILY PRN PRN Reason: Acid Reflux Stop: 10/15/18 23:09 Last Admin: 09/16/18 07:54 Dose: 75 mg Documented by: Tamsulosin HCl (Flomax) 0.4 mg PO DAILY [facility] Stop: 10/16/18 08:59 Last Admin: 09/16/18 07:55 Dose: 0.4 mg Documented by: PG Care Time/CCT Total # of Minutes Spent Total Time Spent with Patient: Time in room approximately 2:20 PM, time out of room approximately 3:05 PM. Total time spent is greater than 50% in coordination of care (as documented) at patient's floor/unit and/or counseling patient: Resident Activity Tracking Resident Involvement: Resident Care Provided Care Provided: Adult Hospital Medicine (1) Altered mental status Altered mental status type: unspecified Qualified Code(s): R41.82 - Altered mental status, unspecified
[2018-09-16] MEDS: LACTATED RINGER'S 1,000 ML IV SCH (12:18)
[2018-09-16] MEDS ORDERED: POTASSIUM CHLORIDE 20 MEQ/15 ML UDC PO ONE (16:02)
[2018-09-16] MEDS: CHOLESTYRAMINE LIGHT 4 GM PKT PO SCH (19:30)
[2018-09-16] MEDS ORDERED: MAGNESIUM SULFATE / D5W 1 GM/100 ML BAG IV ONE (21:00)
[2018-09-16] MEDS ORDERED: MIRTAZAPINE TAB 15 MG TAB PO SCH (21:00)
[2018-09-17] MEDS: LACTATED RINGER'S 1,000 ML IV SCH (00:01)
--- NOTE | 2018-09-17 07:07 | Family Medicine Progress Note ---
Date of Service September 17, 2018 Assessment & Plan (1) Altered mental status: 73-year-old female PMH HTN, GERD, Renal calculi, OA admitted on 15 September 2018 for AMS. Patient recently admitted August 25- for abdominal pain, intermittent AMS, and toxic encephalopathy, thought to be from polypharmacy. Altered mental status, multi-factorial -Appears to have some baseline dementia -No evidence of acute trauma, infection, gross electrolyte derangement, or emergent surgical issue. -Suspect polypharmacy and incorrect dosing, partially due to undiagnosed dementia, heat exposure, lack of home support, poor PO intake, chronic diarrhea -Pending urine Cx -CT head negative, CXR nl -C. dif gene +, toxin -. Will not treat at this time. Consider sending for retest if symptoms worsen, WBC rises, Renal fx declines -Symptomatically improved with IVF, continue gentle rehydration at 80cc/hr -Will hold Ativan, tramadol, clonidine, and trazodone -Pt states she would take ativan blanca TID, but has run out about a month ago. If tolerates it, would DC indefinitely -Family state she would take several trazodone at night to help with sleep. -Continue gabapentin for neuropathy, although pt unsure if it's helping. -Will start low-dose remeron to help with sleep, appetite, diarrhea. -Will DC flomax indefinitely -Consult case management for assistance with home health resources. Family would like to know about respite services for father, family members who are caregivers. Hypertension -Initial ED BP 208/80. Improved w/IVF. Reportedly patient was not taking clonidine or lisinopril due to making her "dizzy". -Continue home imdur only. -Added metoprolol tartrate 12.5 daily Hypokalemia, hypomagnesemia -Admit K 3.2 and Mg 1.7. May be in part due to poor p.o. intake. -Will further replace both and recheck Abdominal pain, chronic weight loss, history of gastric ulcers and perforation -Per 20Jun d/c summary, has been evaluated extensively by GI including multiple scans and UGI. Mention of a tight Will and the need for surgical evaluation. -Continue home pantoprazole and Zantac. -Restart cholestyramine Peripheral neuropathy -Recent switch from Lyrica to gabapentin--reports lyrica worked better but too costly Nephrolithiasis -Reported previous "poor tolerance" of stents. Will DC tamsulosin indefinitely as not maintenance med and may contribute to AMS -May need to consider restarting potassium citrate or similar product Anxiety -Held her Ativan d/t AMS. Reportedly has not had in over a month but would take TID regardless of symptoms -Recommend indefinitely holding. Code status: Full code. Diet: Regular. DVT prophy: Lovenox. PT/OT: Ordered. Dispo: Admit to MedSurg. (2) HTN (hypertension): (3) Hypokalemia: (4) Hypomagnesemia: (5) Abdominal pain: (6) Weight loss: (7) History of gastric ulcer: (8) Peripheral neuropathy: (9) Renal stones: (10) Anxiety: Review of Systems Review of Systems: Unable to obtain ROS due to patient's AMS. Respiratory: + cough; no dyspnea, no dyspnea on exertion, no sputum production and no wheezing Cardiovascular: no chest pain Gastrointestinal: + abdominal pain, + change in stools and + diarrhea/loose stools; no nausea and no vomiting Psychiatric: + behavioral changes and + confusion Physical Exam Constitutional: WD/WN, vitals as above + well hydrated, + frail appearing, cooperative and comfortable; not in distress and not diaphoretic Eyes: PERRL, conjunctivae normal, anicteric sclerae ENMT: external ear and nose normal, oropharynx normal Neck: normal visual inspection Respiratory: normal respiratory effort, lungs clear to auscultation Cardiovascular: RRR, no murmur, no edema Gastrointestinal (Abdomen): Inspection/Auscultation: abdomen normal to inspection and normal bowel sounds Percussion/Palpation: + abdomen tender (diffusely, mild) and abdomen soft Skin: no rashes, warm and dry Neurologic: PERRL, EOMI, accommodation nl, no face palsy, no dysarthria Psychiatric: Orientation: alert, oriented to person and oriented to time (k nows month and year); + not oriented to place Eye Contact: good eye contact Motor Behavior: + tremor Speech: + abnormal rate/rhythm/volume of speech (Staggered speech) Affect: euthymic affect Thought Process: clear/coherent thought process Cognition: + recent memory not intact Insight: + limited insight Results & Data Vital Signs (Past 12 Hours) Vital Signs Temp Pulse Resp BP Pulse Ox 09/16/18 23:00 36.7 C 66 18 171/89 H 98 PG Care Time/CCT Total # of Minutes Spent Total Time Spent with Patient: Total time spent is greater than 50% in coordination of care (as documented) at patient's floor/unit and/or counseling patient: Resident Activity Tracking Resident Involvement: Resident Care Provided Care Provided: Adult Hospital Medicine (1) Altered mental status Altered mental status type: unspecified Qualified Code(s): R41.82 - Altered mental status, unspecified
[2018-09-17 07:50] LABS: Basophils # (auto) 0.02 K/uL (0-0.2); Basophils % (auto) 0.3 %; Eosinophils # (auto) 0.16 K/uL (0-0.5); Eosinophils % (auto) 2.8 %; Hematocrit (blood only) 34.2 % (37-47); Hemoglobin 11.4 g/dL (12.0-16.0); Immature Granulocytes # (auto) 0.01 K/uL (0.00-0.02); Immature Granulocytes % (auto) 0.2 %; Lymphocytes # (auto) 2.21 K/uL (1.2-3.4); Mean Corpuscular Hgb Conc 33.3 g/dL (32-36); Mean Corpuscular Volume 90.5 fL (80-100); Mean Platelet Volume 9.4 fL (7.4-10.4); Monocytes # (auto) 0.62 K/uL (0.11-0.59); Monocytes % (auto) 10.7 %; Neutrophils # (auto) 2.79 K/uL (1.4-6.5); Platelet Count 211 K/uL (130-400); RDW Coefficient of Variation 13.7 % (11.5-14.5); Red Blood Count 3.78 M/uL (4.2-5.4); White Blood Count 5.81 K/uL (4.8-10.8)
[2018-09-17] MEDS: CHOLESTYRAMINE LIGHT 4 GM PKT PO SCH (07:51)
[2018-09-17] MEDS: TAMSULOSIN HCL 0.4 MG CAP PO SCH (07:51)
[2018-09-17] MEDS: ISOSORBIDE MONO EXTENDED REL 30 MG TABCR PO SCH (07:51)
[2018-09-17] MEDS: METOPROLOL TARTRATE 25 MG TAB PO SCH (07:52)
[2018-09-17] MEDS: ONDANSETRON 8MG OD TAB PO SCH (07:53)
[2018-09-17] MEDS: GABAPENTIN 400 MG CAP PO SCH (07:53)
[2018-09-17] MEDS: PANTOprazole 40 MG TAB PO SCH (07:53)
[2018-09-17 08:33] LABS: BUN Creatinine Ratio 9.1 (10-20); Calcium 8.6 mg/dl (8.5-10.1); Creatinine Clr Calc Pharmacy 66.6 ml/min; Est GFR (Non-African American) 82.9; Potassium 3.5 mmol/L (3.5-5.1)
[2018-09-17] MEDS ORDERED: ENOXAPARIN INJ 40 MG/0.4 ML SYR SQ SCH (09:00)
--- NOTE | 2018-09-17 10:05 | Discharge Summary ---
Date of Service September 17, 2018 Admission HPI Per Admitting Provider 73-year-old female was brought in via EMS for altered mental status. Per the EMS accounts, patient was quite altered and unable to answer any questions. Per the ED account, patient has improved since arrival and s/p IVF but remains confused. Almost all of the below history is per the patient's daughter, son-in-law, and granddaughter all at bedside. The patient herself is confused, complains of some discomfort both at the site of her BP cuff and her IV, and says that her stomach is upset. She is aware she is in the hospital but is unsure why. Per daughter, patient has had months of increased confusion and often repeating questions over and over. Patient was discharged from the hospital after stay from August 25- for altered mental status. At that time it was thought to be due to polypharmacy and, after multiple medications were held, the patient had greatly improved. Per daughter, however, the patient ended up going home on the same medications that she was admitted on. There are plans for an outpatient neurology appointment, new primary care appointment in [place], as well as surgical evaluation at [place]. However, none of these appointments have occurred yet. She was discharged home with the thoughts that her would help her manage her medications. However, her is presently out of state and the patient is living at home alone. Per daughter and granddaughter, patient was last seen around 9 PM last evening in her own home. She was apparently at her baseline without acute concerns by patient or family at that time. Then by report the patient became confused at some point today such that she was able to get into the car wearing only her pajamas and socks, spent some period of time in a hot car outside car holding a TV remote, and then managed to get to her neighbor's porch where she was found by EMS. Family does not note any recent known fevers, illness, vomiting, or complaints of pain outside of her chronic abdominal pain by the patient. They do note that she has ongoing loose stools. Per the family's account, her current medication status is as follows: - They think she has been taking twice the trazodone as prescribed to help her sleep. - They think she is taking her Ativan and tramadol as prescribed. - They say she is not taking her clonidine or lisinopril because it makes her "dizzy". - They are not sure that she is taking gabapentin at all. - Past medical history includes altered mental status, question of dementia, hypertension, abdominal pain, weight loss, gastric ulcers, gastric perforation, peripheral neuropathy, nephrolithiasis, anxiety. - Past surgical history includes Will fundoplication, appendectomy, cholecystectomy, ureteral stent placement. - Social history includes never smoking and no alcohol intake. Normal lives at home with . Patient's daughter and granddaughter are relatively nearby. Admission Exam (Per Admitting) Constitutional WD/WN, vitals as above + well hydrated, + frail appearing, cooperative and comfortable; not in distress and not diaphoretic Eyes PERRL, conjunctivae normal, anicteric sclerae ENMT external ear and nose normal, oropharynx normal Neck normal visual inspection Respiratory normal respiratory effort, lungs clear to auscultation Cardiovascular RRR, no murmur, no edema Gastrointestinal (Abdomen) Inspection/Auscultation: abdomen normal to inspection and normal bowel sounds Percussion/Palpation: + abdomen tender (diffusely, mild) and abdomen soft Skin no rashes, warm and dry Neurologic PERRL, EOMI, accommodation nl, no face palsy, no dysarthria Psychiatric Orientation: alert, oriented to person and oriented to time (knows month and year); + not oriented to place Eye Contact: good eye contact Motor Behavior: + tremor Speech: + abnormal rate/rhythm/volume of speech (Staggered speech) Affect: euthymic affect Thought Process: clear/coherent thought process Cognition: + recent memory not intact Insight: + limited insight Discharge Data Consultations 09/15/18 20:11 ED Decision to Admit Stat 09/15/18 23:10 Consult Case Management - Discharge Planning Routine 09/16/18 16:00 Consult [facility] sleeping room cleaner Routine Hospital Course (1) Altered mental status: 73-year-old female PMH HTN, GERD, Renal calculi, OA admitted on 15 September 2018 for AMS. Patient recently admitted August 25- for abdominal pain, intermittent AMS, and toxic encephalopathy, thought to be from polypharmacy. Altered mental status, multi-factorial -Appears to be on top of baseline dementia -No evidence of acute trauma, infection, gross electrolyte derangement, or emergent surgical issue. -Suspect polypharmacy and incorrect dosing, heat exposure, lack of home support, poor PO intake, chronic diarrhea -Pending urine Cx: No growth at 24 hrs -CT head negative, CXR nl -C. dif gene +, toxin -. Will not treat at this time. No WBC elevation, normal Renal fx -Symptomatically improved with IVF, medication overhaul. -Will DC Ativan, tramadol, clonidine, flomax, and trazodone -Continue gabapentin for neuropathy, although pt unsure if it's helping. -Will start low-dose remeron to help with sleep, appetite, diarrhea. -Family would like to know about respite services for father, family members who are caregivers. -Family plan to not have her alone when out of town Hypertension -Initial ED BP 208/80. Improved w/IVF. Reportedly patient not taking clonidine or lisinopril due to making her "dizzy". -Continue home imdur, increase lisinopril to 20mg. DC clonidine. -Added metoprolol succinate 25 daily Hypokalemia, hypomagnesemia -Admit K 3.2 and Mg 1.7. May be in part due to poor p.o. intake. -Replaced, has returned to normal Abdominal pain, chronic weight loss, history of gastric ulcers and perforation -Per 20Jun d/c summary, has been evaluated extensively by GI including multiple scans and UGI. Mention of a tight Will and the need for surgical evaluation. Postponing surgical intervention at this time. -Continue home pantoprazole and Zantac. -Restarted cholestyramine Peripheral neuropathy -Recent switch from Lyrica to gabapentin--reports lyrica worked better but too costly Nephrolithiasis -Reported previous "poor tolerance" of stents. Will DC tamsulosin indefinitely as not maintenance med and may contribute to AMS -May need to consider restarting potassium citrate or similar product Anxiety -DCd Ativan d/t AMS. Reportedly has not had in over a month but would take TID regardless of symptoms Borderline B12 -Level was 226. We will replace with 2000 mcg p.o. daily for the next 3 months, repeat level in 3 months. If it still borderline or low, then would move to IM replacement. At this level is unlikely to be contributing to her baseline mentation or neuropathy, but not impossible, hence the therapeutic trial. Code status: Full code. Diet: Regular. Dispo: Admit to MedSurg. (2) HTN (hypertension): (3) Hypokalemia: (4) Hypomagnesemia: (5) Abdominal pain: (6) Weight loss: (7) History of gastric ulcer: (8) Peripheral neuropathy: (9) Renal stones: (10) Anxiety: Supervising Physician Co-Signing Physician Notes I personally examined the patient and verified all price points of history and exam, discussed case, and agree with decision making with Dr Pena. Awake and alert. Slept well with Remeron. Feels okay to go home. No other new complaints. Vitals noted, in general she is awake and alert pleasant no distress. Skin shows no rashes no pallor or icterus. Breathing is unlabored no accessory muscle use. No focal neuro deficits. Altered mental statusappears to be delirium which is likely both toxic encephalopathy related to medications, and a metabolic encephalopathy related to dehydration. Polypharmacy is certainly a large contributor, med list streamlined as above. Will give trial of Remeron instead of trazodone for insomnia. Her history of a fairly brittle mental status as well as her current baseline mentation seem to hint towards a degree of baseline dementia, although certainly now is not the best time to truly assess this, and we will ask for more longitudinal follow-up in the outpatient setting. Of note her B12 was only 226, and while this is not likely to be low enough to be culprit for her dementia, certainly we will replace it orally with the thousand micrograms daily over the next 3 months repeat levels, if it is not coming up then would give strong consideration to IM replacement. 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 Continue to follow as outpatient. Continue her cholestyramine as she has been using. DVT proph - lovenox Resident Activity Tracking Resident Involvement: Resident Care Provided Care Provided: Adult Hospital Medicine
--- NOTE | 2018-09-18 13:56 | Hospitalist Progress Note ---
Date of Service DATE OF SERVICE IS ACTUALLY 09/16 - ADDING ON FOR PROLONGED CARE CODE FROM DATE OF SERVICE 09/16. BELOW NOTED DATE OF SERVICE 09/18 AUTOCREATED AND CANNOT BE DEL ETED September 18, 2018 PG Care Time/CCT Total # of Minutes Spent Total Time Spent with Patient: Total time spent is greater than 50% in coordination of care (as documented) at patient's floor/unit and/or counseling patient: Prolonged Care Time Prolonged Care Time: Yes Total Prolonged Care Time: 45 Critical Care Time Prolonged Care Time Prolonged Care Time: Yes Total Prolonged Care Time: 45
== END 2018-09-17 13:00 | disposition home or self-care (01) | DRG 640 ==
LOC: 4E 18:28 → ED 18:28 → SUATTDRO 21:56 → 4E 23:00

== ENCOUNTER 2020-10-13 11:06 | Observation (INO) ==
[2020-10-13] MEDS ORDERED: HYDROmorphone INJ 0.5 MG/0.5 ML SYR IV PRN (12:47)
[2020-10-13] MEDS ORDERED: ONDANSETRON INJ 2 MG/ML 2 ML VIAL IV STA (12:47)
--- NOTE | 2020-10-13 13:39 | XRay Report ---
XR chest 1V portable CLINICAL HISTORY: Chest Pain COMPARISON STUDY: Chest radiograph September 15, 2018. FINDINGS: Lung volumes are normal. Lungs are clear. There is no pneumothorax or pleural effusion. Car diac size is normal. Mediastinal contours are normal. There is no evidence for pulmonary edema. Mild elevation of the right hemidiaphragm is unchanged. IMPRESSION: No acute cardiopulmonary findings. ACT 112: Negative or not required by law. Electronically signed by: Keven Frances M.D. 10/13/2020 1:38 PM
[2020-10-13 14:06] LABS: Alanine Aminotransferase 25 U/L (12-78); Albumin Level 3.7 gm/dl (3.4-5.0); Aspartate Aminotransferase 22 U/L (15-37); BUN Creatinine Ratio 15.5 (10-20); Blood Urea Nitrogen 13 mg/dl (7-18); Calcium 9.6 mg/dl (8.5-10.1); Carbon Dioxide 28 mmol/L (21-32); Chloride 107 mmol/L (98-107); Creatinine Clr Calc Pharmacy 65.1 ml/min; Est GFR (African American) 83.5 ml/min; Est GFR (Non-African American) 72.1 ml/min; Glucose 92 mg/dl (70-99); Lipase 141 U/L (73-393); Potassium 4.1 mmol/L (3.5-5.1); Sodium 140 mmol/L (136-145)
--- NOTE | 2020-10-13 14:06 | XRay Report ---
XR KUB/Abdomen 1 view CLINICAL HISTORY: Pt left sided kidney stone COMPARISON STUDY: November 06, 2020 FINDINGS: Few nondilated gas and stool-filled loops of bowel are seen. Stable appearance of the calcifications within the anatomical region of the right and left renal pelv ises are unchanged since prior. Also stable calculus is seen within right aspect of the pelvis. Cholecystectomy clips are seen. IMPRESSION: 1. Nonobstructive bowel gas pattern. 2. Stable calcifications within the anatomical region of the right and left collecting system, uncha nged since November 06, 2020 exam. ACT 112: Negative or not required by law. The above report was generated using voice recognition software. It may contain grammatical, syntax o r spelling errors. Electronically signed by: Chantale Marin DO 10/13/2020 2:05 PM
[2020-10-13 14:16] LABS: Albumin Globulin Ratio 1.2 (0.9-2); Alkaline Phosphatase 97 U/L (45-117); Bilirubin,Total 0.4 mg/dl (0.2-1); Creatine Kinase 69 U/L (26-192); Creatine Kinase MB < 1.0 ng/ml (0.5-3.6); Total Protein 6.7 gm/dl (6.4-8.2); Troponin I < 0.015 ng/ml (0-0.045)
[2020-10-13 14:16] LABS: Basophils # (auto) 0.02 K/uL (0-0.2); Basophils % (auto) 0.3 %; Eosinophils # (auto) 0.18 K/uL (0-0.5); Eosinophils % (auto) 2.7 %; Hematocrit (blood only) 39.3 % (37-47); Hemoglobin 13.5 g/dL (12.0-16.0); Immature Granulocytes # (auto) 0.01 K/uL (0.00-0.02); Immature Granulocytes % (auto) 0.1 %; Lymphocytes # (auto) 2.12 K/uL (1.2-3.4); Lymphocytes % (auto) 31.5 %; Mean Corpuscular Hemoglobin 31.6 pg (25-34); Mean Corpuscular Hgb Conc 34.4 g/dL (32-36); Mean Platelet Volume 9.3 fL (7.4-10.4); Monocytes # (auto) 0.51 K/uL (0.11-0.59); Monocytes % (auto) 7.6 %; Neutrophils # (auto) 3.89 K/uL (1.4-6.5); Neutrophils % (auto) 57.8 %; Platelet Count 213 K/uL (130-400); RDW Coefficient of Variation 13.1 % (11.5-14.5); RDW Standard Deviation 44.2 fL (36.4-46.3); Red Blood Count 4.27 M/uL (4.2-5.4); White Blood Count 6.73 K/uL (4.8-10.8)
[2020-10-13 14:29] LABS: Partial Thromboplastin Ratio 0.8; Partial Thromboplastin Time 22.1 Seconds (21.0-31.0)
[2020-10-13] MEDS ORDERED: STAT IV Infusion **Titration per Protocol STA ×2 (14:46→19:11)
--- NOTE | 2020-10-13 14:59 | Ultrasound Report ---
ULTRASOUND KIDNEYS AND BLADDER CLINICAL HISTORY: Left flank pain. COMPARISON STUDY: Abdominal CT dated 10/12/2020. TECHNIQUE: Real-time, grayscale, and color flow sonography of the kidneys and bladder is performed. I mages are reviewed in the transverse and longitudinal planes. FINDINGS: Kidneys: The kidneys history cortical atrophy. Echotexture is normal. The right kidney measures 10.7 cm in length and the left kidney measures 9.5 cm in length. There is moderate right hydronephrosis. N o hydronephrosis is seen on the left. There are numerous bilateral nonobstructing renal calculi which measure up to 9 mm. There is no sonographic evidence of contour deforming renal mass lesion. No moreno nephric fluid is identified. Bladder: The bladder is normal in appearance. Only the left ureteral jet was seen. There are several distal left ureteral calculi identified. IMPRESSION: 1. There is moderate right hydronephrosis secondary to known obstructing right ureteral calculi. The distal right ureteral calculi seen by CT are also visualized by ultrasound. 2. Additional nonobstructing calculi are seen bilaterally. ACT 112: Negative or not required by law. Electronically signed by: Nacho Diez M.D. 10/13/2020 2:58 PM
[2020-10-13] MEDS ORDERED: niCARdipine 25 MG in SODIUM CHLORIDE 0.9% 240 ML IV SCH ×2 (15:00→19:15)
--- NOTE | 2020-10-13 16:32 | History & Physical Report ---
Date of Service October 13, 2020 Assessment & Plan (1) Hypertensive urgency: Plan: Suspect combination of not having her BP meds this am, pain from her stones, +/- anxiety/white coat component contributing to her markedly elevated BPs. In the ER gave her lisinopril and flomax. If SBPs do not improve with the above to <180 may need to consider the nicardipine drip that was briefly initiated in ER. See #2 below. (2) Hypertension: Plan: Has LVH by voltage criteria on EKG which would suggest long-standing, poorly controlled HTN. No echo in the EMR thus I have ordered echo to evaluate the LV thickness and wall motion. If LVH is confirmed consider beta brandy. Alternatively, given her recurrent calcium-based kidney stones, could consider low-dose HCTZ. Cont lisinopril and flomax in the meantime. (3) Right ureteral stone: Plan: 8mm mid-ureteral stone on right, and several other distal ureteral stones on right as well. Continue flomax. Gentle fluids overnight. Strain all urine. Pain meds if any pain overnight. Repeat BMP in am. If any signs of UTI, or worsening renal function - consult urology for intervention of stones while hospitalized. Of note - 10/10/20 urine cx with no UTI. (4) Lower extremity neuropathy: Plan: Cont gabapentin TID. She also takes lyrica qod (uncertain why both meds). (5) Chronic GERD: Plan: PPI daily (6) Abnormal EKG: Plan: LVH on EKG by voltage criteria. Q's inferior leads. Obtain echo. Telemetry. Fortunately no ischemic symptoms at this time. (7) DVT prophylaxis: Plan: if patient stays beyond tomorrow add chemical DVT proph Plan: observation status for now History of Present Illness Chief Complaint: "I didn't feel right"; elevated blood pressure Primary Care Provider: Jonathon Dashajulio 75yo female with h/o HTN and prior calcium-based kidney stones who presented today [place] [facility] [place] to discuss options for kidney stones. She underwent a KUB x-ray on 10/10 showing stones, then a CT abd/pelvis yesterday confirming multiple right-sided obstructing stones including an 8mm mid-ureter stone. Records indicate she had had dysuria and abdominal discomfort for 1-2 weeks prior to the imaging being obtained this week. During the visit today her BP was checked and her SBP was found to be 220. She was promptly referred to the ER for evaluation. Patient states that she simply didn't "feel right" this am. She did not take her BP meds this am. Does not check her BPs at home. Normally at her PCP's office her SBPs typically run 140 or less. During my admission assessment I rechecked her BPs - systolics ranged 180-200. She asked for a dinner tray and said she otherwise feels fine. She is most concerned about her kidney stones. Allergies Allergy/AdvReac Type Severity Reaction Status Date / Time amlodipine Allergy Severe Anaphylaxis Verified 10/13/20 14:19 benzocaine Allergy Severe Anaphylaxis Verified 10/13/20 14:19 [From Tigan (with benzocaine)] Iodinated Contrast Media Allergy Severe ANAPHYLAXIS Verified 10/13/20 14:19 Penicillins Allergy Severe ANAPHYLAXIS Verified 10/13/20 14:19 trimethobenzamide Allergy Severe ANAPHYLAXIS Verified 10/13/20 14:19 lactose Allergy Intermediate Gastrointestinal Verified 10/13/20 14:19 symptoms Home Medications Medication Instructions Recorded Confirmed Type multivitamin 1 tab PO QAM #90 tab 09/23/18 10/13/20 Rx pregabalin 75 mg capsule (Lyrica) 75 mg PO QAM 08/23/19 10/13/20 History furosemide 20 mg tablet 10 mg PO DAILY PRN #20 tab 09/14/19 10/13/20 Rx trazodone 100 mg tablet 100 mg PO HS #90 tab 09/14/19 10/13/20 Rx gabapentin 600 mg tablet 600 mg PO TID 30 Days #270 tab 09/30/19 10/13/20 Rx lisinopril 20 mg tablet 20 mg PO QAM 10/10/20 10/13/20 History pantoprazole 40 mg tablet,delayed 40 mg PO DAILYBB 10/13/20 10/13/20 History release tamsulosin 0.4 mg capsule 0.4 mg PO QAM 10/13/20 10/13/20 History Past Med/Surg History Medical History (Updated 10/13/20 @ 23:53 by Israel Chi) Anxiety Chondrocalcinosis Chronic diarrhea Chronic GERD Colitis Endometriosis Hiatal hernia Hypertension Insomnia Lower extremity neuropathy Nephrolithiasis Recurrent CaOx kidney stones Osteoarthritis Peripheral neuropathy Vitamin D deficiency Surgical History History of ankle surgery b/l ankle, tarsal tunnel surgery History of appendectomy History of section x2 History of cholecystectomy History of colonoscopy History of cystoscopy STONE REMOVAL/STENTS (MULTIPLE TIMES) History of esophagogastroduodenoscopy (EGD) 08/08/2017. sedation, no issues. History of lithotripsy MULTIPLE TIMES History of tonsillectomy History of tooth extraction History of total abdominal hysterectomy and bilateral salpingo-oophorectomy Status post Will fundoplication Family History (Updated 10/13/20 @ 16:55 by Israel Chi) Father , age 76; multiple MIs Myocardial infarction Mother , age 49 Myocardial infarction Other No family history of adverse response to anesthesia Denies family history of Ovarian cancer Prostate cancer Crohn's disease Breast cancer Colorectal cancer Inflammatory bowel disease Social History (Updated 10/13/20 @ 16:56 by Israel Chi) Smoking Status: Never smoker Second Hand Exposure: Yes (parents smoked); Hx Alcohol Use: No Hx Substance Use: No Preferred Language: Pashto Communication Ability: Effective Visual Impairment: No Limitations Hearing Ability: Use of Hearing Aid Mercury Purifier Required: No Beliefs That Will Affect Care: None marital status: Current Living Situation: Spouse Current Living Situation Comment: house, one floor and finished basement 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 status: retired 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 How many Children do You have: 2 Other Information That Helps Us Care for You: No Feels Safe at Home: Yes Safety Concerns: Feels Safe At This Time Dental Care, Regularly: Yes Seatbelt Use: always Assistive Devices: Cane, Glasses, Hearing Aid - Left and Hearing Aid - Right Review of Systems Constitutional: no fever, no chills, no anorexia, no weight loss and no weight gain Eyes: no worsening vision Ear, Nose, Mouth, Throat: no dysphagia Respiratory: no dyspnea on exertion Cardiovascular: + edema; no chest pain Gastrointestinal: + abdominal pain (right flank, right abdomen ); no heartburn, no vomiting, no constipation and no diarrhea/loose stools Genitourinary: no dysuria and no hematuria Musculoskeletal: + joint pain Integumentary: no rash Neurologic: + loss of sensation (feet) Psychiatric: no depression and no anxiety Endocrine: no diabetes Hematologic / Lymphatic: no easy bleeding and no easy bruising Physical Exam Constitutional: well developed, well nourished and + obese; no acute distress and no altered mental status Eyes: PERRL ENMT: external ear and nose normal, oropharynx normal Neck: trachea midline, no thyromegaly Respiratory: normal respiratory effort, lungs clear to auscultation Cardiovascular: RRR, no murmur, no edema Heart Sounds: normal S1 and normal S2 Vessels: no JVD Gastrointestinal (Abdomen): normal bowel sounds, soft, nontender, no hepatosplenomegaly no flank tenderness Musculoskeletal: no cyanosis or clubbing, extremities motor strength 5/5 Skin: no rashes, warm and dry Neurologic: deep tendon reflexes 2+ bilaterally and moves all extremities Psychiatric: A+Ox3, euthymic affect Lymphatic: no cervical lymphadenopathy Results & Data Results & Data ([facility]) Vital Signs (Past 12 Hours) Vital Signs Temp Pulse Resp BP Pulse Ox 10/13/20 16:01 96 H 20 104/87 96 10/13/20 15:30 86 17 194/91 H 96 10/13/20 15:02 83 23 96 10/13/20 14:15 82 15 10/13/20 13:32 85 26 H 205/124 H 95 10/13/20 13:02 78 17 10/13/20 12:30 79 15 222/106 H 96 10/13/20 11:22 36.8 C 86 20 193/99 H 96 Laboratory Results Laboratory Results - last 24 hr 10/13/20 10/13/20 10/13/20 13:39 13:39 14:08 WBC Cancelled RBC Cancelled Hgb Cancelled Hct Cancelled MCV Cancelled MCH Cancelled MCHC Cancelled RDW Std Deviation Cancelled RDW Coeff of Gabriele Cancelled Plt Count Cancelled MPV Cancelled Immature Gran % (Auto) Cancelled Neut % (Auto) Cancelled Lymph % (Auto) Cancelled [place] % (Auto) Cancelled Eos % (Auto) Cancelled Baso % (Auto) Cancelled Neut # (Auto) Cancelled Lymph # (Auto) Cancelled [place] # (Auto) Cancelled Eos # (Auto) Cancelled Baso # (Auto) Cancelled Immature Gran # (Auto) Cancelled Absolute Nucleated RBC Cancelled Nucleated RBC % (auto) Cancelled Neutrophils % (Manual) Cancelled Band Neutrophils % Cancelled Lymphocytes % (Manual) Cancelled Prolymphocyte % Cancelled Reactive Lymphs % (Man) Cancelled Monocytes % (Manual) Cancelled Eosinophils % (Manual) Cancelled Basophils % (Manual) Cancelled Metamyelocytes % (Man) Cancelled Myelocytes % (Man) Cancelled Promyelocytes % (Man) Cancelled Blast Cells % (Manual) Cancelled Plasma Cell % (Manual) Cancelled Other Cells % Cancelled Nucleated RBC % Cancelled Neutrophils # (Manual) Cancelled Band Neutrophils # Cancelled Total Absolute Neuts Cancelled Lymphocytes # (Manual) Cancelled Prolymphocyte # Cancelled Reactive Lymphs # Cancelled Total Abs Lymphocytes Cancelled Monocytes # (Manual) Cancelled Eosinophils # (Manual) Cancelled Basophils # (Manual) Cancelled Metamyelocytes # (Man) Cancelled Myelocytes # (Manual) Cancelled Promyelocytes # (Man) Cancelled Blast Cells # (Man) Cancelled Plasma Cell # (Manual) Cancelled Other Cells # Cancelled Nucleated RBCs # (Man) Cancelled Hypersegmented Neuts Cancelled Hyposegmented Neuts Cancelled Hypogranular Neuts Cancelled Large Granular Lymphs Cancelled # Lrg Granular Lymphs Cancelled Hairy Cells Cancelled Smudge Cells Cancelled Toxic Granulation Cancelled Toxic Vacuolation Cancelled Dohle Bodies Cancelled Negar Rods Cancelled Platelet Estimate Cancelled Hypogranular Platelets Cancelled Clumped Platelets Cancelled Giant Platelets Cancelled Platelet Satelliting Cancelled RBC Morphology Cancelled Polychromasia Cancelled Hypochromasia Cancelled Poikilocytosis Cancelled Basophilic Stippling Cancelled Anisocytosis Cancelled Microcytosis Cancelled Macrocytosis Cancelled Spherocytes Cancelled Pappenheimer Bodies Cancelled Sickle Cells Cancelled Target Cells Cancelled Tear Drop Cells Cancelled Ovalocytes Cancelled Stomatocytes Cancelled [place] Bodies Cancelled Echinocytes Cancelled Acanthocytes (Spur) Cancelled Rouleaux Cancelled RBC Agglutinates Cancelled Schistocytes Cancelled RBC Morph Comment Cancelled Sezary Cell Cancelled APTT 22.1 PTT Ratio 0.8 Sodium 140 Potassium 4.1 Chloride 107 Carbon Dioxide 28 Anion Gap 5.0 BUN 13 Creatinine 0.81 Est Cr Clr Drug Dosing 65.1 Est GFR ( Amer) 83.5 Est GFR (Non-Af Amer) 72.1 BUN/Creatinine Ratio 15.5 Glucose 92 Calcium 9.6 Total Bilirubin 0.4 AST 22 ALT 25 Alkaline Phosphatase 97 Total Creatine Kinase 69 CK-MB (CK-2) < 1.0 CK/CKMB % Calc TNP Troponin I < 0.015 Total Protein 6.7 Albumin 3.7 Globulin 3.0 Albumin/Globulin Ratio 1.2 Lipase 141 Specimen Hemolysis Nasal Screen MRSA (PCR) COVID-19 Eval Order SARS-CoV-2 (PCR) Hepatitis C Ab Screen 10/13/20 10/13/20 10/13/20 14:08 14:09 15:26 WBC 6.73 RBC 4.27 Hgb 13.5 Hct 39.3 MCV 92.0 MCH 31.6 MCHC 34.4 RDW Std Deviation 44.2 RDW Coeff of Gabriele 13.1 Plt Count 213 MPV 9.3 Immature Gran % (Auto) 0.1 Neut % (Auto) 57.8 Lymph % (Auto) 31.5 Cataño % (Auto) 7.6 Eos % (Auto) 2.7 Baso % (Auto) 0.3 Neut # (Auto) 3.89 Lymph # (Auto) 2.12 Cata[place] # (Auto) 0.51 Eos # (Auto) 0.18 Baso # (Auto) 0.02 Immature Gran # (Auto) 0.01 Absolute Nucleated RBC Nucleated RBC % (auto) Neutrophils % (Manual) Band Neutrophils % Lymphocytes % (Manual) Prolymphocyte % Reactive Lymphs % (Man) Monocytes % (Manual) Eosinophils % (Manual) Basophils % (Manual) Metamyelocytes % (Man) Myelocytes % (Man) Promyelocytes % (Man) Blast Cells % (Manual) Plasma Cell % (Manual) Other Cells % Nucleated RBC % Neutrophils # (Manual) Band Neutrophils # Total Absolute Neuts Lymphocytes # (Manual) Prolymphocyte # Reactive Lymphs # Total Abs Lymphocytes Monocytes # (Manual) Eosinophils # (Manual) Basophils # (Manual) Metamyelocytes # (Man) Myelocytes # (Manual) Promyelocytes # (Man) Blast Cells # (Man) Plasma Cell # (Manual) Other Cells # Nucleated RBCs # (Man) Hypersegmented Neuts Hyposegmented Neuts Hypogranular Neuts Large Granular Lymphs # Lrg Granular Lymphs Hairy Cells Smudge Cells Toxic Granulation Toxic Vacuolation Dohle Bodies Negar Rods Platelet Estimate Hypogranular Platelets Clumped Platelets Giant Platelets Platelet Satelliting RBC Morphology Polychromasia Hypochromasia Poikilocytosis Basophilic Stippling Anisocytosis Microcytosis Macrocytosis Spherocytes Pappenheimer Bodies Sickle Cells Target Cells Tear Drop Cells Ovalocytes Stomatocytes [place] Bodies Echinocytes Acanthocytes (Spur) Rouleaux RBC Agglutinates Schistocytes RBC Morph Comment Sezary Cell APTT PTT Ratio Sodium Potassium Chloride Carbon Dioxide Anion Gap BUN Creatinine Est Cr Clr Drug Dosing Est GFR ( Amer) Est GFR (Non-Af Amer) BUN/Creatinine Ratio Glucose Calcium Total Bilirubin AST ALT Alkaline Phosphatase Total Creatine Kinase CK-MB (CK-2) CK/CKMB % Calc Troponin I Total Protein Albumin Globulin Albumin/Globulin Ratio Lipase Specimen Hemolysis Nasal Screen MRSA (PCR) COVID-19 Eval Order Covid19 at [facility] SARS-CoV-2 (PCR) Hepatitis C Ab Screen Neg 10/13/20 10/13/20 15:26 19:00 WBC RBC Hgb Hct MCV MCH MCHC RDW Std Deviation RDW Coeff of Gabriele Plt Count MPV Immature Gran % (Auto) Neut % (Auto) Lymph % (Auto) [place]ata[place] % (Auto) Eos % (Auto) Baso % (Auto) Neut # (Auto) Lymph # (Auto) [place]ata[place] # (Auto) Eos # (Auto) Baso # (Auto) Immature Gran # (Auto) Absolute Nucleated RBC Nucleated RBC % (auto) Neutrophils % (Manual) Band Neutrophils % Lymphocytes % (Manual) Prolymphocyte % Reactive Lymphs % (Man) Monocytes % (Manual) Eosinophils % (Manual) Basophils % (Manual) Metamyelocytes % (Man) Myelocytes % (Man) Promyelocytes % (Man) Blast Cells % (Manual) Plasma Cell % (Manual) Other Cells % Nucleated RBC % Neutrophils # (Manual) Band Neutrophils # Total Absolute Neuts Lymphocytes # (Manual) Prolymphocyte # Reactive Lymphs # Total Abs Lymphocytes Monocytes # (Manual) Eosinophils # (Manual) Basophils # (Manual) Metamyelocytes # (Man) Myelocytes # (Manual) Promyelocytes # (Man) Blast Cells # (Man) Plasma Cell # (Manual) Other Cells # Nucleated RBCs # (Man) Hypersegmented Neuts Hyposegmented Neuts Hypogranular Neuts Large Granular Lymphs # Lrg Granular Lymphs Hairy Cells Smudge Cells Toxic Granulation Toxic Vacuolation Dohle Bodies Negar Rods Platelet Estimate Hypogranular Platelets Clumped Platelets Giant Platelets Platelet Satelliting RBC Morphology Polychromasia Hypochromasia Poikilocytosis Basophilic Stippling Anisocytosis Microcytosis Macrocytosis Spherocytes Pappenheimer Bodies Sickle Cells Target Cells Tear Drop Cells Ovalocytes Stomatocytes [place] Bodies Echinocytes Acanthocytes (Spur) Rouleaux RBC Agglutinates Schistocytes RBC Morph Comment Sezary Cell APTT PTT Ratio Sodium Potassium Chloride Carbon Dioxide Anion Gap BUN Creatinine Est Cr Clr Drug Dosing Est GFR ( Amer) Est GFR (Non-Af Amer) BUN/Creatinine Ratio Glucose Calcium Total Bilirubin AST ALT Alkaline Phosphatase Total Creatine Kinase CK-MB (CK-2) CK/CKMB % Calc Troponin I Total Protein Albumin Globulin Albumin/Globulin Ratio Lipase Specimen Hemolysis Nasal Screen MRSA (PCR) Negative COVID-19 Eval Order SARS-CoV-2 (PCR) NEGATIVE Hepatitis C Ab Screen Diagnostic Findings Chest X-Ray 10/13/20 12:44 XR chest 1V portable CLINICAL HISTORY: Chest Pain COMPARISON STUDY: Chest radiograph September 15, 2018. FINDINGS: Lung volumes are normal. Lungs are clear. There is no pneumothorax or pleural effusion. Cardiac size is normal. Mediastinal contours are normal. There is no evidence for pulmonary edema. Mild elevation of the right hemidiaphragm is unchanged. IMPRESSION: No acute cardiopulmonary findings. ACT 112: Negative or not required by law. Electronically signed by: Keven Frances M.D. 10/13/2020 1:38 PM KUB X-Ray 10/13/20 12:47 XR KUB/Abdomen 1 view CLINICAL HISTORY: Pt left sided kidney stone COMPARISON STUDY: November 06, 2020 FINDINGS: Few nondilated gas and stool-filled loops of bowel are seen. Stable appearance of the calcifications within the anatomical region of the right and left renal pelvises are unchanged since prior. Also stable calculus is seen within right aspect of the pelvis. Cholecystectomy clips are seen. IMPRESSION: 1. Nonobstructive bowel gas pattern. 2. Stable calcifications within the anatomical region of the right and left collecting system, unchanged since November 06, 2020 exam. ACT 112: Negative or not required by law. The above report was generated using voice recognition software. It may contain grammatical, syntax or spelling errors. Electronically signed by: Chantale Marin DO 10/13/2020 2:05 PM Renal Ultrasound 10/13/20 12:47 ULTRASOUND KIDNEYS AND BLADDER CLINICAL HISTORY: Left flank pain. COMPARISON STUDY: Abdominal CT dated 10/12/2020. TECHNIQUE: Real-time, grayscale, and color flow sonography of the kidneys and bladder is performed. Images are reviewed in the transverse and longitudinal planes. FINDINGS: Kidneys: The kidneys history cortical atrophy. Echotexture is normal. The right kidney measures 10.7 cm in length and the left kidney measures 9.5 cm in length. There is moderate right hydronephrosis. No hydronephrosis is seen on the left. There are numerous bilateral nonobstructing renal calculi which measure up to 9 mm. There is no sonographic evidence of contour deforming renal mass lesion. No perinephric fluid is identified. Bladder: The bladder is normal in appearance. Only the left ureteral jet was seen. There are several distal left ureteral calculi identified. IMPRESSION: 1. There is moderate right hydronephrosis secondary to known obstructing right ureteral calculi. The distal right ureteral calculi seen by CT are also visualized by ultrasound. 2. Additional nonobstructing calculi are seen bilaterally. ACT 112: Negative or not required by law. Electronically signed by: Nacho Diez M.D. 10/13/2020 2:58 PM EKG - my reading - NSR, LVH by voltage criteria, no ST changes; Q waves inferior leads Medications Administered flomax 0.4mg x 1 lisinopril 20mg x 1 Code Status & VTE Plan Code Status DNR/DNI - confirmed this twice with patient PG Care Time/CCT Total # of Minutes Spent Total Time Spent with Patient: Total time spent is greater than 50% in coordination of care (as documented) at patient's floor/unit and/or counseling patient: Coding Level of Care Code INT OBSERVATION CARE 50M LVL 2 Diagnoses Hypertensive urgency I16.0 Right ureteral stone N20.1 Lower extremity neuropathy G57.90 Hypertension I10 Chronic GERD K21.9 DVT prophylaxis Z29.9 Abnormal EKG R94.31
[2020-10-13] MEDS ORDERED: TAMSULOSIN HCL 0.4 MG CAP PO ONE (16:40)
[2020-10-13] MEDS ORDERED: lisinopril 20 MG TAB PO STA (16:40)
[2020-10-13] MEDS ORDERED: SODIUM CHLORIDE 0.9% 1000ML 1,000 ML IV SCH (18:52)
[2020-10-13] MEDS ORDERED: ONDANSETRON INJ 2 MG/ML 2 ML VIAL IV PRN (18:52)
[2020-10-13] MEDS ORDERED: ACETAMINOPHEN 325 MG TAB ONE (20:07)
[2020-10-13] MEDS: traZODone HCL 100 MG TAB PO SCH (23:31)
[2020-10-13] MEDS: GABAPENTIN 600 MG TAB PO SCH (23:31)
[2020-10-14 05:16] LABS: BUN Creatinine Ratio 21.3 (10-20); Calcium 8.4 mg/dl (8.5-10.1); Creatinine Clr Calc Pharmacy 88.9 ml/min; Est GFR (African American) 105.4 ml/min; Est GFR (Non-African American) 90.9 ml/min; Potassium 3.7 mmol/L (3.5-5.1)
[2020-10-14 05:27] LABS: Thyroid Stimulating Hormone 1.45 uIu/ml (0.300-4.500)
[2020-10-14] MEDS: PANTOprazole 40 MG TAB PO SCH (05:59)
--- NOTE | 2020-10-14 07:01 | Electrocardiogram Report ---
Test Reason : Blood Pressure : / mmHG Vent. Rate : 078 BPM Atrial Rate : 078 BPM P-R Int : 134 ms QRS Dur : 092 ms QT Int : 388 ms P-R-T Axes : 048 035 -05 degrees QTc Int : 442 ms Sinus rhythm Cannot rule out Inferior infarct (cited on or before 23-APR-2017) Possible Left ventricular hypertrophy Abnormal ECG When compared with ECG of 15-SEP-2018 19:02, QT has shortened Confirmed by Juan Daniel Bravo ([id number]) on 10/14/2020 7:01:37 AM Referred By: Jean Claude Luevano Confirmed By:Juan Daniel Bravo
[2020-10-14] MEDS: GABAPENTIN 600 MG TAB PO SCH ×3 (08:27→22:48)
[2020-10-14] MEDS: lisinopril 20 MG TAB PO SCH (08:27)
[2020-10-14] MEDS: MULTIVITAMIN TAB PO SCH (08:28)
[2020-10-14] MEDS: TAMSULOSIN HCL 0.4 MG CAP PO SCH (08:28)
--- NOTE | 2020-10-14 11:52 | Hospitalist Progress Note ---
Date of Service October 14, 2020 Assessment & Plan (1) Hypertensive urgency: Plan: Resolved now on her usual medications. Mild cognitive impairment noted by family and possibly missed medications Also secondary to pain (2) Hypertension: Plan: Cont lisinopril and flomax. Consider switching lisinopril for thiazide diuretic given recurrent renal stones. (3) Right ureteral stone: Plan: 8mm mid-ureteral stone on right, and several other distal ureteral stones on right as well. Continue flomax. Strain all urine. Pain meds if any pain overnight. Continue to monitor BMP I suspect she will not tolerate outpatient management of this as likely to have recurrent hypertensive urgency and intolerably pain, especially if she has to wait 2 weeks for treatment. Will consult urology to consider inpatient management. (4) Lower extremity neuropathy: Plan: Cont gabapentin TID. She also takes lyrica qod (uncertain why both meds). (5) Chronic GERD: Plan: PPI daily (6) Abnormal EKG: Plan: LVH on EKG by voltage criteria. Q's inferior leads. TTE pending Telemetry. Fortunately no ischemic symptoms at this time. (7) DVT prophylaxis: Plan: Low risk given no active infection. SCDs Plan: observation status for now Admission and Anticipated Discharge Date Admission Date: October 13, 2020 Subjective No pain renal colic overnight. Hypertension now resolved. No dizziness, vision changes or headache. Review of Systems Review of Systems: All systems reviewed & are unremarkable except as noted in HPI & below Physical Exam Constitutional: well developed, well nourished and + obese; no acute distress Eyes: + anicteric sclerae; normal pupil size ENMT: external ear and nose normal, oropharynx normal Neck: trachea midline, no thyromegaly Respiratory: normal respiratory effort, lungs clear to auscultation Cardiovascular: RRR, no murmur, no edema Heart Sounds: normal S1 and normal S2 Extremities: normal capillary refill; no calf tenderness and no pedal edema Gastrointestinal (Abdomen): normal bowel sounds, soft, nontender, no hepatosplenomegaly no flank tenderness Musculoskeletal: no cyanosis or clubbing, extremities motor strength 5/5 Skin: no rashes, warm and dry Neurologic: moves all extremities and awake Psychiatric: A+Ox3, euthymic affect Genitourinary: + CVA tenderness (b/l equal) Results & Data Results & Data ([facility]) Vital Signs (Past 12 Hours) Vital Signs Temp Pulse Resp BP Pulse Ox 10/14/20 08:00 36.8 C 10/14/20 07:21 85 15 124/58 L 93 10/14/20 05:21 77 18 156/69 H 95 10/14/20 04:21 82 23 134/76 95 10/14/20 04:00 36.7 C 10/14/20 03:21 79 16 146/70 H 96 10/14/20 00:21 79 19 155/83 H 96 10/14/20 00:00 82 PG Care Time/CCT Total # of Minutes Spent Total Time Spent with Patient: Total time spent is greater than 50% in coordination of care (as documented) at patient's floor/unit and/or counseling patient: Coding Level of Care Code 18080 Subseq Obs Care Lvl 2 Diagnoses Hypertensive urgency I16.0 Hypertension I10 Right ureteral stone N20.1 Lower extremity neuropathy G57.90 Chronic GERD K21.9 Abnormal EKG R94.31 DVT prophylaxis Z29.9
[2020-10-14] MEDS: ACETAMINOPHEN 325 MG TAB PO PRN ×2 (13:11→22:49)
--- NOTE | 2020-10-14 13:36 | Urology Consultation ---
Date of Consultation October 14, 2020 Assessment & Plan (1) Hypertensive urgency: Stablizing. Improved. (2) Right ureteral stone: History of severe stones with stricture and obstruction. Previously trouble with stent placement due to stone burden. Multiple ureteral stones. Imaging reviewed and interpreted by myself. Obstructing stones in ureter. Risks and benefits discussed at length for procedure. These include bleeding, infection, injury to surrounding tissues or organs, and risks associated with anesthesia. Patient states understanding and agrees to proceed. Will sign consent and proceed. Plan for cystoscopy and right ureteroscopy and stone treatment likely tomorrow. Will await Hospitalist to confirm medically stable. Continue supportive care. (3) Abnormal EKG: History of Present Illness Attending Physician: Israel Wilkes MD History of Present Illness New consultation for well known patient. Was being worked up as O/p for stone treatment. Found to be in HTN urgency/emergency. Was sent for emergency evaluation. Has been stabilized overnight. Patient has history of severe stones. Currently, patient with stone, discomfort, obstruction, and ill feelings. Patient developed sudden onset of pain into flank going down and radiating into groin and back in waves comes and goes. Can be severe at times. Discussed and reviewed patient's family history for any history of stone disease. Also, discussed patient's medical surgery history especially related to any history of urinary issues or stone disease. Patient was admitted and is undergoing observation. Has been hydrating. BP improving. Allergies Allergy/AdvReac Type Severity Reaction Status Date / Time amlodipine Allergy Severe Anaphylaxis Verified 10/13/20 14:19 benzocaine Allergy Severe Anaphylaxis Verified 10/13/20 14:19 [From [facility] (with benzocaine)] Iodinated Contrast Media Allergy Severe ANAPHYLAXIS Verified 10/13/20 14:19 Penicillins Allergy Severe ANAPHYLAXIS Verified 10/13/20 14:19 trimethobenzamide Allergy Severe ANAPHYLAXIS Verified 10/13/20 14:19 lactose Allergy Intermediate Gastrointestinal Verified 10/13/20 14:19 symptoms Home Medications Medication Instructions Recorded Confirmed Type multivitamin 1 tab PO QAM #90 tab 09/23/18 10/13/20 Rx pregabalin 75 mg capsule (Lyrica) 75 mg PO QAM 08/23/19 10/13/20 History furosemide 20 mg tablet 10 mg PO DAILY PRN #20 tab 09/14/19 10/13/20 Rx trazodone 100 mg tablet 100 mg PO HS #90 tab 09/14/19 10/13/20 Rx gabapentin 600 mg tablet 600 mg PO TID 30 Days #270 tab 09/30/19 10/13/20 Rx lisinopril 20 mg tablet 20 mg PO QAM 10/10/20 10/13/20 History pantoprazole 40 mg tablet,delayed 40 mg PO DAILYBB 10/13/20 10/13/20 History release tamsulosin 0.4 mg capsule 0.4 mg PO QAM 10/13/20 10/13/20 History Patient History Medical History Anxiety Chondrocalcinosis Chronic diarrhea Chronic GERD Colitis Endometriosis Hiatal hernia Hypertension Insomnia Lower extremity neuropathy Nephrolithiasis Recurrent CaOx kidney stones Osteoarthritis Peripheral neuropathy Vitamin D deficiency Surgical History History of ankle surgery b/l ankle, tarsal tunnel surgery History of appendectomy History of section x2 History of cholecystectomy History of colonoscopy History of cystoscopy STONE REMOVAL/STENTS (MULTIPLE TIMES) History of esophagogastroduodenoscopy (EGD) 08/08/2017. sedation, no issues. History of lithotripsy MULTIPLE TIMES History of tonsillectomy History of tooth extraction History of total abdominal hysterectomy and bilateral salpingo-oophorectomy Status post Will fundoplication Family History Father , age 76; multiple MIs Myocardial infarction Mother , age 49 Myocardial infarction Other No family history of adverse response to anesthesia Denies family history of Ovarian cancer Prostate cancer Crohn's disease Breast cancer Colorectal cancer Inflammatory bowel disease Social History Smoking Status: Never smoker Second Hand Exposure: Yes (parents smoked); Hx Alcohol Use: No Hx Substance Use: No Preferred Language: Japanese Communication Ability: Effective Visual Impairment: No Limitations Hearing Ability: Use of Hearing Aid [employer] Required: No Beliefs That Will Affect Care: None marital status: Current Living Situation: Spouse Current Living Situation Comment: house, one floor and finished basement 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 status: 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 Patient is well nourished and well kept. HEENT: Normocephalic Atraumatic. Inspection normal. Cranial Nerves 2-12 Grossly intact. Nares are clear. Neck is supple. Normal inspection of face. N ormal inspection of neck. Neurologic: No deficits on inspection. Baseline for motor function and sensory. Psychologic: Normal affect. Respiratory: Nonlabored. No use of accessory muscles. No tachypnea or dyspnea. Cardiovascular: No tachycardia Skin: [employer] and Dry. No rashes or visible lesions. Extremities: Moving without issues. No motor deficits on inspection Lymphatics: No edema Abdomen: Soft Non-distended. No acites. No rebound or guarding. Results & Data ([facility]) Vital Signs (Past 12 Hours) Vital Signs Temp Pulse Resp BP Pulse Ox 10/14/20 08:00 36.8 C 10/14/20 07:21 85 15 124/58 L 93 10/14/20 05:21 77 18 156/69 H 95 10/14/20 04:21 82 23 134/76 95 10/14/20 04:00 36.7 C 10/14/20 03:21 79 16 146/70 H 96 PG Care Time/CCT Total # of Minutes Spent Total Time Spent with Patient: Total time spent is greater than 50% in coordination of care (as documented) at patient's floor/unit and/or counseling patient: Coding Level of Care Code 33206 Inpt Consult Level 5 Diagnoses Hypertensive urgency I16.0 Right ureteral stone N20.1 Abnormal EKG R94.31
--- NOTE | 2020-10-14 13:47 | XCELERA ---
[id number]
[2020-10-14 17:14] LABS: Appearance Urine Clear (Clear); Bacteria Urine Automated Negative (Negative); Bilirubin Urine Negative (Negative); Blood Urine Trace (Negative); Color Urine Yellow; Glucose Urine UA Negative (Negative); Ketones Urine Negative (Negative); Leukocyte Esterase Urine 1+ (Negative); Nitrite Urine Negative (Negative); Protein Urine Negative (Negative); RBC Urine Automated 0-4 /hpf (0-4); Urobilinogen Urine Negative (Negative); pH Urine 6.5 (4.5-7.5)
--- NOTE | 2020-10-14 21:58 | Anesthesiology Consultation ---
Date of Service October 14, 2020 Assessment & Plan (1) Encounter for pre-operative examination: Chart Review Chart Review: Acceptable Risk for Surgery and Patient NOT seen in Pre Admission Testing covid neg 10/13/20 Consults Requested none History Surgery Operation Date: 10/15/20 08:30 Proposed Procedures p Cystoscopy(Right) - Jean Claude Luevano, DO Height/Weight Height: 5 ft 3 in Weight: 87.1 kg Allergies Allergy/AdvReac Type Severity Reaction Status Date / Time amlodipine Allergy Severe Anaphylaxis Verified 10/13/20 14:19 benzocaine Allergy Severe Anaphylaxis Verified 10/13/20 14:19 [From [facility] (with benzocaine)] Iodinated Contrast Media Allergy Severe ANAPHYLAXIS Verified 10/13/20 14:19 Penicillins Allergy Severe ANAPHYLAXIS Verified 10/13/20 14:19 trimethobenzamide Allergy Severe ANAPHYLAXIS Verified 10/13/20 14:19 lactose Allergy Intermediate Gastrointestinal Verified 10/13/20 14:19 symptoms Medications Home Medications Medication Instructions Recorded Confirmed Last Taken multivitamin 1 tab PO QAM #90 tab 09/23/18 10/13/20 10/12/20 pregabalin 75 mg capsule (Lyrica) 75 mg PO QAM 08/23/19 10/13/20 10/12/20 furosemide 20 mg tablet 10 mg PO DAILY PRN #20 tab 09/14/19 10/13/20 Unknown trazodone 100 mg tablet 100 mg PO HS #90 tab 09/14/19 10/13/20 10/12/20 gabapentin 600 mg tablet 600 mg PO TID 30 Days #270 tab 09/30/19 10/13/20 10/12/20 lisinopril 20 mg tablet 20 mg PO QAM 10/10/20 10/13/20 10/12/20 pantoprazole 40 mg tablet,delayed 40 mg PO DAILYBB 10/13/20 10/13/20 10/12/20 release tamsulosin 0.4 mg capsule 0.4 mg PO QAM 10/13/20 10/13/20 10/12/20 Active Medications Generic Name Dose Route Start Last Admin Trade Name Freq PRN Reason Stop Dose Admin Acetaminophen 650 mg 10/13/20 19:57 10/14/20 13:11 Acetaminophen 325 Mg Tab PO 11/12/20 19:56 650 mg Q4H PRN Administration Headache Gabapentin 600 mg 10/13/20 21:00 10/14/20 13:09 Gabapentin 600 Mg Tab PO 11/12/20 20:59 600 mg TID MARCELINA Administration Lisinopril 20 mg 10/14/20 09:00 10/14/20 08:27 Lisinopril 20 Mg Tab PO 11/13/20 08:59 20 mg QAM MARCELINA Administration Multivitamins 1 tab 10/14/20 09:00 10/14/20 08:28 Multivitamin Tab PO 11/13/20 08:59 1 tab QAM MARCELINA Administration Pantoprazole Sodium 40 mg 10/14/20 06:30 10/14/20 05:59 Pantoprazole 40 Mg Tab PO 11/13/20 06:29 40 mg DAILYBB MARCELINA Administration Tamsulosin HCl 0.4 mg 10/14/20 09:00 10/14/20 08:28 Tamsulosin Hcl 0.4 Mg Cap PO 11/13/20 08:59 0.4 mg QAM MARCELINA Administration Trazodone HCl 100 mg 10/13/20 21:00 10/13/20 23:31 Trazodone Hcl 100 Mg Tab PO 11/12/20 20:59 100 mg HS MARCELINA Administration Past Medical History Medical History (Updated 10/14/20 @ 22:00 by Kennedy Murray MD) Anxiety Chondrocalcinosis Chronic diarrhea Chronic GERD Colitis Endometriosis Hiatal hernia Hypertension Insomnia Lower extremity neuropathy Nephrolithiasis Recurrent CaOx kidney stones Osteoarthritis Peripheral neuropathy Vitamin D deficiency Past Family History Family History Father , age 76; multiple MIs Myocardial infarction Mother , age 49 Myocardial infarction Other No family history of adverse response to anesthesia Denies family history of Ovarian cancer Prostate cancer Crohn's disease Breast cancer Colorectal cancer Inflammatory bowel disease Past Surgical History Surgical History History of ankle surgery b/l ankle, tarsal tunnel surgery History of appendectomy History of section x2 History of cholecystectomy History of colonoscopy History of cystoscopy STONE REMOVAL/STENTS (MULTIPLE TIMES) History of esophagogastroduodenoscopy (EGD) 08/08/2017. sedation, no issues. History of lithotripsy MULTIPLE TIMES History of tonsillectomy History of tooth extraction History of total abdominal hysterectomy and bilateral salpingo-oophorectomy Status post Will fundoplication Social History Smoking Status: Never smoker Hx Alcohol Use: No Hx Substance Use: No substance use type: does not use Physical Exam Vital Signs Last Vital Signs Temp 36.7 C 10/14/20 13:53 Pulse 88 10/14/20 13:53 Resp 16 10/14/20 13:53 BP 136/71 10/14/20 13:53 Pulse Ox 93 10/14/20 13:53 Testing Laboratory Results 10/13/20 14:08 10/14/20 04:24 APTT 22.1 Seconds (21.0-31.0) 10/13/20 14:08 Urine Color Yellow 10/14/20 17:03 Urine Appearance Clear (Clear) 10/14/20 17:03 Urine pH 6.5 (4.5-7.5) 10/14/20 17:03 Ur Specific [place] 1.010 (1.000-1.030) 10/14/20 17:03 Urine Protein Negative (Negative) 10/14/20 17:03 Urine Glucose (UA) Negative (Negative) 10/14/20 17:03 Urine Ketones Negative (Negative) 10/14/20 17:03 Urine Nitrite Negative (Negative) 10/14/20 17:03 Ur Leukocyte Esterase 1+ (Negative) H 10/14/20 17:03 Urine WBC (Auto) 10-30 /hpf (0-5) H 10/14/20 17:03 Urine RBC (Auto) 0-4 /hpf (0-4) 10/14/20 17:03 U Hyaline Cast (Auto) 1-5 /lpf (0-5) 10/14/20 17:03 U Epithel Cells (Auto) 10-20 /lpf (0-5) H 10/14/20 17:03 Urine Bacteria (Auto) Negative (Negative) 10/14/20 17:03 Electrocardiogram Date: 10/13/20 DICTATED BY: Juan Daniel Bravo MD Test Reason : Blood Pressure : / mmHG Vent. Rate : 078 BPM Atrial Rate : 078 BPM P-R Int : 134 ms QRS Dur : 092 ms QT Int : 388 ms P-R-T Axes : 048 035 -05 degrees QTc Int : 442 ms Sinus rhythm Cannot rule out Inferior infarct (cited on or before 23-APR-2017) Possible Left ventricular hypertrophy Abnormal ECG When compared with ECG of 15-SEP-2018 19:02, QT has shortened Confirmed by Juan Daniel Bravo ([id number]) on 10/14/2020 7:01:37 AM Echocardiogram Date: 10/14/20 LV Function: normal (55-60% EF ) Other Findings: + LVH Valvular Disease: + no significant valvular disease
[2020-10-14] MEDS: traZODone HCL 100 MG TAB PO SCH (22:48)
[2020-10-15] MEDS: PANTOprazole 40 MG TAB PO SCH ×2 (05:32→10:57)
[2020-10-15] MEDS ORDERED: fentaNYL citrate 100 MCG/2 ML VIAL ONE (08:16)
[2020-10-15] MEDS ORDERED: MIDAZOLAM HCL 1 MG/ML 2ML VIAL ONE (08:16)
[2020-10-15] MEDS ORDERED: fentaNYL citrate 100 MCG/2 ML VIAL IV PRN (08:33)
[2020-10-15] MEDS ORDERED: ONDANSETRON INJ 2 MG/ML 2 ML VIAL IV PRN (08:33)
[2020-10-15] MEDS ORDERED: HYDROmorphone INJ 1 MG/ML SYRINGE IV PRN (08:33)
[2020-10-15] MEDS ORDERED: ePHEDrine sulfate 50 MG/ML AMP IV PRN (08:33)
[2020-10-15] MEDS ORDERED: ATROPINE SULFATE 0.1 MG/ML 10ML SYR IV PRN (08:33)
[2020-10-15] MEDS ORDERED: CIPROFLOXACIN 400MG / 200ML D5W IV ONE (08:43)
[2020-10-15] MEDS: lisinopril 20 MG TAB PO SCH ×2 (08:44→10:57)
[2020-10-15] MEDS: TAMSULOSIN HCL 0.4 MG CAP PO SCH ×2 (08:44→10:57)
[2020-10-15] MEDS: GABAPENTIN 600 MG TAB PO SCH ×2 (08:44→14:17)
[2020-10-15] MEDS: MULTIVITAMIN TAB PO SCH ×2 (08:44→10:57)
--- NOTE | 2020-10-15 08:51 | Urology Progress Note ---
Date of Service October 15, 2020 Assessment & Plan (1) Right ureteral stone: Plan: Risks and benefits discussed at length for procedure. These include bleeding, infection, injury to surrounding tissues or organs, and risks associated with anesthesia. Patient states understanding and agrees to proceed. Will sign consent and proceed Plan cystoscopy and right ureteroscopy (2) Nephrolithiasis: (3) Hypertension: (4) Hypertensive urgency: Admission and Anticipated Discharge Date Admission Date: October 13, 2020 Subjective Patient admitted with stone and discomfort. Patient is afebrile. Has been undergoing maximum expulsion therapy with oral medications, IV medications, IV fluids, and oral intake. Is doing better without considerable increase in pain or major issues. Has not developed severe vomiting or other issues. Has not experienced fever or chills. Has been tolerating oral medications. Is tolerating fluids. Has noticed some frequency and urgency. Has not had severe pain in the back and flank. Does have occasional burning and irritation. No severe episodes or major changes. Patient does not believe the passed a stone. Has not passed a large amount of blood or debris that may be the stone. Review of Systems Review of Systems: All systems reviewed & are unremarkable except as noted in HPI & below Physical Exam Physical Exam: General: Alert in no acute distress. HEENT: Normocephalic Atraumatic. Inspection normal. Cranial Nerves 2-12 Grossly intact. Normal inspection of face. Normal inspection of neck. Psychologic: Normal affect. Respiratory: Nonlabored. No use of accessory muscles. No tachypnea or dyspnea. Cardiovascular: No tachycardia Skin: [employer] and Dry. No rashes or visible lesions. Extremities/Lymphatics: No edema Abdomen: Soft Non-distended. No rebound or guarding. Results & Data ([facility]) Vital Signs (Past 12 Hours) Vital Signs Temp Pulse Resp BP Pulse Ox 10/15/20 07:19 36.5 C 78 16 151/87 H 93 10/14/20 22:45 36.7 C 80 18 167/79 H 95 PG Care Time/CCT Total # of Minutes Spent Total Time Spent with Patient: Total time spent is greater than 50% in coordination of care (as documented) at patient's floor/unit and/or counseling patient: Coding Level of Care Code 62457 Subseq Hosp Care Lvl 3 Diagnoses Right ureteral stone N20.1 Nephrolithiasis N20.0 Hypertension I10 Hypertensive urgency I16.0
[2020-10-15] MEDS ORDERED: PREGABALIN 75 MG CAP PO SCH (09:00)
[2020-10-15] MEDS ORDERED: CIPROFLOXACIN / D5W 400 MG/200 ML BAG IV SCH (09:15)
[2020-10-15] MEDS ORDERED: DIATRIZOATE MEGLUMINE 30% 100ML VIAL INSTIL ONE (09:15)
[2020-10-15] MEDS ORDERED: ONDANSETRON INJ 2 MG/ML 2 ML VIAL ONE (09:26)
[2020-10-15] MEDS ORDERED: PROPOFOL IV EMULSION 10 MG/ML 20 ML VIAL IV ONE (09:26)
--- NOTE | 2020-10-15 09:41 | Operative Report ---
PG Post Operative Report Pre & Post Diagnosis Operation Date: 10/15/20 08:30 Pre-Op Diagnosis: Right Ureteral Stone Post-Op Diagnosis: Right Ureteral Stone I identified the patient and participated in the time-out.: Yes Procedure Operation Date: 10/15/20 08:30 Actual Procedures p Cystoscopy with Right Ureteroscopy, Retrograde Pyelogram, Laser Lithotripsy, Stone Basket Extraction, and Stent Insertion Right(Right) - Jean Claude Luevano DO Surgeon Jean Claude Luevano, II, DO Medical Reviewer None Estimated Blood Loss 1 Findings Consistent with Post-Op Diagnosis Stone destroyed to dust and small fragments and larger fragments removed. 3 large stones in ureter. Large lower pole stone. Specimens Stone Fragments Right Ureter Drains 6 Fr x 24 cm Right Anesthesia Type General Complications none Disposition Disposition: Recovery Room Indications Patient with bothersome stones. Risks and benefits discussed at length. Description of Procedure Patient was consented and brought back to the operating room. Patient was placed under anesthesia in the supine position and moved to the dorsal lithotomy position. Patient was prepped and draped in the regular sterile fashion. A time out was completed. A 30degree Cystoscope was placed into the bladder and the entire bladder was examined. The UO's were identified. The UO was cannulized with a catheter and a retrograde pyelogram was completed. A wire was then placed. The Rigid ureteroscope was taken into the ureter. The stones were identified. A laser fiber was selected and the stones were pulverized to dust and small fragments. Larger fragments were grasped and removed and sent for analysis. A second wire was then placed and the rigid scope removed. The flexible scope was then taken over the second wire and advanced to the proximal ureter and renal pelvis. The entire pelvis was examined and the stones were further treated with the laser and basketed for removal. The entire area was once again examined. No residual large fragments or areas of concern were noted. The scope was slowly removed with the wire left in place. Contrast was placed through the scope for a pyelogram to assist in stent placement. The entire ureter was examined as the scope was slowly removed. No obstructions or other areas of concern were noted. With the wire in place, a 6 Fr Double J stent was placed. It was confirmed with fluoroscopy. With the stent in place, the bladder was emptied. The scope was removed. The patient was cleaned, aroused from anesthesia, and transferred to the pacu in stable condition having tolerated the procedure well with no complications. I was present and participated in all aspects of the procedure. The patient will be monitored in the PACU until transferred. Plan to remove stent in 2-3 weeks. I attest to the content of the Intraoperative Record and any orders documented therein. Any exceptions are noted below.
[2020-10-15] MEDS ORDERED: diphenhydrAMINE 50 MG/ML VIAL ONE (09:56)
--- NOTE | 2020-10-15 09:58 | Fluoroscopy Report ---
FL retrograde includes kub CLINICAL HISTORY: RT STENT PLACEMENT COMPARISON STUDY: May 15, 2017 FLUOROSCOPY TIME: 42 seconds. NUMBER OF FLUOROSCOPIC IMAGES: 2 FINDINGS: Intraoperative fluoroscopic images are presented for review and show distal aspect of the right urina ry stent projects into the pelvic region. Proximal aspect of the urinary stent is seen projecting to the anatomical region of the right kidney with opacification of dilated right renal pelvis. IMPRESSION: As above. ACT 112: Negative or not required by law. The above report was generated using voice recognition software. It may contain grammatical, syntax o r spelling errors. Electronically signed by: Chantale Marin DO 10/15/2020 9:57 AM
--- NOTE | 2020-10-15 10:41 | Anesthesiology Progress Note ---
Date of Service October 15, 2020 Anesthesia Post Procedure Vital Signs Vital Signs: Temp Pulse Pulse Resp BP BP Pulse Ox 10/15/20 10:20 36.8 C 72 14 146/79 H 95 10/15/20 10:10 93 H 18 146/81 H 95 10/15/20 10:00 97 H 18 164/93 H 100 10/15/20 09:53 36.5 C 100 H 18 167/80 H 100 10/15/20 07:19 36.5 C 78 16 151/87 H 93 10/14/20 22:45 36.7 C 80 18 167/79 H 95 10/14/20 13:53 36.7 C 88 16 136/71 93 Pain Intensity Right Eye: Pain Intensity: 5 Transfer of Care Handoff Completed per policy Notes Mental Status: alert / awake / arousable and participated in evaluation Patient Amnestic to Procedure: Yes Nausea / Vomiting: adequately controlled Pain: adequately controlled Airway Patency, RR, SpO2: stable & adequate BP & HR: stable & adequate Hydration State: stable & adequate Anesthetic Complications: no major complications apparent
--- NOTE | 2020-10-15 14:24 | Discharge Summary ---
Date of Service October 15, 2020 Admission HPI Per Admitting Provider 75yo female with h/o HTN and prior calcium-based kidney stones who presented today [place] [facility] [place] to discuss options for kidney stones. She underwent a KUB x-ray on 10/10 showing stones, then a CT abd/pelvis yesterday confirming multiple right-sided obstructing stones including an 8mm mid-ureter stone. Records indicate she had had dysuria and abdominal discomfort for 1-2 weeks prior to the imaging being obtained this week. During the visit today her BP was checked and her SBP was found to be 220. She was promptly referred to the ER for evaluation. Patient states that she simply didn't "feel right" this am. She did not take her BP meds this am. Does not check her BPs at home. Normally at her PCP's office her SBPs typically run 140 or less. During my admission assessment I rechecked her BPs - systolics ranged 180-200. She asked for a dinner tray and said she otherwise feels fine. She is most concerned about her kidney stones. Discharge Data Allergies Allergy/AdvReac Type Severity Reaction Status Date / Time amlodipine Allergy Severe Anaphylaxis Verified 10/13/20 14:19 benzocaine Allergy Severe Anaphylaxis Verified 10/13/20 14:19 [From [facility] (with benzocaine)] Iodinated Contrast Media Allergy Severe ANAPHYLAXIS Verified 10/13/20 14:19 Penicillins Allergy Severe ANAPHYLAXIS Verified 10/13/20 14:19 trimethobenzamide Allergy Severe ANAPHYLAXIS Verified 10/13/20 14:19 lactose Allergy Intermediate Gastrointestinal Verified 10/13/20 14:19 symptoms Consultations 10/13/20 14:47 ED Decision to Admit Stat 10/14/20 11:46 Consult Urology Routine Procedures Performed Operation Date: 10/15/20 08:30 Actual Procedures p Cystoscopy, Ureteroscopy, Retrograde Pyelogram, Laser Lithotripsy, Stone Basket Extraction, Stent Insertion Right(Right) - Jean Claude Leuvano, Ordered Studies 10/13/20 12:47 US renal/blad retro comp Stat 10/15/20 09:00 FL retrograde includes kub Routine Hospital Course (1) Hypertensive urgency: Resolved now on her usual medications. Mild cognitive impairment noted by family and possibly missed medications Also secondary to pain (2) Hypertension: Cont lisinopril and flomax. Consider switching lisinopril for thiazide diuretic given recurrent renal stones. (3) Right ureteral stone: 8mm mid-ureteral stone on right, and several other distal ureteral stones on right as well. Continue flomax. Strain all urine. Pain meds if any pain overnight. Continue to monitor BMP I suspect she will not tolerate outpatient management of this as likely to have recurrent hypertensive urgency and intolerably pain, especially if she has to wait 2 weeks for treatment. Will consult urology to consider inpatient management. (4) Lower extremity neuropathy: Cont gabapentin TID. She also takes lyrica qod (uncertain why both meds). (5) Chronic GERD: PPI daily (6) Abnormal EKG: LVH on EKG by voltage criteria. Q's inferior leads. TTE pending Telemetry. Fortunately no ischemic symptoms at this time. (7) DVT prophylaxis: Low risk given no active infection. SCDs observation status for now Discharge Plan Discharge Items Patient Disposition: Home - Self-Care Reason For Visit: HYPERTENSIVE URGENCY, Ureterolithiasis Discharge Diagnosis: Hypertensive urgency Ureterolithiasis Activity: Resume your previous activity Non-emergency contact: Primary Care Provider and Urologist Call non-emergency contact if: you have any medication questions and your symptoms worsen Follow-up/Referrals: Jean Claude Luevano, [Physician] - Jonathon Cha [Primary Care Provider] - Diet: Heart Healthy Addtl Attending Provider Instructions: You were observed to [facility] from October 13 - 2020 due to elevated blood pressure. You were diagnosed with hypertensive urgency which improved with your usual blood pressure medication. Suspect this is somewhat due to pain from your kidney stones. In order to avoid hypertensive urgency again, lithotripsy this was performed during you inpatient stay. Laser lithotripsy was performed by Dr Luevano on October 15 with right stent insertion. Please follow up with urology as above with plans to remove right stent in approximately 2-[address] Israel Wilkes Pending Studies at Discharge: Yes Stand-Alone Forms: My [facility], Smoking Cessation Medications and DC Order Prescriptions: Continued trazodone 100 mg tablet 100 mg PO HS Qty: 90 RF: 1 gabapentin 600 mg tablet 600 mg PO TID 30 Days Qty: 270 RF: 1 pregabalin [Lyrica] 75 mg capsule 75 mg PO QAM RF: 0 furosemide 20 mg tablet 10 mg PO DAILY PRN (Reason: edema) Qty: 20 RF: 2 multivitamin tablet 1 tab PO QAM Qty: 90 RF: 1 lisinopril 20 mg tablet 20 mg PO QAM RF: 0 tamsulosin 0.4 mg capsule 0.4 mg PO QAM RF: 0 pantoprazole 40 mg tablet,delayed release (DR/EC) 40 mg PO DAILYBB RF: 0 Discharge Orders: Discharge Order (Routine); Ordered 10/15/20 Ordered By: Israel Wilkes Admission Data Admit Date/Time: 10/13/20 17:24 Attending Provider: Israel Wilkes Admit Provider: Israel Chi Primary Care Provider: Jonathon Cha Other Providers: Jean Claude Luevano Coding Diagnoses Hypertensive urgency I16.0 Hypertension I10 Right ureteral stone N20.1 Lower extremity neuropathy G57.90 Chronic GERD K21.9 Abnormal EKG R94.31 DVT prophylaxis Z29.9
== END 2020-10-15 16:08 | disposition home or self-care (01) ==
LOC: 1E 11:06 → ED 11:06 → SUATTDRO 17:24 → 1E 18:12 → 3W 10-14 11:47

== ENCOUNTER 2020-12-04 11:31 | Inpatient (IN) ==
--- NOTE | 2020-12-04 14:29 | Emergency Department Note ---
Impression & Plan Hypertension, Renal colic ED Provider Note NAME: PATY BALTAZAR AGE: 75 SEX: F : 1945 ARRIVES VIA: Walk-In INFORMANT: Patient, ED PROVIDER(S): Macario Land MD Chief Complaint: Renal colic, hypertension HPI: Patient is presenting concern for the above symptoms. Patient states she has had some renal colic for approximately 2 weeks. Patient's pain is right- sided and achy. It is not improved with at home pain medication. Patient was recently seen in the urology office and has followed with Dr. Luevnao in the past. Patient has had worsening pain and discomfort and sent in by the physician regulatory assistant today because of her renal colic. Patient does complain of flank pain. Patient's pain is mostly lower abdomen and suprapubic area. Tenderness and patient does have some mild right-sided flank discomfort. Patient recently had stent removal completed last week. Patient is also having mild right-sided headache. Patient not had any fevers chills or shortness of breath. Patient is vaccinated for Covid. The patient did take her at home morning blood pressure medication along with her reflux medication. Patient denies any recent changes in medications or missed doses. There was discussion that the patient undergo repeat pyelogram and possible treatments of her kidney stones. The patient states that she does have 3 still present. ROS: See HPI for pertinent positives and negatives. A total of 10 systems were reviewed and otherwise negative. Past medical history: See below Surgical history: See below Social history: See below Physical Exam: GENERAL: NAD, wearing glasses, wearing a mask, non-toxic. EYE EXAM: Normal conjunctiva. PERRL, no anisocoria and EOM's grossly intact w/o pain. NECK: Supple, no nuchal rigidity, no adenopathy, non-tender. No signs of meningismus. LUNGS: Clear to auscultation. Normal chest wall mechanics. HEART: NSR, no MRG. ABDOMEN: Abdomen soft, mild suprapubic and right-sided abdominal discomfort without peritonitis, normo-active bowel sounds, no masses, no rebound or guarding. BACK: No CVA TTP. SKIN: No rashes and no bruising. UPPER EXTREMITIES: Upper extremities are grossly normal. LOWER EXTREMITIES: Grossly normal, no edema. NEURO EXAM: A&O x3, cranial nerves II-XII grossly intact, normal speech, moves all 4 extremities on command w/o issue. Differential diagnoses: Renal colic, UTI, appendicitis, diverticulitis, mesenteric ischemia, aortic pathology, infections, inflammatory bowel disease, PUD, biliary pathology, as well as other pathologies. Course: Patient was seen and evaluated the bedside. Full history physical exam was performed. EKG interpreted by me Normal sinus rhythm, rate of 78, normal intervals, normal axis, T wave inversion inferiorly. No significant change from comparison EKG October 13, 2020. Imaging Studies: See Below Cardiac monitoring: An order was placed for continuous cardiac monitoring. The monitor shows a rate of 75 with sinus rhythm. MDM: Patient does present with concern for flank pain and hypertension. The patient was referred here and there is plan that the patient will have a repeat pyelogram and any additional procedure for renal colic per urology. Blood work was obtained and the patient was treated symptomatically. WBC H&H and platelet count unremarkable. The patient's kidney function is unremarkable. Urinalysis does show whites and calcium. Covid negative. I did speak the on-call hospitalist Dr. Wilkes and the patient was admitted to the medicine service. Past Med/Surg History Medical History Anxiety Chondrocalcinosis Chronic diarrhea Chronic GERD Colitis Endometriosis Hiatal hernia Hypertension Insomnia Lower extremity neuropathy Nephrolithiasis Recurrent CaOx kidney stones Osteoarthritis Peripheral neuropathy Vitamin D deficiency Surgical History History of ankle surgery b/l ankle, tarsal tunnel surgery History of appendectomy History of section x2 History of cholecystectomy History of colonoscopy History of cystoscopy STONE REMOVAL/STENTS (MULTIPLE TIMES) History of esophagogastroduodenoscopy (EGD) 08/08/2017. sedation, no issues. History of lithotripsy MULTIPLE TIMES History of tonsillectomy History of tooth extraction History of total abdominal hysterectomy and bilateral salpingo-oophorectomy Status post Will fundoplication Family History Father , age 76; multiple MIs Myocardial infarction Mother , age 49 Myocardial infarction Other No family history of adverse response to anesthesia Denies family history of Ovarian cancer Prostate cancer Crohn's disease Breast cancer Colorectal cancer Inflammatory bowel disease Social History Smoking Status: Never smoker Second Hand Exposure: Yes (parents smoked); Hx Alcohol Use: No Hx Substance Use: No Preferred Language: Georgian Communication Ability: Effective Visual Impairment: No Limitations Hearing Ability: Use of Hearing Aid Cable Weaver Required: No Beliefs That Will Affect Care: None marital status: Current Living Situation: Spouse Current Living Situation Comment: house, one floor and finished basement 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 status: retired 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 How many Children do You have: 2 Feels Safe at Home: Yes Dental Care, Regularly: Yes Seatbelt Use: always Assistive Devices: Glasses Allergies Allergies Allergy/AdvReac Type Severity Reaction Status Date / Time amlodipine Allergy Severe Anaphylaxis Verified 12/04/20 10:50 benzocaine Allergy Severe Anaphylaxis Verified 12/04/20 10:50 [From [facility] (with benzocaine)] Iodinated Contrast Media Allergy Severe ANAPHYLAXIS Verified 12/04/20 10:50 Penicillins Allergy Severe ANAPHYLAXIS Verified 12/04/20 10:50 trimethobenzamide Allergy Severe ANAPHYLAXIS Verified 12/04/20 10:50 lactose Allergy Intermediate Gastrointestinal Verified 12/04/20 10:50 symptoms Home Meds Home Medications Medication Instructions Recorded Confirmed pregabalin 75 mg capsule (Lyrica) 75 mg PO QAM 08/23/19 12/04/20 lisinopril 20 mg tablet 20 mg PO QAM 10/10/20 12/04/20 pantoprazole 40 mg tablet,delayed 40 mg PO DAILYBB 10/13/20 12/04/20 release Previous Rx's Medication Instructions Recorded multivitamin 1 tab PO QAM #90 tab 09/23/18 trazodone 100 mg tablet 100 mg PO HS #90 tab 09/14/19 gabapentin 600 mg tablet 600 mg PO TID 30 Days #270 tab 09/30/19 oxybutynin chloride 5 mg tablet 5 mg PO BID PRN #10 tab 10/30/20 phenazopyridine 200 mg tablet 200 mg PO TID PRN #10 tab 10/30/20 (Pyridium) oxycodone-acetaminophen 5 mg-325 1 tab PO Q8H PRN #7 tab 12/04/20 mg tablet (Percocet) tamsulosin 0.4 mg capsule 0.4 mg PO QPM #30 cap 12/04/20 Results & Data (ED) Vital Signs Vital Signs - 24 hr 12/04/20 12:17 12/04/20 15:04 12/04/20 15:10 Temperature 36.2 C L Temperature Source Temporal Artery Scan Pulse Rate 80 83 81 Pulse Rate from SpO2 Sensor 83 81 Respiratory Rate 20 19 27 H Respiratory Effort / Characteristics Non-Labored Respiratory Depth Normal Respiratory Pattern Regular Blood Pressure 193/100 H Blood Pressure Mean 131 Pulse Oximetry 96 97 97 Oxygen Delivery Method Room Air Sepsis Recent Fever Within 48 Hours No Sepsis New/Unexplained Change in Mental Status No Sepsis Action Taken by Nursing No Action Required 12/04/20 15:30 12/04/20 16:03 12/04/20 16:10 Temperature Temperature Source Pulse Rate 76 Pulse Rate from SpO2 Sensor 73 81 81 Respiratory Rate 13 Respiratory Effort / Characteristics Respiratory Depth Respiratory Pattern Blood Pressure 204/102 H Blood Pressure Mean 136 Pulse Oximetry 97 95 92 Oxygen Delivery Method Sepsis Recent Fever Within 48 Hours Sepsis New/Unexplained Change in Mental Status Sepsis Action Taken by Nursing 12/04/20 16:20 12/04/20 16:30 12/04/20 16:40 Temperature Temperature Source Pulse Rate 73 Pulse Rate from SpO2 Sensor 77 76 73 Respiratory Rate 16 Respiratory Effort / Characteristics Respiratory Depth Respiratory Pattern Blood Pressure Blood Pressure Mean Pulse Oximetry 95 95 95 Oxygen Delivery Method Sepsis Recent Fever Within 48 Hours Sepsis New/Unexplained Change in Mental Status Sepsis Action Taken by Nursing 12/04/20 16:54 12/04/20 17:00 12/04/20 17:30 Temperature Temperature Source Pulse Rate 77 79 76 Pulse Rate from SpO2 Sensor 75 79 76 Respiratory Rate 17 19 16 Respiratory Effort / Characteristics Respiratory Depth Respiratory Pattern Blood Pressure 215/138 H 198/126 H Blood Pressure Mean 163 150 Pulse Oximetry 95 96 97 Oxygen Delivery Method Sepsis Recent Fever Within 48 Hours Sepsis New/Unexplained Change in Mental Status Sepsis Action Taken by Nursing 12/04/20 18:00 12/04/20 18:30 12/04/20 19:00 Temperature Temperature Source Pulse Rate 78 83 77 Pulse Rate from SpO2 Sensor 79 81 78 Respiratory Rate 19 26 H 17 Respiratory Effort / Characteristics Respiratory Depth Respiratory Pattern Blood Pressure 203/107 H 223/111 H 162/105 H Blood Pressure Mean 139 148 124 Pulse Oximetry 96 96 95 Oxygen Delivery Method Sepsis Recent Fever Within 48 Hours Sepsis New/Unexplained Change in Mental Status Sepsis Action Taken by Long Term Medications Current Medication List: was personally reviewed by me Laboratory Data Attestation: I reviewed the patient's lab results. Result diagrams: 12/04/20 15:37 12/04/20 15:37 Lab Results 12/04/20 12/04/20 12/04/20 Range/Units 12:40 15:37 15:37 WBC 6.65 (4.8-10.8) K/uL RBC 4.44 (4.2-5.4) M/uL Hgb 14.2 (12.0-16.0) g/dL Hct 41.8 (37-47) % MCV 94.1 (80-100) fL MCH 32.0 (25-34) pg MCHC 34.0 (32-36) g/dL RDW Std Deviation 45.4 (36.4-46.3) fL RDW Coeff of Gabriele 13.2 (11.5-14.5) % Plt Count 241 (130-400) K/uL MPV 9.5 (7.4-10.4) fL Immature Gran % (Auto) 0.3 % Neut % (Auto) 54.0 % Lymph % (Auto) 35.3 % Bosque % (Auto) 7.8 % Eos % (Auto) 2.3 % Baso % (Auto) 0.3 % Neut # (Auto) 3.59 (1.4-6.5) K/uL Lymph # (Auto) 2.35 (1.2-3.4) K/uL Bosque # (Auto) 0.52 (0.11-0.59) K/uL Eos # (Auto) 0.15 (0-0.5) K/uL Baso # (Auto) 0.02 (0-0.2) K/uL Immature Gran # (Auto) 0.02 (0.00-0.02) K/uL Sodium 139 (136-145) mmol/L Potassium 4.6 (3.5-5.1) mmol/L Chloride 105 (98-107) mmol/L Carbon Dioxide 26 (21-32) mmol/L Anion Gap 8.0 (3-11) BUN 17 (7-18) mg/dl Creatinine 0.82 (0.6-1.2) mg/dl Est Cr Clr Drug Dosing 64.3 ml/min Est GFR ( Amer) 82.3 ml/min Est GFR (Non-Af Amer) 71.0 ml/min BUN/Creatinine Ratio 20.7 H (10-20) Glucose 102 H (70-99) mg/dl Calcium 9.5 (8.5-10.1) mg/dl Total Bilirubin 0.4 (0.2-1) mg/dl AST 27 (15-37) U/L ALT 30 (12-78) U/L Alkaline Phosphatase 106 (45-117) U/L Total Protein 7.5 (6.4-8.2) gm/dl Albumin 3.8 (3.4-5.0) gm/dl Globulin 3.7 (2.5-4.0) gm/dl Albumin/Globulin Ratio 1.0 (0.9-2) Lipase 180 (73-393) U/L Specimen Hemolysis Urine Color Yellow Urine Appearance Clear (Clear) Urine pH 6.0 (4.5-7.5) Ur Specific Salyer 1.015 (1.000-1.030) Urine Protein Trace H (Negative) Urine Glucose (UA) Negative (Negative) Urine Ketones Negative (Negative) Urine Blood 1+ H (Negative) Urine Nitrite Negative (Negative) Urine Bilirubin Negative (Negative) Urine Urobilinogen Negative (Negative) Ur Leukocyte Esterase Negative (Negative) Urine WBC (Auto) 5-10 H (0-5) /hpf Urine RBC (Auto) 0-4 (0-4) /hpf U Hyaline Cast (Auto) 1-5 (0-5) /lpf U Epithel Cells (Auto) 10-20 H (0-5) /lpf Urine Bacteria (Auto) Negative (Negative) Urine Crystals Not Reportable Calcium Oxalate Crystal Present A (None Prsent) COVID-19 Eval Order SARS-CoV-2 (PCR) (Negative) 12/04/20 12/04/20 Range/Units 15:48 15:48 WBC (4.8-10.8) K/uL RBC (4.2-5.4) M/uL Hgb (12.0-16.0) g/dL Hct (37-47) % MCV (80-100) fL MCH (25-34) pg MCHC (32-36) g/dL RDW Std Deviation (36.4-46.3) fL RDW Coeff of Gabriele (11.5-14.5) % Plt Count (130-400) K/uL MPV (7.4-10.4) fL Immature Gran % (Auto) % Neut % (Auto) % Lymph % (Auto) % Bosque % (Auto) % Eos % (Auto) % Baso % (Auto) % Neut # (Auto) (1.4-6.5) K/uL Lymph # (Auto) (1.2-3.4) K/uL Bosque # (Auto) (0.11-0.59) K/uL Eos # (Auto) (0-0.5) K/uL Baso # (Auto) (0-0.2) K/uL Immature Gran # (Auto) (0.00-0.02) K/uL Sodium (136-145) mmol/L Potassium (3.5-5.1) mmol/L Chloride (98-107) mmol/L Carbon Dioxide (21-32) mmol/L Anion Gap (3-11) BUN (7-18) mg/dl Creatinine (0.6-1.2) mg/dl Est Cr Clr Drug Dosing ml/min Est GFR ( Amer) ml/min Est GFR (Non-Af Amer) ml/min BUN/Creatinine Ratio (10-20) Glucose (70-99) mg/dl Calcium (8.5-10.1) mg/dl Total Bilirubin (0.2-1) mg/dl AST (15-37) U/L ALT (12-78) U/L Alkaline Phosphatase (45-117) U/L Total Protein (6.4-8.2) gm/dl Albumin (3.4-5.0) gm/dl Globulin (2.5-4.0) gm/dl Albumin/Globulin Ratio (0.9-2) Lipase (73-393) U/L Specimen Hemolysis Urine Color Urine Appearance (Clear) Urine pH (4.5-7.5) Ur Specific Salyer (1.000-1.030) Urine Protein (Negative) Urine Glucose (UA) (Negative) Urine Ketones (Negative) Urine Blood (Negative) Urine Nitrite (Negative) Urine Bilirubin (Negative) Urine Urobilinogen (Negative) Ur Leukocyte Esterase (Negative) Urine WBC (Auto) (0-5) /hpf Urine RBC (Auto) (0-4) /hpf U Hyaline Cast (Auto) (0-5) /lpf U Epithel Cells (Auto) (0-5) /lpf Urine Bacteria (Auto) (Negative) Urine Crystals Calcium Oxalate Crystal (None Prsent) COVID-19 Eval Order Covid19 at [facility] SARS-CoV-2 (PCR) NEGATIVE (Negative) Administered Medications Discontinued Medications Hydralazine HCl (Hydralazine Hcl 20 Mg/Ml Vial) 5 mg IV NOW STA Stop: 12/04/20 18:48 Last Admin: 12/04/20 19:13 Dose: 5 mg Documented by: [id number] Morphine Sulfate (Morphine Sulfate 4 Mg/Ml 1 Ml Carp\Vial) 4 mg IV NOW STA Stop: 12/04/20 15:07 Last Admin: 12/04/20 15:44 Dose: 4 mg Documented by: [id number] Morphine Sulfate (Morphine Sulfate 4 Mg/Ml 1 Ml Carp\Vial) 4 mg IV NOW STA Stop: 12/04/20 17:53 Last Admin: 12/04/20 17:56 Dose: 4 mg Documented by: [id number] Ondansetron HCl (Ondansetron Inj 2 Mg/Ml 2 Ml Vial) 4 mg IV NOW STA Stop: 12/04/20 15:08 Last Admin: 12/04/20 15:44 Dose: 4 mg Documented by: [id number] Imaging Data Radiologist's Impression: KUB X-Ray 12/04/20 14:37 KUB HISTORY: Follow-up ureteral stones. kidney stone COMPARISON: KUB 11/28/2020. FINDINGS: The bowel gas pattern is unremarkable. There are no dilated loops of small bowel to suggest an obstruction. The renal shadows are partially obscured by overlying bowel gas. There appear to be a few punctate bilateral renal calculi remaining. There are 2 adjacent stones within the mid left ureter and 2 adjacent stones within the distal left ureter are unchanged in position. These measure up to 4 mm in size. Prior cholecystectomy. No pneumoperitoneum or pneumatosis. IMPRESSION: 1. No change in position of the mid and distal left ureteral calculi measuring up to 4 mm. 2. Bilateral nephrolithiasis. ACT 112: Negative or not required by law. Electronically signed by: Germán Ko M.D. 12/04/2020 5:28 PM Discharge Plan Visit Data Chief Complaint: Hypertension Stated Complaint: HIGH BP, 3 KIDNEY STONES ED Provider: Macario Land ED Midlevel Provider: Aditya Bush Prescriptions Prescriptions: No Action trazodone 100 mg tablet 100 mg PO HS Qty: 90 RF: 1 gabapentin 600 mg tablet 600 mg PO TID 30 Days Qty: 270 RF: 1 phenazopyridine [Pyridium] 200 mg tablet 200 mg PO TID PRN (Reason: pain) Qty: 10 RF: 0 oxybutynin chloride 5 mg tablet 5 mg PO BID PRN (Reason: bladder spasms) Qty: 10 RF: 0 pregabalin [Lyrica] 75 mg capsule 75 mg PO QAM RF: 0 tamsulosin 0.4 mg capsule 0.4 mg PO QPM Qty: 30 RF: 0 oxycodone-acetaminophen [Percocet] 5-325 mg tablet 1 tab PO Q8H PRN (Reason: pain) Qty: 7 RF: 0 multivitamin tablet 1 tab PO QAM Qty: 90 RF: 1 lisinopril 20 mg tablet 20 mg PO QAM RF: 0 pantoprazole 40 mg tablet,delayed release (DR/EC) 40 mg PO DAILYBB RF: 0
[2020-12-04] MEDS ORDERED: MoRPHine SULFATE 4 MG/ML 1 ML CARP\\VIAL IV STA ×2 (15:06→17:52)
[2020-12-04] MEDS ORDERED: ONDANSETRON INJ 2 MG/ML 2 ML VIAL IV STA (15:07)
[2020-12-04 15:45] LABS: Basophils # (auto) 0.02 K/uL (0-0.2); Basophils % (auto) 0.3 %; Eosinophils # (auto) 0.15 K/uL (0-0.5); Eosinophils % (auto) 2.3 %; Hematocrit (blood only) 41.8 % (37-47); Hemoglobin 14.2 g/dL (12.0-16.0); Immature Granulocytes # (auto) 0.02 K/uL (0.00-0.02); Immature Granulocytes % (auto) 0.3 %; Lymphocytes # (auto) 2.35 K/uL (1.2-3.4); Lymphocytes % (auto) 35.3 %; Mean Corpuscular Volume 94.1 fL (80-100); Mean Platelet Volume 9.5 fL (7.4-10.4); Monocytes # (auto) 0.52 K/uL (0.11-0.59); Monocytes % (auto) 7.8 %; Neutrophils # (auto) 3.59 K/uL (1.4-6.5); Platelet Count 241 K/uL (130-400); RDW Coefficient of Variation 13.2 % (11.5-14.5); RDW Standard Deviation 45.4 fL (36.4-46.3); Red Blood Count 4.44 M/uL (4.2-5.4); White Blood Count 6.65 K/uL (4.8-10.8)
[2020-12-04 16:14] LABS: Albumin Level 3.8 gm/dl (3.4-5.0); BUN Creatinine Ratio 20.7 (10-20); Bilirubin,Total 0.4 mg/dl (0.2-1); Calcium 9.5 mg/dl (8.5-10.1); Creatinine Clr Calc Pharmacy 64.3 ml/min; Est GFR (African American) 82.3 ml/min; Globulin 3.7 gm/dl (2.5-4.0); Potassium 4.6 mmol/L (3.5-5.1); Total Protein 7.5 gm/dl (6.4-8.2)
[2020-12-04 16:25] LABS: Appearance Urine Clear (Clear); Bacteria Urine Automated Negative (Negative); Bilirubin Urine Negative (Negative); Blood Urine 1+ (Negative); Color Urine Yellow; Glucose Urine UA Negative (Negative); Ketones Urine Negative (Negative); Leukocyte Esterase Urine Negative (Negative); Nitrite Urine Negative (Negative); Protein Urine Trace (Negative); RBC Urine Automated 0-4 /hpf (0-4); Specific Gravity Urine 1.015 (1.000-1.030); Urobilinogen Urine Negative (Negative)
[2020-12-04 16:57] LABS: Calcium Oxalate Crystals Urine Present (None Prsent)
--- NOTE | 2020-12-04 17:30 | XRay Report ---
KUB HISTORY: Follow-up ureteral stones. kidney stone COMPARISON: KUB 11/28/2020. FINDINGS: The bowel gas pattern is unremarkable. There are no dilated loops of small bowel to suggest an obstruction. The renal shadows are partially obscured by overlying bowel gas. There appear to be a few punctate bilateral renal calculi remaining. There are 2 adjacent stones within the mid left ur eter and 2 adjacent stones within the distal left ureter are unchanged in position. These measure up to 4 mm in size. Prior cholecystectomy. No pneumoperitoneum or pneumatosis. IMPRESSION: 1. No change in position of the mid and distal left ureteral calculi measuring up to 4 mm. 2. Bilateral nephrolithiasis. ACT 112: Negative or not required by law. Electronically signed by: Germán Ko M.D. 12/04/2020 5:28 PM
[2020-12-04] MEDS ORDERED: hydrALAZINE HCL 20 MG/ML VIAL IV STA (18:47)
--- NOTE | 2020-12-04 19:18 | History & Physical Report ---
Date of Service December 04, 2020 Assessment & Plan (1) Hypertensive urgency: Plan: Kandy Torres is a 75-year-old female with past medical history of hypertension who came to [facility] due to renal colic from known kidney stones. Hypertensive urgency - No signs of end-organ involvement at this time - Likely secondary to increased pain - Give hydralazine 5 mg IV now--Bp responded - Recheck BP and give additional doses as needed to attempt decreasing SBP below 180 - Continue home lisinopril - Pain control for renal colic as below - Admit to PCU for cardiac monitoring Nephrolithiasis - History of several kidney stones with stent placements in the past - Morphine 4mg IV PRN - Continue Flomax - Urology consult - NPO at midnight - Hold on IVF until BP better controlled Hypertension - Continue home lisinopril - Hypertensive urgency management as above GERD, chronic - Continue home pantoprazole Peripheral neuropathy - Continue Lyrica and Gabapentin Insomnia - Cont home trazodone HS DVT prophylaxis: Hold chemoppx pending possible procedure, SCDs FENGI: Regular, NPO at midnight Dispo: PCU/Tele CODE: FULL CODE (2) Hypertension: (3) Chronic GERD: (4) Peripheral neuropathy: (5) History of kidney stones: (6) Left ureteral calculus: (7) Right ureteral stone: History of Present Illness Primary Care Provider: Jonathon Cha Kandy Torres is a 75-year-old female with h/o HTN and prior calcium-based kidney stones who presented today to the ED for right-sided flank/groin pain. She was seen earlier today at [facility] Urology office for known kidney stones. She had worsening pain and felt she could not tolerate trying to pass these at home/waiting for procedure as outpatient, so was referred to ED. Patient states that her pain has been 10/10 at worst and has been ongoing for several weeks. She mentions knowing that she probably should have come in sooner but decided to wait as she wanted to attend her granddaughter's pharmacy white coat ceremony in [place]. Upon arrival to the ED the patient was found to have BP up to 204/102. Upon my recheck in the room, she was at 223/112. Reports a mild headache at this time and some pressure, but no vision changes, no neurologic deficits. Denies fever, chills, n/v, dysuria currently. She states that her pain is better controlled now after receiving morphine 4mg IV x2 and is currently 6/10. States that she feels if stones are removed, her BP will normalize as this has happened to her previously. KUD in the ED shows Bilateral renal calculi, 2 adjacent stones within the mid left ureter and 2 adjacent stones within the distal left ureter, which are unchanged in position and measure up to 4 mm in size. UA shows trace urine protein, 1+ urine blood, 5-10 WBC, 10-20 epithelial cells, positive for calcium oxalate crystals. CBC and CMP are otherwise unremarkable. Allergies Allergy/AdvReac Type Severity Reaction Status Date / Time amlodipine Allergy Severe Anaphylaxis Verified 12/04/20 10:50 benzocaine Allergy Severe Anaphylaxis Verified 12/04/20 10:50 [From [facility] (with benzocaine)] Iodinated Contrast Media Allergy Severe ANAPHYLAXIS Verified 12/04/20 10:50 Penicillins Allergy Severe ANAPHYLAXIS Verified 12/04/20 10:50 trimethobenzamide Allergy Severe ANAPHYLAXIS Verified 12/04/20 10:50 lactose Allergy Intermediate Gastrointestinal Verified 12/04/20 10:50 symptoms Home Medications Medication Instructions Recorded Confirmed Type multivitamin 1 tab PO QAM #90 tab 09/23/18 12/04/20 Rx pregabalin 75 mg capsule (Lyrica) 75 mg PO QAM 08/23/19 12/04/20 History trazodone 100 mg tablet 100 mg PO HS #90 tab 09/14/19 12/04/20 Rx gabapentin 600 mg tablet 600 mg PO TID 30 Days #270 tab 09/30/19 12/04/20 Rx lisinopril 20 mg tablet 20 mg PO QAM 10/10/20 12/04/20 History pantoprazole 40 mg tablet,delayed 40 mg PO DAILYBB 10/13/20 12/04/20 History release oxybutynin chloride 5 mg tablet 5 mg PO BID PRN #10 tab 10/30/20 12/04/20 Rx phenazopyridine 200 mg tablet 200 mg PO TID PRN #10 tab 10/30/20 12/04/20 Rx (Pyridium) oxycodone-acetaminophen 5 mg-325 1 tab PO Q8H PRN #7 tab 12/04/20 12/04/20 Rx mg tablet (Percocet) tamsulosin 0.4 mg capsule 0.4 mg PO QPM #30 cap 12/04/20 12/04/20 Rx Past Med/Surg History Medical History Anxiety Chondrocalcinosis Chronic diarrhea Chronic GERD Colitis Endometriosis Hiatal hernia Hypertension Insomnia Lower extremity neuropathy Nephrolithiasis Recurrent CaOx kidney stones Osteoarthritis Peripheral neuropathy Vitamin D deficiency Surgical History History of ankle surgery b/l ankle, tarsal tunnel surgery History of appendectomy History of section x2 History of cholecystectomy History of colonoscopy History of cystoscopy STONE REMOVAL/STENTS (MULTIPLE TIMES) History of esophagogastroduodenoscopy (EGD) 08/08/2017. sedation, no issues. History of lithotripsy MULTIPLE TIMES History of tonsillectomy History of tooth extraction History of total abdominal hysterectomy and bilateral salpingo-oophorectomy Status post Will fundoplication Family History Father , age 76; multiple MIs Myocardial infarction Mother , age 49 Myocardial infarction Other No family history of adverse response to anesthesia Denies family history of Ovarian cancer Prostate cancer Crohn's disease Breast cancer Colorectal cancer Inflammatory bowel disease Social History Smoking Status: Never smoker Second Hand Exposure: Yes (parents smoked); Hx Alcohol Use: No Hx Substance Use: No Preferred Language: Kiswahili Communication Ability: Effective Visual Impairment: No Limitations Hearing Ability: Use of Hearing Aid Zipper Ironer Required: No Beliefs That Will Affect Care: None marital status: Current Living Situation: Spouse Current Living Situation Comment: house, one floor and finished basement 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 status: retired 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 NAD. HEENT: PERRL, EOMI. Moist mucous membranes. NECK: No JVD. No lymphadenopathy. CHEST/LUNGS: CTAB A/P. No crackles, wheezes, rales, rhonchi. HEART: RRR. No m/g/r. No carotid bruits. ABDOMEN: ND, soft. TTP lower abdomen, especially at RLQ. BS+ x4 EXTREMITIES: No cyanosis, no clubbing, no edema SKIN: Warm and dry. No rashes or lesions. PSYCHIATRIC: Euthymic affect, no SI, no pressured speech, no hallucinations NEUROLOGIC: No FND. CN II-XII grossly intact. Results & Data Results & Data ([facility]) Vital Signs (Past 12 Hours) Vital Signs Temp Pulse Resp BP Pulse Ox 12/04/20 17:30 76 16 198/126 H 97 12/04/20 17:00 79 19 215/138 H 96 12/04/20 16:54 77 17 95 12/04/20 16:40 73 16 95 12/04/20 16:30 95 12/04/20 16:20 95 12/04/20 16:10 92 12/04/20 16:03 95 12/04/20 15:30 76 13 204/102 H 97 12/04/20 15:10 81 27 H 97 12/04/20 15:04 83 19 97 12/04/20 12:17 36.2 C L 80 20 193/100 H 96 Supervising Physician Co-Signing Physician Notes I personally saw and examined the patient. I verified all price points and agree with resident physician Dr Konrad Ornelas with the following exceptions and/or additions: 75 year old female with known ongoing ureterolithiasis presents to the ER on advice of her urologist due to hypertension and severe headache. Now BP improved when seen on the merritt her headache is now resolved O/E no CVA tenderness, HS1+2, no murmurs, Chest CTAB, no lateralizing weakness, appears at baseline and walking around bedside when seen A/P Hypertensive urgency - Continue her routine medications, on previous admissions this has resolved once her pain is under control. Addition of tamsulosin today by urology should also help. Agree with hydralazine or labetalol PRN but will not be overly aggressive now headache has resolved. Ureterolithiasis - NPO at midnight, consult urology in AM, can start on IV fluids once hypertension resolved. Resident Activity Tracking Resident Involvement: Resident Care Provided Care Provided: Adult Hospital Medicine
[2020-12-04] MEDS ORDERED: ACETAMINOPHEN 325 MG TAB PO PRN (20:13)
[2020-12-04] MEDS ORDERED: OXYBUTYNIN CHLORIDE 5 MG TAB PO PRN (20:13)
[2020-12-04] MEDS ORDERED: PHENAZOPYRIDINE HCL 200 MG TAB PO PRN (20:13)
[2020-12-04] MEDS: MoRPHine SULFATE 4 MG/ML 1 ML CARP\\VIAL IV PRN (20:43)
[2020-12-04] MEDS ORDERED: LABETALOL HCL IV 5 MG/ML 20ML IV PRN (20:43)
[2020-12-04] MEDS: GABAPENTIN 600 MG TAB PO SCH (20:57)
[2020-12-04] MEDS ORDERED: TAMSULOSIN HCL 0.4 MG CAP PO SCH (21:00)
[2020-12-04] MEDS: traZODone HCL 100 MG TAB PO SCH (22:39)
[2020-12-05] MEDS: MoRPHine SULFATE 4 MG/ML 1 ML CARP\\VIAL IV PRN (03:13)
[2020-12-05] MEDS ORDERED: diphenhydrAMINE 50 MG/ML VIAL IV PRN (05:21)
[2020-12-05] MEDS: PANTOprazole 40 MG TAB PO SCH (05:34)
[2020-12-05 06:16] LABS: Basophils # (auto) 0.02 K/uL (0-0.2); Basophils % (auto) 0.3 %; Eosinophils # (auto) 0.13 K/uL (0-0.5); Hematocrit (blood only) 41.1 % (37-47); Hemoglobin 13.6 g/dL (12.0-16.0); Immature Granulocytes # (auto) 0.01 K/uL (0.00-0.02); Immature Granulocytes % (auto) 0.2 %; Lymphocytes # (auto) 2.17 K/uL (1.2-3.4); Lymphocytes % (auto) 32.6 %; Mean Corpuscular Hemoglobin 31.7 pg (25-34); Mean Corpuscular Hgb Conc 33.1 g/dL (32-36); Mean Corpuscular Volume 95.8 fL (80-100); Mean Platelet Volume 9.2 fL (7.4-10.4); Monocytes % (auto) 7.5 %; Neutrophils # (auto) 3.82 K/uL (1.4-6.5); Neutrophils % (auto) 57.4 %; Platelet Count 232 K/uL (130-400); RDW Coefficient of Variation 13.3 % (11.5-14.5); RDW Standard Deviation 46.3 fL (36.4-46.3); Red Blood Count 4.29 M/uL (4.2-5.4); White Blood Count 6.65 K/uL (4.8-10.8)
[2020-12-05 06:47] LABS: BUN Creatinine Ratio 18.5 (10-20); Calcium 9.4 mg/dl (8.5-10.1); Creatinine Clr Calc Pharmacy 54.7 ml/min; Est GFR (Non-African American) 58.7 ml/min; Potassium 4.3 mmol/L (3.5-5.1)
[2020-12-05] MEDS: lisinopril 20 MG TAB PO SCH (07:45)
[2020-12-05] MEDS: GABAPENTIN 600 MG TAB PO SCH ×3 (07:45→20:01)
[2020-12-05] MEDS: MULTIVITAMIN TAB PO SCH (07:45)
[2020-12-05] MEDS: TAMSULOSIN HCL 0.4 MG CAP PO SCH (07:45)
[2020-12-05] MEDS ORDERED: PREGABALIN 75 MG CAP PO SCH ×2 (09:00→21:00)
--- NOTE | 2020-12-05 09:15 | Urology Consultation ---
Date of Consultation December 05, 2020 Assessment & Plan (1) Left ureteral calculus: 75yo F admitted with hypertensive crisis in the setting of worsening flank pain secondary to multiple left ureteral stones. - KUB on admission noted no change in position of the mid and distal left ureter al calculi measuring up to 4 mm. - She is afebrile, VSS. - Labs reviewed, Wbc and creatinine stable. - Urine culture pending - Findings reviewed with Dr. Solis. - Discussed options for acute stone management with cystoscopy and stent placement. - Discussed outpatient options for conservative measures with max expulsion medical therapy and trial of passage. - Risks/benefits of each discussed. - Patient prefers to proceed with left ureteral stent placement. - Findings reviewed with Dr. Solis. Given her left flank and suprapubic pain in the context of multiple obstructing left ureteral stones, will proceed with OR for cystoscopy, left ureteral stent placement depending on findings. Risks and benefits to be reviewed with patient by . OR notified. EKG and Chest Xray in chart. Will cover with IV Ciprofloxacin preoperatively. - Expected clinical course reviewed with patient, she is agreeable to plan, all questions were answered. - Will continue to follow Supervising Physician Co-Signing Physician Notes agree with above. cysto, left stent now History of Present Illness Attending Physician: Eduardo Reis MD History of Present Illness 75yo F admitted with hypertensive crisis in the setting of worsening flank pain secondary to multiple left ureteral stones. Past medical history reviewed and significant for anxiety, chondrocalcinosis, chronic diarrhea, chronic GERD, endometriosis, hypertension, insomnia, lower extremity neuropathy, OA, vitamin D deficiency, history of appendectomy, history of section, history of cholecystectomy, history of tonsillectomy and history of total hysterectomy. Patient was seen in the urology clinic for follow-up of stones. She had worsening pain and felt she could not tolerate trying to pass these at home/waiting for procedure as outpatient, so was referred to ED. Patient states that her pain has been 10/10 at worst and has been ongoing for several weeks. Upon arrival to the ED the patient was found to have BP up to 204/102. UA noted trace urine protein, 1+ urine blood, 5-10 WBC, 10-20 epithelial cells, positive for calcium oxalate crystals. CBC and CMP were otherwise unremarkable. KUB IMPRESSION: 1. No change in position of the mid and distal left ureteral calculi measuring up to 4 mm. 2. Bilateral nephrolithiasis. Pt examined at bedside this AM. Awake, resting in bed on arrival. She reports suprapubic pain, rates pain 3/10. Denies fevers or chills. No nausea or vomiting. Has been NPO overnight. Denies hematuria and dysuria. Feels she is emptying her bladder without difficulty. Offers no additional complaints at this time. Allergies Allergy/AdvReac Type Severity Reaction Status Date / Time amlodipine Allergy Severe Anaphylaxis Verified 12/04/20 10:50 benzocaine Allergy Severe Anaphylaxis Verified 12/04/20 10:50 [From [facility] (with benzocaine)] Iodinated Contrast Media Allergy Severe ANAPHYLAXIS Verified 12/04/20 10:50 Penicillins Allergy Severe ANAPHYLAXIS Verified 12/04/20 10:50 trimethobenzamide Allergy Severe ANAPHYLAXIS Verified 12/04/20 10:50 lactose Allergy Intermediate Gastrointestinal Verified 12/04/20 10:50 symptoms Home Medications Medication Instructions Recorded Confirmed Type multivitamin 1 tab PO QAM #90 tab 09/23/18 12/04/20 Rx pregabalin 75 mg capsule (Lyrica) 75 mg PO QAM 08/23/19 12/04/20 History trazodone 100 mg tablet 100 mg PO HS #90 tab 09/14/19 12/04/20 Rx gabapentin 600 mg tablet 600 mg PO TID 30 Days #270 tab 09/30/19 12/04/20 Rx lisinopril 20 mg tablet 20 mg PO QAM 10/10/20 12/04/20 History pantoprazole 40 mg tablet,delayed 40 mg PO DAILYBB 10/13/20 12/04/20 History release oxybutynin chloride 5 mg tablet 5 mg PO BID PRN #10 tab 10/30/20 12/04/20 Rx phenazopyridine 200 mg tablet 200 mg PO TID PRN #10 tab 10/30/20 12/04/20 Rx (Pyridium) oxycodone-acetaminophen 5 mg-325 1 tab PO Q8H PRN #7 tab 12/04/20 12/04/20 Rx mg tablet (Percocet) tamsulosin 0.4 mg capsule 0.4 mg PO QPM #30 cap 12/04/20 12/04/20 Rx Patient History Medical History Anxiety Chondrocalcinosis Chronic diarrhea Chronic GERD Colitis Endometriosis Hiatal hernia Hypertension Insomnia Lower extremity neuropathy Nephrolithiasis Recurrent CaOx kidney stones Osteoarthritis Peripheral neuropathy Vitamin D deficiency Surgical History History of ankle surgery b/l ankle, tarsal tunnel surgery History of appendectomy History of section x2 History of cholecystectomy History of colonoscopy History of cystoscopy STONE REMOVAL/STENTS (MULTIPLE TIMES) History of esophagogastroduodenoscopy (EGD) 08/08/2017. sedation, no issues. History of lithotripsy MULTIPLE TIMES History of tonsillectomy History of tooth extraction History of total abdominal hysterectomy and bilateral salpingo-oophorectomy Status post Will fundoplication Family History Father , age 76; multiple MIs Myocardial infarction Mother , age 49 Myocardial infarction Other No family history of adverse response to anesthesia Denies family history of Ovarian cancer Prostate cancer Crohn's disease Breast cancer Colorectal cancer Inflammatory bowel disease Social History Smoking Status: Never smoker Second Hand Exposure: Yes (parents smoked); Hx Alcohol Use: No Hx Substance Use: No Preferred Language: Greek Communication Ability: Effective Visual Impairment: No Limitations Hearing Ability: Use of Hearing Aid Rehab Nursing Tech Required: No Beliefs That Will Affect Care: None marital status: Current Living Situation: Spouse Current Living Situation Comment: house, one floor and finished basement 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 status: retired 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 How many Children do You have: 2 Other Information That Helps Us Care for You: No Feels Safe at Home: Yes Safety Concerns: Feels Safe At This Time Dental Care, Regularly: Yes Seatbelt Use: always Assistive Devices: Glasses Review of Systems Review of Systems: All systems reviewed & are unremarkable except as noted in HPI & below Physical Exam Constitutional: well developed and well nourished; no acute distress and not ill appearing Respiratory: normal respiratory effort and able to speak in complete sentences; no labored breathing and no audible wheezes Gastrointestinal (Abdomen): Inspection/Auscultation: abdomen normal to inspection; abdomen not distended Musculoskeletal: Head/Neck/Chest: normocephalic Skin: No visible rashes or lesions to exposed skin areas Neurologic: moves all extremities and awake Psychiatric: Orientation: alert, oriented x 3 and cooperative Results & Data ([facility]) Vital Signs (Past 12 Hours) Vital Signs Temp Pulse Pulse Resp BP BP Pulse Ox 12/05/20 08:00 36.8 C 83 20 109/60 95 12/05/20 03:09 36.5 C 75 16 115/68 94 12/04/20 23:54 83 12/04/20 22:57 36.6 C 82 17 111/70 94 12/04/20 21:47 77 128/77 PG Care Time/CCT Total # of Minutes Spent Total Time Spent with Patient: Total time spent is greater than 50% in coordination of care (as documented) at patient's floor/unit and/or counseling patient: Coding Level of Care Code 74038 Initial Inpt Care Lvl 3 Diagnoses Left ureteral calculus N20.1
[2020-12-05] MEDS ORDERED: fentaNYL citrate 100 MCG/2 ML VIAL ONE (09:17)
[2020-12-05] MEDS ORDERED: MIDAZOLAM HCL 1 MG/ML 2ML VIAL ONE (09:17)
--- NOTE | 2020-12-05 09:18 | Anesthesiology Consultation ---
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 History Surgery Operation Date: 12/05/20 09:40 Proposed Procedures p Cystoscopy, Left Ureteral Stent Insertion - Diogenes Solis MD Height/Weight Height: 5 ft 3 in Weight: 87.5 kg Allergies Allergy/AdvReac Type Severity Reaction Status Date / Time amlodipine Allergy Severe Anaphylaxis Verified 12/04/20 10:50 benzocaine Allergy Severe Anaphylaxis Verified 12/04/20 10:50 [From [facility] (with benzocaine)] Iodinated Contrast Media Allergy Severe ANAPHYLAXIS Verified 12/04/20 10:50 Penicillins Allergy Severe ANAPHYLAXIS Verified 12/04/20 10:50 trimethobenzamide Allergy Severe ANAPHYLAXIS Verified 12/04/20 10:50 lactose Allergy Intermediate Gastrointestinal Verified 12/04/20 10:50 symptoms Medications Home Medications Medication Instructions Recorded Confirmed Last Taken multivitamin 1 tab PO QAM #90 tab 09/23/18 12/04/20 10/12/20 pregabalin 75 mg capsule (Lyrica) 75 mg PO QAM 08/23/19 12/04/20 10/12/20 trazodone 100 mg tablet 100 mg PO HS #90 tab 09/14/19 12/04/20 10/12/20 gabapentin 600 mg tablet 600 mg PO TID 30 Days #270 tab 09/30/19 12/04/20 10/12/20 lisinopril 20 mg tablet 20 mg PO QAM 10/10/20 12/04/20 10/12/20 pantoprazole 40 mg tablet,delayed 40 mg PO DAILYBB 10/13/20 12/04/20 10/12/20 release oxybutynin chloride 5 mg tablet 5 mg PO BID PRN #10 tab 10/30/20 12/04/20 Unknown phenazopyridine 200 mg tablet 200 mg PO TID PRN #10 tab 10/30/20 12/04/20 Unknown (Pyridium) oxycodone-acetaminophen 5 mg-325 1 tab PO Q8H PRN #7 tab 12/04/20 12/04/20 Unknown mg tablet (Percocet) tamsulosin 0.4 mg capsule 0.4 mg PO QPM #30 cap 12/04/20 12/04/20 Unknown Active Medications Generic Name Dose Route Start Last Admin Trade Name Rashiq PRN Reason Stop Dose Admin Diphenhydramine HCl 25 mg 12/05/20 05:21 12/05/20 05:32 Diphenhydramine 50 Mg/Ml Vial IV 01/04/21 05:20 25 mg Q12H PRN Administration pruritis Gabapentin 600 mg 12/04/20 21:00 12/05/20 07:45 Gabapentin 600 Mg Tab PO 01/03/21 20:59 600 mg TID MARCELINA Administration Labetalol HCl 5 mg 12/04/20 20:43 12/04/20 20:55 Labetalol Hcl Iv 5 Mg/Ml 20ml IV 01/03/21 20:42 5 mg Q4H PRN Administration SBP>170 Lisinopril 20 mg 12/05/20 09:00 12/05/20 07:45 Lisinopril 20 Mg Tab PO 01/04/21 08:59 20 mg QAM MARCELINA Administration Morphine Sulfate 4 mg 12/04/20 20:13 12/05/20 03:13 Morphine Sulfate 4 Mg/Ml 1 Ml Carp\Vial IV 12/18/20 20:12 4 mg Q4H PRN Administration Pain Multivitamins 1 tab 12/05/20 09:00 12/05/20 07:45 Multivitamin Tab PO 01/04/21 08:59 1 tab QAM MARCELINA Administration Pantoprazole Sodium 40 mg 12/05/20 06:30 12/05/20 05:34 Pantoprazole 40 Mg Tab PO 01/04/21 06:29 40 mg DAILYBB MARCELINA Administration Tamsulosin HCl 0.4 mg 12/05/20 09:00 12/05/20 07:45 Tamsulosin Hcl 0.4 Mg Cap PO 01/04/21 08:59 0.4 mg QAM MARCELINA Administration Trazodone HCl 100 mg 12/04/20 21:00 12/04/20 22:39 Trazodone Hcl 100 Mg Tab PO 01/03/21 20:59 100 mg HS MARCELINA Administration Past Medical History Medical History Anxiety Chondrocalcinosis Chronic diarrhea Chronic GERD Colitis Endometriosis Hiatal hernia Hypertension Insomnia Lower extremity neuropathy Nephrolithiasis Recurrent CaOx kidney stones Osteoarthritis Peripheral neuropathy Vitamin D deficiency Past Family History Family History Father , age 76; multiple MIs Myocardial infarction Mother , age 49 Myocardial infarction Other No family history of adverse response to anesthesia Denies family history of Ovarian cancer Prostate cancer Crohn's disease Breast cancer Colorectal cancer Inflammatory bowel disease Past Surgical History Surgical History History of ankle surgery b/l ankle, tarsal tunnel surgery History of appendectomy History of section x2 History of cholecystectomy History of colonoscopy History of cystoscopy STONE REMOVAL/STENTS (MULTIPLE TIMES) History of esophagogastroduodenoscopy (EGD) 08/08/2017. sedation, no issues. History of lithotripsy MULTIPLE TIMES History of tonsillectomy History of tooth extraction History of total abdominal hysterectomy and bilateral salpingo-oophorectomy Status post Will fundoplication Social History Smoking Status: Never smoker Hx Alcohol Use: No Alcohol type: beer alcohol intake frequency: holidays/special occasions only Hx Substance Use: No substance use type: does not use Physical Exam Vital Signs Last Vital Signs Temp 98.2 F 12/05/20 08:00 Pulse 83 12/05/20 08:00 Resp 20 12/05/20 08:00 BP 109/60 12/05/20 08:00 Pulse Ox 95 12/05/20 08:00 Testing Laboratory Results 12/05/20 05:51 12/05/20 05:51 Urine Color Yellow 12/04/20 12:40 Urine Appearance Clear (Clear) 12/04/20 12:40 Urine pH 6.0 (4.5-7.5) 12/04/20 12:40 Ur Specific [place] 1.015 (1.000-1.030) 12/04/20 12:40 Urine Protein Trace (Negative) H 12/04/20 12:40 Urine Glucose (UA) Negative (Negative) 12/04/20 12:40 Urine Ketones Negative (Negative) 12/04/20 12:40 Urine Nitrite Negative (Negative) 12/04/20 12:40 Ur Leukocyte Esterase Negative (Negative) 12/04/20 12:40 Urine WBC (Auto) 5-10 /hpf (0-5) H 12/04/20 12:40 Urine RBC (Auto) 0-4 /hpf (0-4) 12/04/20 12:40 U Hyaline Cast (Auto) 1-5 /lpf (0-5) 12/04/20 12:40 U Epithel Cells (Auto) 10-20 /lpf (0-5) H 12/04/20 12:40 Urine Bacteria (Auto) Negative (Negative) 12/04/20 12:40 Laboratory Tests 12/04/20 15:48 SARS-CoV-2 (PCR) NEGATIVE Electrocardiogram Date: 12/04/20 Normal sinus rhythm, rate 78 bpm Minimal voltage criteria for LVH, may be normal variant Possible Inferior infarct (cited on or before 23-APR-2017) Abnormal ECG When compared with ECG of 13-OCT-2020 13:30, No significant change was found Chest X-Ray Date: 10/13/20 Findings: + NAD Echocardiogram Date: 11/14/20 LV systolic function is normal Mod concentric LVH RVSP is normal
[2020-12-05] MEDS ORDERED: PROPOFOL IV EMULSION 10 MG/ML 20 ML VIAL IV ONE (09:20)
[2020-12-05] MEDS ORDERED: PHENYLEPHRINE 100MCG/ML 5ML SYR ONE (09:20)
[2020-12-05] MEDS ORDERED: LIDOCAINE 2% 2 ML VIAL/AMP(20MG/ML) INFIL ONE (09:20)
[2020-12-05] MEDS ORDERED: ePHEDrine sulfate 50 MG/ML SYR ONE (09:20)
[2020-12-05] MEDS ORDERED: ONDANSETRON INJ 2 MG/ML 2 ML VIAL IV PRN (09:55)
[2020-12-05] MEDS ORDERED: ATROPINE SULFATE 0.1 MG/ML 10ML SYR IV PRN (09:55)
[2020-12-05] MEDS ORDERED: ePHEDrine sulfate 50 MG/ML AMP IV PRN (09:55)
[2020-12-05] MEDS ORDERED: CIPROFLOXACIN 400MG / 200ML D5W IV ONE (10:01)
--- NOTE | 2020-12-05 10:35 | Operative Report ---
PG Post Operative Report Pre & Post Diagnosis Operation Date: 12/05/20 09:40 Pre-Op Diagnosis: Nephrolithiasis Post-Op Diagnosis: Nephrolithiasis I identified the patient and participated in the time-out.: Yes Procedure Operation Date: 12/05/20 09:40 Actual Procedures p Cystoscopy, Left Ureteral Stent Insertion(Left) - Diogenes Solis MD Surgeon Gerardo Solis MD Hair Colorist none Estimated Blood Loss 0 Findings Consistent with Post-Op Diagnosis Specimens none Description of Procedure The patient was identified in the preoperative holding area, appropriate informed consents were reviewed and completed and the patient was transferred to the operative suite. Upon arrival, appropriate antibiotics and anesthesia were administered and the patient was placed in dorsal lithotomy position and prepped and draped in sterile fashion. To be in the case I passed a 22 [place] cystoscope with 30 degree lens and visual obturator. Inspection revealed a healthy-appearing bladder with ureteral orifices in orthotopic position. I turned my attention to the left UO and cannulated it with a sensor wire which advanced to the kidney. I then placed a 6 [place] by 24 cm double-J ureteral stent seeing a good curl in the area of the renal pelvis as well as within the bladder. There was clear urine draining through the stent. I then concluded the case by emptying the bladder and reversing the patient from anesthesia. There were no complications. I attest to the content of the Intraoperative Record and any orders documented therein. Any exceptions are noted below.
--- NOTE | 2020-12-05 10:41 | Fluoroscopy Report ---
FL KUAri CLINICAL INDICATION: MN ^LEFT STENT. TECHNIQUE: 1 views were obtained with the C-arm in the OR with the above procedure. Total fluoroscopy time was 6.9 seconds. Total skin dose was 1.78 mGy. Comparison: None available at the time of this dictation. FINDINGS/IMPRESSION: Single intraoperative image of patient with a left stent noted in place. Please correlate with intraoperative fluoroscopy and operative report. ACT 112: Negative or not required by law. Electronically signed by: Cleve Garcia M.D. 12/05/2020 10:40 AM
[2020-12-05] MEDS: fentaNYL citrate 100 MCG/2 ML VIAL IV PRN ×3 (10:55→11:06)
--- NOTE | 2020-12-05 10:55 | Billing Data ---
Date of Service December 04, 2020 Coding Level of Care Code 68301 Initial Inpt Care Lvl 2
[2020-12-05] MEDS ORDERED: oxyCODONE/ACETAMINOPHEN 5mg/325mg TAB PO PRN (11:39)
--- NOTE | 2020-12-05 12:44 | Anesthesiology Progress Note ---
Date of Service December 05, 2020 Anesthesia Post Procedure Vital Signs Vital Signs: Temp Pulse Pulse Resp BP BP BP 12/05/20 11:40 97.9 F 79 18 136/78 12/05/20 11:15 97.3 F L 79 15 132/88 12/05/20 11:05 81 12 127/78 12/05/20 10:55 82 20 132/56 L 12/05/20 10:45 80 12 156/62 H 12/05/20 10:39 97.7 F 80 14 131/46 L 12/05/20 09:47 98.1 F 82 18 124/98 12/05/20 08:00 98.2 F 85 83 20 109/60 12/05/20 03:09 97.7 F 75 16 115/68 12/04/20 23:54 83 12/04/20 22:57 97.9 F 82 17 111/70 12/04/20 21:47 77 128/77 12/04/20 20:53 92 H 203/102 H 12/04/20 20:36 174/91 H 12/04/20 20:34 203/99 H 12/04/20 20:16 97.5 F L 88 16 194/124 H 12/04/20 20:07 88 12/04/20 19:30 78 13 171/105 H 12/04/20 19:00 77 17 162/105 H 12/04/20 18:30 83 26 H 223/111 H 12/04/20 18:00 78 19 203/107 H 12/04/20 17:30 76 16 198/126 H 12/04/20 17:00 79 19 215/138 H 12/04/20 16:54 77 17 12/04/20 16:40 73 16 12/04/20 16:30 12/04/20 16:20 12/04/20 16:10 12/04/20 16:03 12/04/20 15:30 76 13 204/102 H 12/04/20 15:10 81 27 H 12/04/20 15:04 83 19 Pulse Ox 12/05/20 11:40 94 12/05/20 11:15 95 12/05/20 11:05 93 12/05/20 10:55 97 12/05/20 10:45 96 12/05/20 10:39 100 12/05/20 09:47 96 12/05/20 08:00 95 12/05/20 03:09 94 12/04/20 23:54 12/04/20 22:57 94 12/04/20 21:47 12/04/20 20:53 12/04/20 20:36 12/04/20 20:34 12/04/20 20:16 96 12/04/20 20:07 12/04/20 19:30 96 12/04/20 19:00 95 12/04/20 18:30 96 12/04/20 18:00 96 12/04/20 17:30 97 12/04/20 17:00 96 12/04/20 16:54 95 12/04/20 16:40 12/04/20 16:30 95 12/04/20 16:20 95 12/04/20 16:10 92 12/04/20 16:03 95 12/04/20 15:30 97 12/04/20 15:10 97 12/04/20 15:04 97 Pain Intensity Right Flank: Pain Intensity: 5 Right Head: Pain Intensity: 5 Vaginal: Pain Intensity: 4 Transfer of Care Handoff Completed per policy Notes Mental Status: alert / awake / arousable and participated in evaluation Patient Amnestic to Procedure: Yes Nausea / Vomiting: adequately controlled Pain: adequately controlled Airway Patency, RR, SpO2: stable & adequate BP & HR: stable & adequate Hydration State: stable & adequate Anesthetic Complications: no major complications apparent and Pt Satisfied with anesthetic care
--- NOTE | 2020-12-05 14:00 | Hospitalist Progress Note ---
Date of Service December 05, 2020 Assessment & Plan (1) Left ureteral calculus: Plan: Kandy Torres is a 75-year-old female with past medical history of hypertension who came to [facility] due to renal colic from known kidney stones. Left nephrolithiasis Patient with substantial pain likely inciting hypertension KUB noting mid and distal left ureteral calculi up to 4 mm No signs of superimposed infection, white blood cell normal, afebrile Urology consulted. Status post stent placement 12/05. Perioperative IV ciprofloxacin given Continue to follow clinically. Follow overnight CBC/BMP in a.m. (2) Hypertensive urgency: Plan: Normalized today Continue home lisinopril Suspect exacerbated by pain in the setting of nephrolithiasis (3) Hypertension: Plan: Continue lisinopril Pain control as noted above (4) Chronic GERD: Plan: Continue pantoprazole daily (5) Peripheral neuropathy: Plan: Continue Lyrica Continue gabapentin (6) History of kidney stones: Plan: As above (7) Right ureteral stone: Plan: As above (8) Insomnia: Plan: Continue home trazodone 100 mg p.o. nightly Plan: DVT prophylaxis: SCDs, ambulate. Defer pharmacal prophylaxis perioperatively Admission and Anticipated Discharge Date Admission Date: December 04, 2020 Subjective Seen at bedside. Pt feels well, recovering from cysto. Pain grealty improved, some R groin ache 1/10. No ab pain worsened on palpation. No nausea. No fevers/chills. Review of Systems Review of Systems: Constitutional: Denies fever, chills, malaise, weight change Eyes: Denies double vision, vision change, eye pain ENT: Denies ear pain, sore throat, sinus pain Cardiovascular: Denies Chest pain, chest pressure, palpitations, extremity swelling Respiratory: Denies shortness of breath, cough, sputum production, difficulty breathing Gastrointestinal: Endorses mild L groin/ab pain not worsened on palpation otherwise no pain. Genitourinary: Denies pain with urination Musculoskeletal: Denies acute focal weakness, muscle aches/pain, joint aches/pain Integumentary:Denies rash, lesions, bruising Neurological: Denies numbness, tingling, focal weakness Physical Exam Physical Exam: General: A&Ox3. NAD. Cooperative. HEENT: Atraumatic, normocephalic. Visual acuity and hearing grossly intact. ROMAIN. Pulm: CTAB A&P. -wheezes, -rales, -rhonchi. Symmetrical chest rise. No increase work of breathing. No respiratory distress. Cardiac: RRR, -mrg. Radial pulses intact and symmetrical. Abdominal: Nontender, nondistended, soft. BS present. No CVA tenderness. MOTOR: RUE: 5/5 Elbow flexion/extension, wrist flexion/extension 5/5 scientific diver strength LUE: 5/5 Elbow flexion/extension, wrist flexion/extension 5/5 scientific diver strength RLE: 5/5 to hip flexion LLE: 5/5 to hip flexion SENSORY: Normal to touch in upper and lower extremities without deficit or asymmetry Results & Data Results & Data ([facility]) Vital Signs (Past 12 Hours) Vital Signs Temp Pulse Pulse Resp BP BP Pulse Ox 12/05/20 11:40 36.6 C 79 18 136/78 94 12/05/20 11:15 36.3 C L 79 15 132/88 95 12/05/20 11:05 81 12 127/78 93 12/05/20 10:55 82 20 132/56 L 97 12/05/20 10:45 80 12 156/62 H 96 12/05/20 10:39 36.5 C 80 14 131/46 L 100 12/05/20 09:47 36.7 C 82 18 124/98 96 12/05/20 08:00 36.8 C 85 83 20 109/60 95 12/05/20 03:09 36.5 C 75 16 115/68 94 PG Care Time/CCT Total # of Minutes Spent Total Time Spent with Patient: Total time spent is greater than 50% in coordination of care (as documented) at patient's floor/unit and/or counseling patient: Coding Level of Care Code 76282 Subseq Hosp Care Lvl 2 Diagnoses Hypertensive urgency I16.0 Hypertension I10 Chronic GERD K21.9 Peripheral neuropathy G62.9 History of kidney stones Z87.442 Left ureteral calculus N20.1 Right ureteral stone N20.1 Insomnia G47.00
[2020-12-05] MEDS: traZODone HCL 100 MG TAB PO SCH (22:21)
[2020-12-06] MEDS: PANTOprazole 40 MG TAB PO SCH (05:48)
[2020-12-06] MEDS ORDERED: CIPROFLOXACIN / D5W 400 MG/200 ML BAG IV SCH (06:00)
--- NOTE | 2020-12-06 06:03 | Electrocardiogram Report ---
Test Reason : Blood Pressure : / mmHG Vent. Rate : 078 BPM Atrial Rate : 078 BPM P-R Int : 130 ms QRS Dur : 086 ms QT Int : 374 ms P-R-T Axes : 053 033 -16 degrees QTc Int : 426 ms Poor data quality, interpretation may be adversely affected Normal sinus rhythm Minimal voltage criteria for LVH, may be normal variant Possible Inferior infarct (cited on or before 23-APR-2017) Abnormal ECG When compared with ECG of 13-OCT-2020 13:30, No significant change was found Confirmed by Juan Daniel Bravo ([id number]) on 12/06/2020 6:02:57 AM Referred By: REFERRED SELF Confirmed By:Juan Daniel Bravo
[2020-12-06 07:06] LABS: Basophils # (auto) 0.01 K/uL (0-0.2); Basophils % (auto) 0.1 %; Eosinophils # (auto) 0.12 K/uL (0-0.5); Eosinophils % (auto) 1.7 %; Hematocrit (blood only) 38.5 % (37-47); Hemoglobin 12.4 g/dL (12.0-16.0); Immature Granulocytes # (auto) 0.01 K/uL (0.00-0.02); Immature Granulocytes % (auto) 0.1 %; Lymphocytes # (auto) 2.21 K/uL (1.2-3.4); Lymphocytes % (auto) 31.7 %; Mean Corpuscular Hemoglobin 31.6 pg (25-34); Mean Corpuscular Hgb Conc 32.2 g/dL (32-36); Mean Corpuscular Volume 98.2 fL (80-100); Mean Platelet Volume 9.2 fL (7.4-10.4); Monocytes # (auto) 0.61 K/uL (0.11-0.59); Monocytes % (auto) 8.7 %; Neutrophils # (auto) 4.02 K/uL (1.4-6.5); Neutrophils % (auto) 57.7 %; Platelet Count 231 K/uL (130-400); RDW Coefficient of Variation 13.4 % (11.5-14.5); RDW Standard Deviation 47.9 fL (36.4-46.3); Red Blood Count 3.92 M/uL (4.2-5.4); White Blood Count 6.98 K/uL (4.8-10.8)
[2020-12-06] MEDS: lisinopril 20 MG TAB PO SCH (07:27)
[2020-12-06] MEDS: MULTIVITAMIN TAB PO SCH (07:27)
[2020-12-06] MEDS: GABAPENTIN 600 MG TAB PO SCH (07:27)
[2020-12-06] MEDS: TAMSULOSIN HCL 0.4 MG CAP PO SCH (07:27)
--- NOTE | 2020-12-06 07:35 | Urology Progress Note ---
Date of Service December 06, 2020 Assessment & Plan (1) Left ureteral calculus: Plan: 75yo F admitted with hypertensive crisis in the setting of worsening flank pain secondary to multiple left ureteral stones. - POD #1 s/p Cystoscopy, Left ureteral stent placement with Dr. Solis - Patient feeling well this morning, tolerating the ureteral stent with minimal discomfort - Afebrile, VSS, non-toxic. - Labs reviewed, Wbc normal. Hemoglobin and creatinine stable. - Urine culture pending - Voiding without difficulty, output appears adequate - OK for discharge from perspective, recommend home with pain control and tamsulosin - Plan for outpatient follow-up with urology next week as scheduled for definitive stone management - Expected clinical course reviewed with patient, all questions were answered. - Thank you for allowing us to participate in the acute care of Ms. Torres. Please reconsult us with additional questions, concerns or changes in patient status. Admission and Anticipated Discharge Date Admission Date: December 04, 2020 Subjective Pt examined at bedside this AM. Awake, resting comfortably in bed on arrival. Tolerating the ureteral stent with minimal bother. Denies fevers or chills. Tolerating diet, no nausea or vomiting. Voiding without difficulty. No hematuria or dysuria. She is eager to go home today. Review of Systems Constitutional: as per Subjective / HPI Gastrointestinal: as per Subjective / HPI Genitourinary: as per Subjective / HPI Physical Exam Constitutional: well developed and well nourished; no acute distress and not ill appearing Respiratory: normal respiratory effort and able to speak in complete sentences; no labored breathing and no audible wheezes Gastrointestinal (Abdomen): Inspection/Auscultation: abdomen normal to inspection; abdomen not distended Musculoskeletal: Head/Neck/Chest: normocephalic Skin: No visible rashes or lesions to exposed skin areas Neurologic: moves all extremities and awake Psychiatric: Orientation: alert, oriented x 3 and cooperative Results & Data ([facility]) Vital Signs (Past 12 Hours) Vital Signs Temp Pulse Pulse Resp BP BP Pulse Ox 12/06/20 03:40 36.7 C 83 18 119/69 91 12/05/20 22:49 36.8 C 85 18 108/61 90 12/05/20 22:19 81 PG Care Time/CCT Total # of Minutes Spent Total Time Spent with Patient: Total time spent is greater than 50% in coordination of care (as documented) at patient's floor/unit and/or counseling patient: Coding Level of Care Code 64344 Subseq Hosp Care Lvl 2 Diagnoses Left ureteral calculus N20.1
[2020-12-06 07:42] LABS: BUN Creatinine Ratio 23.2 (10-20); Calcium 8.9 mg/dl (8.5-10.1); Creatinine Clr Calc Pharmacy 57.9 ml/min; Est GFR (African American) 72.5 ml/min; Est GFR (Non-African American) 62.6 ml/min; Potassium 3.9 mmol/L (3.5-5.1)
--- NOTE | 2020-12-06 11:21 | Discharge Summary ---
Date of Service December 06, 2020 Admission HPI Per Admitting Provider Kandy Torres is a 75-year-old female with h/o HTN and prior calcium-based kidney stones who presented today to the ED for right-sided flank/groin pain. She was seen earlier today at [facility] for known kidney stones. She had worsening pain and felt she could not tolerate trying to pass these at home/waiting for procedure as outpatient, so was referred to ED. Patient states that her pain has been 10/10 at worst and has been ongoing for several weeks. She mentions knowing that she probably should have come in sooner but decided to wait as she wanted to attend her granddaughter's pharmacy white coat ceremony in [place]. Upon arrival to the ED the patient was found to have BP up to 204/102. Upon my recheck in the room, she was at 223/112. Reports a mild headache at this time and some pressure, but no vision changes, no neurologic deficits. Denies fever, chills, n/v, dysuria currently. She states that her pain is better controlled now after receiving morphine 4mg IV x2 and is currently 6/10. States that she feels if stones are removed, her BP will normalize as this has happened to her previously. KUD in the ED shows Bilateral renal calculi, 2 adjacent stones within the mid left ureter and 2 adjacent stones within the distal left ureter, which are unchanged in position and measure up to 4 mm in size. UA shows trace urine protein, 1+ urine blood, 5-10 WBC, 10-20 epithelial cells, positive for calcium oxalate crystals. CBC and CMP are otherwise unremarkable. Admission Exam Per Admitting Provider GENERAL: A&Ox3. NAD. HEENT: PERRL, EOMI. Moist mucous membranes. NECK: No JVD. No lymphadenopathy. CHEST/LUNGS: CTAB A/P. No crackles, wheezes, rales, rhonchi. HEART: RRR. No m/g/r. No carotid bruits. ABDOMEN: ND, soft. TTP lower abdomen, especially at RLQ. BS+ x4 EXTREMITIES: No cyanosis, no clubbing, no edema SKIN: Warm and dry. No rashes or lesions. PSYCHIATRIC: Euthymic affect, no SI, no pressured speech, no hallucinations NEUROLOGIC: No FND. CN II-XII grossly intact. Principal Diagnosis GENERAL: A&Ox3. NAD. HEENT: PERRL, EOMI. Moist mucous membranes. NECK: No JVD. No lymphadenopathy. CHEST/LUNGS: CTAB A/P. No crackles, wheezes, rales, rhonchi. HEART: RRR. No m/g/r. No carotid bruits. ABDOMEN: ND, soft. TTP lower abdomen, especially at RLQ. BS+ x4 EXTREMITIES: No cyanosis, no clubbing, no edema SKIN: Warm and dry. No rashes or lesions. PSYCHIATRIC: Euthymic affect, no SI, no pressured speech, no hallucinations NEUROLOGIC: No FND. CN II-XII grossly intact. Discharge Exam General: A&Ox3. NAD. Cooperative. HEENT: Atraumatic, normocephalic. Visual acuity and hearing grossly intact. ROMAIN. Pulm: CTAB A&P. -wheezes, -rales, -rhonchi. Symmetrical chest rise. No increase work of breathing. No respiratory distress. Cardiac: RRR, -mrg. Radial pulses intact and symmetrical. Abdominal: Nontender, nondistended, soft. BS present. No CVA tenderness. Ext: Warm, dry SENSORY: Normal to touch in upper and lower extremities without deficit or asymmetry Discharge Data Allergies Allergy/AdvReac Type Severity Reaction Status Date / Time amlodipine Allergy Severe Anaphylaxis Verified 12/04/20 10:50 benzocaine Allergy Severe Anaphylaxis Verified 12/04/20 10:50 [From [facility] (with benzocaine)] Iodinated Contrast Media Allergy Severe ANAPHYLAXIS Verified 12/04/20 10:50 Penicillins Allergy Severe ANAPHYLAXIS Verified 12/04/20 10:50 trimethobenzamide Allergy Severe ANAPHYLAXIS Verified 12/04/20 10:50 lactose Allergy Intermediate Gastrointestinal Verified 12/04/20 10:50 symptoms Consultations 12/04/20 17:52 ED Decision to Admit Stat 12/04/20 20:13 Consult Urology Routine Procedures Performed Operation Date: 12/05/20 09:40 Actual Procedures p Cystoscopy, Left Ureteral Stent Insertion(Left) - Diogenes Solis MD Ordered Studies 12/05/20 [place] KUB Routine Hospital Course (1) Left ureteral calculus: Kandy Torres is a 75-year-old female with past medical history of hypertension who came to [facility] due to renal colic from known kidney stones. Left nephrolithiasis Patient with substantial pain likely inciting hypertension KUB noting mid and distal left ureteral calculi up to 4 mm No signs of superimposed infection, white blood cell normal, afebrile Urology consulted. Status post stent placement 12/05. Perioperative IV ciprofloxacin given Afebrile overnight, PT/OT recommended home - No abx given at d/c - D.c home with followup in 1 week to Urology for stent removal APAP 650mg Q4-6H +/- ibuprofen 400mg q4-6 hours for pain (2) Hypertensive urgency: Normalized with calculus treatment as above Continue home lisinopril Suspect exacerbated by pain in the setting of nephrolithiasis (3) Hypertension: Continue lisinopril Pain control as noted above (4) Chronic GERD: Continue pantoprazole daily (5) Peripheral neuropathy: Continue Lyrica Continue gabapentin (6) History of kidney stones: As above (7) Right ureteral stone: As above (8) Insomnia: Continue home trazodone 100 mg p.o. nightly DVT prophylaxis: SCDs, ambulate. Defer pharmacal prophylaxis perioperatively Total Time Total Time Spent Total Time Spent (In Minutes): Total time spent preparing discharge including direct patient care, documentation, review of labs and images approximately 35 minutes Discharge Plan Discharge Items Patient Disposition: Home - Self-Care Reason For Visit: HYPERTENSIVE URGENCY, NEPHROLITHIASIS Discharge Diagnosis: Nephrolithiasis Activity: Resume your previous activity Non-emergency contact: Primary Care Provider Call non-emergency contact if: you have any medication questions, your symptoms worsen, your pain is not controlled, your pain is worsening, your pain is unusual for you, your pain is concerning for you and you have a fever Follow-up/Referrals: Ju Dalal PA-C [Physician Fittings Finisher] - 12/12/20 2:30 pm Jonathon Cha [Primary Care Provider] - Diet: Regular Addtl Attending Provider Instructions: You were seen in the hospital for pain and hypertension due to kidney stones. You had a stent placed by urology. You clinically improved, and the stent remains in place. Antibiotics were not indicated at this time. You are being discharged home with follow-up to urology and your primary care provider. An appointment is being scheduled with your primary care provider as noted above. You should be seen within 1 week. If you do not receive a call to confirm your appointment, please contact their office directly. Appointment has been scheduled for you for follow-up with urology on 12/12/2020 at 2:30 PM. If you need to cancel or change this appointment please call their office at [phone]. Please use Tylenol 650 mg every 4-6 hours as needed for pain. Do not take more than 3000 mg in 24 hours of Tylenol. You may also take 400 mg of ibuprofen every 4-6 hours with tylenol, or alternate between doses of Tylenol if you prefer. If you develop any new or worsening symptoms including fever, chills, sweats, chest pain, chest pressure, difficulty breathing, uncontrolled nausea/vomiting, rash, wheezing, passing out or nearly passing out, bleeding, black/bloody bowel movements, or other new or concerning symptoms please call your primary care physician at , or call 911 for re-evaluation in the emergency department if you are very concerned. Pending Studies at Discharge: No Stand-Alone Forms: [facility], Smoking Cessation Medications and DC Order Prescriptions: Continued trazodone 100 mg tablet 100 mg PO HS Qty: 90 RF: 1 gabapentin 600 mg tablet 600 mg PO TID 30 Days Qty: 270 RF: 1 phenazopyridine [Pyridium] 200 mg tablet 200 mg PO TID PRN (Reason: pain) Qty: 10 RF: 0 oxybutynin chloride 5 mg tablet 5 mg PO BID PRN (Reason: bladder spasms) Qty: 10 RF: 0 pregabalin [Lyrica] 75 mg capsule 75 mg PO QAM RF: 0 tamsulosin 0.4 mg capsule 0.4 mg PO QPM Qty: 30 RF: 0 oxycodone-acetaminophen [Percocet] 5-325 mg tablet 1 tab PO Q8H PRN (Reason: pain) Qty: 7 RF: 0 multivitamin tablet 1 tab PO QAM Qty: 90 RF: 1 lisinopril 20 mg tablet 20 mg PO QAM RF: 0 pantoprazole 40 mg tablet,delayed release (DR/EC) 40 mg PO DAILYBB RF: 0 Discharge Orders: Discharge Order (Routine); Ordered 12/06/20 Ordered By: Eduardo Reis Admission Data Admit Date/Time: 12/04/20 18:47 Attending Provider: Eduardo Reis Admit Provider: Konrad Ornelas Primary Care Provider: Jonathon Cha Other Providers: Israel Wilkes ; Jean Claude Luevano Coding Level of Care Code D/C DAY MANAGEMENT >30 MINS Diagnoses Left ureteral calculus N20.1 Hypertensive urgency I16.0 Hypertension I10 Chronic GERD K21.9 Peripheral neuropathy G62.9 History of kidney stones Z87.442 Right ureteral stone N20.1 Insomnia G47.00
== END 2020-12-06 13:10 | disposition home or self-care (01) | DRG 661 ==
LOC: ED 11:31 → 2S 19:34 → SUATTDRO 19:47
DX: G47.00 Insomnia, unspecified; N20.2 Calculus of kidney with calculus of ureter; Z91.041 Radiographic dye allergy status; I10 Essential (primary) hypertension; K21.9 Gastro-esophageal reflux disease without esophagitis; I16.0 Hypertensive urgency; Z88.0 Allergy status to penicillin; G62.9 Polyneuropathy, unspecified

== ENCOUNTER 2022-01-26 16:42 | Inpatient (IN) ==
[2022-01-26] MEDS ORDERED: SODIUM CHLORIDE 0.9% 1000ML 1,000 ML IV STA (16:53)
[2022-01-26] MEDS ORDERED: ONDANSETRON INJ 2 MG/ML 2 ML VIAL IV STA (16:53)
--- NOTE | 2022-01-26 17:05 | Emergency Department Note ---
Impression & Plan Hydronephrosis with renal and ureteral calculous obstruction, Acute UTI (urinary tract infection), Acute left flank pain, Hypokalemia ED Provider Note NAME: PATY BALTAZAR AGE: 76 SEX: F : 1945 ARRIVES VIA: Walk-In INFORMANT: Patient, ED PROVIDER(S): Papa Claire DO CHIEF COMPLAINT: Back pain HPI: The patient is a 76-year-old female who presented to the emergency department for an evaluation of flank pain. The patient describes left-sided flank pain which began over the last few days but worsened severely over the last 24 hours. The patient does have a long history of ureteral calculi. She recently was seen in our facility. She even had stenting" cleaning out of her kidneys" by urology at our facility. She does complain of some nausea. She also complains of chills. She denies having any fever. She denies having any chest pain or difficulty breathing. She states that she has very severe pain e specially in the left flank. She states it does go down into her left groin. She has noted some darkening of her urine. She denies having any martine hematuria. The patient states the pain is moderate to severe. She has been compliant with her outpatient medications. ROS: See above HPI for pertinent positives & negatives. A total of 10 systems reviewed and were otherwise negative. PAST MEDICAL HISTORY: See Below PAST SURGICAL HISTORY: See Below FAMILY HISTORY: See Below SOCIAL HISTORY: See Below HOME MEDICATIONS: See Below ALLERGIES: See Below VITALS: See Below PHYSICAL EXAMINATION: GENERAL: The patient is awake and alert. She is very anxious appearing and ap pears to be in significant pain. EYES: The conjunctivae are clear. The pupils are round and reactive. EARS, NOSE, MOUTH AND THROAT: The nose is without any evidence of any deformity. NECK: The neck is nontender and supple. RESPIRATORY: Normal respiratory effort is noted there is no evidence of wheezing rhonchi or rales CARDIOVASCULAR: Regular rate and rhythm noted there no murmurs rubs or gallops normal S1 normal S2. GASTROINTESTINAL: The abdomen is mildly distended. There is left-sided te nderness to palpation but no guarding rigidity. BACK: No midline tenderness was noted. There is significant left CVA tenderness to percussion. MUSCULOSKELETAL/EXTREMITIES: There is no evidence of gross deformity full range of motion is noted in the hips and shoulders. SKIN: There is no obvious evidence of any rash. There are no petechiae, pallor or cyanosis noted. NEUROLOGIC: Patient is awake alert and oriented x3 strength is symmetric patellar reflexes are 2+ bilaterally MEDICAL DECISION MAKING: The patient is a 76-year-old female who has a history of ureteral calculi. She presented to the emergency department with severe left flank pain. She was recently seen by urology. She had a procedure to try to remove some of her kidney stones. She presented with severe pain and was treated with IV fluids and IV pain medication. She was also given IV antibiotics for presumed urinary tract infection noted on urinalysis. I discussed patient's laboratory and radiographic studies with her. I discussed her condition with the on-call [facility] urology group. I also discussed her case with the on-call [facility] hospitalist. They have agreed to evaluate the patient in the emergency department for further management and disposition. Triage Nursing notes reviewed. Prior medical records reviewed Vital Signs: reviewed and remarkable for elevated blood pressure. Differential diagnosis: Renal colic, UTI, appendicitis, diverticulitis, mesenteric ischemia, aortic pathology, infections, inflammatory bowel disease, PUD, biliary pathology, as w ell as other pathologies. ER treatment provided: See below Diagnostics interpreted by me: ECG: none Cardiac Monitoring: An order was placed for continuous cardiac monitoring. The monitor shows a rate of 83 bpm with sinus rhythm. Laboratory studies: As stated above and show below. Imaging studies: See below Consultation(s): I discussed this case with Dr. Luevano who is on-call for urology. I discussed this case with Dr. Babb who is on-call for the [facility] hospitalist group. Past Med/Surg History Medical History Anxiety Chondrocalcinosis Chronic diarrhea Chronic GERD protonix daily Endometriosis Hiatal hernia Hypertension Insomnia Lower extremity neuropathy Nephrolithiasis Recurrent CaOx kidney stones Obesity Peripheral neuropathy Surgical History History of ankle surgery b/l ankle, tarsal tunnel surgery History of appendectomy History of section x2 History of cholecystectomy History of colonoscopy History of cystoscopy STONE REMOVAL/STENTS (MULTIPLE TIMES) last 12/20/21 @ [facility] Cystoscopy, laser litho, stent (12/25/20): LMA #4 at [facility]. Per post-op anesthesia progress note: "The patient did not take her lisinopril today and was hypertensive preoperatively and in PACU. She was treated with labetalol in PACU and her BP is now 150s/80s which is lower than her baseline. The patient was instructed to resume her blood pressure medications at home." cystoscopy, laser, left stent (06/11/21): LMA#4 iGel, atraumatic at [facility]. No issues per postop anesthesia progress note. History of esophagogastroduodenoscopy (EGD) 08/08/2017. sedation, no issues. History of lithotripsy MULTIPLE TIMES History of tonsillectomy History of tooth extraction History of total abdominal hysterectomy and bilateral salpingo-oophorectomy Status post Will fundoplication Family History Father , age 76; multiple MIs Myocardial infarction Mother , age 49 Myocardial infarction Other No family history of adverse response to anesthesia Denies family history of Ovarian cancer Prostate cancer Crohn's disease Breast cancer Colorectal cancer Inflammatory bowel disease Social History Smoking Status: Never smoker Second Hand Exposure: No; Hx Alcohol Use: No Hx Substance Use: No Preferred Language: Surinamese Communication Ability: Effective Visual Impairment: No Limitations Hearing Ability: Use of Hearing Aid 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 Beliefs That Will Affect Care: None marital status: Current Living Situation: Spouse 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 status: retired 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 How many Children do You have: 2 Feels Safe at Home: Yes Dental Care, Regularly: Yes Seatbelt Use: always Assistive Devices: Denture - Upper, Denture - Lower and Glasses Allergies Allergies Allergy/AdvReac Type Severity Reaction Status Date / Time amlodipine Allergy Severe Anaphylaxis Verified 01/26/22 17:20 benzocaine Allergy Severe Anaphylaxis Verified 01/26/22 17:20 [From Tigan (with benzocaine)] Iodinated Contrast Media Allergy Severe Anaphylaxis Verified 01/26/22 17:20 Penicillins Allergy Severe Anaphylaxis Verified 01/26/22 17:20 trimethobenzamide Allergy Severe Anaphylaxis Verified 01/26/22 17:20 lactose AdvReac Intermediate Gastrointestinal Verified 01/26/22 17:20 symptoms Home Meds Home Medications Medication Instructions Recorded Confirmed pregabalin 75 mg capsule (Lyrica) 75 mg PO HS 08/23/19 01/26/22 lisinopril 20 mg tablet (Zestril) 20 mg PO QAM 10/10/20 01/26/22 pantoprazole 40 mg tablet,delayed 40 mg PO DAILYBB 10/13/20 01/26/22 release (Protonix) cholestyramine (with sugar) 4 gram 4 g PO BID PRN Diarrhea 12/14/21 01/26/22 oral powder multivitamin 1 tab PO QDL 12/14/21 01/26/22 pumpkin seed extract-soy germ 300 2 cap PO DAILY PRN Pain 01/18/22 01/26/22 mg capsule (Azo Bladder Control) Previous Rx's Medication Instructions Recorded phenazopyridine 200 mg tablet 200 mg PO TID PRN pain #10 tabs 01/03/22 (Pyridium) oxybutynin chloride 5 mg tablet 5 mg PO BID PRN bladder spasms #30 01/09/22 tabs oxycodone-acetaminophen 7.5 mg-325 1 tab PO Q8H PRN pain #7 tabs 01/24/22 mg tablet (Percocet) tamsulosin 0.4 mg capsule 0.4 mg PO HS #30 caps 01/24/22 Results & Data (ED) Vital Signs Vital Signs - 24 hr 01/26/22 16:45 01/26/22 17:03 01/26/22 17:10 Temperature 36.2 C L Temperature Source Temporal Artery Scan Pulse Rate 84 Pulse Rate [Finger] 80 Respiratory Rate 16 18 Respiratory Effort / Characteristics Non-Labored Respiratory Depth Normal Blood Pressure 220/131 H Blood Pressure [Left Arm] 189/113 H Blood Pressure Mean 160 Blood Pressure Mean [Left Arm] 138 Pulse Oximetry 95 97 Oxygen Delivery Method Room Air Room Air Room Air Sepsis Recent Fever Within 48 Hours No Sepsis New/Unexplained Change in Mental Status No Sepsis Action Taken by Nursing No Action Required 01/26/22 17:52 01/26/22 18:35 Temperature Temperature Source Pulse Rate Pulse Rate [Finger] 78 83 Respiratory Rate 18 18 Respiratory Effort / Characteristics Non-Labored Respiratory Depth Normal Blood Pressure Blood Pressure [Left Arm] 198/103 H 176/126 H Blood Pressure Mean Blood Pressure Mean [Left Arm] 134 142 Pulse Oximetry 94 96 Oxygen Delivery Method Room Air Room Air Sepsis Recent Fever Within 48 Hours Sepsis New/Unexplained Change in Mental Status Sepsis Action Taken by Custodial Medications Current Medication List: was personally reviewed by me Laboratory Data Attestation: I reviewed the patient's lab results. Result diagrams: 01/26/22 17:00 01/26/22 17:00 Lab Results 01/26/22 01/26/22 01/26/22 Range/Units 17:00 17:00 17:00 WBC 9.23 (4.8-10.8) K/ul RBC 3.32 L (3.93-5.22) M/uL Hgb 10.9 L (12.0-16.0) g/dl Hct 32.3 L (34.1-44.9) % MCV 97.3 (80.0-100.0) fL MCH 32.8 (25.0-34.0) pg MCHC 33.7 (32.0-36.0) g/dL RDW Std Deviation 50.2 H (36.4-46.3) fL RDW Coeff of Gabriele 13.9 (11.5-14.5) % Plt Count 255 (130-400) K/uL MPV 9.3 L (9.4-12.3) fL Immature Gran % (Auto) 0.4 % Neut % (Auto) 71.7 % Lymph % (Auto) 16.8 % Nolan % (Auto) 8.5 % Eos % (Auto) 2.3 % Baso % (Auto) 0.3 % Neut # (Auto) 6.62 H (1.4-6.5) K/uL Lymph # (Auto) 1.55 (1.2-3.4) K/uL Nolan # (Auto) 0.78 (0.24-0.82) K/uL Eos # (Auto) 0.21 (0-0.50) K/uL Baso # (Auto) 0.03 (0-0.2) K/uL Immature Gran # (Auto) 0.04 H (0.00-0.02) K/uL Sodium 140 (136-145) mmol/L Potassium 3.0 L (3.5-5.1) mmol/L Chloride 106 (98-107) mmol/L Carbon Dioxide 26 (21-32) mmol/L Anion Gap 8 (3-11) BUN 11 (6-23) mg/dl Creatinine 1.01 (0.6-1.2) mg/dl Est Cr Clr Drug Dosing 49.3 ml/min Est GFR ( Amer) 63.5 ml/min Est GFR (Non-Af Amer) 54.8 ml/min BUN/Creatinine Ratio 10.9 (10-20) Glucose 107 H (70-99(Fasting)) mg/dl Calcium 8.9 (8.5-10.1) mg/dl Total Bilirubin 0.7 (0.2-1.0) mg/dl AST 14 (13-39) U/L ALT 9 (7-52) U/L Alkaline Phosphatase 96 (34-104) U/L Total Protein 6.5 (6.0-8.3) gm/dl Albumin 4.0 (3.4-5.0) gm/dl Globulin 2.5 (2.5-4.0) gm/dl Albumin/Globulin Ratio 1.6 (0.9-2) Lipase 16 (11-82) U/L Urine Color Dark Yellow Urine Appearance Cloudy A (Clear) Urine pH 6.0 (4.5-7.5) Ur Specific [place] 1.016 (1.000-1.030) Urine Protein 1+ H (Negative) Urine Glucose (UA) Negative (Negative) Urine Ketones Trace H (Negative) Urine Blood 3+ H (Negative) Urine Nitrite Negative (Negative) Urine Bilirubin Negative (Negative) Urine Urobilinogen Negative (Negative) Ur Leukocyte Esterase 1+ H (Negative) Urine WBC (Auto) >30 H (0-5) /hpf Urine RBC (Auto) >30 H (0-4) /hpf U Hyaline Cast (Auto) 1-5 (0-5) /lpf U Epithel Cells (Auto) >30 H (0-5) /lpf Urine Bacteria (Auto) Negative (Negative) SARS-CoV-2, RNA, NAAT (NEGATIVE) 01/26/22 Range/Units 18:34 WBC (4.8-10.8) K/ul RBC (3.93-5.22) M/uL Hgb (12.0-16.0) g/dl Hct (34.1-44.9) % MCV (80.0-100.0) fL MCH (25.0-34.0) pg MCHC (32.0-36.0) g/dL RDW Std Deviation (36.4-46.3) fL RDW Coeff of Gabriele (11.5-14.5) % Plt Count (130-400) K/uL MPV (9.4-12.3) fL Immature Gran % (Auto) % Neut % (Auto) % Lymph % (Auto) % Nolan % (Auto) % Eos % (Auto) % Baso % (Auto) % Neut # (Auto) (1.4-6.5) K/uL Lymph # (Auto) (1.2-3.4) K/uL Nolan # (Auto) (0.24-0.82) K/uL Eos # (Auto) (0-0.50) K/uL Baso # (Auto) (0-0.2) K/uL Immature Gran # (Auto) (0.00-0.02) K/uL Sodium (136-145) mmol/L Potassium (3.5-5.1) mmol/L Chloride (98-107) mmol/L Carbon Dioxide (21-32) mmol/L Anion Gap (3-11) BUN (6-23) mg/dl Creatinine (0.6-1.2) mg/dl Est Cr Clr Drug Dosing ml/min Est GFR ( Amer) ml/min Est GFR (Non-Af Amer) ml/min BUN/Creatinine Ratio (10-20) Glucose (70-99(Fasting)) mg/dl Calcium (8.5-10.1) mg/dl Total Bilirubin (0.2-1.0) mg/dl AST (13-39) U/L ALT (7-52) U/L Alkaline Phosphatase (34-104) U/L Total Protein (6.0-8.3) gm/dl Albumin (3.4-5.0) gm/dl Globulin (2.5-4.0) gm/dl Albumin/Globulin Ratio (0.9-2) Lipase (11-82) U/L Urine Color Urine Appearance (Clear) Urine pH (4.5-7.5) Ur Specific [place] (1.000-1.030) Urine Protein (Negative) Urine Glucose (UA) (Negative) Urine Ketones (Negative) Urine Blood (Negative) Urine Nitrite (Negative) Urine Bilirubin (Negative) Urine Urobilinogen (Negative) Ur Leukocyte Esterase (Negative) Urine WBC (Auto) (0-5) /hpf Urine RBC (Auto) (0-4) /hpf U Hyaline Cast (Auto) (0-5) /lpf U Epithel Cells (Auto) (0-5) /lpf Urine Bacteria (Auto) (Negative) SARS-CoV-2, RNA, NAAT NEGATIVE (NEGATIVE) Administered Medications Ciprofloxacin (Cipro / D5w) 400 mg in 200 mls @ 100 mls/hr IV NOW STA; Protocol Stop: 01/26/22 20:06 Last Admin: 01/26/22 18:16 Dose: 100 mls/hr Documented By: JOHNNIE Morphine Sulfate (Morphine Sulfate 4 Mg/Ml 1 Ml Carp\\Vial) 4 mg IV Q15M PRN PRN Reason: Pain Stop: 02/09/22 16:52 Last Admin: 01/26/22 18:35 Dose: 4 mg Documented By: Admin: 01/26/22 17:09 Dose: 4 mg Documented By: JOHNNIE Discontinued Medications Sodium Chloride (Nss 1000ml) 1,000 mls @ 999 mls/hr IV .Q1H1M STA Stop: 01/26/22 17:53 Last Infusion: 01/26/22 18:25 Dose: 0 mls/hr Documented By: Admin: 01/26/22 17:04 Dose: 999 mls/hr Documented By: JOHNNIE Ceftriaxone Sodium (Rocephin) 2,000 mg in 70 mls @ 140 mls/hr IV NOW STA Stop: 01/26/22 18:35 Last Admin: 01/26/22 18:10 Dose: Not Given Documented By: JOHNNIE Ondansetron HCl (Ondansetron Inj 2 Mg/Ml 2 Ml Vial) 4 mg IV NOW STA Stop: 01/26/22 16:54 Last Admin: 01/26/22 17:10 Dose: 4 mg Documented By: JOHNNIE Imaging Data Radiologist's Impression: Abdomen/Pelvis CT 01/26/22 16:53 CT OF THE ABDOMEN AND PELVIS WITHOUT CONTRAST CLINICAL HISTORY: Left flank pain. COMPARISON STUDY: CT of the abdomen and pelvis January 03, 2022. TECHNIQUE: Axial images of the abdomen and pelvis were obtained without IV contrast. Images were reviewed in the axial, sagittal, and coronal planes. Automated exposure control was utilized for the study. A dose lowering technique was utilized adhering to the principles of ALARA. FINDINGS: Lung bases are unremarkable. Moderate to severe bilateral hydroureteronephrosis has developed since CT of January 03, 2022. Left hydronephrosis is due to a 6 mm obstructing distal left ureteral calculus. There are multiple additional smaller distal left ureteral calculi located proximal to the obstructing calculus. There is a small 3 mm distal right ureteral calculus. Its unclear if this results in right hydronephrosis. Mild perinephric and periureteral stranding is noted. Numerous small bilateral renal calculi measure up to 4 mm. Evaluation of the remainder of the abdomen and pelvis is suboptimal on this unenhanced exam. Liver, spleen, adrenal glands and pancreas are unremarkable. The gallbladder is surgically absent. There is no evidence for a bowel obstructive. Colonic diverticulosis is noted without evidence for acute diverticulitis. No fluid collection is identified. There is no lymphadenopathy. IMPRESSION: 1. Moderate to severe bilateral hydroureteronephrosis which has developed since prior CT. Left hydroureteronephrosis is due to a 6 mm distal left ureteral calculus. Small 3 mm distal right ureteral calculus. It's unclear if this results in right hydroureteronephrosis. 2. Bilateral nephrolithiasis. ACT 112: Negative or not required by law. Electronically signed by: Keven Frances M.D. 01/26/2022 5:55 PM Discharge Plan Visit Data Chief Complaint: Back Injury/Pain Stated Complaint: PAIN IN LEFT BACK ED Provider: Papa Claire Discharge Problem: Hydronephrosis with renal and ureteral calculous obstruction, Acute UTI (urinary tract infection), Acute left flank pain, Hypokalemia Patient Disposition: Being Evaluated by Hospitalist Forms Stand Alone Forms: My [facility] Prescriptions Prescriptions: No Action oxybutynin chloride 5 mg tablet 5 mg PO BID PRN (Reason: bladder spasms) Qty: 30 0RF pregabalin [Lyrica] 75 mg capsule 75 mg PO HS lisinopril [Zestril] 20 mg tablet 20 mg PO QAM pantoprazole [Protonix] 40 mg tablet,delayed release (DR/EC) 40 mg PO DAILYBB Label Comments: pt takes in the am multivitamin tablet 1 tab PO QDL Label Comments: pt states she takes med at noon cholestyramine (with sugar) 4 gram Powder 4 g PO BID PRN (Reason: Diarrhea) Rx Instructions: administer w/meal; avoid other meds within 1hr before or 4-6hr after dose phenazopyridine [Pyridium] 200 mg tablet 200 mg PO TID PRN (Reason: pain) Qty: 10 0RF Azo Bladder Control 300 mg Capsule 2 cap PO DAILY PRN (Reason: Pain) tamsulosin 0.4 mg capsule 0.4 mg PO HS Qty: 30 0RF oxycodone-acetaminophen [Percocet] 7.5-325 mg tablet 1 tab PO Q8H PRN (Reason: pain) Qty: 7 0RF Referrals Referrals: Jonathon Cha [Primary Care Provider] -
[2022-01-26] MEDS: MoRPHine SULFATE 4 MG/ML 1 ML CARP\\VIAL IV PRN ×2 (17:09→18:35)
[2022-01-26 17:23] LABS: Basophils # (auto) 0.03 K/uL (0-0.2); Basophils % (auto) 0.3 %; Eosinophils # (auto) 0.21 K/uL (0-0.50); Eosinophils % (auto) 2.3 %; Hematocrit (blood only) 32.3 % (34.1-44.9); Hemoglobin 10.9 g/dl (12.0-16.0); Immature Granulocytes # (auto) 0.04 K/uL (0.00-0.02); Immature Granulocytes % (auto) 0.4 %; Lymphocytes # (auto) 1.55 K/uL (1.2-3.4); Lymphocytes % (auto) 16.8 %; Mean Corpuscular Hemoglobin 32.8 pg (25.0-34.0); Mean Corpuscular Hgb Conc 33.7 g/dL (32.0-36.0); Mean Corpuscular Volume 97.3 fL (80.0-100.0); Mean Platelet Volume 9.3 fL (9.4-12.3); Monocytes # (auto) 0.78 K/uL (0.24-0.82); Monocytes % (auto) 8.5 %; Neutrophils # (auto) 6.62 K/uL (1.4-6.5); Neutrophils % (auto) 71.7 %; Platelet Count 255 K/uL (130-400); RDW Coefficient of Variation 13.9 % (11.5-14.5); RDW Standard Deviation 50.2 fL (36.4-46.3); Red Blood Count 3.32 M/uL (3.93-5.22); White Blood Count 9.23 K/ul (4.8-10.8)
[2022-01-26 17:29] LABS: Appearance Urine Cloudy (Clear); Bacteria Urine Automated Negative (Negative); Bilirubin Urine Negative (Negative); Blood Urine 3+ (Negative); Color Urine Dark Yellow; Epithelial Cell Urine Auto >30 /lpf (0-5); Glucose Urine UA Negative (Negative); Ketones Urine Trace (Negative); Leukocyte Esterase Urine 1+ (Negative); Nitrite Urine Negative (Negative); Protein Urine 1+ (Negative); RBC Urine Automated >30 /hpf (0-4); Specific Gravity Urine 1.016 (1.000-1.030); Urobilinogen Urine Negative (Negative); WBC Urine Automated >30 /hpf (0-5)
--- NOTE | 2022-01-26 17:57 | CT Scan Report ---
CT OF THE ABDOMEN AND PELVIS WITHOUT CONTRAST CLINICAL HISTORY: Left flank pain. COMPARISON STUDY: CT of the abdomen and pelvis January 03, 2022. TECHNIQUE: Axial images of the abdomen and pelvis were obtained without IV contrast. Images were revi ewed in the axial, sagittal, and coronal planes. Automated exposure control was utilized for the luis enrique dy. A dose lowering technique was utilized adhering to the principles of ALARA. FINDINGS: Lung bases are unremarkable. Moderate to severe bilateral hydroureteronephrosis has develop ed since CT of January 03, 2022. Left hydronephrosis is due to a 6 mm obstructing distal left uretera l calculus. There are multiple additional smaller distal left ureteral calculi located proximal to th e obstructing calculus. There is a small 3 mm distal right ureteral calculus. Its unclear if this res ults in right hydronephrosis. Mild perinephric and periureteral stranding is noted. Numerous small bi lateral renal calculi measure up to 4 mm. Evaluation of the remainder of the abdomen and pelvis is marte boptimal on this unenhanced exam. Liver, spleen, adrenal glands and pancreas are unremarkable. The ga llbladder is surgically absent. There is no evidence for a bowel obstructive. Colonic diverticulosis is noted without evidence for acute diverticulitis. No fluid collection is identified. There is no ly mphadenopathy. IMPRESSION: 1. Moderate to severe bilateral hydroureteronephrosis which has developed since prior CT. Left hydrou reteronephrosis is due to a 6 mm distal left ureteral calculus. Small 3 mm distal right ureteral calc ulus. It's unclear if this results in right hydroureteronephrosis. 2. Bilateral nephrolithiasis. ACT 112: Negative or not required by law. Electronically signed by: Keven Frances M.D. 01/26/2022 5:55 PM
[2022-01-26] MEDS ORDERED: cefTRIAXone SODIUM 2,000 MG/70 ML BAG IV STA (18:06)
[2022-01-26] MEDS ORDERED: CIPROFLOXACIN / D5W 400 MG/200 ML BAG IV STA (18:07)
[2022-01-26 18:15] LABS: Albumin Globulin Ratio 1.6 (0.9-2); BUN Creatinine Ratio 10.9 (10-20); Bilirubin,Total 0.7 mg/dl (0.2-1.0); Calcium 8.9 mg/dl (8.5-10.1); Creatinine Clr Calc Pharmacy 49.3 ml/min; Est GFR (African American) 63.5 ml/min; Est GFR (Non-African American) 54.8 ml/min; Globulin 2.5 gm/dl (2.5-4.0); Total Protein 6.5 gm/dl (6.0-8.3)
--- NOTE | 2022-01-26 18:45 | History & Physical Report ---
Date of Service January 26, 2022 Assessment & Plan (1) Hydronephrosis with renal and ureteral calculous obstruction: Plan: Patient presents with left-sided flank pain. Patient has a 6 mm distal left ureteral stone however CT scan comments on moderate to severe bilateral hydronephrosis which is new from CT scan of January 03, 2022 there is also incidental note of a mild right ureteral calculus on the December study there was comments of a right ureteral stent being placed. This is since been removed by Dr. Luevano Patient will be admitted for pain control with parenteral opiates intravenous hydration continuation of Flomax therapy urology consultation. Patient be kept n.p.o. after midnight in case a interventional procedure will be planned to remedy her severe hydronephrosis. Despite that description of the hydronephrosis the patient's renal function has remained stable With persistent nausea the patient will be given Phenergan and Zofran (2) Hypertension: Plan: Patient is on lisinopril for hypertension this will be continued patient cannot recall whether she took her medication this morning she will as needed hydralazine is currently blood pressure significantly high but likely may be based on pain and nausea (3) Hypokalemia: Plan: Patient is potassium is 3.0 she has had some nausea and emesis at home should be repleted both by potassium and her continuous IV fluids and also some oral potassium if she can tolerate (4) History of Will fundoplication: Plan: Patient typically is not following a specific diet but does have some issues with reflux despite her surgery, she is however is not on a proton pump inhibitor or a H2 brandy (5) Neuropathy: Plan: Patient has neuropathic foot pain for which she takes Lyrica this will be continued (6) Vitamin D deficiency: Plan DVT prevention are SCDs at this time History of Present Illness Primary Care Provider: Jonathon Cha 76-year-old female who presented to the emergency department for an evaluation of flank pain. The patient describes left-sided flank pain which began over the last few days but worsened severely over the last 24 hours. The patient does have a long history of ureteral calculi. She has a CT on 01/03 with right ureteral stent in place and mild hydro on right, now has severe hydronephrosis She does complain of some nausea and chills but denies fever. She denies having any chest pain or difficulty breathing. She states that she has very severe pain especially in the left flank. She states it does go down into her left groin. She denies having any martine hematuria. The patient states the pain is moderate to severe. Allergies Allergy/AdvReac Type Severity Reaction Status Date / Time amlodipine Allergy Severe Anaphylaxis Verified 01/26/22 17:20 benzocaine Allergy Severe Anaphylaxis Verified 01/26/22 17:20 [From Tigan (with benzocaine)] Iodinated Contrast Media Allergy Severe Anaphylaxis Verified 01/26/22 17:20 Penicillins Allergy Severe Anaphylaxis Verified 01/26/22 17:20 trimethobenzamide Allergy Severe Anaphylaxis Verified 01/26/22 17:20 lactose AdvReac Intermediate Gastrointestinal Verified 01/26/22 17:20 symptoms Home Medications Medication Instructions Recorded Confirmed Type pregabalin 75 mg capsule (Lyrica) 75 mg PO HS 08/23/19 01/26/22 History lisinopril 20 mg tablet (Zestril) 20 mg PO QAM 10/10/20 01/26/22 History pantoprazole 40 mg tablet,delayed 40 mg PO DAILYBB 10/13/20 01/26/22 History release (Protonix) cholestyramine (with sugar) 4 gram 4 g PO BID PRN Diarrhea 12/14/21 01/26/22 History oral powder multivitamin 1 tab PO QDL 12/14/21 01/26/22 History phenazopyridine 200 mg tablet 200 mg PO TID PRN pain #10 tabs 01/03/22 01/26/22 Rx (Pyridium) oxybutynin chloride 5 mg tablet 5 mg PO BID PRN bladder spasms #30 01/09/22 01/26/22 Rx tabs pumpkin seed extract-soy germ 300 2 cap PO DAILY PRN Pain 01/18/22 01/26/22 History mg capsule (Azo Bladder Control) oxycodone-acetaminophen 7.5 mg-325 1 tab PO Q8H PRN pain #7 tabs 01/24/22 01/26/22 Rx mg tablet (Percocet) tamsulosin 0.4 mg capsule 0.4 mg PO HS #30 caps 01/24/22 01/26/22 Rx Past Med/Surg History Medical History Anxiety Chondrocalcinosis Chronic diarrhea Chronic GERD protonix daily Endometriosis Hiatal hernia Hypertension Insomnia Lower extremity neuropathy Nephrolithiasis Recurrent CaOx kidney stones Obesity Peripheral neuropathy Surgical History History of ankle surgery b/l ankle, tarsal tunnel surgery History of appendectomy History of section x2 History of cholecystectomy History of colonoscopy History of cystoscopy STONE REMOVAL/STENTS (MULTIPLE TIMES) last 12/20/21 @ [facility] Cystoscopy, laser litho, stent (12/25/20): LMA #4 at [facility]. Per post-op anesthesia progress note: "The patient did not take her lisinopril today and was hypertensive preoperatively and in PACU. She was treated with labetalol in PACU and her BP is now 150s/80s which is lower than her baseline. The patient was instructed to resume her blood pressure medications at home." cystoscopy, laser, left stent (06/11/21): LMA#4 iGel, atraumatic at [facility]. No issues per postop anesthesia progress note. History of esophagogastroduodenoscopy (EGD) 08/08/2017. sedation, no issues. History of lithotripsy MULTIPLE TIMES History of tonsillectomy History of tooth extraction History of total abdominal hysterectomy and bilateral salpingo-oophorectomy Status post Will fundoplication Family History Father , age 76; multiple MIs Myocardial infarction Mother , age 49 Myocardial infarction Other No family history of adverse response to anesthesia Denies family history of Ovarian cancer Prostate cancer Crohn's disease Breast cancer Colorectal cancer Inflammatory bowel disease Social History Smoking Status: Never smoker Second Hand Exposure: No; Hx Alcohol Use: No Hx Substance Use: No Preferred Language: Northern Irish Communication Ability: Effective Visual Impairment: No Limitations Hearing Ability: Use of Hearing Aid Terrazzo Grinder Required: No Beliefs That Will Affect Care: None marital status: Current Living Situation: Spouse 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 How many Children do You have: 2 Feels Safe at Home: Yes Dental Care, Regularly: Yes Seatbelt Use: always Assistive Devices: Denture - Upper, Denture - Lower and Glasses Review of Systems Review of Systems: Mild distress and fatigue no headache, no visual changes no speech or swallowing issues no chest pain, pressure or palpitations no shortness of breath, cough or wheezes no abdominal pain, nausea or vomiting, diarrhea or constipation no dysuria, hematuria or frequency no focal joint pain or swelling no back pain, CVA tenderness or radicular pain no bruising, bleeding or rashes no focal signs of weakness or numbness or altered sensation no complaints of anxiety or depression.. Physical Exam Physical Exam: The patient appeared well nourished and normally developed. Vital signs as documented. Head exam is normocephalic atraumatic Neck is without JVD, thyromegaly, or carotid bruits. Lungs are clear to auscultation, no focal loss of breath sounds Cardiac exam, Rhythm is regular.. No murmurs, rubs or gallops. Abdominal exam reveals normal bowel sounds, soft non tender, no masses Extremities are nonedematous and both pedal pulses are present Neurologic exam is alert and oriented, no focal loss of strength or sensation Skin is without bruises or rashes Psychologically is without concerns for anxiety or depression.. Results & Data Results & Data ([facility] [place]) Vital Signs (Past 12 Hours) Vital Signs Temp Pulse Pulse Resp BP BP Pulse Ox 01/26/22 18:35 83 18 176/126 H 96 01/26/22 17:52 78 18 198/103 H 94 01/26/22 17:10 80 18 189/113 H 97 01/26/22 17:03 01/26/22 16:45 97.2 F L 84 16 220/131 H 95 O2 Del Method 01/26/22 18:35 Room Air 01/26/22 17:52 Room Air 01/26/22 17:10 Room Air 01/26/22 17:03 Room Air 01/26/22 16:45 Room Air Diagnostic Findings Abdomen/Pelvis CT 01/26/22 16:53 CT OF THE ABDOMEN AND PELVIS WITHOUT CONTRAST CLINICAL HISTORY: Left flank pain. COMPARISON STUDY: CT of the abdomen and pelvis January 03, 2022. TECHNIQUE: Axial images of the abdomen and pelvis were obtained without IV contrast. Images were reviewed in the axial, sagittal, and coronal planes. Automated exposure control was utilized for the study. A dose lowering technique was utilized adhering to the principles of ALARA. FINDINGS: Lung bases are unremarkable. Moderate to severe bilateral hydroureteronephrosis has developed since CT of January 03, 2022. Left hydronephrosis is due to a 6 mm obstructing distal left ureteral calculus. There are multiple additional smaller distal left ureteral calculi located proximal to the obstructing calculus. There is a small 3 mm distal right ureteral calculus. Its unclear if this results in right hydronephrosis. Mild perinephric and periureteral stranding is noted. Numerous small bilateral renal calculi measure up to 4 mm. Evaluation of the remainder of the abdomen and pelvis is suboptimal on this unenhanced exam. Liver, spleen, adrenal glands and pancreas are unremarkable. The gallbladder is surgically absent. There is no evidence for a bowel obstructive. Colonic diverticulosis is noted without evidence for acute diverticulitis. No fluid collection is identified. There is no lymphadenopathy. IMPRESSION: 1. Moderate to severe bilateral hydroureteronephrosis which has developed since prior CT. Left hydroureteronephrosis is due to a 6 mm distal left ureteral calculus. Small 3 mm distal right ureteral calculus. It's unclear if this results in right hydroureteronephrosis. 2. Bilateral nephrolithiasis. Electronically signed by: Keven Frances M.D. 01/26/2022 5:55 PM PG Care Time/CCT Total # of Minutes Spent Total Time Spent with Patient: Total time spent is greater than 50% in coordination of care (as documented) at patient's floor/unit and/or counseling patient: Coding Level of Care Code 78789 Initial Inpt Care Lvl 2 Diagnoses Hydronephrosis with renal and ureteral calculous obstruction N13.2 Hypertension I10 Hypokalemia E87.6 History of Will fundoplication Z98.890 Neuropathy G62.9 Vitamin D deficiency E55.9
[2022-01-26] MEDS ORDERED: MAGNESIUM SULFATE / D5W 1 GM/100 ML BAG IV ONE (20:25)
[2022-01-26] MEDS ORDERED: PROMETHAZINE HCL 12.5 MG in SODIUM CHLORIDE 0.9% 50 ML IV PRN (20:25)
[2022-01-26] MEDS ORDERED: OXYBUTYNIN CHLORIDE 5 MG TAB PO PRN (20:25)
[2022-01-26] MEDS ORDERED: MoRPHine SULFATE 4 MG/ML 1 ML CARP\\VIAL IV PRN (20:25)
[2022-01-26] MEDS ORDERED: POTASSIUM CHLORIDE 20 MEQ in SODIUM CHLORIDE 0.9% 1000ML 1,000 ML IV SCH (20:25)
[2022-01-26] MEDS ORDERED: MoRPHine SULFATE 2 MG/ML CARP IV PRN (20:25)
[2022-01-26] MEDS ORDERED: KETOROLAC TROMETHAMINE 15 MG/ML VIAL IV PRN (20:25)
[2022-01-26] MEDS ORDERED: ONDANSETRON INJ 2 MG/ML 2 ML VIAL IV PRN (20:25)
[2022-01-26] MEDS ORDERED: ALUMINUM/MAGNESIUM SUSP 30 ML UDC PO PRN (20:25)
[2022-01-26] MEDS ORDERED: hydrALAZINE HCL 20 MG/ML VIAL IV PRN (20:25)
[2022-01-26] MEDS: PREGABALIN 75 MG CAP PO SCH (21:17)
[2022-01-26] MEDS: POTASSIUM CHLORIDE CRTAB 20 MEQ TABCR PO SCH (21:19)
[2022-01-26] MEDS: TAMSULOSIN HCL 0.4 MG CAP PO SCH (21:19)
--- NOTE | 2022-01-26 22:24 | Urology Consultation ---
Date of Consultation January 26, 2022 Assessment & Plan (1) Hydronephrosis with renal and ureteral calculous obstruction: The patient has been admitted on the hospitalist service. We recommend proceeding as follows: Provide analgesics Provide antiemetics Provide IV fluid for hydration Provide Flomax for expulsive therapy Continue antibiotics in the form of Cipro We will implement n.p.o. status at midnight tonight in the event the patient would require cystoscopy tomorrow. At the present time did not feel the patient requires an urgent procedure as she is afebrile without tachycardia. She also does not exhibit leukocytosis or acute kidney injury. Attending note: Independently assessed, examined, interviewed, and evaluated. Agree with above. Patient has multiple stones in the past with significant uric acid stones. Patient has had multiple issues with obstruction. Had large bilateral burden. Patient does not tolerate stents well and for the last procedure it was highly recommended to proceed with stent placement afterwards however patient was adamant to try to attempt to go without the stent in place. Patient had understood risks including the possibility of obstruction with possible Steinstrasse are other issues. Patient had presented to the ER with severe pain and discomfort on the left side with an approximately 4-5 mm likely pile of small stones within the UVJ as well as the possibility of a small fragment on the right with possible UVJ/distal stone. Numerous other small fragments are seen in both kidneys Patient has moderate hydronephrosis bilaterally. Imaging have been reviewed interpreted by myself. Patient is dealing with some hypertension. Otherwise vitals are currently stable. Labs were all reviewed and are currently stable. Creatinine is in a good range and no significant white count. Extensively reviewed different options. Discussed concerns and issues. Discussed possible stent placement as well as other intervention options. Risks and benefits discussed at length for procedure. These include bleeding, infection, injury to surrounding tissues or organs, and risks associated with anesthesia. Patient states understanding and agrees to proceed. Will sign consent and schedule. Plan for cystoscopy with possible bilateral ureteroscopy and stone extraction. We will evaluate need for stent Extensively reviewed with patient yet again potential risks of foregoing stent with these procedures including the possibility of significant swelling, renal colic, obstruction, and development of severe pain and other issues. History of Present Illness Reason for Consultation: Nephrolithiasis Attending Physician: Talon Babb MD History of Present Illness This is a 76-year-old female who presented to the hospital secondary to pain in her left flank that radiated to her abdomen. She notes that the pain began earlier this morning. She has had nausea without emesis. She denies any fevers or dysuria but has had some hematuria. The patient does note that she has had a history of kidney stones in the past and she has required cystoscopy in the past. Since arrival to the hospital the patient has had labs and imaging which I independently reviewed. CT scan of the abdomen and pelvis showed the patient had bilateral hydronephrosis. The left-sided hydronephrosis was felt to be due to a 6 mm left-sided kidney stone. The patient was also noted to have a small 3 mm distal right ureteral kidney stone. Labs include a CBC her white blood cell count was normal. Her hemoglobin and hematocrit were 10.9 and 32.3. Platelet count was normal. Chemistry profile showed sodium was 140 potassium was 3.0. BUN and creatinine were both within normal range. There is no elevation of LFTs or lipase. Urinalysis was cloudy with negative nitrites. There is 1+ leukocyte Estrace and greater than 30 white blood cells per high-power field. There is no bacteria on the study. A COVID test was negative. Since admission to the hospital the patient has had her potassium supplemented and she has been initiated on antibiotics in the form of Cipro. She has been given Flomax for expulsive therapy At the time my interview she was resting comfortably in bed in no distress. Allergies Allergy/AdvReac Type Severity Reaction Status Date / Time amlodipine Allergy Severe Anaphylaxis Verified 01/26/22 17:20 benzocaine Allergy Severe Anaphylaxis Verified 01/26/22 17:20 [From Tigan (with benzocaine)] Iodinated Contrast Media Allergy Severe Anaphylaxis Verified 01/26/22 17:20 Penicillins Allergy Severe Anaphylaxis Verified 01/26/22 17:20 trimethobenzamide Allergy Severe Anaphylaxis Verified 01/26/22 17:20 lactose AdvReac Intermediate Gastrointestinal Verified 01/26/22 17:20 symptoms Home Medications Medication Instructions Recorded Confirmed Type pregabalin 75 mg capsule (Lyrica) 75 mg PO HS 08/23/19 01/26/22 History lisinopril 20 mg tablet (Zestril) 20 mg PO QAM 10/10/20 01/26/22 History pantoprazole 40 mg tablet,delayed 40 mg PO DAILYBB 10/13/20 01/26/22 History release (Protonix) cholestyramine (with sugar) 4 gram 4 g PO BID PRN Diarrhea 12/14/21 01/26/22 History oral powder multivitamin 1 tab PO QDL 12/14/21 01/26/22 History phenazopyridine 200 mg tablet 200 mg PO TID PRN pain #10 tabs 01/03/22 01/26/22 Rx (Pyridium) oxybutynin chloride 5 mg tablet 5 mg PO BID PRN bladder spasms #30 01/09/22 01/26/22 Rx tabs pumpkin seed extract-soy germ 300 2 cap PO DAILY PRN Pain 01/18/22 01/26/22 History mg capsule (Azo Bladder Control) oxycodone-acetaminophen 7.5 mg-325 1 tab PO Q8H PRN pain #7 tabs 01/24/22 01/26/22 Rx mg tablet (Percocet) tamsulosin 0.4 mg capsule 0.4 mg PO HS #30 caps 01/24/22 01/26/22 Rx Patient History Medical History Anxiety Chondrocalcinosis Chronic diarrhea Chronic GERD protonix daily Endometriosis Hiatal hernia Hypertension Insomnia Lower extremity neuropathy Nephrolithiasis Recurrent CaOx kidney stones Obesity Peripheral neuropathy Surgical History History of ankle surgery b/l ankle, tarsal tunnel surgery History of appendectomy History of section x2 History of cholecystectomy History of colonoscopy History of cystoscopy STONE REMOVAL/STENTS (MULTIPLE TIMES) last 12/20/21 @ [facility] Cystoscopy, laser litho, stent (12/25/20): LMA #4 at [facility]. Per post-op anesthesia progress note: "The patient did not take her lisinopril today and was hypertensive preoperatively and in PACU. She was treated with labetalol in PACU and her BP is now 150s/80s which is lower than her baseline. The patient was instructed to resume her blood pressure medications at home." cystoscopy, laser, left stent (06/11/21): LMA#4 iGel, atraumatic at [facility]. No issues per postop anesthesia progress note. History of esophagogastroduodenoscopy (EGD) 08/08/2017. sedation, no issues. History of lithotripsy MULTIPLE TIMES History of tonsillectomy History of tooth extraction History of total abdominal hysterectomy and bilateral salpingo-oophorectomy Status post Will fundoplication Family History Father , age 76; multiple MIs Myocardial infarction Mother , age 49 Myocardial infarction Other No family history of adverse response to anesthesia Denies family history of Ovarian cancer Prostate cancer Crohn's disease Breast cancer Colorectal cancer Inflammatory bowel disease Social History Smoking Status: Never smoker Second Hand Exposure: No; Hx Alcohol Use: No Hx Substance Use: No Preferred Language: Emirati Communication Ability: Effective Visual Impairment: No Limitations Hearing Ability: Use of Hearing Aid Project Control Analyst Required: No Beliefs That Will Affect Care: None marital status: Current Living Situation: Spouse 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 status: 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 How many Children do You have: 2 Other Information That Helps Us Care for You: No Feels Safe at Home: Yes Safety Concerns: Feels Safe At This Time Dental Care, Regularly: Yes Seatbelt Use: always Assistive Devices: Denture - Lower, Glasses and Hearing Aid - Bilateral Review of Systems Constitutional: no fever and no chills Eyes: no eye pain Ear, Nose, Mouth, Throat: no ear pain Respiratory: no cough and no dyspnea Cardiovascular: no chest pain Gastrointestinal: + abdominal pain (Radiating from left flank) and + nausea; no vomiting Genitourinary: as per Subjective / HPI Musculoskeletal: + back pain (Left flank) Integumentary: no rash Neurologic: no localized weakness Physical Exam Constitutional: WD/WN, vitals as above Eyes: no conjunctival abnormality ENMT: Ears: no hearing impairment and no external ear abnormality Mouth: no oropharynx abnormality Neck: trachea midline Respiratory: normal respiratory effort; no respiratory distress and no labored breathing Cardiovascular: Rate/Rhythm: regular rate and regular rhythm Gastrointestinal (Abdomen): Abdomen is soft, nonrigid, nondistended, nontender to palpation Musculoskeletal: No calf tenderness Skin: no rashes Neurologic: moves all extremities Psychiatric: A+Ox3, euthymic affect Results & Data ([place]) Vital Signs (Past 12 Hours) Vital Signs Temp Pulse Pulse Resp BP BP Pulse Ox 11/19/22 20:21 83 18 188/71 H 93 01/26/22 19:48 93 H 18 188/101 H 94 01/26/22 18:35 83 18 176/126 H 96 01/26/22 17:52 78 18 198/103 H 94 01/26/22 17:10 80 18 189/113 H 97 01/26/22 17:03 01/26/22 16:45 36.2 C L 84 16 220/131 H 95 O2 Del Method 01/26/22 20:21 Room Air 01/26/22 19:48 Room Air 01/26/22 18:35 Room Air 01/26/22 17:52 Room Air 01/26/22 17:10 Room Air 01/26/22 17:03 Room Air 01/26/22 16:45 Room Air PG Care Time/CCT Total # of Minutes Spent Total Time Spent with Patient: Total time spent is greater than 50% in coordination of care (as documented) at patient's floor/unit and/or counseling patient: Coding Level of Care Code 09742 Inpt Consult Level 5 Diagnoses Hydronephrosis with renal and ureteral calculous obstruction N13.2
[2022-01-26] MEDS ORDERED: MELATONIN 3 MG TAB PO PRN (22:51)
[2022-01-27] MEDS: NSS + 20MEQ KCL 20 MEQ/1,000 ML BAG IV SCH ×3 (03:37→22:30)
[2022-01-27] MEDS: CIPROFLOXACIN / D5W 400 MG/200 ML BAG IV SCH ×2 (06:24→17:40)
[2022-01-27] MEDS: PANTOprazole 40 MG TAB PO SCH (06:25)
[2022-01-27] MEDS: POTASSIUM CHLORIDE CRTAB 20 MEQ TABCR PO SCH (07:55)
[2022-01-27] MEDS: lisinopril 20 MG TAB PO SCH (07:55)
--- NOTE | 2022-01-27 08:26 | Hospitalist Progress Note ---
Date of Service January 27, 2022 Assessment & Plan (1) Hydronephrosis with renal and ureteral calculous obstruction: Plan: 76-year-old woman with history of urethral lithiasis, hypertension, hiatal hernia (f/P. Will fundoplication), who presented to the hospital with a complaint of left-sided flank pain and admitted for management of hydronephrosis secondary to renal, ureteral obstruction. Now stable and awaiting evaluation by urology. Hydronephrosis/renal and ureteral calculi -Long history of kidney stones requiring cystoscopy and stent placement. Cloudy urine negative for nitrites, plus LE. -Normal CBC, hypokalemia on admission (repleted) -Evidence of moderate to severe bilateral hydroureteronephrosis. 6 mm obstructing distal left ureteral calculus with multiple smaller ureteral calculi proximal to obstructing calculus; 3 mm distal right ureteral calculus. -Urology consulted: Sean moore * Pain control: Tylenol 1000 mg 3 times daily as needed, IV fentanyl as needed, IV Toradol every 6 hours as needed, IV morphine 2 mg, 4 mg as needed * IV ciprofloxacin * IVF hydration * Flomax * Zofran as needed for nausea -Hasn't passed the stone yet. follow. Hypertension -Patient's home regimen of lisinopril, hydralazine. Hydralazine held on admission. * Continue lisinopril. Continue to hold hydralazine, due to risk of interaction with tamsulosin (hypertension) Neuropathy of the foot * Continue home Lyrica Code: Full code Dispo: Med-Surg without telemetry FEN/GI: IV NS, regular diet DVT Prophylaxis: SCDs PT/OT: Consults: None Case management: (2) Hypertension: (3) Hypokalemia: (4) History of Will fundoplication: (5) Neuropathy: (6) Vitamin D deficiency: Admission and Anticipated Discharge Date Admission Date: January 26, 2022 Supervising Physician Co-Signing Physician Notes Resident Physician Supervision Note: I independently interviewed and examined the patient and verified the price history and physical, reviewed labs and image studies and agree with resident findings and care plan. Subjective No acute events overnight. Patient is seated upright at bedside this morning. She denies any abdominal pain, flank pain, or back pain. ROS negative for any acute concerns. Review of Systems Review of Systems: All systems reviewed & are unremarkable except as noted in HPI & below Physical Exam Physical Exam: General: Well-appearing, alert, interactive, and in no acute distress. HEENT: Normocephalic, atraumatic. EOM intact. Good conjugate gaze. Nares patent. Moist mucosal membranes. Neck: Supple. No lymphadenopathy. Normal ROM. CV: Regular rate and rhythm. Normal S1 and S2. No murmurs gallops or rubs. Respiratory: Normal respiratory effort. Lungs clear to auscultation bilaterally. No crackles, rhonchi, or wheezes. Abdomen: Soft, nondistended abdomen. No bruits heard on auscultation. No tenderness to deep palpation. Extremities: Capillary refill <2 sec. 2+ dp equal bilaterally. No pedal edema. Neuro: Alert and oriented x3. Skin: Clean, dry, and intact. No rashes, bruises, or erythema. Results & Data Results & Data ([facility]) Vital Signs (Past 12 Hours) Vital Signs Temp Pulse Pulse Resp BP BP Pulse Ox 01/27/22 07:30 01/27/22 07:14 36.9 C 87 16 159/85 H 94 01/26/22 22:58 88 168/73 H 01/26/22 20:21 83 18 188/71 H 93 O2 Del Method 01/27/22 07:30 Room Air 01/27/22 07:14 Room Air 01/26/22 22:58 01/26/22 20:21 Room Air Resident Activity Tracking Resident Involvement: Resident Care Provided Care Provided: Adult Hospital Medicine
[2022-01-27 09:34] LABS: BUN Creatinine Ratio 8.2 (10-20); Calcium 7.7 mg/dl (8.5-10.1); Creatinine Clr Calc Pharmacy 45.4 ml/min; Est GFR (African American) 57.3 ml/min; Est GFR (Non-African American) 49.4 ml/min; Magnesium 1.3 mg/dl (1.7-2.4); Potassium 3.8 mmol/L (3.5-5.1)
[2022-01-27] MEDS: ACETAMINOPHEN 500 MG TAB PO PRN (10:39)
--- NOTE | 2022-01-27 11:09 | Anesthesiology Consultation ---
Date of Service January 27, 2022 Assessment & Plan (1) Encounter for pre-operative examination: Chart Review Chart Review: Acceptable Risk for Surgery History Surgery Operation Date: 01/27/22 11:00 Proposed Procedures p Cystoscopy, Left Ureteral Stent Insertion, and Possible Basket Stone Extraction(Left) - Jean Claude Luevano, Height/Weight Height: 5 ft 2 in Weight: 85 kg Allergies Allergy/AdvReac Type Severity Reaction Status Date / Time amlodipine Allergy Severe Anaphylaxis Verified 01/26/22 17:20 benzocaine Allergy Severe Anaphylaxis Verified 01/26/22 17:20 [From Tigan (with benzocaine)] Iodinated Contrast Media Allergy Severe Anaphylaxis Verified 01/26/22 17:20 Penicillins Allergy Severe Anaphylaxis Verified 01/26/22 17:20 trimethobenzamide Allergy Severe Anaphylaxis Verified 01/26/22 17:20 lactose AdvReac Intermediate Gastrointestinal Verified 01/26/22 17:20 symptoms Medications Home Medications Medication Instructions Recorded Confirmed Last Taken pregabalin 75 mg capsule (Lyrica) 75 mg PO HS 08/23/19 01/26/22 01/25/22 lisinopril 20 mg tablet (Zestril) 20 mg PO QAM 10/10/20 01/26/22 01/25/22 pantoprazole 40 mg tablet,delayed 40 mg PO DAILYBB 10/13/20 01/26/22 01/25/22 release (Protonix) cholestyramine (with sugar) 4 gram 4 g PO BID PRN Diarrhea 12/14/21 01/26/22 01/25/22 oral powder multivitamin 1 tab PO QDL 12/14/21 01/26/22 01/25/22 phenazopyridine 200 mg tablet 200 mg PO TID PRN pain #10 tabs 01/03/22 01/26/22 01/23/22 10:00 (Pyridium) oxybutynin chloride 5 mg tablet 5 mg PO BID PRN bladder spasms #30 01/09/22 01/26/22 01/21/22 tabs pumpkin seed extract-soy germ 300 2 cap PO DAILY PRN Pain 01/18/22 01/26/22 01/23/22 08:00 mg capsule (Azo Bladder Control) oxycodone-acetaminophen 7.5 mg-325 1 tab PO Q8H PRN pain #7 tabs 01/24/22 01/26/22 Unknown mg tablet (Percocet) tamsulosin 0.4 mg capsule 0.4 mg PO HS #30 caps 01/24/22 01/26/22 01/25/22 Active Medications Generic Name Dose Route Start Last Admin Trade Name Freq PRN Reason Stop Dose Admin Acetaminophen 1,000 mg 01/26/22 20:25 01/27/22 10:39 Acetaminophen 500 Mg Tab PO 02/25/22 20:24 1,000 mg TID PRN Administration pain/fever Hydralazine HCl 10 mg 01/26/22 20:25 01/26/22 21:17 Hydralazine Hcl 20 Mg/Ml Vial IV 02/25/22 20:24 10 mg Q8 PRN Administration sbp>185 or dbp>95 Ciprofloxacin 400 mg in 200 mls @ 100 mls/hr 01/26/22 20:25 01/27/22 08:26 Cipro / D5w IV 02/05/22 20:24 Infused Q12H MARCELINA Infusion Protocol Potassium Chloride/Sodium Chloride 20 meq in 1,000 mls @ 150 mls/hr 01/27/22 03:15 01/27/22 10:29 Normal Saline W/20 Meq Kcl IV 02/26/22 03:14 150 mls/hr .Q6H40M MARCELINA Infusion Ketorolac Tromethamine 15 mg 01/26/22 20:25 01/27/22 02:38 Ketorolac Tromethamine 15 Mg/Ml Vial IV 01/31/22 20:24 15 mg Q6H PRN Administration Pain Lisinopril 20 mg 01/27/22 09:00 01/27/22 07:55 Lisinopril 20 Mg Tab PO 02/26/22 08:59 20 mg QAM MARCELINA Administration Ondansetron HCl 4 mg 01/26/22 20:25 01/27/22 02:38 Ondansetron Inj 2 Mg/Ml 2 Ml Vial IV 02/25/22 20:24 4 mg Q6H PRN Administration Nausea Pantoprazole Sodium 40 mg 01/27/22 06:30 01/27/22 06:25 Pantoprazole 40 Mg Tab PO 02/26/22 06:29 40 mg DAILYBB MARCELINA Administration Potassium Chloride 20 meq 01/26/22 21:00 01/27/22 07:55 Potassium Chloride Crtab 20 Meq Tabcr PO 01/27/22 21:01 20 meq BID MARCELINA Administration Pregabalin 75 mg 01/26/22 21:00 01/26/22 21:17 Pregabalin 75 Mg Cap PO 02/25/22 20:59 75 mg HS MARCELINA Administration Tamsulosin HCl 0.4 mg 01/26/22 21:00 01/26/22 21:19 Tamsulosin Hcl 0.4 Mg Cap PO 02/25/22 20:59 0.4 mg HS MARCELINA Administration NPO Date Last Intake of Fluids: 01/26/22 Time Last Intake of Fluids: 23:00 Date Last Intake of Solids: 01/26/22 Past Medical History Medical History Anxiety Chondrocalcinosis Chronic diarrhea Chronic GERD protonix daily Endometriosis Hiatal hernia Hypertension Insomnia Lower extremity neuropathy Nephrolithiasis Recurrent CaOx kidney stones Obesity Peripheral neuropathy Past Family History Family History Father , age 76; multiple MIs Myocardial infarction Mother , age 49 Myocardial infarction Other No family history of adverse response to anesthesia Denies family history of Ovarian cancer Prostate cancer Crohn's disease Breast cancer Colorectal cancer Inflammatory bowel disease Past Surgical History Surgical History History of ankle surgery b/l ankle, tarsal tunnel surgery History of appendectomy History of section x2 History of cholecystectomy History of colonoscopy History of cystoscopy STONE REMOVAL/STENTS (MULTIPLE TIMES) last 12/20/21 @ [facility] Cystoscopy, laser litho, stent (12/25/20): LMA #4 at [facility]. Per post-op anesthesia progress note: "The patient did not take her lisinopril today and was hypertensive preoperatively and in PACU. She was treated with labetalol in PACU and her BP is now 150s/80s which is lower than her baseline. The patient was instructed to resume her blood pressure medications at home." cystoscopy, laser, left stent (06/11/21): LMA#4 iGel, atraumatic at [facility]. No issues per postop anesthesia progress note. History of esophagogastroduodenoscopy (EGD) 08/08/2017. sedation, no issues. History of lithotripsy MULTIPLE TIMES History of tonsillectomy History of tooth extraction History of total abdominal hysterectomy and bilateral salpingo-oophorectomy Status post Will fundoplication Past Anesthesia History No Hx of Anesthesia Complications History of PONV No Hx of PONV and No Hx of Motion Sickness Social History Smoking Status: Never smoker Hx Alcohol Use: No Alcohol type: beer alcohol intake frequency: holidays/special occasions only Hx Substance Use: No substance use type: does not use Physical Exam Vital Signs Last Vital Signs Temp 36.9 C 01/27/22 07:14 Pulse 87 01/27/22 07:14 Resp 16 01/27/22 07:14 BP 159/85 H 01/27/22 07:14 Pulse Ox 94 01/27/22 07:14 O2 Del Method 01/27/22 07:30 Testing Laboratory Results 01/26/22 17:00 01/27/22 08:24 Urine Color Dark Yellow 01/26/22 17:00 Urine Appearance Cloudy (Clear) A 01/26/22 17:00 Urine pH 6.0 (4.5-7.5) 01/26/22 17:00 Ur Specific Soper 1.016 (1.000-1.030) 01/26/22 17:00 Urine Protein 1+ (Negative) H 01/26/22 17:00 Urine Glucose (UA) Negative (Negative) 01/26/22 17:00 Urine Ketones Trace (Negative) H 01/26/22 17:00 Urine Nitrite Negative (Negative) 01/26/22 17:00 Ur Leukocyte Esterase 1+ (Negative) H 01/26/22 17:00 Urine WBC (Auto) >30 /hpf (0-5) H 01/26/22 17:00 Urine RBC (Auto) >30 /hpf (0-4) H 01/26/22 17:00 U Hyaline Cast (Auto) 1-5 /lpf (0-5) 01/26/22 17:00 U Epithel Cells (Auto) >30 /lpf (0-5) H 01/26/22 17:00 Urine Bacteria (Auto) Negative (Negative) 01/26/22 17:00
[2022-01-27] MEDS ORDERED: MIDAZOLAM HCL 1 MG/ML 2ML VIAL ONE (11:10)
[2022-01-27] MEDS ORDERED: fentaNYL citrate 100 MCG/2 ML VIAL ONE (11:12)
[2022-01-27] MEDS ORDERED: ATROPINE SULFATE 0.1 MG/ML 10ML SYR IV PRN (11:12)
[2022-01-27] MEDS ORDERED: fentaNYL citrate 100 MCG/2 ML VIAL IV PRN (11:12)
[2022-01-27] MEDS ORDERED: ONDANSETRON INJ 2 MG/ML 2 ML VIAL IV PRN (11:12)
[2022-01-27] MEDS ORDERED: PROPOFOL IV EMULSION 10 MG/ML 20 ML VIAL IV ONE ×2 (11:14→11:54)
[2022-01-27] MEDS ORDERED: ONDANSETRON INJ 2 MG/ML 2 ML VIAL ONE (11:14)
[2022-01-27] MEDS ORDERED: LIDOCAINE 2% MPF LOCAL 5 ML VIAL INFIL ONE (11:14)
[2022-01-27] MEDS ORDERED: DIATRIZOATE MEGLUMINE 30% 100ML VIAL INSTIL ONE (11:53)
--- NOTE | 2022-01-27 12:23 | Operative Report ---
PG Post Operative Report Pre & Post Diagnosis Bilateral hydronephrosis Same Operation Date: 01/27/22 11:00 <No data on this case meets the specified criteria> I identified the patient and participated in the time-out.: Yes Procedure Cystoscopy with clot evacuation and bilateral ureteroscopy, retrograde pyelogram, and stent placement. Right ureteral biopsy. Left stone basket extraction. Operation Date: 01/27/22 11:00 <No data on this case meets the specified criteria> Surgeon Jean Claude Luevano, II, DO Caretaker None Estimated Blood Loss 1 Findings Consistent with Post-Op Diagnosis Clots within bladder and left ureter. Multiple small stone fragments in the distal left ureter with a larger leading stone approximately 3 to 4 mm. Inflamed edematous tissue in the mid/distal ureter on right. Moderate hydronephrosis bilaterally Specimens Stone Fragments left distal ureter. Biopsy right distal ureter Drains 4.8 Samoan multilength bilateral on tether Anesthesia Type General Complications none Disposition Disposition: Recovery Room Indications Patient with bothersome and recurrent uric acid stones. Patient had undergone bilateral procedures over the last few weeks. Had attempted to go without stent after last procedure and developed significant issues with pain and swelling. Imaging showed bilateral hydronephrosis with possible stones in the distal ureters bilaterally appearing to be largely small fragments. Risks and benefits discussed at length. Description of Procedure Patient was consented and brought back to the operating room. Patient was placed under anesthesia in the supine position and moved to the dorsal lithotomy position. Patient was prepped and draped in the regular sterile fashion. A time out was completed. A 30degree Cystoscope was placed into the bladder and the entire bladder was examined. The UO's were identified. Blood was found within the base of the bladder and coming from the left UO this all appeared to be old dark purple/clot appearing blood likely draining from the kidney. The right ureter had a moderate amount of inflammation around the UO The UO was cannulized with a catheter and a retrograde pyelogram was completed. A wire was then placed. This was completed bilaterally. The Rigid ureteroscope was taken into the ureter. First on the right. The scope was advanced and in the region of the mid to distal ureter transition point there was an area of moderate inflammation. No signs of stones. Small calcified pieces were noted in the ureter but did not appear to be obstructing or impacted. A polypoid/edematous lesion was noted in the mid to distal ureter on the right side. A basket was used to biopsy the area. The tissue was sent off. The area was then examined. No major areas of bleeding. No considerable areas of inflammation or irritation otherwise. The scope was advanced to the proximal ureter and no other areas of concern were noted. Some mild irritation was noted in the distal ureter past the area of more significant inflammation in the mid to distal transition point. A retrograde pyelogram was completed once again. It did appear that the area was draining well however due to the areas of inflammation as well as the polypoid lesion removal it was decided to leave a stent for further drainage. A 4.8 Samoan double-J ureteral stent was placed and confirmed to be in good position with good drainage. Attention was then taken onto the left. The scope was entered after a retrograde pyelogram was completed the ureter was found to have multiple areas of clots. In the distal ureter a moderate sized 3 to 4 mm stone was noted with multiple stone fragments just proximal to the large leading stone. A basket was selected and the stone was able to be removed. With removal of the stone a notable amount of blood clot as well as small fragments were noted to be draining from the ureter. The scope was placed once again into the ureter and advanced to the proximal ureter. A few smaller fragments were noted in the ureter however no major areas of obstruction or concern. No considerable inflammation or major issue. The entire area was once again examined. No residual large fragments or areas of concern were noted. The scope was slowly removed with the wire left in place. Contrast was placed through the scope for a pyelogram to assist in stent placement. The entire ureter was examined as the scope was slowly removed. No obstructions or other areas of concern were noted. With the wire in place, a 4.8 Fr Double J stent was placed. It was confirmed with fluoroscopy. With the stents in place, the bladder was emptied. The scope was removed. Catheters were left on the stents bilaterally. The left stent was attached to the left inner thigh and the right stent was attached to the right inner thigh. The patient was cleaned, aroused from anesthesia, and transferred to the pacu in stable condition having tolerated the procedure well with no complications. I was present and participated in all aspects of the procedure. The patient will be monitored in the PACU until transferred. We will plan to maintain stent overnight. We will likely be able to remove stents bilaterally tomorrow depending on how well the patient does. We will plan to likely have follow-up in the next 4 to 6 weeks with repeat imaging. On CT imaging only small calcifications were noted on the kidneys bilaterally. As long as hydro clears will likely be able to monitor. Patient has recurrent uric acid stones. Has already been restarted on pot assiums citrate pills. Will likely need to continue these 3 times a day with plans to discuss further at follow-up after the trial of 1 to 2 months on medication. I attest to the content of the Intraoperative Record and any orders documented therein. Any exceptions are noted below.
--- NOTE | 2022-01-27 12:31 | Fluoroscopy Report ---
INTRAOPERATIVE RADIOGRAPHS CLINICAL HISTORY: Ureteral stent placement. Fluoroscopy time: 36 seconds. FINDINGS: 3 spot fluoroscopic views of the abdomen are correlated with abdominal CT dated 01/26/2022. The provided images show the proximal and distal ends of bilateral ureteral stents in appropriate po sition. Contrast in the left renal collecting system shows hydronephrosis. IMPRESSION: Intraoperative images showing bilateral ureteral stents in place. Electronically signed by: Nacho Diez M.D. 01/27/2022 12:29 PM
--- NOTE | 2022-01-27 12:40 | Anesthesiology Progress Note ---
Date of Service January 27, 2022 Anesthesia Post Procedure Vital Signs Vital Signs: Temp Pulse Pulse Pulse Resp BP BP 01/27/22 12:30 64 16 01/27/22 12:21 36.4 C L 80 15 01/27/22 07:30 01/27/22 07:14 36.9 C 87 16 01/26/22 22:58 88 01/26/22 20:21 83 18 188/71 H 01/26/22 19:48 93 H 18 188/101 H 01/26/22 18:35 83 18 176/126 H 01/26/22 17:52 78 18 198/103 H 01/26/22 17:10 80 18 189/113 H 01/26/22 17:03 01/26/22 16:45 36.2 C L 84 16 220/131 H BP Pulse Ox O2 Del Method O2 Flow Rate 01/27/22 12:30 133/71 100 Oxymask 3 01/27/22 12:21 165/84 H 100 Oxymask 6 01/27/22 07:30 Room Air 01/27/22 07:14 159/85 H 94 Room Air 01/26/22 22:58 168/73 H 01/26/22 20:21 93 Room Air 01/26/22 19:48 94 Room Air 01/26/22 18:35 96 Room Air 01/26/22 17:52 94 Room Air 01/26/22 17:10 97 Room Air 01/26/22 17:03 Room Air 01/26/22 16:45 95 Room Air Pain Intensity Left Flank: Pain Intensity: 10 Transfer of Care Handoff Completed per policy Notes Mental Status: alert / awake / arousable Patient Amnestic to Procedure: Yes Nausea / Vomiting: adequately controlled Pain: adequately controlled Airway Patency, RR, SpO2: stable & adequate BP & HR: stable & adequate Hydration State: stable & adequate Anesthetic Complications: no major complications apparent
[2022-01-27] MEDS: POTASSIUM CITRATE 10 MEQ TAB PO SCH ×2 (14:18→20:10)
[2022-01-27] MEDS: MAGNESIUM SULFATE / D5W 1 GM/100 ML BAG IV SCH ×4 (14:18→20:12)
[2022-01-27] MEDS: PREGABALIN 75 MG CAP PO SCH (20:10)
[2022-01-27] MEDS: TAMSULOSIN HCL 0.4 MG CAP PO SCH (20:10)
[2022-01-28] MEDS: ACETAMINOPHEN 500 MG TAB PO PRN (04:12)
[2022-01-28] MEDS: PANTOprazole 40 MG TAB PO SCH (05:43)
[2022-01-28] MEDS: CIPROFLOXACIN / D5W 400 MG/200 ML BAG IV SCH (05:44)
[2022-01-28] MEDS: NSS + 20MEQ KCL 20 MEQ/1,000 ML BAG IV SCH ×2 (05:45→08:15)
[2022-01-28] MEDS: POTASSIUM CITRATE 10 MEQ TAB PO SCH ×2 (08:29→14:10)
[2022-01-28] MEDS: lisinopril 20 MG TAB PO SCH (08:29)
[2022-01-28 08:45] LABS: BUN Creatinine Ratio 11.8 (10-20); Calcium 7.8 mg/dl (8.5-10.1); Creatinine Clr Calc Pharmacy 65.7 ml/min; Est GFR (African American) 89.6 ml/min; Est GFR (Non-African American) 77.3 ml/min; Magnesium 1.6 mg/dl (1.7-2.4); Potassium 4.1 mmol/L (3.5-5.1)
[2022-01-28] MEDS ORDERED: MAGNESIUM SULFATE / D5W 1 GM/100 ML BAG IV ONE (09:04)
--- NOTE | 2022-01-28 09:27 | Urology Progress Note ---
Date of Service January 28, 2022 Assessment & Plan (1) Hydronephrosis with renal and ureteral calculous obstruction: Plan: - Pt POD#1 s/p cystoscopy, right ureteral biopsy, bilateral retrograde pyelogram, bilateral ureteroscopy, left basket stone extraction, and bilateral ureteral stent insertion. - Doing well, progressing as expected. - Afebrile, lab work reviewed - creatinine 0.76, WBC 9.23. - Urine culture 01/26 showed no growth. - Tolerating bilateral tethered ureteral stent with minimal bother. - Okay to d/c from perspective when medically stable. - Per medicine, she is ready to go home today from their standpoint. - Will remove her bilateral tethered stents later today prior to her discharge to home. - Recommend d/c with short course of PO antibiotics. - Expected clinical course reviewed, all questions answered. - Will arrange outpatient follow-up with our service. Admission and Anticipated Discharge Date Admission Date: January 26, 2022 Subjective Patient awake and sitting up in chair. No acute issues overnight. No flank or abdominal pain. Reports she just had a BM. No hematuria or dysuria. No nausea or vomiting. No fever or chills. Review of Systems Constitutional: as per Subjective / HPI Gastrointestinal: as per Subjective / HPI Genitourinary: as per Subjective / HPI Physical Exam Constitutional: well developed and well nourished; no acute distress and not ill appearing Neck: normal visual inspection Respiratory: normal respiratory effort and able to speak in complete sentences; no respiratory distress and no labored breathing Cardiovascular: Extremities: no pedal edema Gastrointestinal (Abdomen): Inspection/Auscultation: abdomen normal to inspection; abdomen not distended Percussion/Palpation: abdomen soft; abdomen nontender and no guarding Musculoskeletal: Head/Neck/Chest: normocephalic and head atraumatic Neurologic: moves all extremities and awake Psychiatric: Orientation: alert and oriented x 3 Genitourinary: no CVA tenderness Results & Data ([facility]) Vital Signs (Past 12 Hours) Vital Signs Temp Pulse Pulse Resp BP BP Pulse Ox 01/28/22 07:58 37.2 C 76 16 138/90 95 01/28/22 04:06 36.9 C 83 17 153/77 H 94 01/27/22 23:47 36.6 C 77 17 147/75 H 94 O2 Del Method 01/28/22 07:58 Room Air 11/21/22 04:06 Room Air 01/27/22 23:47 Room Air PG Care Time/CCT Total # of Minutes Spent Total Time Spent with Patient: Total time spent is greater than 50% in coordination of care (as documented) at patient's floor/unit and/or counseling patient: Coding Level of Care Code 49920 Subseq Hosp Care Lvl 2 Diagnoses Hydronephrosis with renal and ureteral calculous obstruction N13.2
[2022-01-28] MEDS ORDERED: INFLUENZA VACCINE HIGH DOSE PF 65+ 0.7 ML SYR IM ONE (10:00)
[2022-01-28] MEDS ORDERED: CIPROFLOXACIN 500 MG TAB PO SCH (11:30)
--- NOTE | 2022-01-28 12:00 | Discharge Summary ---
Date of Service January 28, 2022 Admission HPI Per Admitting Provider 76-year-old female who presented to the emergency department for an evaluation of flank pain. The patient describes left-sided flank pain which began over the last few days but worsened severely over the last 24 hours. The patient does have a long history of ureteral calculi. She has a CT on 01/03 with right ureteral stent in place and mild hydro on right, now has severe hydronephrosis She does complain of some nausea and chills but denies fever. She denies having any chest pain or difficulty breathing. She states that she has very severe pain especially in the left flank. She states it does go down into her left groin. She denies having any martine hematuria. The patient states the pain is moderate to severe. Principal Diagnosis Renal colic secondary to ureteral stones, s/p bilateral stent insertion/removal Discharge Exam General: Well-appearing, alert, interactive, and in no acute distress. HEENT: Normocephalic, atraumatic. EOMI. Moist mucosal membranes. Neck: Supple. No lymphadenopathy. CV: RRR. Normal S1 and S2. No murmurs gallops or rubs. Respiratory: Normal respiratory effort. CTAB. No crackles, rhonchi, or wheezes. Abdomen: Soft, nontender, nondistended abdomen. No CVA tenderness. Extremities: 2+ dp equal bilaterally. No pedal edema. Neuro: Alert and oriented x3. Skin: No rashes, bruises, or erythema. Discharge Data Allergies Allergy/AdvReac Type Severity Reaction Status Date / Time amlodipine Allergy Severe Anaphylaxis Verified 01/26/22 17:20 benzocaine Allergy Severe Anaphylaxis Verified 01/26/22 17:20 [From Tigan (with benzocaine)] Iodinated Contrast Media Allergy Severe Anaphylaxis Verified 01/26/22 17:20 Penicillins Allergy Severe Anaphylaxis Verified 01/26/22 17:20 trimethobenzamide Allergy Severe Anaphylaxis Verified 01/26/22 17:20 lactose AdvReac Intermediate Gastrointestinal Verified 01/26/22 17:20 symptoms Consultations 01/26/22 18:39 ED Decision to Admit Stat 01/26/22 20:25 Consult Urology Routine Procedures Performed Operation Date: 01/27/22 11:00 Actual Procedures p Cystoscopy, Right Ureteral Biopsy, Bilateral Retrograde Pyelogram, Bilateral Ureteroscopy, Left Basket Stone Extraction, and Bilateral Ureteral Stent Insertion(Bilateral) - Jean Claude Luevano DO Ordered Studies Laboratory Results WBC 9.23 K/ul (4.8-10.8) 01/26/22 17:00 RBC 3.32 M/uL (3.93-5.22) L 01/26/22 17:00 Hgb 10.9 g/dl (12.0-16.0) L 01/26/22 17:00 Hct 32.3 % (34.1-44.9) L 01/26/22 17:00 MCV 97.3 fL (80.0-100.0) 01/26/22 17:00 MCH 32.8 pg (25.0-34.0) 01/26/22 17:00 MCHC 33.7 g/dL (32.0-36.0) 01/26/22 17:00 RDW Std Deviation 50.2 fL (36.4-46.3) H 01/26/22 17:00 RDW Coeff of Gabriele 13.9 % (11.5-14.5) 01/26/22 17:00 Plt Count 255 K/uL (130-400) 01/26/22 17:00 MPV 9.3 fL (9.4-12.3) L 01/26/22 17:00 Immature Gran % (Auto) 0.4 % 01/26/22 17:00 Neut % (Auto) 71.7 % 01/26/22 17:00 Lymph % (Auto) 16.8 % 01/26/22 17:00 Pitt % (Auto) 8.5 % 01/26/22 17:00 Eos % (Auto) 2.3 % 01/26/22 17:00 Baso % (Auto) 0.3 % 01/26/22 17:00 Neut # (Auto) 6.62 K/uL (1.4-6.5) H 01/26/22 17:00 Lymph # (Auto) 1.55 K/uL (1.2-3.4) 01/26/22 17:00 Pitt # (Auto) 0.78 K/uL (0.24-0.82) 01/26/22 17:00 Eos # (Auto) 0.21 K/uL (0-0.50) 01/26/22 17:00 Baso # (Auto) 0.03 K/uL (0-0.2) 01/26/22 17:00 Immature Gran # (Auto) 0.04 K/uL (0.00-0.02) H 01/26/22 17:00 Sodium 141 mmol/L (136-145) 01/28/22 08:00 Potassium 4.1 mmol/L (3.5-5.1) 01/28/22 08:00 Chloride 111 mmol/L (98-107) H 01/28/22 08:00 Carbon Dioxide 25 mmol/L (21-32) 01/28/22 08:00 Anion Gap 5 (3-11) 01/28/22 08:00 BUN 9 mg/dl (6-23) 01/28/22 08:00 Creatinine 0.76 mg/dl (0.6-1.2) D 01/28/22 08:00 Est Cr Clr Drug Dosing 65.7 ml/min 01/28/22 08:00 Est GFR ( Amer) 89.6 ml/min 01/28/22 08:00 Est GFR (Non-Af Amer) 77.3 ml/min 01/28/22 08:00 BUN/Creatinine Ratio 11.8 (10-20) 01/28/22 08:00 Glucose 125 mg/dl (70-99(Fasting)) H 01/28/22 08:00 Calcium 7.8 mg/dl (8.5-10.1) L 01/28/22 08:00 Magnesium 1.6 mg/dl (1.7-2.4) L 01/28/22 08:00 Total Bilirubin 0.7 mg/dl (0.2-1.0) 01/26/22 17:00 AST 14 U/L (13-39) 01/26/22 17:00 ALT 9 U/L (7-52) 01/26/22 17:00 Alkaline Phosphatase 96 U/L (34-104) 01/26/22 17:00 Total Protein 6.5 gm/dl (6.0-8.3) 01/26/22 17:00 Albumin 4.0 gm/dl (3.4-5.0) 01/26/22 17:00 Globulin 2.5 gm/dl (2.5-4.0) 01/26/22 17:00 Albumin/Globulin Ratio 1.6 (0.9-2) 01/26/22 17:00 Lipase 16 U/L (11-82) 01/26/22 17:00 Urine Color Dark Yellow 01/26/22 17:00 Urine Appearance Cloudy (Clear) A 01/26/22 17:00 Urine pH 6.0 (4.5-7.5) 01/26/22 17:00 Ur Specific Totz 1.016 (1.000-1.030) 01/26/22 17:00 Urine Protein 1+ (Negative) H 01/26/22 17:00 Urine Glucose (UA) Negative (Negative) 01/26/22 17:00 Urine Ketones Trace (Negative) H 01/26/22 17:00 Urine Blood 3+ (Negative) H 01/26/22 17:00 Urine Nitrite Negative (Negative) 01/26/22 17:00 Urine Bilirubin Negative (Negative) 01/26/22 17:00 Urine Urobilinogen Negative (Negative) 01/26/22 17:00 Ur Leukocyte Esterase 1+ (Negative) H 01/26/22 17:00 Urine WBC (Auto) >30 /hpf (0-5) H 01/26/22 17:00 Urine RBC (Auto) >30 /hpf (0-4) H 01/26/22 17:00 U Hyaline Cast (Auto) 1-5 /lpf (0-5) 01/26/22 17:00 U Epithel Cells (Auto) >30 /lpf (0-5) H 01/26/22 17:00 Urine Bacteria (Auto) Negative (Negative) 01/26/22 17:00 SARS-CoV-2, RNA, NAAT NEGATIVE (NEGATIVE) 01/26/22 18:34 Impressions Abdomen/Pelvis CT 01/26/22 16:53 CT OF THE ABDOMEN AND PELVIS WITHOUT CONTRAST CLINICAL HISTORY: Left flank pain. COMPARISON STUDY: CT of the abdomen and pelvis January 03, 2022. TECHNIQUE: Axial images of the abdomen and pelvis were obtained without IV contrast. Images were reviewed in the axial, sagittal, and coronal planes. Automated exposure control was utilized for the study. A dose lowering technique was utilized adhering to the principles of ALARA. FINDINGS: Lung bases are unremarkable. Moderate to severe bilateral hydroureteronephrosis has developed since CT of January 03, 2022. Left hydronephrosis is due to a 6 mm obstructing distal left ureteral calculus. There are multiple additional smaller distal left ureteral calculi located proximal to the obstructing calculus. There is a small 3 mm distal right ureteral calculus. Its unclear if this results in right hydronephrosis. Mild perinephric and periureteral stranding is noted. Numerous small bilateral renal calculi measure up to 4 mm. Evaluation of the remainder of the abdomen and pelvis is suboptimal on this unenhanced exam. Liver, spleen, adrenal glands and pancreas are unremarkable. The gallbladder is surgically absent. There is no evidence for a bowel obstructive. Colonic diverticulosis is noted without evidence for acute diverticulitis. No fluid collection is identified. There is no lymphadenopathy. IMPRESSION: 1. Moderate to severe bilateral hydroureteronephrosis which has developed since prior CT. Left hydroureteronephrosis is due to a 6 mm distal left ureteral calculus. Small 3 mm distal right ureteral calculus. It's unclear if this results in right hydroureteronephrosis. 2. Bilateral nephrolithiasis. ACT 112: Negative or not required by law. Electronically signed by: Keven Frances M.D. 01/26/2022 5:55 PM Retrograde Pyelogram 01/27/22 00:00 INTRAOPERATIVE RADIOGRAPHS CLINICAL HISTORY: Ureteral stent placement. Fluoroscopy time: 36 seconds. FINDINGS: 3 spot fluoroscopic views of the abdomen are correlated with abdominal CT dated 01/26/2022. The provided images show the proximal and distal ends of bilateral ureteral stents in appropriate position. Contrast in the left renal collecting system shows hydronephrosis. IMPRESSION: Intraoperative images showing bilateral ureteral stents in place. Electronically signed by: Nacho Diez M.D. 01/27/2022 12:29 PM Hospital Course (1) Hydronephrosis with renal and ureteral calculous obstruction: 76-year-old woman with history of urethral lithiasis, hypertension, hiatal hernia (f/P. Will fundoplication), who presented to the hospital with a complaint of left-sided flank pain and admitted for management of hydronephrosis secondary to renal, ureteral obstruction. Hydronephrosis/renal and ureteral calculi -Long history of kidney stones requiring cystoscopy and stent placement. Cloudy urine negative for nitrites, +LE. -Normal CBC, hypokalemia on admission (repleted) -Evidence of moderate to severe bilateral hydroureteronephrosis. 6 mm obstructing distal left ureteral calculus with multiple smaller ureteral calculi proximal to obstructing calculus; 3 mm distal right ureteral calculus. -Urology consulted: Appreciate recs * POD#1 s/p cystoscopy, right ureteral biopsy, bilateral retrograde pyelogram, bilateral ureteroscopy, left basket stone extraction, and bilateral ureteral stent insertion. Bilateral tethered stents to be removed prior to discharge. * will cont. abx ppx with ciprofloxacin x3 days * can cont. tamsulosin for now * f/u urology outpatient Hypertension -Continue home lisinopril Neuropathy of the foot * Continue home Lyrica (2) Hypertension: (3) Hypokalemia: (4) History of Will fundoplication: (5) Neuropathy: (6) Vitamin D deficiency: Total Time Total Time Spent Total Time Spent (In Minutes): 35 Discharge Plan Discharge Items Patient Disposition: Home - Self-Care Reason For Visit: LEFT RENAL COLIC, HYPOKALEMIA Discharge Diagnosis: Renal colic secondary to ureteral stones, s/p bilateral stent insertion/removal Activity: Resume your previous activity Non-emergency contact: Primary Care Provider and Urologist Call non-emergency contact if: you have any medication questions and your symptoms worsen Follow-up/Referrals: Jean Claude Luevano, [Physician] - (Providers office will contact you to schedule this follow up appointment. ) Jonathon Cha [Primary Care Provider] - 02/11/22 1:15 pm Diet: Regular Addtl Attending Provider Instructions: You were admitted to the hospital for left flank pain. You were found to have increased fluid in your kidneys secondary to a obstruction in her urinary tract from kidney stones. As you know you have a long standing history of kidney stones and has had stents placed in the past to aid removal of the stones. While in the hospital he did have bilateral stents placed and removed prior to discharge with good flow of urine and resolved pain. We have sent a prescription for Cipro floxacillin to your pharmacy which is an antibiotic that can be used to prevent urinary tract infections. You should also continue using tamsulosin until seen by your urologist. Going forward please stay well- hydrated. The urology department will contact you to schedule a follow-up appointment. Pending Studies at Discharge: No Stand-Alone Forms: [facility] Medications and DC Order Prescriptions: New ciprofloxacin HCl [Cipro] 500 mg tablet 500 mg PO BID Qty: 7 0RF Rx Instructions: first dose evening of 01/28/22 Continued oxybutynin chloride 5 mg tablet 5 mg PO BID PRN (Reason: bladder spasms) Qty: 30 0RF pregabalin [Lyrica] 75 mg capsule 75 mg PO HS lisinopril [Zestril] 20 mg tablet 20 mg PO QAM pantoprazole [Protonix] 40 mg tablet,delayed release (DR/EC) 40 mg PO DAILYBB Label Comments: pt takes in the am multivitamin tablet 1 tab PO QDL Label Comments: pt states she takes med at noon cholestyramine (with sugar) 4 gram Powder 4 g PO BID PRN (Reason: Diarrhea) Rx Instructions: administer w/meal; avoid other meds within 1hr before or 4-6hr after dose phenazopyridine [Pyridium] 200 mg tablet 200 mg PO TID PRN (Reason: pain) Qty: 10 0RF Azo Bladder Control 300 mg Capsule 2 cap PO DAILY PRN (Reason: Pain) tamsulosin 0.4 mg capsule 0.4 mg PO HS Qty: 30 0RF oxycodone-acetaminophen [Percocet] 7.5-325 mg tablet 1 tab PO Q8H PRN (Reason: pain) Qty: 7 0RF Discharge Orders: Discharge Order (Routine); Ordered 01/28/22 Ordered By: Italo Altamirano Admission Data Admit Date/Time: 01/26/22 18:52 Attending Provider: Nate Corado Admit Provider: Talon Babb Primary Care Provider: Jonathon Cha Other Providers: Talon Babb ; Jean Claude Luevano Other Interventions: Discharge Summary Assessment (RN) Last Done: 01/28/22 15:11 Supervising Physician Co-Signing Physician Notes I personally examined the patient and verified all price points of history and exam, discussed case, and agree with decision making with Dr Altamirano feeling better feeling up to going home vitals noted nad heent nc at mmm breathing unlabored no accessory muscles good effort skin no rashes no pallor or icterus ureterolithiasis - now s/p cysto/stenting, stable for home. PO abx. as above. outpt urology f/u Resident Activity Tracking Resident Involvement: Resident Care Provided Care Provided: Adult Hospital Medicine
--- NOTE | 2022-01-28 19:51 | Billing Data ---
Date of Service January 28, 2022 Coding Level of Care Code D/C DAY MANAGEMENT <30 MINS
[2022-02-02 15:32] LABS: Component 2 DNR; Source LEFT URETERAL STONE
== END 2022-01-28 15:25 | disposition home or self-care (01) | DRG 661 ==
LOC: ED 16:42 → 3W 18:52 → SUATTDRO 18:52 → 3W 20:21

== ENCOUNTER 2022-01-28 20:38 | Inpatient (IN) ==
[2022-01-28 21:28] LABS: iSTAT Creatinine 0.9 mg/dl (0.6-1.3); iSTAT Hemoglobin 10.9 g/dl (12.0-16.0); iSTAT Ionized Calcium 1.13 mmol/l (1.12-1.32); iSTAT Potassium 4.4 mmol/L (3.3-5.0)
[2022-01-28] MEDS ORDERED: SODIUM CHLORIDE 0.9% 500 ML IV ONE (22:35)
[2022-01-28 22:39] LABS: Basophils # (auto) 0.02 K/uL (0-0.2); Basophils % (auto) 0.2 %; Eosinophils # (auto) 0.18 K/uL (0-0.50); Eosinophils % (auto) 2.1 %; Hematocrit (blood only) 30.7 % (34.1-44.9); Immature Granulocytes # (auto) 0.04 K/uL (0.00-0.02); Immature Granulocytes % (auto) 0.5 %; Lymphocytes # (auto) 1.41 K/uL (1.2-3.4); Lymphocytes % (auto) 16.6 %; Mean Corpuscular Hemoglobin 33.2 pg (25.0-34.0); Mean Corpuscular Hgb Conc 32.6 g/dL (32.0-36.0); Mean Platelet Volume 9.5 fL (9.4-12.3); Monocytes # (auto) 0.65 K/uL (0.24-0.82); Monocytes % (auto) 7.7 %; Neutrophils # (auto) 6.18 K/uL (1.4-6.5); Neutrophils % (auto) 72.9 %; Platelet Count 240 K/uL (130-400); RDW Coefficient of Variation 13.9 % (11.5-14.5); RDW Standard Deviation 52.1 fL (36.4-46.3); Red Blood Count 3.01 M/uL (3.93-5.22); White Blood Count 8.48 K/ul (4.8-10.8)
[2022-01-28 22:50] LABS: INR 1.1 (0.9-1.1); Partial Thromboplastin Ratio 0.8; Partial Thromboplastin Time 23.1 Seconds (21.0-31.0); Prothrombin Time 11.3 Seconds (9.0-12.0)
[2022-01-28 22:52] LABS: Alanine Aminotransferase 10 U/L (7-52); Albumin Globulin Ratio 1.5 (0.9-2); Albumin Level 3.9 gm/dl (3.4-5.0); Alkaline Phosphatase 79 U/L (34-104); Anion Gap 5 (3-11); Aspartate Aminotransferase 16 U/L (13-39); BUN Creatinine Ratio 11.1 (10-20); Bilirubin,Total 0.5 mg/dl (0.2-1.0); Blood Urea Nitrogen 9 mg/dl (6-23); Calcium 8.5 mg/dl (8.5-10.1); Carbon Dioxide 28 mmol/L (21-32); Chloride 107 mmol/L (98-107); Est GFR (African American) 82.9 ml/min; Est GFR (Non-African American) 71.5 ml/min; Globulin 2.6 gm/dl (2.5-4.0); Glucose 111 mg/dl (70-99(Fasting)); Magnesium 1.6 mg/dl (1.7-2.4); Potassium 4.4 mmol/L (3.5-5.1); Sodium 140 mmol/L (136-145); Total Protein 6.5 gm/dl (6.0-8.3)
[2022-01-28 23:00] LABS: Troponin I High Sensitivity 20.6 pg/ml (0-14)
[2022-01-28] MEDS ORDERED: MAGNESIUM SULFATE / D5W 1 GM/100 ML BAG IV STA (23:15)
--- NOTE | 2022-01-28 23:45 | Emergency Department Note ---
Impression & Plan Acute memory impairment, Elevated troponin, Hypomagnesemia, Hypertension ED Provider Note NAME: PATY BALTAZAR AGE: 76 SEX: F ARRIVES VIA: Walk-In INFORMANT: Patient, family ED PROVIDER(S): Mickey Iyer MD CHIEF COMPLAINT: Amnesia PLAN: Disposition: Admit MEDICAL DECISION MAKING: The patient is a pleasant 76-year-old woman with a past medical history of nephrolithiasis and ureteral obstruction with recent admission for bilateral hydro nephrosis related to obstructing ureteral stone status post bilateral stent placement who presents to the emergency department accompanied by family for evaluation of confusion and memory loss since being picked up at the hospital today upon her discharge. They report that they were increasingly conc erned as the patient had no recollection of eating being in the hospital today nor for her 3-day admission. Otherwise she has had no extremity weakness or overt aphasia. The patient denies fever, cough, CP, SOB, n/v. On arrival the patient is no acute distress, afebrile with blood pressure 200s/1 00s and vital signs otherwise stable. While she reports she cannot remember being in the hospital today or even the past few days she acknowledges that this is not normal for her. Otherwise she has no focal neurologic deficits. EKG without overt acute ischemia. WBC and platelets within normal limits. H/H similar to prior values. Chemistry without metabolic acidosis. Magnesium 1.6 with repletion provided and otherwise electrolytes and LFTs unremarkable. High-sensitivity troponin 20.6, nons pecific. CT of the head without contrast performed and per preliminary stat read report negative for acute ICH or ischemia. Note is made of microvascular disease. Given the patient's transient global amnesia they do agree with plan for admission for further stroke evaluation. Case was discussed with [place] admitting resident with Dr. Green, [facility] hospitalist, who will evaluate the patient for admission. Triage Nursing notes reviewed and agree them. Prior medical records reviewed Vital Signs: reviewed and remarkable for hypertension. Differential diagnosis: Infection, dehydration, metabolic abnormality, hypo/hyperglycemia, electrolyte disturbance, anemia, hypoxia, cardiac sources, intracerebral event, toxicologic, neurologic, as well as other pathologies. ER treatment provided: See below. Diagnostics interpreted by me: ECG: Normal sinus rhythm, 85 bpm, no ectopy, no overt ST elevation or depression, QTC 423, QRS 80. Cardiac Monitoring: An order for continuous cardiac monitoring was placed and demonstrated Normal sinus rhythm, 85 bpm, no ectopy. Laboratory studies: See below Imaging studies: See below Consultation(s): Case was discussed with Dr. Rdz, [facility] admitting resident with Dr. Green, [facility] hospitalist, who will evaluate the patient for admission. HPI: The patient is a pleasant 76-year-old woman with a past medical history of nephrolithiasis and ureteral obstruction with recent admission for bilateral hydro nephrosis related to obstructing ureteral stone status post bilateral stent placement who presents to the emergency department accompanied by family for evaluation of confusion and memory loss since being picked up at the hospital today upon her discharge. They report that they were increasingly concerned as the patient had no recollection of eating being in the hospital today nor for her 3-day admission. Otherwise she has had no extremity weakness or overt aphasia. The patient denies fever, cough, CP, SOB, n/v. ROS: See above HPI for pertinent positives & negatives. A total of 10 systems reviewed and were otherwise negative. VITALS:See Below PHYSICAL EXAMINATION: GENERAL: Awake, alert, well-appearing, in no distress HENT: Normocephalic, atraumatic. Oropharynx with dry mucous membranes and otherwise unremarkable. EYES: Normal conjunctiva. Sclera non-icteric. EOMI. No nystamgus. PEARRL. NECK: Supple. No nuchal rigidity. FROM. No JVD. RESPIRATORY: Clear to auscultation. CARDIAC: Regular rate, normal rhythm. Extremities warm and well perfused. Pulses equal. ABDOMEN: Soft, non-distended. No tenderness to palpation. No rebound or guarding. No masses. RECTAL: Deferred. MUSCULOSKELETAL: Chest examination reveals no tenderness. The back is symmetrical on inspection without obvious abnormality. There is no CVA tenderness to palpation. No joint edema. LOWER EXTREMITIES: Calves are equal size bilaterally and non-tender. No edema. No discoloration. NEURO: No focal sensory or motor deficits noted. CN II-XII grossly intact. 5/5 strength and SILT x 4 extremities. Cerebellar function intact including [id number], alternating palms, [id number]. SKIN: No rash or jaundice noted. Mickey Iyer MD Past Med/Surg History Medical History Anxiety Chondrocalcinosis Chronic diarrhea Chronic GERD protonix daily Endometriosis Hiatal hernia Hypertension Insomnia Lower extremity neuropathy Nephrolithiasis Recurrent CaOx kidney stones Obesity Peripheral neuropathy Surgical History History of ankle surgery b/l ankle, tarsal tunnel surgery History of appendectomy History of section x2 History of cholecystectomy History of colonoscopy History of cystoscopy STONE REMOVAL/STENTS (MULTIPLE TIMES) last 12/20/21 @ [facility] Cystoscopy, laser litho, stent (12/25/20): LMA #4 at [facility]. Per post-op anesthesia progress note: "The patient did not take her lisinopril today and was hypertensive preoperatively and in PACU. She was treated with labetalol in PACU and her BP is now 150s/80s which is lower than her baseline. The patient was instructed to resume her blood pressure medications at home." cystoscopy, laser, left stent (06/11/21): LMA#4 iGel, atraumatic at [facility]. No issues per postop anesthesia progress note. History of esophagogastroduodenoscopy (EGD) 08/08/2017. sedation, no issues. History of lithotripsy MULTIPLE TIMES History of tonsillectomy History of tooth extraction History of total abdominal hysterectomy and bilateral salpingo-oophorectomy Status post Will fundoplication Family History Father , age 76; multiple MIs Myocardial infarction Mother , age 49 Myocardial infarction Other No family history of adverse response to anesthesia Denies family history of Ovarian cancer Prostate cancer Crohn's disease Breast cancer Colorectal cancer Inflammatory bowel disease Social History Smoking Status: Never smoker Second Hand Exposure: No; Hx Alcohol Use: No Hx Substance Use: No Preferred Language: Zimbabwean Communication Ability: Effective Visual Impairment: No Limitations Hearing Ability: Use of Hearing Aid [employer] Leak Tester Required: No Beliefs That Will Affect Care: None marital status: Current Living Situation: Spouse 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 status: retired 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 How many Children do You have: 2 Feels Safe at Home: Yes Dental Care, Regularly: Yes Seatbelt Use: always Assistive Devices: Cane Allergies Allergies Allergy/AdvReac Type Severity Reaction Status Date / Time amlodipine Allergy Severe Anaphylaxis Verified 01/28/22 21:19 benzocaine Allergy Severe Anaphylaxis Verified 01/28/22 21:19 [From Tigan (with benzocaine)] Iodinated Contrast Media Allergy Severe Anaphylaxis Verified 01/28/22 21:19 Penicillins Allergy Severe Anaphylaxis Verified 01/28/22 21:19 trimethobenzamide Allergy Severe Anaphylaxis Verified 01/28/22 21:19 lactose AdvReac Intermediate Gastrointestinal Verified 01/28/22 21:19 symptoms Home Meds Home Medications Medication Instructions Recorded Confirmed pregabalin 75 mg capsule (Lyrica) 75 mg PO HS 08/23/19 01/28/22 lisinopril 20 mg tablet (Zestril) 20 mg PO QAM 10/10/20 01/28/22 pantoprazole 40 mg tablet,delayed 40 mg PO DAILYBB 10/13/20 01/28/22 release (Protonix) cholestyramine (with sugar) 4 gram 4 g PO BID PRN Diarrhea 12/14/21 01/28/22 oral powder multivitamin 1 tab PO QDL 12/14/21 01/28/22 pumpkin seed extract-soy germ 300 2 cap PO DAILY PRN Pain 01/18/22 01/28/22 mg capsule (Azo Bladder Control) Previous Rx's Medication Instructions Recorded phenazopyridine 200 mg tablet 200 mg PO TID PRN pain #10 tabs 01/03/22 (Pyridium) oxybutynin chloride 5 mg tablet 5 mg PO BID PRN bladder spasms #30 01/09/22 tabs oxycodone-acetaminophen 7.5 mg-325 1 tab PO Q8H PRN pain #7 tabs 01/24/22 mg tablet (Percocet) tamsulosin 0.4 mg capsule 0.4 mg PO HS #30 caps 01/24/22 ciprofloxacin HCl 500 mg tablet 500 mg PO BID uti prophylaxis #7 01/28/22 (Cipro) tabs Results & Data (ED) Vital Signs Vital Signs - 24 hr 01/28/22 20:40 01/28/22 21:04 01/28/22 21:38 Temperature 36.7 C Temperature Source Temporal Artery Scan Pulse Rate 100 H 84 Pulse Rate from SpO2 Sensor 84 Respiratory Rate 18 24 Respiratory Effort / Characteristics Non-Labored Spontaneous Non-Labored Respiratory Depth Normal Normal Blood Pressure 203/106 H Blood Pressure Mean 138 Blood Pressure Position Sitting Pulse Oximetry 92 96 Oxygen Delivery Method Room Air Room Air Sepsis Recent Fever Within 48 Hours No Sepsis New/Unexplained Change in Mental Status No Sepsis Action Taken by Nursing No Action Required Laboratory Data Attestation: I reviewed the patient's lab results. Result diagrams: 01/28/22 21:20 01/28/22 21:20 Lab Results 01/28/22 01/28/22 01/28/22 Range/Units 21:17 21:20 21:20 WBC 8.48 (4.8-10.8) K/ul RBC 3.01 L (3.93-5.22) M/uL Hgb 10.0 L (12.0-16.0) g/dl POC Hgb 10.9 L (12.0-16.0) g/dl Hct 30.7 L (34.1-44.9) % POC Hct 32 L (37-47) % MCV 102.0 H (80.0-100.0) fL MCH 33.2 (25.0-34.0) pg MCHC 32.6 (32.0-36.0) g/dL RDW Std Deviation 52.1 H (36.4-46.3) fL RDW Coeff of Gabriele 13.9 (11.5-14.5) % Plt Count 240 (130-400) K/uL MPV 9.5 (9.4-12.3) fL Immature Gran % (Auto) 0.5 % Neut % (Auto) 72.9 % Lymph % (Auto) 16.6 % Gove % (Auto) 7.7 % Eos % (Auto) 2.1 % Baso % (Auto) 0.2 % Neut # (Auto) 6.18 (1.4-6.5) K/uL Lymph # (Auto) 1.41 (1.2-3.4) K/uL Gove # (Auto) 0.65 (0.24-0.82) K/uL Eos # (Auto) 0.18 (0-0.50) K/uL Baso # (Auto) 0.02 (0-0.2) K/uL Immature Gran # (Auto) 0.04 H (0.00-0.02) K/uL PT 11.3 (9.0-12.0) Seconds INR 1.1 (0.9-1.1) APTT 23.1 (21.0-31.0) Seconds PTT Ratio 0.8 POC Sodium 141 (135-144) mmol/L Sodium (136-145) mmol/L POC Potassium 4.4 (3.3-5.0) mmol/L Potassium (3.5-5.1) mmol/L POC Chloride 105 (101-112) mmol/L Chloride (98-107) mmol/L Carbon Dioxide (21-32) mmol/L POC Total CO2 26 (24-31) mmol/L Anion Gap (3-11) POC Anion Gap 15.0 L (16-25) mmol/L POC BUN 8 (7-18) mg/dl BUN (6-23) mg/dl Creatinine (0.6-1.2) mg/dl POC Creatinine 0.9 (0.6-1.3) mg/dl Est Cr Clr Drug Dosing Est GFR ( Amer) ml/min Est GFR (Non-Af Amer) ml/min BUN/Creatinine Ratio (10-20) Glucose (70-99(Fasting)) mg/dl POC Glucose (other) 116 H (70-99) mg/dl Calcium (8.5-10.1) mg/dl POC Ioniz Calcium Lisette 1.13 (1.12-1.32) mmol/l Magnesium (1.7-2.4) mg/dl Total Bilirubin (0.2-1.0) mg/dl AST (13-39) U/L ALT (7-52) U/L Alkaline Phosphatase (34-104) U/L Troponin I High Sens (0-14) pg/ml Total Protein (6.0-8.3) gm/dl Albumin (3.4-5.0) gm/dl Globulin (2.5-4.0) gm/dl Albumin/Globulin Ratio (0.9-2) Urine Color Urine Appearance (Clear) Urine pH (4.5-7.5) Ur Specific [place] (1.000-1.030) Urine Protein (Negative) Urine Glucose (UA) (Negative) Urine Ketones (Negative) Urine Blood (Negative) Urine Nitrite (Negative) Urine Bilirubin (Negative) Urine Urobilinogen (Negative) Ur Leukocyte Esterase (Negative) Urine WBC (Auto) (0-5) /hpf Urine RBC (Auto) (0-4) /hpf U Hyaline Cast (Auto) (0-5) /lpf U Epithel Cells (Auto) (0-5) /lpf Urine Bacteria (Auto) (Negative) 01/28/22 01/28/22 Range/Units 21:20 21:50 WBC (4.8-10.8) K/ul RBC (3.93-5.22) M/uL Hgb (12.0-16.0) g/dl POC Hgb (12.0-16.0) g/dl Hct (34.1-44.9) % POC Hct (37-47) % MCV (80.0-100.0) fL MCH (25.0-34.0) pg MCHC (32.0-36.0) g/dL RDW Std Deviation (36.4-46.3) fL RDW Coeff of Gabriele (11.5-14.5) % Plt Count (130-400) K/uL MPV (9.4-12.3) fL Immature Gran % (Auto) % Neut % (Auto) % Lymph % (Auto) % Gove % (Auto) % Eos % (Auto) % Baso % (Auto) % Neut # (Auto) (1.4-6.5) K/uL Lymph # (Auto) (1.2-3.4) K/uL Gove # (Auto) (0.24-0.82) K/uL Eos # (Auto) (0-0.50) K/uL Baso # (Auto) (0-0.2) K/uL Immature Gran # (Auto) (0.00-0.02) K/uL PT (9.0-12.0) Seconds INR (0.9-1.1) APTT (21.0-31.0) Seconds PTT Ratio POC Sodium (135-144) mmol/L Sodium 140 (136-145) mmol/L POC Potassium (3.3-5.0) mmol/L Potassium 4.4 (3.5-5.1) mmol/L POC Chloride (101-112) mmol/L Chloride 107 (98-107) mmol/L Carbon Dioxide 28 (21-32) mmol/L POC Total CO2 (24-31) mmol/L Anion Gap 5 (3-11) POC Anion Gap (16-25) mmol/L POC BUN (7-18) mg/dl BUN 9 (6-23) mg/dl Creatinine 0.81 (0.6-1.2) mg/dl POC Creatinine (0.6-1.3) mg/dl Est Cr Clr Drug Dosing Not Reportable Est GFR ( Amer) 82.9 ml/min Est GFR (Non-Af Amer) 71.5 ml/min BUN/Creatinine Ratio 11.1 (10-20) Glucose 111 H (70-99(Fasting)) mg/dl POC Glucose (other) (70-99) mg/dl Calcium 8.5 (8.5-10.1) mg/dl POC Ioniz Calcium Lisette (1.12-1.32) mmol/l Magnesium 1.6 L (1.7-2.4) mg/dl Total Bilirubin 0.5 (0.2-1.0) mg/dl AST 16 (13-39) U/L ALT 10 (7-52) U/L Alkaline Phosphatase 79 (34-104) U/L Troponin I High Sens 20.6 H (0-14) pg/ml Total Protein 6.5 (6.0-8.3) gm/dl Albumin 3.9 (3.4-5.0) gm/dl Globulin 2.6 (2.5-4.0) gm/dl Albumin/Globulin Ratio 1.5 (0.9-2) Urine Color Yellow Urine Appearance Clear (Clear) Urine pH 7.0 (4.5-7.5) Ur Specific [place] 1.011 (1.000-1.030) Urine Protein Negative (Negative) Urine Glucose (UA) Negative (Negative) Urine Ketones Trace H (Negative) Urine Blood 1+ H (Negative) Urine Nitrite Negative (Negative) Urine Bilirubin Negative (Negative) Urine Urobilinogen Negative (Negative) Ur Leukocyte Esterase Negative (Negative) Urine WBC (Auto) 1-5 (0-5) /hpf Urine RBC (Auto) 5-10 H (0-4) /hpf U Hyaline Cast (Auto) 1-5 (0-5) /lpf U Epithel Cells (Auto) 10-20 H (0-5) /lpf Urine Bacteria (Auto) Negative (Negative) Administered Medications Discontinued Medications Sodium Chloride (Nss) 500 mls @ 999 mls/hr IV .Q31M ONE Stop: 01/28/22 23:05 Last Admin: 01/28/22 22:56 Dose: 999 mls/hr Documented By: LUCY Magnesium Sulfate/Dextrose (Magnesium Sulfate / D5w) 1 gm in 100 mls @ 100 mls/hr IV NOW STA Stop: 01/29/22 00:14 Last Admin: 01/29/22 00:17 Dose: 100 mls/hr Documented By: LUCY Imaging Data Radiologist's Impression: STATRAD Preliminary Findings Only See Final Report For Complete Findings CT HEAD: No intracranial hemorrhage, mass-effect, hydrocephalus, or edema. Chronic microvascular ischemic changes. If there is concern for acute ischemia consider MRI. Radiologist: Patrice Neri MD Study ready at 22:55 and initial results transmitted at 23:02 Discharge Plan Visit Data Chief Complaint: TIA Symptoms Stated Complaint: DELUSIONS,CONFUSIONS,MIGHT HAVE STROKE ED Provider: Mickey Iyer Discharge Problem: Acute memory impairment, Elevated troponin, Hypomagnesemia, Hypertension Patient Disposition: Admitted As Inpatient Forms Stand Alone Forms: [facility] Prescriptions Prescriptions: No Action oxybutynin chloride 5 mg tablet 5 mg PO BID PRN (Reason: bladder spasms) Qty: 30 0RF pregabalin [Lyrica] 75 mg capsule 75 mg PO HS lisinopril [Zestril] 20 mg tablet 20 mg PO QAM pantoprazole [Protonix] 40 mg tablet,delayed release (DR/EC) 40 mg PO DAILYBB Label Comments: pt takes in the am multivitamin tablet 1 tab PO QDL Label Comments: pt states she takes med at noon cholestyramine (with sugar) 4 gram Powder 4 g PO BID PRN (Reason: Diarrhea) Rx Instructions: administer w/meal; avoid other meds within 1hr before or 4-6hr after dose phenazopyridine [Pyridium] 200 mg tablet 200 mg PO TID PRN (Reason: pain) Qty: 10 0RF Azo Bladder Control 300 mg Capsule 2 cap PO DAILY PRN (Reason: Pain) tamsulosin 0.4 mg capsule 0.4 mg PO HS Qty: 30 0RF oxycodone-acetaminophen [Percocet] 7.5-325 mg tablet 1 tab PO Q8H PRN (Reason: pain) Qty: 7 0RF ciprofloxacin HCl [Cipro] 500 mg tablet 500 mg PO BID Qty: 7 0RF Rx Instructions: first dose evening of 01/28/22 Referrals Referrals: Jonathon Cha [Primary Care Provider] -
--- NOTE | 2022-01-29 00:12 | History & Physical Report ---
Date of Service January 28, 2022 Assessment & Plan (1) Acute encephalopathy: Plan: Acute onset of [id number] term memory loss and mild confusion/disorientation, likely onset is sometime around noon on 01/28. DDx at this time includes acute CVA/TIA, transient global amnesia, and toxic encephalopathy due to narcotic pain medication use during recent hospitalization (associated with kidney stone - see below). - CT head w/o contrast - [facility] report showing no acute abnormalities but with chronic microvascular ischemic changes - ordered MRI brain and TTE - pending - will defer CTA head/neck as patient has h/o anaphylaxis with iodinated contrast (confirmed with patient and family) - check A1c and lipid profile in AM - Q4H Neuro checks, elevate HOB - permissive HTN: treat for SBP >220 and/or DBP >120 - consult Neurology - appreciate recs (2) Hypertension: Plan: BP uncontrolled in ED - up to 203/106. - permissive HTN as stated above: Hydralazine 10mg IV PRN for SBP >220 and/or DBP>120 - continue home Lisinopril (3) Elevated troponin: Plan: hsTroponin very mildly elevated at 20.6, without chest pain or ST/T abnorm alities on EKG. Suspect demand ischemia due to uncontrolled HTN. - check hsTroponin now - PRN EKG/SL Nitro for chest pain (4) Hypomagnesemia: Plan: Mg 1.6. Repleted in ED with Mg sulfate 1g IV. - trend in AM (5) Hydronephrosis with renal and ureteral calculous obstruction: Plan: POD2 s/p cystoscopy with stone evacuation and bilateral ureteral stent placement. Currently without pain, dysuria or hematuria. - continue Ciprofloxacin 500mg PO BID x3 days for ppx (per Urology recs) - continue Flomax - outpatient Urology f/u scheduled (6) Chronic GERD: Plan: Continue home Protonix (7) Chronic diarrhea: Plan: Continue home Cholestyramine PRN (8) Peripheral neuropathy: Plan: Hold home Pregabalin for now, due to acute encephalopathy. (9) Macrocytic anemia: Plan: Hgb 10.0 (baseline 11-13), MCV 102. No signs bleeding. Patient does have h/o peripheral neuropathy - unclear etiology per perusal of our chart. 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 Will fundoplication) who presented to [facility] ED on 01/29 for memory deficit and confusion. Patient was recently admitted to [facility] from 01/26 to 01/29 for bilateral hydronephrosis due to obstructing ureteral stone and is s/p cystoscopy with stone evacuation and bilateral ureteral stent placement on 01/27. Patient was discharged on 01/28 with plans to continue antibiotic ppx (Cipro) x3 days as well as Flomax and Urology follow up. When patient got home she was confused, did not remember about her 3-day hospitalization and thought her was staying with a friend who has been . Patient also went to sit outside in the cold without a jacket and had told her family that she urinated on the floor but there was no evidence of this - all erratic behavior that is not her baseline. Patient's reports that she sounded confused on the phone in the morning on 01/28 but had not spoken to her earlier and is unsure when symptoms started. Patient denies focal weakness/numbness, aphasia or dysarthria. Denies headache, vision changes, SOB, chest pain, or LE edema. Feels well overall and is able to understand that her memory loss is atypical and believes that she was in the hospital. In the ED the patient was hypertensive to 203/106; otherwise afebrile and stable on room air. Labs significant for Hgb 10.0 (baseline 11-13), Mg 1.6, hsTroponin 20.6. EKG without ST/T abnormalities. Head CT w/o contrast without infarct/hemorrhage or acute process; but with chronic microvascular ischemic changes. Of note patient has h/o anaphylaxis with iodinated contrast and thus CTA studies were deferred. Patient was given NSS 500cc bolus and Mg 1g IV. Allergies Allergy/AdvReac Type Severity Reaction Status Date / Time amlodipine Allergy Severe Anaphylaxis Verified 01/28/22 21:19 benzocaine Allergy Severe Anaphylaxis Verified 01/28/22 21:19 [From Daniel (with benzocaine)] Iodinated Contrast Media Allergy Severe Anaphylaxis Verified 01/28/22 21:19 Penicillins Allergy Severe Anaphylaxis Verified 01/28/22 21:19 trimethobenzamide Allergy Severe Anaphylaxis Verified 01/28/22 21:19 lactose AdvReac Intermediate Gastrointestinal Verified 01/28/22 21:19 symptoms Home Medications Medication Instructions Recorded Confirmed Type pregabalin 75 mg capsule (Lyrica) 75 mg PO HS 08/23/19 01/28/22 History lisinopril 20 mg tablet (Zestril) 20 mg PO QAM 10/10/20 01/28/22 History pantoprazole 40 mg tablet,delayed 40 mg PO DAILYBB 10/13/20 01/28/22 History release (Protonix) cholestyramine (with sugar) 4 gram 4 g PO BID PRN Diarrhea 12/14/21 01/28/22 History oral powder multivitamin 1 tab PO QDL 12/14/21 01/28/22 History phenazopyridine 200 mg tablet 200 mg PO TID PRN pain #10 tabs 01/03/22 01/28/22 Rx (Pyridium) oxybutynin chloride 5 mg tablet 5 mg PO BID PRN bladder spasms #30 01/09/22 01/28/22 Rx tabs pumpkin seed extract-soy germ 300 2 cap PO DAILY PRN Pain 01/18/22 01/28/22 History mg capsule (Azo Bladder Control) oxycodone-acetaminophen 7.5 mg-325 1 tab PO Q8H PRN pain #7 tabs 01/24/22 01/28/22 Rx mg tablet (Percocet) tamsulosin 0.4 mg capsule 0.4 mg PO HS #30 caps 01/24/22 01/28/22 Rx ciprofloxacin HCl 500 mg tablet 500 mg PO BID uti prophylaxis #7 01/28/22 01/28/22 Rx (Cipro) tabs Past Med/Surg History Medical History Anxiety Chondrocalcinosis Chronic diarrhea Chronic GERD protonix daily Endometriosis Hiatal hernia Hypertension Insomnia Lower extremity neuropathy Nephrolithiasis Recurrent CaOx kidney stones Obesity Peripheral neuropathy Surgical History History of ankle surgery b/l ankle, tarsal tunnel surgery History of appendectomy History of section x2 History of cholecystectomy History of colonoscopy History of cystoscopy STONE REMOVAL/STENTS (MULTIPLE TIMES) last 12/20/21 @ [facility] Cystoscopy, laser litho, stent (12/25/20): LMA #4 at [facility]. Per post-op anesthesia progress note: "The patient did not take her lisinopril today and was hypertensive preoperatively and in PACU. She was treated with labetalol in PACU and her BP is now 150s/80s which is lower than her baseline. The patient was instructed to resume her blood pressure medications at home." cystoscopy, laser, left stent (06/11/21): LMA#4 iGel, atraumatic at [facility]. No issues per postop anesthesia progress note. History of esophagogastroduodenoscopy (EGD) 08/08/2017. sedation, no issues. History of lithotripsy MULTIPLE TIMES History of tonsillectomy History of tooth extraction History of total abdominal hysterectomy and bilateral salpingo-oophorectomy Status post Will fundoplication Family History Father , age 76; multiple MIs Myocardial infarction Mother , age 49 Myocardial infarction Other No family history of adverse response to anesthesia Denies family history of Ovarian cancer Prostate cancer Crohn's disease Breast cancer Colorectal cancer Inflammatory bowel disease Social History Smoking Status: Never smoker Second Hand Exposure: No; Do You Dip or Chew Tobacco: No; Tobacco Cessation Education Requested by Patient: No Hx Alcohol Use: No Hx Substance Use: No Preferred Language: Fijian Communication Ability: Effective Visual Impairment: No Limitations Hearing Ability: Use of Hearing Aid [employer] Manager Required: No Beliefs That Will Affect Care: None marital status: Current Living Situation: Spouse 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 status: retired 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 NAD. Cooperative. HEENT: Atraumatic, normocephalic. Pulm: CTAB A&P. -wheezes, -rales, -rhonchi. Symmetrical chest rise. No increase work of breathing. No respiratory distress. Cardiac: RRR, -mrg. Radial pulses intact and symmetrical. Abdominal: soft, non-tender, non-distended, BS x 4 Neurologic: normal touch/pain/proprioception, CN's II-XI intact bilaterally, deep tendon reflexes 2+ bilaterally, moves all extremities, awake and + confused (patient has short-term memory deficit ); no focal motor deficits Speech / Cognition: normal speech Motor/Sensory: no tremor, normal movement and no pronator drift Coordination: normal [id number] test and normal [id number] test Results & Data Results & Data ([facility]) Vital Signs (Past 12 Hours) Vital Signs Temp Pulse Resp BP Pulse Ox O2 Del Method 01/28/22 21:38 Room Air 01/28/22 21:04 84 24 96 01/28/22 20:40 36.7 C 100 H 18 203/106 H 92 Room Air Supervising Physician Co-Signing Physician Notes Attending addendum: I have physically seen this patient, have supervised the medical residents activities, and agree with the H&P unless as otherwise noted. Assessment and Plan: Acute encephalopathy/short and midterm memory loss/mild confusion and disorientation- Differential including TIA versus CVA versus TGA versus metabolic encephalopathy CT head without contrast negative Order MRI brain and TTE Neurochecks every 4 hours Permissive hypertension as noted Consult neurology Hypertension- As noted above permissive hypertension overnight with as needed hydralazine as noted Elevated troponin high sensitive troponin minimally elevated at 20.6 The patient will be admitted to telemetry for serial cardiac enzymes, serial EKG's, cardiac rhythm monitoring and a 2-D echocardiogram with Dopplers. Hypomagnesemia- Magnesium 1.6 upon admission replace with IV and recheck laboratories in a.m. Remaining orders and notations as noted Resident Activity Tracking Resident Involvement: Resident Care Provided Care Provided: Adult Hospital Medicine
[2022-01-29 00:48] LABS: Appearance Urine Clear (Clear); Bacteria Urine Automated Negative (Negative); Bilirubin Urine Negative (Negative); Blood Urine 1+ (Negative); Color Urine Yellow; Glucose Urine UA Negative (Negative); Ketones Urine Trace (Negative); Leukocyte Esterase Urine Negative (Negative); Nitrite Urine Negative (Negative); Protein Urine Negative (Negative); Specific Gravity Urine 1.011 (1.000-1.030); Urobilinogen Urine Negative (Negative)
[2022-01-29] MEDS ORDERED: PHARMACIST DISCHARGE MED REC CONSULT PRN (03:31)
[2022-01-29] MEDS ORDERED: hydrALAZINE HCL 20 MG/ML VIAL IV PRN (03:31)
[2022-01-29] MEDS ORDERED: NITROGLYCERIN SL 0.4 MG/TAB TAB SL PRN (03:31)
[2022-01-29] MEDS ORDERED: CHOLESTYRAMINE LIGHT 4 GM PKT PO PRN (04:39)
[2022-01-29 06:31] LABS: Basophils # (auto) 0.03 K/uL (0-0.2); Basophils % (auto) 0.4 %; Eosinophils # (auto) 0.23 K/uL (0-0.50); Hematocrit (blood only) 30.2 % (34.1-44.9); Hemoglobin 9.9 g/dl (12.0-16.0); Immature Granulocytes # (auto) 0.03 K/uL (0.00-0.02); Immature Granulocytes % (auto) 0.4 %; Lymphocytes # (auto) 1.28 K/uL (1.2-3.4); Lymphocytes % (auto) 16.7 %; Mean Corpuscular Hemoglobin 32.7 pg (25.0-34.0); Mean Corpuscular Hgb Conc 32.8 g/dL (32.0-36.0); Mean Corpuscular Volume 99.7 fL (80.0-100.0); Monocytes # (auto) 0.75 K/uL (0.24-0.82); Monocytes % (auto) 9.8 %; Neutrophils # (auto) 5.33 K/uL (1.4-6.5); Neutrophils % (auto) 69.7 %; Platelet Count 215 K/uL (130-400); RDW Coefficient of Variation 13.7 % (11.5-14.5); RDW Standard Deviation 50.2 fL (36.4-46.3); Red Blood Count 3.03 M/uL (3.93-5.22); White Blood Count 7.65 K/ul (4.8-10.8)
[2022-01-29] MEDS: PANTOprazole 40 MG TAB PO SCH (06:46)
[2022-01-29 07:06] LABS: BUN Creatinine Ratio 9.5 (10-20); Calcium 8.5 mg/dl (8.5-10.1); Chol HDL Ratio 3.8 (0-5); Creatinine Clr Calc Pharmacy 80.2 ml/min; Est GFR (African American) 102.4 ml/min; Est GFR (Non-African American) 88.4 ml/min; Magnesium 1.6 mg/dl (1.7-2.4); Potassium 3.8 mmol/L (3.5-5.1)
--- NOTE | 2022-01-29 07:08 | CT Scan Report ---
CT SCAN OF THE BRAIN WITHOUT IV CONTRAST CLINICAL HISTORY: Strokelike symptoms. Change in mental status. COMPARISON STUDY: CT of the brain dated 09/15/2018. TECHNIQUE: Unenhanced axial CT scan of the brain is performed from the vertex to the skull base. A do se lowering technique was utilized adhering to the principles of ALARA. CT DOSE: 537.48 mGy.cm FINDINGS: Brain parenchyma: There is age-related involutional change noting [id number] subcortical and pe riventricular microangiopathic disease. There is no hemorrhage, mass effect, or evidence of acute ter ritorial ischemia by CT criteria. There is a subacute to chronic appearing lacunar infarct centered i n the right thalamus/internal capsule. Chronic lacunar infarcts are seen in the basal ganglia bilater ally. Hills-white matter differentiation is preserved. No extra-axial fluid collection is seen. Ventricles, sulci, cisterns: Prominent secondary to involutional change. Intracranial vasculature: There is atherosclerotic calcification of the cavernous carotid and vertebr al arteries. Calvarium: Unremarkable. Sinuses and mastoids: The visualized paranasal sinuses are clear. The mastoid air cells are well pneu matized. Orbits: The bony orbits are grossly intact. There are bilateral ocular lens implants. IMPRESSION: 1. There is no hemorrhage, mass effect, or evidence of acute territorial ischemia by CT criteria. 2. Subacute to chronic lacunar infarct centered in the right thalamus/internal capsule. ACT 112: Negative or not required by law. Electronically signed by: Nacho Diez M.D. 01/29/2022 7:07 AM
[2022-01-29] MEDS ORDERED: MAGNESIUM SULFATE / D5W 1 GM/100 ML BAG IV ONE (07:22)
[2022-01-29 07:26] LABS: Vitamin B12 270 pg/ml (180-914)
--- NOTE | 2022-01-29 07:31 | Hospitalist Progress Note ---
Date of Service January 29, 2022 Assessment & Plan (1) Acute encephalopathy: Plan: Acute onset of [id number]-[id number] term memory loss and mild confusion/disorientation, likely onset is sometime around noon on 01/28. DDx at this time includes acute CVA/TIA, transient global amnesia, hypertensive encephalopathy, delirium, and toxic encephalopathy due to narcotic pain medication use during recent hospitalization (associated with kidney stone - see below). - CT head w/o contrast - subacute to chronic lacunar infarct in right thalamus/internal capsule - MRI brain: acute to subacute thalamic infarct - TTE pending - A1c wnl, mildly elevated cholesterol - Q4H Neuro checks, elevate HOB - permissive HTN: BP goal <130/80 - consulted Neurology - appreciate recs -echo pending -carotid US pending -MR angiogram head; h/o anaphylaxis with iodinated contrast (confirmed with patient and family) -started aspirin, Lipitor (LDL goal <70) -PT/OT (2) Hypertension: Plan: BP uncontrolled in ED - up to 203/106. - permissive HTN as stated above: Hydralazine 10mg IV PRN for SBP >220 and/or DBP>120 - continue home Lisinopril (3) Elevated troponin: Plan: hsTroponin very mildly elevated at 20.6, without chest pain or ST/T abnormalities on EKG. Suspect demand ischemia due to uncontrolled HTN. - check hsTroponin now - PRN EKG/SL Nitro for chest pain (4) Hypomagnesemia: Plan: Mg 1.6. Repleted in ED with Mg sulfate 1g IV. - trend in AM, replete as needed (5) Hydronephrosis with renal and ureteral calculous obstruction: Plan: POD2 s/p cystoscopy with stone evacuation and bilateral ureteral stent placement. Currently without pain, dysuria or hematuria. - continue Ciprofloxacin 500mg PO BID x3 days for ppx (per Urology recs) - continue Flomax - outpatient Urology f/u scheduled (6) Chronic GERD: Plan: Continue home Protonix (7) Chronic diarrhea: Plan: Continue home Cholestyramine PRN (8) Peripheral neuropathy: Plan: Hold home Pregabalin for now, due to acute encephalopathy. (9) Macrocytic anemia: Plan: Hgb 10.0 (baseline 11-13), MCV 102. No signs bleeding. Patient does have h/o peripheral neuropathy - unclear etiology per perusal of our chart. - folate wnl - b12 low normal, will replete with PO 1000mcg daily, cont. this on discharge - trend CBC (10) CVA (cerebral vascular accident): Plan FEN/GI: regular DVT Prophylaxis: Lovenox SQ Code Status: full code Disposition: PCU Admission and Anticipated Discharge Date Admission Date: January 29, 2022 Supervising Physician Co-Signing Physician Notes I personally examined the patient and verified all price points of history and exam, discussed case, and agree with decision making with Dr Altamirano. Feeling better. Knows where she is, is not really sure how long she has been in the hospitalgases a few days. Notes that she really does not remember the prior hospital stay. Does not complain of any focal symptoms to me. Vitals noted, in general she is awake and alert oriented pleasant no distress. HEENT normocephalic atraumatic mucous membranes moist. Breathing unlabored no accessory muscle use good effort. Skin shows no rashes no pallor or icterus. N euro as above. Deliriumsuspect hypertensive encephalopathy given her markedly elevated blood pressure and paucity of other deliria genic factors. Environment was changingbut given that she went from the hospital to home and then became delirious this seems unlikely, metabolic issues do not appear to be at play given that her electrolytes are reasonable and she does not appear dehydrated, I doubt toxic/medication side effects or replacements very little changed from discharge to onset of delirium (was prescribed Cipro, but was on it prior to discharge as well), nothing appears acutely infectious. Her MRI does look suspicious for an acute to subacute stroke, but given acute to subacute the timeframe is a bit more questionable, and given that it would be odd for her to have a fully delirious presentation for what should be more focal neurologic deficits (which neuro exam by neurology does confirm a bit of a sensory deficit) I am much more suspicious that she had a hypertensive crisis manifest by her delirium/hypertensive encephalopathy, and incidentally had a hypertensive stroke as part of the "fallout" from the hypertensive crisis. Med management, blood pressure control, secondary risk reduction. PT/OT eval and treat. Appreciate neurology input. DVT prophylaxis with Lovenox. Subjective Seen at bedside this morning. Still cannot remember her previous hospital stay over the past few days. Thinks on her current admission she has been here for at least a couple of days. However, alert and oriented to self/place. Denies chest pain, sob, abd pain, N/V, headache, focal deficits, limb weakness. Review of Systems Review of Systems: Unobtainable due to cognitive status Physical Exam Physical Exam: General: AOx3. NAD. Cooperative. Remote memory questionable. HEENT: Atraumatic, normocephalic. Pulm: CTAB. -wheezes, -rales, -rhonchi. Symmetrical chest rise. No increase work of breathing. No respiratory distress. Cardiac: RRR, -mrg. Radial pulses intact and symmetrical. Abdominal: soft, non-tender, non-distended, BS x 4 Neuro: no focal deficits Results & Data Results & Data ([facility]) Vital Signs (Past 12 Hours) Vital Signs Temp Pulse Pulse Resp BP BP Pulse Ox 01/29/22 07:07 36.6 C 76 18 193/94 H 93 01/29/22 04:11 84 01/29/22 03:31 20 95 01/29/22 03:31 36.8 C 20 149/91 H 96 01/29/22 03:30 83 20 197/82 H 95 01/29/22 03:13 01/29/22 02:03 81 18 96 01/29/22 02:03 194/85 H 01/29/22 02:02 89 25 H 01/29/22 01:50 81 21 96 01/29/22 01:40 78 20 01/29/22 01:30 81 22 01/29/22 01:20 81 20 95 01/29/22 01:10 79 20 95 01/29/22 01:00 81 18 97 01/29/22 00:50 98 H 13 01/29/22 00:40 82 23 01/29/22 00:30 81 26 H 01/29/22 00:30 202/111 H 01/29/22 00:00 197/97 H 01/28/22 23:49 81 L 01/28/22 23:40 23 01/28/22 23:30 96 01/28/22 23:30 197/84 H 01/28/22 23:20 97 01/28/22 23:10 85 18 96 01/28/22 23:01 206/82 H 01/28/22 23:01 74 23 96 11/21/22 23:00 77 18 97 01/28/22 22:53 97 01/28/22 22:30 80 27 H 96 01/28/22 22:30 173/94 H 01/28/22 22:20 81 23 95 01/28/22 22:10 79 25 H 95 01/28/22 22:00 80 24 95 01/28/22 22:00 173/86 H 01/28/22 21:50 90 27 H 96 01/28/22 21:50 201/83 H 01/28/22 21:40 80 25 H 96 01/28/22 21:08 206/90 H 01/28/22 21:08 81 25 H 96 01/29/22 01:00 01/28/22 21:38 01/28/22 21:04 84 24 96 01/28/22 20:40 36.7 C 100 H 18 203/106 H 92 O2 Del Method 01/29/22 07:07 Room Air 01/29/22 04:11 01/29/22 03:31 Room Air 01/29/22 03:31 Room Air 01/29/22 03:30 Room Air 01/29/22 03:13 Room Air 01/29/22 02:03 01/29/22 02:03 01/29/22 02:02 01/29/22 01:50 01/29/22 01:40 01/29/22 01:30 01/29/22 01:20 01/29/22 01:10 01/29/22 01:00 01/29/22 00:50 01/29/22 00:40 01/29/22 00:30 01/29/22 00:30 01/29/22 00:00 01/28/22 23:49 01/28/22 23:40 01/28/22 23:30 01/28/22 23:30 01/28/22 23:20 01/28/22 23:10 01/28/22 23:01 01/28/22 23:01 01/28/22 23:00 01/28/22 22:53 01/28/22 22:30 01/28/22 22:30 01/28/22 22:20 01/28/22 22:10 01/28/22 22:00 01/28/22 22:00 01/28/22 21:50 01/28/22 21:50 01/28/22 21:40 01/28/22 21:08 01/28/22 21:08 01/29/22 01:00 Room Air 01/28/22 21:38 Room Air 01/28/22 21:04 01/28/22 20:40 Room Air Laboratory Results 01/29/22 01/29/22 01/29/22 Range/Units 06:15 06:15 06:15 WBC (4.8-10.8) K/ul RBC (3.93-5.22) M/uL Hgb (12.0-16.0) g/dl POC Hgb (12.0-16.0) g/dl Hct (34.1-44.9) % POC Hct (37-47) % MCV (80.0-100.0) fL MCH (25.0-34.0) pg MCHC (32.0-36.0) g/dL RDW Std Deviation (36.4-46.3) fL RDW Coeff of Gabriele (11.5-14.5) % Plt Count (130-400) K/uL MPV (9.4-12.3) fL Immature Gran % (Auto) % Neut % (Auto) % Lymph % (Auto) % Hart % (Auto) % Eos % (Auto) % Baso % (Auto) % Neut # (Auto) (1.4-6.5) K/uL Lymph # (Auto) (1.2-3.4) K/uL Hart # (Auto) (0.24-0.82) K/uL Eos # (Auto) (0-0.50) K/uL Baso # (Auto) (0-0.2) K/uL Immature Gran # (Auto) (0.00-0.02) K/uL PT (9.0-12.0) Seconds INR (0.9-1.1) APTT (21.0-31.0) Seconds PTT Ratio POC Sodium (135-144) mmol/L Sodium 140 (136-145) mmol/L POC Potassium (3.3-5.0) mmol/L Potassium 3.8 (3.5-5.1) mmol/L POC Chloride (101-112) mmol/L Chloride 106 (98-107) mmol/L Carbon Dioxide 28 (21-32) mmol/L POC Total CO2 (24-31) mmol/L Anion Gap 6 (3-11) POC Anion Gap (16-25) mmol/L POC BUN (7-18) mg/dl BUN 6 (6-23) mg/dl Creatinine 0.63 (0.6-1.2) mg/dl POC Creatinine (0.6-1.3) mg/dl Est Cr Clr Drug Dosing 80.2 Est GFR ( Amer) 102.4 ml/min Est GFR (Non-Af Amer) 88.4 ml/min BUN/Creatinine Ratio 9.5 L (10-20) Glucose 105 H (70-99(Fasting)) mg/dl POC Glucose (other) (70-99) mg/dl Estimat Average Glucose 74 mg/dl Hemoglobin A1c 4.2 L (4.5-5.6) % Calcium 8.5 (8.5-10.1) mg/dl POC Ioniz Calcium Lisette (1.12-1.32) mmol/l Magnesium 1.6 L (1.7-2.4) mg/dl Total Bilirubin (0.2-1.0) mg/dl AST (13-39) U/L ALT (7-52) U/L Alkaline Phosphatase (34-104) U/L Troponin I High Sens (0-14) pg/ml Total Protein (6.0-8.3) gm/dl Albumin (3.4-5.0) gm/dl Globulin (2.5-4.0) gm/dl Albumin/Globulin Ratio (0.9-2) Triglycerides 146 (0-150) mg/dl Cholesterol 208 H (0-200) mg/dl LDL Cholesterol, Calc 124 mg/dl VLDL Cholesterol, Calc 29 (0-30) mg/dl HDL Cholesterol 55 mg/dl Cholesterol/HDL Ratio 3.8 (0-5) Vitamin B12 270 (180-914) pg/ml Folate > 22.30 (>5.38) ng/ml Urine Color Urine Appearance (Clear) Urine pH (4.5-7.5) Ur Specific [place] (1.000-1.030) Urine Protein (Negative) Urine Glucose (UA) (Negative) Urine Ketones (Negative) Urine Blood (Negative) Urine Nitrite (Negative) Urine Bilirubin (Negative) Urine Urobilinogen (Negative) Ur Leukocyte Esterase (Negative) Urine WBC (Auto) (0-5) /hpf Urine RBC (Auto) (0-4) /hpf U Hyaline Cast (Auto) (0-5) /lpf U Epithel Cells (Auto) (0-5) /lpf Urine Bacteria (Auto) (Negative) SARS-CoV-2, RNA, NAAT (NEGATIVE) 01/29/22 01/29/22 01/29/22 Range/Units 06:15 02:00 01:29 WBC 7.65 (4.8-10.8) K/ul RBC 3.03 L (3.93-5.22) M/uL Hgb 9.9 L (12.0-16.0) g/dl POC Hgb (12.0-16.0) g/dl Hct 30.2 L (34.1-44.9) % POC Hct (37-47) % MCV 99.7 (80.0-100.0) fL MCH 32.7 (25.0-34.0) pg MCHC 32.8 (32.0-36.0) g/dL RDW Std Deviation 50.2 H (36.4-46.3) fL RDW Coeff of Gabriele 13.7 (11.5-14.5) % Plt Count 215 (130-400) K/uL MPV 9.0 L (9.4-12.3) fL Immature Gran % (Auto) 0.4 % Neut % (Auto) 69.7 % Lymph % (Auto) 16.7 % Hart % (Auto) 9.8 % Eos % (Auto) 3.0 % Baso % (Auto) 0.4 % Neut # (Auto) 5.33 (1.4-6.5) K/uL Lymph # (Auto) 1.28 (1.2-3.4) K/uL Hart # (Auto) 0.75 (0.24-0.82) K/uL Eos # (Auto) 0.23 (0-0.50) K/uL Baso # (Auto) 0.03 (0-0.2) K/uL Immature Gran # (Auto) 0.03 H (0.00-0.02) K/uL PT (9.0-12.0) Seconds INR (0.9-1.1) APTT (21.0-31.0) Seconds PTT Ratio POC Sodium (135-144) mmol/L Sodium (136-145) mmol/L POC Potassium (3.3-5.0) mmol/L Potassium (3.5-5.1) mmol/L POC Chloride (101-112) mmol/L Chloride (98-107) mmol/L Carbon Dioxide (21-32) mmol/L POC Total CO2 (24-31) mmol/L Anion Gap (3-11) POC Anion Gap (16-25) mmol/L POC BUN (7-18) mg/dl BUN (6-23) mg/dl Creatinine (0.6-1.2) mg/dl POC Creatinine (0.6-1.3) mg/dl Est Cr Clr Drug Dosing Est GFR ( Amer) ml/min Est GFR (Non-Af Amer) ml/min BUN/Creatinine Ratio (10-20) Glucose (70-99(Fasting)) mg/dl POC Glucose (other) (70-99) mg/dl Estimat Average Glucose mg/dl Hemoglobin A1c (4.5-5.6) % Calcium (8.5-10.1) mg/dl POC Ioniz Calcium Lisette (1.12-1.32) mmol/l Magnesium (1.7-2.4) mg/dl Total Bilirubin (0.2-1.0) mg/dl AST (13-39) U/L ALT (7-52) U/L Alkaline Phosphatase (34-104) U/L Troponin I High Sens 18.1 H (0-14) pg/ml Total Protein (6.0-8.3) gm/dl Albumin (3.4-5.0) gm/dl Globulin (2.5-4.0) gm/dl Albumin/Globulin Ratio (0.9-2) Triglycerides (0-150) mg/dl Cholesterol (0-200) mg/dl LDL Cholesterol, Calc mg/dl VLDL Cholesterol, Calc (0-30) mg/dl HDL Cholesterol mg/dl Cholesterol/HDL Ratio (0-5) Vitamin B12 (180-914) pg/ml Folate (>5.38) ng/ml Urine Color Urine Appearance (Clear) Urine pH (4.5-7.5) Ur Specific [place] (1.000-1.030) Urine Protein (Negative) Urine Glucose (UA) (Negative) Urine Ketones (Negative) Urine Blood (Negative) Urine Nitrite (Negative) Urine Bilirubin (Negative) Urine Urobilinogen (Negative) Ur Leukocyte Esterase (Negative) Urine WBC (Auto) (0-5) /hpf Urine RBC (Auto) (0-4) /hpf U Hyaline Cast (Auto) (0-5) /lpf U Epithel Cells (Auto) (0-5) /lpf Urine Bacteria (Auto) (Negative) SARS-CoV-2, RNA, NAAT NEGATIVE (NEGATIVE) 01/28/22 01/28/22 01/28/22 Range/Units 21:50 21:20 21:20 WBC (4.8-10.8) K/ul RBC (3.93-5.22) M/uL Hgb (12.0-16.0) g/dl POC Hgb (12.0-16.0) g/dl Hct (34.1-44.9) % POC Hct (37-47) % MCV (80.0-100.0) fL MCH (25.0-34.0) pg MCHC (32.0-36.0) g/dL RDW Std Deviation (36.4-46.3) fL RDW Coeff of Gabriele (11.5-14.5) % Plt Count (130-400) K/uL MPV (9.4-12.3) fL Immature Gran % (Auto) % Neut % (Auto) % Lymph % (Auto) % Hart % (Auto) % Eos % (Auto) % Baso % (Auto) % Neut # (Auto) (1.4-6.5) K/uL Lymph # (Auto) (1.2-3.4) K/uL Hart # (Auto) (0.24-0.82) K/uL Eos # (Auto) (0-0.50) K/uL Baso # (Auto) (0-0.2) K/uL Immature Gran # (Auto) (0.00-0.02) K/uL PT 11.3 (9.0-12.0) Seconds INR 1.1 (0.9-1.1) APTT 23.1 (21.0-31.0) Seconds PTT Ratio 0.8 POC Sodium (135-144) mmol/L Sodium 140 (136-145) mmol/L POC Potassium (3.3-5.0) mmol/L Potassium 4.4 (3.5-5.1) mmol/L POC Chloride (101-112) mmol/L Chloride 107 (98-107) mmol/L Carbon Dioxide 28 (21-32) mmol/L POC Total CO2 (24-31) mmol/L Anion Gap 5 (3-11) POC Anion Gap (16-25) mmol/L POC BUN (7-18) mg/dl BUN 9 (6-23) mg/dl Creatinine 0.81 (0.6-1.2) mg/dl POC Creatinine (0.6-1.3) mg/dl Est Cr Clr Drug Dosing Not Reportable Est GFR ( Amer) 82.9 ml/min Est GFR (Non-Af Amer) 71.5 ml/min BUN/Creatinine Ratio 11.1 (10-20) Glucose 111 H (70-99(Fasting)) mg/dl POC Glucose (other) (70-99) mg/dl Estimat Average Glucose mg/dl Hemoglobin A1c (4.5-5.6) % Calcium 8.5 (8.5-10.1) mg/dl POC Ioniz Calcium Lisette (1.12-1.32) mmol/l Magnesium 1.6 L (1.7-2.4) mg/dl Total Bilirubin 0.5 (0.2-1.0) mg/dl AST 16 (13-39) U/L ALT 10 (7-52) U/L Alkaline Phosphatase 79 (34-104) U/L Troponin I High Sens 20.6 H (0-14) pg/ml Total Protein 6.5 (6.0-8.3) gm/dl Albumin 3.9 (3.4-5.0) gm/dl Globulin 2.6 (2.5-4.0) gm/dl Albumin/Globulin Ratio 1.5 (0.9-2) Triglycerides (0-150) mg/dl Cholesterol (0-200) mg/dl LDL Cholesterol, Calc mg/dl VLDL Cholesterol, Calc (0-30) mg/dl HDL Cholesterol mg/dl Cholesterol/HDL Ratio (0-5) Vitamin B12 (180-914) pg/ml Folate (>5.38) ng/ml Urine Color Yellow Urine Appearance Clear (Clear) Urine pH 7.0 (4.5-7.5) Ur Specific [place] 1.011 (1.000-1.030) Urine Protein Negative (Negative) Urine Glucose (UA) Negative (Negative) Urine Ketones Trace H (Negative) Urine Blood 1+ H (Negative) Urine Nitrite Negative (Negative) Urine Bilirubin Negative (Negative) Urine Urobilinogen Negative (Negative) Ur Leukocyte Esterase Negative (Negative) Urine WBC (Auto) 1-5 (0-5) /hpf Urine RBC (Auto) 5-10 H (0-4) /hpf U Hyaline Cast (Auto) 1-5 (0-5) /lpf U Epithel Cells (Auto) 10-20 H (0-5) /lpf Urine Bacteria (Auto) Negative (Negative) SARS-CoV-2, RNA, NAAT (NEGATIVE) 01/28/22 01/28/22 Range/Units 21:20 21:17 WBC 8.48 (4.8-10.8) K/ul RBC 3.01 L (3.93-5.22) M/uL Hgb 10.0 L (12.0-16.0) g/dl POC Hgb 10.9 L (12.0-16.0) g/dl Hct 30.7 L (34.1-44.9) % POC Hct 32 L (37-47) % MCV 102.0 H (80.0-100.0) fL MCH 33.2 (25.0-34.0) pg MCHC 32.6 (32.0-36.0) g/dL RDW Std Deviation 52.1 H (36.4-46.3) fL RDW Coeff of Gabriele 13.9 (11.5-14.5) % Plt Count 240 (130-400) K/uL MPV 9.5 (9.4-12.3) fL Immature Gran % (Auto) 0.5 % Neut % (Auto) 72.9 % Lymph % (Auto) 16.6 % Hart % (Auto) 7.7 % Eos % (Auto) 2.1 % Baso % (Auto) 0.2 % Neut # (Auto) 6.18 (1.4-6.5) K/uL Lymph # (Auto) 1.41 (1.2-3.4) K/uL Hart # (Auto) 0.65 (0.24-0.82) K/uL Eos # (Auto) 0.18 (0-0.50) K/uL Baso # (Auto) 0.02 (0-0.2) K/uL Immature Gran # (Auto) 0.04 H (0.00-0.02) K/uL PT (9.0-12.0) Seconds INR (0.9-1.1) APTT (21.0-31.0) Seconds PTT Ratio POC Sodium 141 (135-144) mmol/L Sodium (136-145) mmol/L POC Potassium 4.4 (3.3-5.0) mmol/L Potassium (3.5-5.1) mmol/L POC Chloride 105 (101-112) mmol/L Chloride (98-107) mmol/L Carbon Dioxide (21-32) mmol/L POC Total CO2 26 (24-31) mmol/L Anion Gap (3-11) POC Anion Gap 15.0 L (16-25) mmol/L POC BUN 8 (7-18) mg/dl BUN (6-23) mg/dl Creatinine (0.6-1.2) mg/dl POC Creatinine 0.9 (0.6-1.3) mg/dl Est Cr Clr Drug Dosing Est GFR ( Amer) ml/min Est GFR (Non-Af Amer) ml/min BUN/Creatinine Ratio (10-20) Glucose (70-99(Fasting)) mg/dl POC Glucose (other) 116 H (70-99) mg/dl Estimat Average Glucose mg/dl Hemoglobin A1c (4.5-5.6) % Calcium (8.5-10.1) mg/dl POC Ioniz Calcium Lisette 1.13 (1.12-1.32) mmol/l Magnesium (1.7-2.4) mg/dl Total Bilirubin (0.2-1.0) mg/dl AST (13-39) U/L ALT (7-52) U/L Alkaline Phosphatase (34-104) U/L Troponin I High Sens (0-14) pg/ml Total Protein (6.0-8.3) gm/dl Albumin (3.4-5.0) gm/dl Globulin (2.5-4.0) gm/dl Albumin/Globulin Ratio (0.9-2) Triglycerides (0-150) mg/dl Cholesterol (0-200) mg/dl LDL Cholesterol, Calc mg/dl VLDL Cholesterol, Calc (0-30) mg/dl HDL Cholesterol mg/dl Cholesterol/HDL Ratio (0-5) Vitamin B12 (180-914) pg/ml Folate (>5.38) ng/ml Urine Color Urine Appearance (Clear) Urine pH (4.5-7.5) Ur Specific [place] (1.000-1.030) Urine Protein (Negative) Urine Glucose (UA) (Negative) Urine Ketones (Negative) Urine Blood (Negative) Urine Nitrite (Negative) Urine Bilirubin (Negative) Urine Urobilinogen (Negative) Ur Leukocyte Esterase (Negative) Urine WBC (Auto) (0-5) /hpf Urine RBC (Auto) (0-4) /hpf U Hyaline Cast (Auto) (0-5) /lpf U Epithel Cells (Auto) (0-5) /lpf Urine Bacteria (Auto) (Negative) SARS-CoV-2, RNA, NAAT (NEGATIVE) Resident Activity Tracking Resident Involvement: Resident Care Provided Care Provided: Adult Hospital Medicine
[2022-01-29 07:46] LABS: Estimated Average Glucose 74 mg/dl; Hemoglobin A1C 4.2 % (4.5-5.6)
[2022-01-29] MEDS: LABETALOL HCL 100 MG TAB PO SCH ×2 (08:27→19:58)
[2022-01-29] MEDS: CIPROFLOXACIN 500 MG TAB PO SCH ×2 (08:28→19:58)
[2022-01-29] MEDS: lisinopril 20 MG TAB PO SCH (08:28)
[2022-01-29] MEDS: ENOXAPARIN INJ 40 MG/0.4 ML SYR SQ SCH (08:28)
[2022-01-29] MEDS: CYANOCOBALAMIN (B-12) 500 MCG TABLET PO SCH (08:28)
--- NOTE | 2022-01-29 13:30 | Magnetic Resonance Report ---
MR brain wo con HISTORY: 76 years-old Female encephalopathy, memory loss, r/o CVA acute strokelike symptoms COMPARISON: Head CT 01/28/2022 TECHNIQUE: Multiplanar multisequence MRI of the brain was obtained without the use of IV contrast. FINDINGS: There is a 1.8 cm focus of restricted diffusion with decreased signal on ADC not involving the right thalamus, image 12 series 7. Additionally, there is a 8 mm focus of increased diffusion-weighted sign al, likely T2 shine through within the right frontal lobe sidhu radiata on image 14 series 7. No acu te or subacute territorial infarct. There is no acute intracranial hemorrhage, midline shift, abnormal extra-axial collection, hydrocepha fito or intracranial mass. Involutional changes with moderate T2/FLAIR hyperintense foci throughout th e white matter. Cerebral venous sinuses and major arterial flow voids appear patent. Polypoid mucosal thickening of the maxillary and left sphenoid sinuses. The skull and soft tissues are unremarkable. Left mastoid effusion. Prior bilateral lens repair. IMPRESSION: 1. Acute to subacute appearing 1.8 cm infarct of the right thalamus. 2. No acute intracranial hemorrhage or midline shift 3. Involutional changes with chronic microvascular ischemic disease. ACT 112: Negative or not required by law. The above report was generated using voice recognition software. It may contain grammatical, syntax o r spelling errors. Electronically signed by: Nayan Maloney M.D. 01/29/2022 1:28 PM
[2022-01-29] MEDS ORDERED: ACETAMINOPHEN 500 MG TAB PO PRN (15:17)
--- NOTE | 2022-01-29 17:41 | Neurology Consultation ---
Date of Consultation January 29, 2022 Assessment & Plan (1) CVA (cerebral vascular accident): Impression: The patient was brought to emergency department last evening, because of acute confusion, and amnestic episode. Initially, there was no reported sensorimotor deficit. The patient was outside of thrombolytic treatment.. Imaging studies confirmed right thalamic acute ischemic stroke. The patient is allergic to iodine. Memory impairment and confusion has been improved mostly. Underlying mechanism of stroke is uncertain, but probably secondary to small vessel disease or atherothrombotic event. There is no radiologic evidence to suggest cardioembolic mechanism. Recommendations: There is no indication for further permissive hypertension. We should lower blood pressure gradually in the next 2 to 3 days. Goal blood pressure is below 130/80. I will start patient on aspirin 81 mg. Due to recent ureteral procedure we will avoid DAPT. We will start patient on Lipitor 40 mg at bedtime. Goal LDL level is lower than 70. Dose will be adjusted as needed. MR angiography of head, and carotid ultrasound. Echocardiogram. Telemetry monitoring. Physical therapy and Occupational Therapy consultations. Probably, the patient can be discharged home in next 48 hours. Follow-up at neurology clinic, preferably in a month. I will contact with [facility] neurology to set up an appointment. (2) Acute memory impairment: Impression: This is secondary to acute basal ganglia ischemic stroke. (3) Hypertension: Impression: As seen above. Plan Thank you for the consultation. History of Present Illness Reason for Consultation: AMS, CVA Requesting Physician: Karlos Rdz MD Attending Physician: Nate Corado DO History of Present Illness The patient is 76-year-old right-handed female, who was brought to emergency department last night, because of confusion and amnestic episode. Apparently, the patient was recently admitted from 01/26-01/29, for bilateral hydronephrosis due to obstructive ureteral stones, and received cystoscopy with stone evacuation and bilateral ureteral stent placement on 01/27. The patient was discharged on 01/28. Yesterday around noon time, they noticed that and the patient began acting differently, with confusion, and not registering memories. There was no reported sensorimotor deficit, or cranial nerve symptoms in the emergency department. Head CT revealed a right thalamic hypodensity, which was suggestive of ischemic stroke. However, the patient was outside all thrombolytic treatment window. She was admitted to the hospital for further evaluation for potential stroke. Brain MRI confirmed acute, right thalamic ischemic stroke. On admission, the patient's blood pressure was significantly elevated. Permissive hypertension was recommended, and they have not lowered the blood pressure significantly. Currently, the patient denies any neurological symptoms, however, physical examination reveals that she has left hemisensory loss involving face, upper and lower extremity, consistent with MRI findings. Her strength is intact, and her memory has been better and, she can remember recent events even though she still has memory gap from yesterday. She denies having stroke symptoms in the past. Lipid panel showed elevated serum lipids. The patient has history of allergy to iodine and CTA was not suggested. I have reviewed the patient's chart and visualized imaging studies personally. I have discussed the case with the patient and answer her questions in detail. Allergies Allergy/AdvReac Type Severity Reaction Status Date / Time amlodipine Allergy Severe Anaphylaxis Verified 01/28/22 21:19 benzocaine Allergy Severe Anaphylaxis Verified 01/28/22 21:19 [From [facility] (with benzocaine)] Iodinated Contrast Media Allergy Severe Anaphylaxis Verified 01/28/22 21:19 Penicillins Allergy Severe Anaphylaxis Verified 01/28/22 21:19 trimethobenzamide Allergy Severe Anaphylaxis Verified 01/28/22 21:19 lactose AdvReac Intermediate Gastrointestinal Verified 01/28/22 21:19 symptoms Home Medications Medication Instructions Recorded Confirmed Type pregabalin 75 mg capsule (Lyrica) 75 mg PO HS 08/23/19 01/28/22 History lisinopril 20 mg tablet (Zestril) 20 mg PO QAM 10/10/20 01/28/22 History pantoprazole 40 mg tablet,delayed 40 mg PO DAILYBB 10/13/20 01/28/22 History release (Protonix) cholestyramine (with sugar) 4 gram 4 g PO BID PRN Diarrhea 12/14/21 01/28/22 History oral powder multivitamin 1 tab PO QDL 12/14/21 01/28/22 History phenazopyridine 200 mg tablet 200 mg PO TID PRN pain #10 tabs 01/03/22 01/28/22 Rx (Pyridium) oxybutynin chloride 5 mg tablet 5 mg PO BID PRN bladder spasms #30 01/09/22 01/28/22 Rx tabs pumpkin seed extract-soy germ 300 2 cap PO DAILY PRN Pain 01/18/22 01/28/22 History mg capsule (Azo Bladder Control) oxycodone-acetaminophen 7.5 mg-325 1 tab PO Q8H PRN pain #7 tabs 01/24/22 01/28/22 Rx mg tablet (Percocet) tamsulosin 0.4 mg capsule 0.4 mg PO HS #30 caps 01/24/22 01/28/22 Rx ciprofloxacin HCl 500 mg tablet 500 mg PO BID uti prophylaxis #7 01/28/22 01/28/22 Rx (Cipro) tabs Patient History Medical History Anxiety Chondrocalcinosis Chronic diarrhea Chronic GERD protonix daily Endometriosis Hiatal hernia Hypertension Insomnia Lower extremity neuropathy Nephrolithiasis Recurrent CaOx kidney stones Obesity Peripheral neuropathy Surgical History History of ankle surgery b/l ankle, tarsal tunnel surgery History of appendectomy History of section x2 History of cholecystectomy History of colonoscopy History of cystoscopy STONE REMOVAL/STENTS (MULTIPLE TIMES) last 12/20/21 @ [facility] Cystoscopy, laser litho, stent (12/25/20): LMA #4 at [facility]. Per post-op anesthesia progress note: "The patient did not take her lisinopril today and was hypertensive preoperatively and in PACU. She was treated with labetalol in PACU and her BP is now 150s/80s which is lower than her baseline. The patient was instructed to resume her blood pressure medications at home." cystoscopy, laser, left stent (06/11/21): LMA#4 iGel, atraumatic at [facility]. No issues per postop anesthesia progress note. History of esophagogastroduodenoscopy (EGD) 08/08/2017. sedation, no issues. History of lithotripsy MULTIPLE TIMES History of tonsillectomy History of tooth extraction History of total abdominal hysterectomy and bilateral salpingo-oophorectomy Status post Will fundoplication Family History Father , age 76; multiple MIs Myocardial infarction Mother , age 49 Myocardial infarction Other No family history of adverse response to anesthesia Denies family history of Ovarian cancer Prostate cancer Crohn's disease Breast cancer Colorectal cancer Inflammatory bowel disease Social History Smoking Status: Never smoker Second Hand Exposure: No; Do You Dip or Chew Tobacco: No; Tobacco Cessation Education Requested by Patient: No Hx Alcohol Use: No Hx Substance Use: No Preferred Language: Tuvaluan Communication Ability: Effective Visual Impairment: No Limitations Hearing Ability: Use of Hearing Aid Log Haul Chain Feeder Required: No Beliefs That Will Affect Care: None marital status: Current Living Situation: Spouse 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 status: retired 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 HEENT: Normal exam with inspection. CV: Hearth rhythm is regular. Neck: Supple, no carotid bruits. Lungs: Non-labored and comfortable breathing. Abdomen: Soft, non-tender, non-distended. Skin: No rash or ecchymosis. Extremities: No edema or cyanosis NEUROLOGICAL EXAMINATION: Mental Status: Alert and oriented to place, person and time. Slight confusion and memory gap regarding events from yesterday. Cranial Nerves: II-XII are intact. No nystagmus. Funduscopy: Normal looking optic discs. Motor: 5/5 in all extremities without asymmetry. DTRs: 1+ all except trace in ankles. No Babinski. Tone: Normal without spasticity or rigidity. Sensory: Decreased and altered sensation of left side of face, left upper and lower extremities. She also has decreased sensation in feet. Coordination: No dysmetria with FTN testing. Speech: Fluent. Comprehension is intact. Gait: Not assessed. Musculoskeletal: Normal muscle bulk, no atrophy. Results & Data ([facility]) Vital Signs (Past 12 Hours) Vital Signs Temp Pulse Pulse Resp BP Pulse Ox O2 Del Method 01/29/22 17:11 156/96 H 01/29/22 15:40 36.6 C 78 18 197/104 H 94 Room Air 01/29/22 11:00 36.9 C 72 20 177/100 H 94 Room Air 01/29/22 07:07 36.6 C 76 18 193/94 H 93 Room Air Laboratory Results Laboratory Results - last 24 hr 01/28/22 01/28/22 01/28/22 21:17 21:20 21:20 WBC 8.48 RBC 3.01 L Hgb 10.0 L POC Hgb 10.9 L Hct 30.7 L POC Hct 32 L MCV 102.0 H MCH 33.2 MCHC 32.6 RDW Std Deviation 52.1 H RDW Coeff of Gabriele 13.9 Plt Count 240 MPV 9.5 Immature Gran % (Auto) 0.5 Neut % (Auto) 72.9 Lymph % (Auto) 16.6 [place] % (Auto) 7.7 Eos % (Auto) 2.1 Baso % (Auto) 0.2 Neut # (Auto) 6.18 Lymph # (Auto) 1.41 [place] # (Auto) 0.65 Eos # (Auto) 0.18 Baso # (Auto) 0.02 Immature Gran # (Auto) 0.04 H PT 11.3 INR 1.1 APTT 23.1 PTT Ratio 0.8 POC Sodium 141 Sodium POC Potassium 4.4 Potassium POC Chloride 105 Chloride Carbon Dioxide POC Total CO2 26 Anion Gap POC Anion Gap 15.0 L POC BUN 8 BUN Creatinine POC Creatinine 0.9 Est Cr Clr Drug Dosing Est GFR ( Amer) Est GFR (Non-Af Amer) BUN/Creatinine Ratio Glucose POC Glucose (other) 116 H Estimat Average Glucose Hemoglobin A1c Calcium POC Ioniz Calcium Lisette 1.13 Magnesium Total Bilirubin AST ALT Alkaline Phosphatase Troponin I High Sens Total Protein Albumin Globulin Albumin/Globulin Ratio Triglycerides Cholesterol LDL Cholesterol, Calc VLDL Cholesterol, Calc HDL Cholesterol Cholesterol/HDL Ratio Vitamin B12 Folate Urine Color Urine Appearance Urine pH Ur Specific Mallard Urine Protein Urine Glucose (UA) Urine Ketones Urine Blood Urine Nitrite Urine Bilirubin Urine Urobilinogen Ur Leukocyte Esterase Urine WBC (Auto) Urine RBC (Auto) U Hyaline Cast (Auto) U Epithel Cells (Auto) Urine Bacteria (Auto) SARS-CoV-2, RNA, NAAT 01/28/22 01/28/22 01/29/22 21:20 21:50 01:29 WBC RBC Hgb POC Hgb Hct POC Hct MCV MCH MCHC RDW Std Deviation RDW Coeff of Gabriele Plt Count MPV Immature Gran % (Auto) Neut % (Auto) Lymph % (Auto) [place] % (Auto) Eos % (Auto) Baso % (Auto) Neut # (Auto) Lymph # (Auto) [place] # (Auto) Eos # (Auto) Baso # (Auto) Immature Gran # (Auto) PT INR APTT PTT Ratio POC Sodium Sodium 140 POC Potassium Potassium 4.4 POC Chloride Chloride 107 Carbon Dioxide 28 POC Total CO2 Anion Gap 5 POC Anion Gap POC BUN BUN 9 Creatinine 0.81 POC Creatinine Est Cr Clr Drug Dosing Not Reportable Est GFR ( Amer) 82.9 Est GFR (Non-Af Amer) 71.5 BUN/Creatinine Ratio 11.1 Glucose 111 H POC Glucose (other) Estimat Average Glucose Hemoglobin A1c Calcium 8.5 POC Ioniz Calcium Lisette Magnesium 1.6 L Total Bilirubin 0.5 AST 16 ALT 10 Alkaline Phosphatase 79 Troponin I High Sens 20.6 H 18.1 H Total Protein 6.5 Albumin 3.9 Globulin 2.6 Albumin/Globulin Ratio 1.5 Triglycerides Cholesterol LDL Cholesterol, Calc VLDL Cholesterol, Calc HDL Cholesterol Cholesterol/HDL Ratio Vitamin B12 Folate Urine Color Yellow Urine Appearance Clear Urine pH 7.0 Ur Specific Mallard 1.011 Urine Protein Negative Urine Glucose (UA) Negative Urine Ketones Trace H Urine Blood 1+ H Urine Nitrite Negative Urine Bilirubin Negative Urine Urobilinogen Negative Ur Leukocyte Esterase Negative Urine WBC (Auto) 1-5 Urine RBC (Auto) 5-10 H U Hyaline Cast (Auto) 1-5 U Epithel Cells (Auto) 10-20 H Urine Bacteria (Auto) Negative SARS-CoV-2, RNA, NAAT 01/29/22 01/29/22 01/29/22 02:00 06:15 06:15 WBC 7.65 RBC 3.03 L Hgb 9.9 L POC Hgb Hct 30.2 L POC Hct MCV 99.7 MCH 32.7 MCHC 32.8 RDW Std Deviation 50.2 H RDW Coeff of Gabriele 13.7 Plt Count 215 MPV 9.0 L Immature Gran % (Auto) 0.4 Neut % (Auto) 69.7 Lymph % (Auto) 16.7 [place] % (Auto) 9.8 Eos % (Auto) 3.0 Baso % (Auto) 0.4 Neut # (Auto) 5.33 Lymph # (Auto) 1.28 [place] # (Auto) 0.75 Eos # (Auto) 0.23 Baso # (Auto) 0.03 Immature Gran # (Auto) 0.03 H PT INR APTT PTT Ratio POC Sodium Sodium 140 POC Potassium Potassium 3.8 POC Chloride Chloride 106 Carbon Dioxide 28 POC Total CO2 Anion Gap 6 POC Anion Gap POC BUN BUN 6 Creatinine 0.63 POC Creatinine Est Cr Clr Drug Dosing 80.2 Est GFR ( Amer) 102.4 Est GFR (Non-Af Amer) 88.4 BUN/Creatinine Ratio 9.5 L Glucose 105 H POC Glucose (other) Estimat Average Glucose Hemoglobin A1c Calcium 8.5 POC Ioniz Calcium Lisette Magnesium 1.6 L Total Bilirubin AST ALT Alkaline Phosphatase Troponin I High Sens Total Protein Albumin Globulin Albumin/Globulin Ratio Triglycerides 146 Cholesterol 208 H LDL Cholesterol, Calc 124 VLDL Cholesterol, Calc 29 HDL Cholesterol 55 Cholesterol/HDL Ratio 3.8 Vitamin B12 Folate Urine Color Urine Appearance Urine pH Ur Specific Mallard Urine Protein Urine Glucose (UA) Urine Ketones Urine Blood Urine Nitrite Urine Bilirubin Urine Urobilinogen Ur Leukocyte Esterase Urine WBC (Auto) Urine RBC (Auto) U Hyaline Cast (Auto) U Epithel Cells (Auto) Urine Bacteria (Auto) SARS-CoV-2, RNA, NAAT NEGATIVE 01/29/22 01/29/22 06:15 06:15 WBC RBC Hgb POC Hgb Hct POC Hct MCV MCH MCHC RDW Std Deviation RDW Coeff of Gabriele Plt Count MPV Immature Gran % (Auto) Neut % (Auto) Lymph % (Auto) [place] % (Auto) Eos % (Auto) Baso % (Auto) Neut # (Auto) Lymph # (Auto) [place] # (Auto) Eos # (Auto) Baso # (Auto) Immature Gran # (Auto) PT INR APTT PTT Ratio POC Sodium Sodium POC Potassium Potassium POC Chloride Chloride Carbon Dioxide POC Total CO2 Anion Gap POC Anion Gap POC BUN BUN Creatinine POC Creatinine Est Cr Clr Drug Dosing Est GFR ( Amer) Est GFR (Non-Af Amer) BUN/Creatinine Ratio Glucose POC Glucose (other) Estimat Average Glucose 74 Hemoglobin A1c 4.2 L Calcium POC Ioniz Calcium Lisette Magnesium Total Bilirubin AST ALT Alkaline Phosphatase Troponin I High Sens Total Protein Albumin Globulin Albumin/Globulin Ratio Triglycerides Cholesterol LDL Cholesterol, Calc VLDL Cholesterol, Calc HDL Cholesterol Cholesterol/HDL Ratio Vitamin B12 270 Folate > 22.30 Urine Color Urine Appearance Urine pH Ur Specific Mallard Urine Protein Urine Glucose (UA) Urine Ketones Urine Blood Urine Nitrite Urine Bilirubin Urine Urobilinogen Ur Leukocyte Esterase Urine WBC (Auto) Urine RBC (Auto) U Hyaline Cast (Auto) U Epithel Cells (Auto) Urine Bacteria (Auto) SARS-CoV-2, RNA, NAAT Diagnostic Findings Head CT 01/28/22 22:34 CT SCAN OF THE BRAIN WITHOUT IV CONTRAST CLINICAL HISTORY: Strokelike symptoms. Change in mental status. COMPARISON STUDY: CT of the brain dated 09/15/2018. TECHNIQUE: Unenhanced axial CT scan of the brain is performed from the vertex to the skull base. A dose lowering technique was utilized adhering to the principles of ALARA. CT DOSE: 537.48 mGy.cm FINDINGS: Brain parenchyma: There is age-related involutional change noting [id number] te subcortical and periventricular microangiopathic disease. There is no hemorrhage, mass effect, or evidence of acute territorial ischemia by CT criteria. There is a subacute to chronic appearing lacunar infarct centered in the right thalamus/internal capsule. Chronic lacunar infarcts are seen in the basal ganglia bilaterally. Hills-white matter differentiation is preserved. No extra-axial fluid collection is seen. Ventricles, sulci, cisterns: Prominent secondary to involutional change. Intracranial vasculature: There is atherosclerotic calcification of the cavernous carotid and vertebral arteries. Calvarium: Unremarkable. Sinuses and mastoids: The visualized paranasal sinuses are clear. The mastoid air cells are well pneumatized. Orbits: The bony orbits are grossly intact. There are bilateral ocular lens implants. IMPRESSION: 1. There is no hemorrhage, mass effect, or evidence of acute territorial ischemia by CT criteria. 2. Subacute to chronic lacunar infarct centered in the right thalamus/internal capsule. ACT 112: Negative or not required by law. Electronically signed by: Nacho Diez M.D. 01/29/2022 7:07 AM Brain MRI 01/29/22 03:31 MR brain wo con HISTORY: 76 years-old Female encephalopathy, memory loss, r/o CVA acute strokelike symptoms COMPARISON: Head CT 01/28/2022 TECHNIQUE: Multiplanar multisequence MRI of the brain was obtained without the use of IV contrast. FINDINGS: There is a 1.8 cm focus of restricted diffusion with decreased signal on ADC not involving the right thalamus, image 12 series 7. Additionally, there is a 8 mm focus of increased diffusion-weighted signal, likely T2 shine through within the right frontal lobe sidhu radiata on image 14 series 7. No acute or subacute territorial infarct. There is no acute intracranial hemorrhage, midline shift, abnormal extra-axial collection, hydrocephalus or intracranial mass. Involutional changes with moderate T2/FLAIR hyperintense foci throughout the white matter. Cerebral venous sinuses and major arterial flow voids appear patent. Polypoid mucosal thickening of the maxillary and left sphenoid sinuses. The skull and soft tissues are unremarkable. Left mastoid effusion. Prior bilateral lens repair. IMPRESSION: 1. Acute to subacute appearing 1.8 cm infarct of the right thalamus. 2. No acute intracranial hemorrhage or midline shift 3. Involutional changes with chronic microvascular ischemic disease. ACT 112: Negative or not required by law. The above report was generated using voice recognition software. It may contain grammatical, syntax or spelling errors. Electronically signed by: Nayan Maloney M.D. 01/29/2022 1:28 PM
--- NOTE | 2022-01-29 17:58 | Billing Data ---
Date of Service January 29, 2022 Coding Level of Care Code 48937 Subseq Hosp Care Lvl 3
--- NOTE | 2022-01-29 19:24 | Billing Data ---
Date of Service January 29, 2022 Coding Level of Care Code 88694 Initial Inpt Care Lvl 3
[2022-01-29] MEDS: ASPIRIN 325 MG ECTAB PO SCH (19:57)
[2022-01-29] MEDS: ATORVASTATIN 40 MG TAB PO SCH (19:57)
[2022-01-29] MEDS ORDERED: TAMSULOSIN HCL 0.4 MG CAP PO SCH (21:00)
--- NOTE | 2022-01-29 21:05 | Ultrasound Report ---
CAROTID ARTERY ULTRASOUND CLINICAL HISTORY: Cerebrovascular accident. COMPARISON STUDY: None. TECHNIQUE: Real-time, grayscale, and color Doppler sonography of the carotid and vertebral arteries w as performed. Images were viewed in the transverse and longitudinal planes. FINDINGS: There is moderate atherosclerotic plaque. Velocity measurements are listed below. COMMON CAROTID PEAK SYSTOLIC VELOCITY (CM/S): RIGHT 78 LEFT 107 ICA PEAK SYSTOLIC VELOCITY (CM/S): RIGHT 67 LEFT 107 Systolic ratios between the internal to common carotid arteries were normal. Antegrade flow is seen in the vertebral arteries. The external carotid arteries are patent. IMPRESSION: Moderate atherosclerotic plaque without evidence for a hemodynamically significant steno sis. ACT 112: Negative or not required by law. Electronically signed by: Keven Frances M.D. 01/29/2022 9:04 PM
--- NOTE | 2022-01-29 21:34 | XCELERA ---
[id number] [id number]
[2022-01-30 06:12] LABS: Basophils # (auto) 0.03 K/uL (0-0.2); Basophils % (auto) 0.5 %; Eosinophils # (auto) 0.22 K/uL (0-0.50); Hematocrit (blood only) 30.2 % (34.1-44.9); Hemoglobin 10.1 g/dl (12.0-16.0); Immature Granulocytes # (auto) 0.02 K/uL (0.00-0.02); Immature Granulocytes % (auto) 0.4 %; Lymphocytes # (auto) 1.21 K/uL (1.2-3.4); Lymphocytes % (auto) 21.8 %; Mean Corpuscular Hemoglobin 32.8 pg (25.0-34.0); Mean Corpuscular Hgb Conc 33.4 g/dL (32.0-36.0); Mean Corpuscular Volume 98.1 fL (80.0-100.0); Mean Platelet Volume 9.2 fL (9.4-12.3); Monocytes # (auto) 0.61 K/uL (0.24-0.82); Neutrophils # (auto) 3.47 K/uL (1.4-6.5); Neutrophils % (auto) 62.3 %; Platelet Count 232 K/uL (130-400); RDW Coefficient of Variation 13.5 % (11.5-14.5); RDW Standard Deviation 48.3 fL (36.4-46.3); Red Blood Count 3.08 M/uL (3.93-5.22); White Blood Count 5.56 K/ul (4.8-10.8)
[2022-01-30] MEDS: PANTOprazole 40 MG TAB PO SCH (06:19)
[2022-01-30 06:43] LABS: BUN Creatinine Ratio 11.8 (10-20); Calcium 8.4 mg/dl (8.5-10.1); Est GFR (African American) 99.9 ml/min; Est GFR (Non-African American) 86.2 ml/min; Magnesium 1.6 mg/dl (1.7-2.4); Potassium 3.3 mmol/L (3.5-5.1)
[2022-01-30] MEDS ORDERED: POTASSIUM CHLORIDE CRTAB 20 MEQ TABCR PO STA (06:49)
--- NOTE | 2022-01-30 06:55 | Hospitalist Progress Note ---
Date of Service January 30, 2022 Assessment & Plan (1) Acute encephalopathy: Plan: Acute onset of [id number] term memory loss and mild confusion/disorientation, likely onset is sometime around noon on 01/28. DDx at this time includes acute CVA/TIA, transient global amnesia, hypertensive encephalopathy, delirium, and toxic encephalopathy due to narcotic pain medication use during recent hospitalization (associated with kidney stone - see below). Of note, h/o anaphylaxis with iodinated contrast (confirmed with patient and family). - CT head w/o contrast - subacute to chronic lacunar infarct in right thalamus/internal capsule - MRI brain: acute to subacute thalamic infarct - TTE pending - A1c wnl, mildly elevated cholesterol - Q4H Neuro checks, elevate HOB - improve HTN: BP goal <130/80 - consulted Neurology - appreciate recs -echo pending -carotid US: Moderate atherosclerotic plaque without evidence for a hemodynamically significant stenosis -MR angiogram head: distal right vertebral artery is not visualized and may be developmentally diminutive or chronically occluded, otherwise unremarkable -cont. aspirin, Lipitor (LDL goal <70) -PT/OT -f/u neuro outpatient 1 month (2) Hypertension: Plan: BP uncontrolled in ED - up to 203/106. - BP goal as above - continue home Lisinopril - cont. labetalol started in hospital (3) Elevated troponin: Plan: hsTroponin very mildly elevated at 20.6, without chest pain or ST/T abnormalities on EKG. Suspect demand ischemia due to uncontrolled HTN. - trops peaked - PRN EKG/SL Nitro for chest pain (4) Hypomagnesemia: Plan: Mg 1.6. Repleted in ED with Mg sulfate 1g IV. - replete as needed (5) Hydronephrosis with renal and ureteral calculous obstruction: Plan: POD2 s/p cystoscopy with stone evacuation and bilateral ureteral stent placement. Currently without pain, dysuria or hematuria. - continue Ciprofloxacin 500mg PO BID x3 days for ppx (per Urology recs, through 01/31) - continue Flomax - outpatient Urology f/u scheduled (6) Chronic GERD: Plan: Continue home Protonix (7) Chronic diarrhea: Plan: Continue home Cholestyramine PRN (8) Peripheral neuropathy: Plan: Hold home Pregabalin for now, due to acute encephalopathy. (9) Macrocytic anemia: Plan: Hgb 10.0 (baseline 11-13), MCV 102. No signs bleeding. Patient does have h/o peripheral neuropathy - unclear etiology per perusal of our chart. - folate wnl - b12 low normal, will replete with PO 1000mcg daily, cont. this on discharge (10) CVA (cerebral vascular accident): Plan FEN/GI: regular DVT Prophylaxis: Lovenox SQ Code Status: full code Disposition: PCU Admission and Anticipated Discharge Date Admission Date: January 29, 2022 Subjective Seen at bedside this morning. Still cannot remember her previous hospital stay over the past few days. Thinks on her current admission she has been here for at least a couple of days. However, alert and oriented to self/place. Denies chest pain, sob, abd pain, N/V, headache, focal deficits, limb weakness. Review of Systems Review of Systems: All systems reviewed & are unremarkable except as noted in HPI & below Physical Exam Physical Exam: General: AOx3. NAD. Cooperative. Remote memory questionable. HEENT: Atraumatic, normocephalic. Pulm: CTAB. -wheezes, -rales, -rhonchi. Symmetrical chest rise. No increase work of breathing. No respiratory distress. Cardiac: RRR, -mrg. Radial pulses intact and symmetrical. Abdominal: soft, non-tender, non-distended, BS x 4 Neuro: no focal deficits Results & Data Results & Data ([facility]) Vital Signs (Past 12 Hours) Vital Signs Temp Pulse Pulse Resp BP Pulse Ox Pulse Ox 01/29/22 22:19 77 01/30/22 03:31 96 01/30/22 04:47 36.9 C 78 18 173/86 H 96 01/29/22 20:30 01/29/22 23:16 36.9 C 76 16 179/85 H 94 01/29/22 19:34 37.0 C 81 20 192/93 H 95 O2 Del Method O2 Del Method 01/29/22 22:19 01/30/22 03:31 Room Air 01/30/22 04:47 Room Air 01/29/22 20:30 Room Air 01/29/22 23:16 Room Air 01/29/22 19:34 Room Air
--- NOTE | 2022-01-30 07:12 | Magnetic Resonance Report ---
MR angio head wo con HISTORY: 76 years-old Female CVA acute strokelike symptoms COMPARISON: Brain MRI of same day TECHNIQUE: MRA of the head was obtained without the use of IV contrast utilizing 3-D [id number] s equencing with MIP reformats. All measurements were obtained according to NASCET criteria. FINDINGS: Mildly motion degraded exam. Polypoid mucosal thickening of the paranasal sinuses. The imaged distal internal carotid arteries appear patent. The middle and left anterior cerebral arteries appear normal . The right A1 segment is not visualized and may be developmentally diminutive or absent. The right P ICA is visualized, however the distal right vertebral artery is not visualized. The distal left verte bral, basilar and posterior cerebral arteries appear patent. origin of the right posterior cere bral artery. No aneurysm or dissection identified. The acute to subacute appearing right thalamic inf arct is better visualized on the comparison MRI of the brain. IMPRESSION: 1. The distal right vertebral artery is not visualized and may be developmentally diminutive or chron ically occluded. 2. Otherwise unremarkable MRA of the head. ACT 112: Negative or not required by law. The above report was generated using voice recognition software. It may contain grammatical, syntax o r spelling errors. Electronically signed by: Nayan Maloney M.D. 01/30/2022 7:10 AM
[2022-01-30] MEDS: MAGNESIUM SULFATE / D5W 1 GM/100 ML BAG IV SCH ×2 (08:19→10:33)
[2022-01-30] MEDS: ENOXAPARIN INJ 40 MG/0.4 ML SYR SQ SCH (08:22)
[2022-01-30] MEDS: ASPIRIN 325 MG ECTAB PO SCH (08:22)
[2022-01-30] MEDS: CIPROFLOXACIN 500 MG TAB PO SCH (08:22)
[2022-01-30] MEDS: lisinopril 20 MG TAB PO SCH (08:22)
[2022-01-30] MEDS: ATORVASTATIN 40 MG TAB PO SCH (08:22)
[2022-01-30] MEDS: CYANOCOBALAMIN (B-12) 500 MCG TABLET PO SCH (08:22)
--- NOTE | 2022-01-30 08:50 | Pharmacy Report ---
- Date of Service January 30, 2022 - Pharmacy CVA/TIA Medication Review Medications to Prevent Stroke handout has been added to the patients discharge packet. Antiplatelet(s) * Aspirin 81 mg daily * Avoiding DAPT d/t recent ureteral procedure Cholesterol * High intensity statin: atorvastatin 40 mg daily DVT Prophylaxis * Enoxaparin SQ Therapeutic Anticoagulation * No history of Afib/Aflutter noted Type 2 Diabetes * Patient does not have T2DM
[2022-01-30] MEDS ORDERED: lisinopril 40 MG TAB PO SCH (09:00)
[2022-01-30] MEDS ORDERED: LABETALOL HCL 200 MG TAB PO SCH (09:00)
--- NOTE | 2022-01-30 15:50 | Discharge Summary ---
Date of Service January 30, 2022 Admission HPI Per Admitting Provider Kandy Torres is a 76yo female with PMHx significant for urethral lithiasis, HTN, neuropathy, and hiatal hernia/GERD (f/P. Will fundoplication) who presented to [facility] ED on 01/29 for memory deficit and confusion. Patient was recently admitted to [facility] from 01/26 to 01/29 for bilateral hydronephrosis due to obstructing ureteral stone and is s/p cystoscopy with stone evacuation and bilateral ureteral stent placement on 01/27. Patient was discharged on 01/28 with plans to continue antibiotic ppx (Cipro) x3 days as well as Flomax and Urology follow up. When patient got home she was confused, did not remember about her 3-day hospitalization and thought her was staying with a friend who has been . Patient also went to sit outside in the cold without a jacket and had told her family that she urinated on the floor but there was no evidence of this - all erratic behavior that is not her baseline. Patient's reports that she sounded confused on the phone in the morning on 01/28 but had not spoken to her earlier and is unsure when symptoms started. Patient denies focal weakness/numbness, aphasia or dysarthria. Denies headache, vision changes, SOB, chest pain, or LE edema. Feels well overall and is able to understand that her memory loss is atypical and believes that she was in the hospital. In the ED the patient was hypertensive to 203/106; otherwise afebrile and stable on room air. Labs significant for Hgb 10.0 (baseline 11-13), Mg 1.6, hsTroponin 20.6. EKG without ST/T abnormalities. Head CT w/o contrast without infarct/hemorrhage or acute process; but with chronic microvascular ischemic changes. Of note patient has h/o anaphylaxis with iodinated contrast and thus CTA studies were deferred. Patient was given NSS 500cc bolus and Mg 1g IV. Principal Diagnosis acute encephalopathy, stroke Discharge Exam General: alert. NAD. Cooperative. Remote memory questionable. Oriented to self and knows she is in a hospital. HEENT: Atraumatic, normocephalic. Pulm: CTAB. -wheezes, -rales, -rhonchi. Symmetrical chest rise. No increase work of breathing. No respiratory distress. Cardiac: RRR, -mrg. Radial pulses intact and symmetrical. Abdominal: soft, non-tender, non-distended, BS x 4 Neuro: no focal deficits Discharge Data Allergies Allergy/AdvReac Type Severity Reaction Status Date / Time amlodipine Allergy Severe Anaphylaxis Verified 01/28/22 21:19 benzocaine Allergy Severe Anaphylaxis Verified 01/28/22 21:19 [[address] [facility] (with benzocaine)] Iodinated Contrast Media Allergy Severe Anaphylaxis Verified 01/28/22 21:19 Penicillins Allergy Severe Anaphylaxis Verified 01/28/22 21:19 trimethobenzamide Allergy Severe Anaphylaxis Verified 01/28/22 21:19 lactose AdvReac Intermediate Gastrointestinal Verified 01/28/22 21:19 symptoms Consultations 01/28/22 23:46 ED Decision to Admit Stat 01/29/22 03:31 Consult Neurology Routine Ordered Studies Laboratory Results WBC 5.56 K/ul (4.8-10.8) 01/30/22 05:44 RBC 3.08 M/uL (3.93-5.22) L 01/30/22 05:44 Hgb 10.1 g/dl (12.0-16.0) L 01/30/22 05:44 POC Hgb 10.9 g/dl (12.0-16.0) L 01/28/22 21:17 Hct 30.2 % (34.1-44.9) L 01/30/22 05:44 POC Hct 32 % (37-47) L 01/28/22 21:17 MCV 98.1 fL (80.0-100.0) 01/30/22 05:44 MCH 32.8 pg (25.0-34.0) 01/30/22 05:44 MCHC 33.4 g/dL (32.0-36.0) 01/30/22 05:44 RDW Std Deviation 48.3 fL (36.4-46.3) H 01/30/22 05:44 RDW Coeff of Gabriele 13.5 % (11.5-14.5) 01/30/22 05:44 Plt Count 232 K/uL (130-400) 01/30/22 05:44 MPV 9.2 fL (9.4-12.3) L 01/30/22 05:44 Immature Gran % (Auto) 0.4 % 01/30/22 05:44 Neut % (Auto) 62.3 % 01/30/22 05:44 Lymph % (Auto) 21.8 % 01/30/22 05:44 [place] % (Auto) 11.0 % 01/30/22 05:44 Eos % (Auto) 4.0 % 01/30/22 05:44 Baso % (Auto) 0.5 % 01/30/22 05:44 Neut # (Auto) 3.47 K/uL (1.4-6.5) 01/30/22 05:44 Lymph # (Auto) 1.21 K/uL (1.2-3.4) 01/30/22 05:44 [place] # (Auto) 0.61 K/uL (0.24-0.82) 01/30/22 05:44 Eos # (Auto) 0.22 K/uL (0-0.50) 01/30/22 05:44 Baso # (Auto) 0.03 K/uL (0-0.2) 01/30/22 05:44 Immature Gran # (Auto) 0.02 K/uL (0.00-0.02) 01/30/22 05:44 PT 11.3 Seconds (9.0-12.0) 01/28/22 21:20 INR 1.1 (0.9-1.1) 01/28/22 21:20 APTT 23.1 Seconds (21.0-31.0) 01/28/22 21:20 PTT Ratio 0.8 01/28/22 21:20 POC Sodium 141 mmol/L (135-144) 01/28/22 21:17 Sodium 142 mmol/L (136-145) 01/30/22 05:44 POC Potassium 4.4 mmol/L (3.3-5.0) 01/28/22 21:17 Potassium 3.3 mmol/L (3.5-5.1) L 01/30/22 05:44 POC Chloride 105 mmol/L (101-112) 01/28/22 21:17 Chloride 107 mmol/L (98-107) 01/30/22 05:44 Carbon Dioxide 27 mmol/L (21-32) 01/30/22 05:44 POC Total CO2 26 mmol/L (24-31) 01/28/22 21:17 Anion Gap 8 (3-11) 01/30/22 05:44 POC Anion Gap 15.0 mmol/L (16-25) L 01/28/22 21:17 POC BUN 8 mg/dl (7-18) 01/28/22 21:17 BUN 8 mg/dl (6-23) 01/30/22 05:44 Creatinine 0.68 mg/dl (0.6-1.2) 01/30/22 05:44 POC Creatinine 0.9 mg/dl (0.6-1.3) 01/28/22 21:17 Est Cr Clr Drug Dosing 72.0 ml/min 01/30/22 05:44 Est GFR ( Amer) 99.9 ml/min 01/30/22 05:44 Est GFR (Non-Af Amer) 86.2 ml/min 01/30/22 05:44 BUN/Creatinine Ratio 11.8 (10-20) 01/30/22 05:44 Glucose 123 mg/dl (70-99(Fasting)) H 01/30/22 05:44 POC Glucose (other) 116 mg/dl (70-99) H 01/28/22 21:17 Estimat Average Glucose 74 mg/dl 01/29/22 06:15 Hemoglobin A1c 4.2 % (4.5-5.6) L 01/29/22 06:15 Calcium 8.4 mg/dl (8.5-10.1) L 01/30/22 05:44 POC Ioniz Calcium Lisette 1.13 mmol/l (1.12-1.32) 01/28/22 21:17 Magnesium 1.6 mg/dl (1.7-2.4) L 01/30/22 05:44 Total Bilirubin 0.5 mg/dl (0.2-1.0) 01/28/22 21:20 AST 16 U/L (13-39) 01/28/22 21:20 ALT 10 U/L (7-52) 01/28/22 21:20 Alkaline Phosphatase 79 U/L (34-104) 01/28/22 21:20 Troponin I High Sens 18.1 pg/ml (0-14) H 01/29/22 01:29 Total Protein 6.5 gm/dl (6.0-8.3) 01/28/22 21:20 Albumin 3.9 gm/dl (3.4-5.0) 01/28/22 21:20 Globulin 2.6 gm/dl (2.5-4.0) 01/28/22 21:20 Albumin/Globulin Ratio 1.5 (0.9-2) 01/28/22 21:20 Triglycerides 146 mg/dl (0-150) 01/29/22 06:15 Cholesterol 208 mg/dl (0-200) H 01/29/22 06:15 LDL Cholesterol, Calc 124 mg/dl 01/29/22 06:15 VLDL Cholesterol, Calc 29 mg/dl (0-30) 01/29/22 06:15 HDL Cholesterol 55 mg/dl 01/29/22 06:15 Cholesterol/HDL Ratio 3.8 (0-5) 01/29/22 06:15 Vitamin B12 270 pg/ml (180-914) 01/29/22 06:15 Folate > 22.30 ng/ml (>5.38) 01/29/22 06:15 Urine Color Yellow 01/28/22 21:50 Urine Appearance Clear (Clear) 01/28/22 21:50 Urine pH 7.0 (4.5-7.5) 01/28/22 21:50 Ur Specific Slater 1.011 (1.000-1.030) 01/28/22 21:50 Urine Protein Negative (Negative) 01/28/22 21:50 Urine Glucose (UA) Negative (Negative) 01/28/22 21:50 Urine Ketones Trace (Negative) H 01/28/22 21:50 Urine Blood 1+ (Negative) H 01/28/22 21:50 Urine Nitrite Negative (Negative) 01/28/22 21:50 Urine Bilirubin Negative (Negative) 01/28/22 21:50 Urine Urobilinogen Negative (Negative) 01/28/22 21:50 Ur Leukocyte Esterase Negative (Negative) 01/28/22 21:50 Urine WBC (Auto) 1-5 /hpf (0-5) 01/28/22 21:50 Urine RBC (Auto) 5-10 /hpf (0-4) H 01/28/22 21:50 U Hyaline Cast (Auto) 1-5 /lpf (0-5) 01/28/22 21:50 U Epithel Cells (Auto) 10-20 /lpf (0-5) H 01/28/22 21:50 Urine Bacteria (Auto) Negative (Negative) 01/28/22 21:50 SARS-CoV-2, RNA, NAAT NEGATIVE (NEGATIVE) 01/29/22 02:[address] 01/28/22 22:34 CT SCAN OF THE BRAIN WITHOUT IV CONTRAST CLINICAL HISTORY: Strokelike symptoms. Change in mental status. COMPARISON STUDY: CT of the brain dated 09/15/2018. TECHNIQUE: Unenhanced axial CT scan of the brain is performed from the vertex to the skull base. A dose lowering technique was utilized adhering to the principles of ALARA. CT DOSE: 537.48 mGy.cm FINDINGS: Brain parenchyma: There is age-related involutional change noting nows-nq-[id number] subcortical and periventricular microangiopathic disease. There is no hemorrhage, mass effect, or evidence of acute territorial ischemia by CT criteria. There is a subacute to chronic appearing lacunar infarct centered in the right thalamus/internal capsule. Chronic lacunar infarcts are seen in the basal ganglia bilaterally. Hills-white matter differentiation is preserved. No extra-axial fluid collection is seen. Ventricles, sulci, cisterns: Prominent secondary to involutional change. Intracranial vasculature: There is atherosclerotic calcification of the cavernous carotid and vertebral arteries. Calvarium: Unremarkable. Sinuses and mastoids: The visualized paranasal sinuses are clear. The mastoid air cells are well pneumatized. Orbits: The bony orbits are grossly intact. There are bilateral ocular lens implants. IMPRESSION: 1. There is no hemorrhage, mass effect, or evidence of acute territorial ischemia by CT criteria. 2. Subacute to chronic lacunar infarct centered in the right thalamus/internal capsule. ACT 112: Negative or not required by law. Electronically signed by: Nacho Diez M.D. 01/29/2022 7:07 AM Brain MRI 01/29/22 03:31 MR brain wo con HISTORY: 76 years-old Female encephalopathy, memory loss, r/o CVA acute strokelike symptoms COMPARISON: Head CT 01/28/2022 TECHNIQUE: Multiplanar multisequence MRI of the brain was obtained without the use of IV contrast. FINDINGS: There is a 1.8 cm focus of restricted diffusion with decreased signal on ADC not involving the right thalamus, image 12 series 7. Additionally, there is a 8 mm focus of increased diffusion-weighted signal, likely T2 shine through within the right frontal lobe sidhu radiata on image 14 series 7. No acute or subacute territorial infarct. There is no acute intracranial hemorrhage, midline shift, abnormal extra-axial collection, hydrocephalus or intracranial mass. Involutional changes with moderate T2/FLAIR hyperintense foci throughout the white matter. Cerebral venous sinuses and major arterial flow voids appear patent. Polypoid mucosal thickening of the maxillary and left sphenoid sinuses. The skull and soft tissues are unremarkable. Left mastoid effusion. Prior bilateral lens repair. IMPRESSION: 1. Acute to subacute appearing 1.8 cm infarct of the right thalamus. 2. No acute intracranial hemorrhage or midline shift 3. Involutional changes with chronic microvascular ischemic disease. ACT 112: Negative or not required by law. The above report was generated using voice recognition software. It may contain grammatical, syntax or spelling errors. Electronically signed by: Nayan Maloney M.D. 01/29/2022 1:28 PM Head MRA 01/29/22 18:11 MR angio head wo con HISTORY: 76 years-old Female CVA acute strokelike symptoms COMPARISON: Brain MRI of same day TECHNIQUE: MRA of the head was obtained without the use of IV contrast utilizing 3-D [id number]-nu-rhxten sequencing with MIP reformats. All measurements were obtained according to NASCET criteria. FINDINGS: Mildly motion degraded exam. Polypoid mucosal thickening of the paranasal sinuses. The imaged distal internal carotid arteries appear patent. The middle and left anterior cerebral arteries appear normal. The right A1 segment is not visualized and may be developmentally diminutive or absent. The right PICA is visualized, however the distal right vertebral artery is not visualized. The distal left vertebral, basilar and posterior cerebral arteries appear patent. origin of the right posterior cerebral artery. No aneurysm or dissection identified. The acute to subacute appearing right thalamic infarct is better visualized on the comparison MRI of the brain. IMPRESSION: 1. The distal right vertebral artery is not visualized and may be developmentally diminutive or chronically occluded. 2. Otherwise unremarkable MRA of the head. ACT 112: Negative or not required by law. The above report was generated using voice recognition software. It may contain grammatical, syntax or spelling errors. Electronically signed by: Nayan Maloney M.D. 01/30/2022 7:10 AM Carotid Doppler Study 01/29/22 18:14 CAROTID ARTERY ULTRASOUND CLINICAL HISTORY: Cerebrovascular accident. COMPARISON STUDY: None. TECHNIQUE: Real-time, grayscale, and color Doppler sonography of the carotid and vertebral arteries was performed. Images were viewed in the transverse and longitudinal planes. FINDINGS: There is moderate atherosclerotic plaque. Velocity measurements are listed below. COMMON CAROTID PEAK SYSTOLIC VELOCITY (CM/S): RIGHT 78 LEFT 107 ICA PEAK SYSTOLIC VELOCITY (CM/S): RIGHT 67 LEFT 107 Systolic ratios between the internal to common carotid arteries were normal. Antegrade flow is seen in the vertebral arteries. The external carotid arteries are patent. IMPRESSION: Moderate atherosclerotic plaque without evidence for a hemodynamically significant stenosis. ACT 112: Negative or not required by law. Electronically signed by: Keven Frances M.D. 01/29/2022 9:04 PM Hospital Course (1) Acute encephalopathy: Acute encephalopathy New onset of byusr-zz-ehlpkt term memory loss and mild confusion/disorientation, likely onset is sometime around noon on 01/28. DDx at this time includes acute CVA/TIA, transient global amnesia, hypertensive encephalopathy, delirium, and toxic encephalopathy due to narcotic pain medication use during recent hospitalization (associated with kidney stone - see below). Of note, h/o anaphylaxis with iodinated contrast (confirmed with patient and family). - CT head w/o contrast - subacute to chronic lacunar infarct in right thalamus/internal capsule - MRI brain: acute to subacute thalamic infarct - TTE: mild pulm HTN compared to previous otherwise no changes. - A1c wnl, mildly elevated cholesterol - improve HTN: BP goal <130/80 - consulted Neurology - appreciate recs -carotid US: Moderate atherosclerotic plaque without evidence for a hemodynamically significant stenosis -MR angiogram head: distal right vertebral artery is not visualized and may be developmentally diminutive or chronically occluded, otherwise unremarkable -cont. aspirin, Lipitor (LDL goal <70) -cont. home PT/OT -f/u neuro outpatient 1 month Hypertension BP uncontrolled in ED - up to 203/106. - BP goal as above - continue Lisinopril and labetalol started in hospital Elevated troponin hsTroponin very mildly elevated at 20.6, without chest pain or ST/T abnormalities on EKG. Suspect demand ischemia due to uncontrolled HTN. - trops peaked - PRN EKG/SL Nitro for chest pain Hypomagnesemia Mg 1.6. Repleted in ED with Mg sulfate 1g IV. Hydronephrosis with renal and ureteral calculous obstruction s/p cystoscopy with stone evacuation and bilateral ureteral stent placement. Currently without pain, dysuria or hematuria. - continue Ciprofloxacin 500mg PO BID for ppx (per Urology recs, through 01/31) - continue Flomax - outpatient Urology f/u scheduled Chronic GERD Continue home Protonix Chronic diarrhea Continue home Cholestyramine PRN Peripheral neuropathy Hold home Pregabalin for now, due to acute encephalopathy. Macrocytic anemia Hgb 10.0 (baseline 11-13), MCV 102. No signs bleeding. Patient does have h/o peripheral neuropathy - unclear etiology per perusal of our chart. - folate wnl - b12 low normal, will replete with PO 1000mcg daily, cont. this on discharge CVA (cerebral vascular accident) as above (2) Hypertension: (3) Elevated troponin: (4) Hypomagnesemia: (5) Hydronephrosis with renal and ureteral calculous obstruction: (6) Chronic GERD: (7) Chronic diarrhea: (8) Peripheral neuropathy: (9) Macrocytic anemia: (10) CVA (cerebral vascular accident): Total Time Total Time Spent Total Time Spent (In Minutes): <30 Discharge Plan Discharge Items Patient Disposition: Home - Self-Care Reason For Visit: ACUTE ENCEPHALOPATHY Discharge Diagnosis: acute encephalopathy, stroke Activity: Resume your previous activity Non-emergency contact: Primary Care Provider and Neurologist Call non-emergency contact if: you have any medication questions and your symptoms worsen Follow-up/Referrals: Italo Altamirano DO [Resident] - 02/11/22 3:45 pm (TCM f/u) Diet: Regular Addtl Attending Provider Instructions: You were admitted to the hospital for confusion. This was following discharge from the same hospital hours prior which you were previously hospitalized for kidney stones and stent insertion/removal. While in the hospital we did find you to have a acute stroke which we are currently treating appropriately with medications after being seen by our neurologist. Although you were found to have a stroke we are not convinced this was the reason for your confusion. We believe your confusion may be due to an acute onset of delirium or encephalopathy which may have been attributed to an elevation in blood pressure. In the hospital we have been focusing to bring your blood pressure down along with reducing your atherosclerotic risk with medications. As her confusion has somewhat improved we do believe it is safe to get you back home with her in a familiar environment which would be good for her mental health. We hope you gradually begin to improve further. You should follow-up with your primary care provider in the next week. We will also schedule you with [facility] neurology in the outpatient setting in 1 month. If you do not hear from the neurology office please call them to schedule an appointment. New medications that you will be on will be written below and sent to your pharmacy in [place]. To manage blood pressure we have increased your lisinopril dose from 20 mg to 40 mg daily. You will also continue labetalol 2 times a day until you are seen by your primary care provider. To help atherosclerosis and stroke risk you will be started on atorvastatin and aspirin. On a side note you are also found to be B12 deficient in the hospital. Because of this we said best to supplement B12 daily. New medications: Atorvastatin 40 mg daily -Aspirin 81 mg daily -B12 1000 mcg daily -Lisinopril 40 mg daily -Atorvastatin 40 mg daily Pending Studies at Discharge: No Stand-Alone Forms: My [facility] Medications and DC Order Prescriptions: New atorvastatin 40 mg Tablet 40 mg PO QAM Qty: 30 0RF labetalol 200 mg Tablet 200 mg PO BID Qty: 60 0RF aspirin 81 mg Tablet,Delayed Release (Dr/Ec) 81 mg PO QAM Qty: 30 0RF cyanocobalamin (vitamin B-12) 500 mcg Tablet 1,000 mcg PO QAM Qty: 30 0RF lisinopril [Zestril] 40 mg Tablet 40 mg PO QAM Qty: 30 0RF Continued oxybutynin chloride 5 mg tablet 5 mg PO BID PRN (Reason: bladder spasms) Qty: 30 0RF pregabalin [Lyrica] 75 mg capsule 75 mg PO HS pantoprazole [Protonix] 40 mg tablet,delayed release (DR/EC) 40 mg PO DAILYBB Label Comments: pt takes in the am multivitamin tablet 1 tab PO QDL Label Comments: pt states she takes med at noon cholestyramine (with sugar) 4 gram Powder 4 g PO BID PRN (Reason: Diarrhea) Rx Instructions: administer w/meal; avoid other meds within 1hr before or 4-6hr after dose phenazopyridine [Pyridium] 200 mg tablet 200 mg PO TID PRN (Reason: pain) Qty: 10 0RF Azo Bladder Control 300 mg Capsule 2 cap PO DAILY PRN (Reason: Pain) tamsulosin 0.4 mg capsule 0.4 mg PO HS Qty: 30 0RF oxycodone-acetaminophen [Percocet] 7.5-325 mg tablet 1 tab PO Q8H PRN (Reason: pain) Qty: 7 0RF ciprofloxacin HCl [Cipro] 500 mg tablet 500 mg PO BID Qty: 7 0RF Rx Instructions: first dose evening of 01/28/22 Discontinued lisinopril [Zestril] 20 mg tablet 20 mg PO QAM Discharge Orders: Discharge Order (Routine); Ordered 01/30/22 Ordered By: Italo Alas/Other Patient Handouts: Symptoms of Stroke, What Is Ischemic Stroke?, Stroke: Taking Medicines, Discharge Instructions for Stroke Admission Data Admit Date/Time: 01/29/22 00:58 Attending Provider: Nate Corado Admit Provider: Karlos Rdz Primary Care Provider: Jonathon Cha Other Providers: Juvenal Green ; Saad Bo Other Interventions: Discharge Summary Assessment (RN) Last Done: 01/30/22 15:32 Supervising Physician Co-Signing Physician Notes I personally examined the patient and verified all price points of history and exam, discussed case, and agree with decision making with Dr Altamirano. feels better and feels up to going home - dr altamirano later revisited and d/w who feels comfortable with taking her home Vitals noted, in general she is awake and alert oriented pleasant no distress. HEENT normocephalic atraumatic mucous membranes moist. Breathing unlabored no accessory muscle use good effort. Skin shows no rashes no pallor or icterus. Neuro as above. Deliriumsuspect hypertensive encephalopathy given her markedly elevated blood pressure and paucity of other delirogenic factors. Environment was changingbut given that she went from the hospital to home and then became delirious this seems unlikely, metabolic issues do not appear to be at play given that her electrolytes are reasonable and she does not appear dehydrated, I doubt toxic/medication side effects or replacements very little changed from discharge to onset of delirium (was prescribed Cipro, but was on it prior to discharge as well), nothing appears acutely infectious. Her MRI does look suspicious for an acute to subacute stroke, but given acute to subacute the timeframe is a bit more questionable, and given that it would be odd for her to have a fully delirious presentation for what should be more focal neurologic deficits (which neuro exam by neurology does confirm a bit of a sensory deficit) I am much more suspicious that she had a hypertensive crisis manifest by her delirium/hypertensive encephalopathy, and incidentally had a hypertensive stroke as part of the "fallout" from the hypertensive crisis. Med management, blood pressure control, secondary risk reduction. safe for home. close pcp f/u Resident Activity Tracking Resident Involvement: Resident Care Provided Care Provided: Adult Hospital Medicine
--- NOTE | 2022-01-30 19:37 | Billing Data ---
Date of Service January 30, 2022 Coding Level of Care Code D/C DAY MANAGEMENT <30 MINS
--- NOTE | 2022-01-30 19:37 | Billing Data ---
Date of Service January 30, 2022 Coding Level of Care Code D/C DAY MANAGEMENT <30 MINS
--- NOTE | 2022-01-30 23:20 | Electrocardiogram Report ---
Test Reason : Blood Pressure : / mmHG Vent. Rate : 085 BPM Atrial Rate : 085 BPM P-R Int : 118 ms QRS Dur : 080 ms QT Int : 356 ms P-R-T Axes : 064 037 -10 degrees QTc Int : 423 ms Poor data quality, interpretation may be adversely affected Normal sinus rhythm Possible Left atrial enlargement Cannot rule out Inferior infarct , age undetermined Abnormal ECG When compared with ECG of 12-DEC-2021 12:03, Nonspecific T wave abnormality no longer evident in Anterolateral leads Confirmed by Juan Daniel Bravo ([id number]) on 01/30/2022 11:19:58 PM Referred By: REFERRED SELF Confirmed By:Juan Daniel Bravo
[2022-01-31] MEDS ORDERED: ASPIRIN 81 MG ECTAB PO SCH (09:00)
== END 2022-01-30 16:45 | disposition home health service (06) | DRG 77 ==
LOC: ED 20:38 → SUATTDRO 01-29 00:58 → 2E 01-29 00:58